=== PATIENT | female | born 1940 | race Caucasian/White ===

== ENCOUNTER → 2016-07-02 | Day surgery (SDC) | payer OTHER ==
[2016-06-17 11:38] VITALS: Ht 149.9 cm; Wt 55.5 kg
[~2016-07-02] VITALS: Ht 149.9 cm; Wt 55.5 kg
[~2016-07-02] MED LIST: 500ML BSS 0.3ML EPI 1:1000PF IRRIG ONE; ACETAMINOPHEN 325 MG TAB PO PRN; AMVISC PLUS 0.8ML SYRINGE INT OCU ONE; ATOR-24 PO; ATROPINE SULFATE 0.1 MG/ML 5ML SYR IV PRN; BROM0.07 OPL; BSS FLUSH ONE; CALCTAB5 PO; CIPR0.3S OPL; CMBIN INH; EpINEphrine INJ 1MG/ML AMP 1 MG/ML AMP ONE; FLUT1INH INH; FSMD/70 PO; HYG/25 PO; IPRASOL4 INH; LACTATED RINGER'S 1000ML 500 ML IV SCH; LEVO150T9 PO; LIDOCAINE 3.5% OPH GEL PER APPLICATION CHARGE ONE; LIDOCAINE HCL 1% MPF 2 ML VIAL ONE; LISI20TA3 PO; METH1TAB66 PO; METO-551 PO; MIDAZOLAM HCL 1 MG/ML 2ML VIAL ONE; OCUCOAT 1 ML SOLN IO ONE; OMEG10007 PO; OXGN; OXYM0.0592 NAE; POVIDONE-IODINE OP SOLN 30 ML BTL ONE; PROPARACAINE 0.5% OP SOLN PER DROP CHARGE OPL SCH; SPRIN/30 INH; TOBRAMYCIN/DEXAMETHASONE OPH OINT PER APPLN CHARGE ONE
--- NOTE | 2016-07-02 11:27 | History & Physical Bridge - [place] ---
H&P Re-Evaluation Bridge Note: I have examined the patient, reviewed the History & Physical and in the interval since the performance of the History & Physical I have noted the following changes of clinical significance: Diagnosis: Left Cataract Procedure: Left Cataract Removal with Lens Implant No changes noted
[2016-07-02] MEDS: PHENYLEPHRINE HCL 2.5% OP SOLN PER DROP CHARGE OPL SCH ×2 (11:29→11:34)
[2016-07-02] MEDS: TROPICAMIDE 1% OP SOLN PER DROP CHARGE OPL SCH ×2 (11:30→11:35)
[2016-07-02] MEDS: CYCLOPENTOLATE HCL 1% OP SOLN PER DROP CHARGE OPL SCH ×2 (11:31→11:36)
[2016-07-02] MEDS: KETOROLAC 0.5% OP SOLN PER DROP CHARGE OPL SCH ×2 (11:32→11:37)
[2016-07-02] MEDS: GATIFLOXACIN OP SOLN PER DROP CHARGE OPL SCH ×2 (11:33→11:41)
--- NOTE | 2016-07-02 12:10 | Discharge Instructions-SurgCtr ---
Discharge Instructions Date of Service Jul 02, 2016. Visit Reason for Visit: Cataract Left Eye Discharge Discharge Diagnosis / Problem: cataract Discharge Goals Goal(s): Improve function Activity Recommendations Activity Limitations: per Instructions/Follow-up section Anesthesia . Post Anesthesia Instructions: If you have had General Anesthesia or IV Sedation: * Do not drive today. * Resume driving when surgeon permits. * Do not make important decisions or sign legal documents today. * Call surgeon for: 1. Temperature elevations greater than 101 degrees F. 2. Uncontrollable pain. 3. Excessive bleeding. 4. Persistent nausea and vomiting. 5. Medication intolerance (nausea, vomiting or rash). * For nausea and vomiting use only clear liquids such as: tea, soda, bouillon until nausea subsides, then gradually increase diet as tolerated. * If you have any concerns or questions, call your surgeon's office. If physician is unavailable and it is an emergency, call 911 or go to the nearest emergency room. . Instructions / Follow-Up Instructions / Follow-Up ACTIVITY RECOMMENDATIONS: * No strenuous lifting, jogging or running for 4 days * No swimming or yard work for 1 week. * Limited bending is permitted, such as putting on shoes. RETURN TO SCHOOL/WORK: No work until seen by physician in office. MEDICATIONS: Resume previous medications unless instructed otherwise by your surgeon. This includes eye drops for glaucoma. Zymaxid/Gatifloxacin (alexander cap) - one drop every 2 hours until bedtime Nevanac/Ilevro/Prolensa/Ketorolac (nelson cap) - one drop every 4 hours until bedtime Prednisolone (white/pink cap, SHAKE WELL) - one drop every 2 hours until bedtime Starting tomorrow - all 3 drops every 4 hours until seen in the office Optive drops - as needed for discomfort SPECIAL CARE INSTRUCTIONS: * Wear eyeshield when sleeping, for four nights. * You may wear your own glasses or sunglasses while awake. * You may read or watch TV * You may shower and wash your face, but be gentle around the eye and pat dry. * Blurry vision and mild irritation are normal. * Call office if pain is more severe or vision becomes dark at . FOLLOW UP VISIT: Follow-up with Dr Webb tomorrow. Diet Recommendations Home Diet: resume previous diet Procedures Procedures Performed: Left Cataract Phacoemulsification With Intraocular Lens Implant Pending Studies Studies pending at discharge: no Medical Emergencies . Who to Call and When: Medical Emergencies: If at any time you feel your situation is an emergency, please call 911 immediately. . Non-Emergent Contact Non-Emergency issues call your: Shield Operator . . "Provider Documentation" section prepared by John Webb.
[2016-07-02 12:11] VITALS: TEMP 36.8
--- NOTE | 2016-07-02 12:11 | [facility] Operative Report ---
Operative Report Date of Service Jul 02, 2016. Operative Report 1. PREOPERATIVE DIAGNOSIS: Cataract of the left eye. 2. POSTOPERATIVE DIAGNOSIS: Same. 3. PROCEDURE: Phacoemulsification with intraocular lens implantation of the left eye. SURGEON: Dr. John Webb. ANESTHESIA: Topical Lidocaine gel, 1% Non- Preserved intracameral Lidocaine, and monitored intravenous sedation. INDICATIONS FOR THE PROCEDURE: The patient is a 75 - year-old female with a history of cataract of the left eye causing significant visual impairment. The details of the proposed procedure were explained to the patient who asked appropriate questions and following discussion of all risks, benefits and alternatives agreed to have the procedure done. 4. OPERATION AND FINDINGS: DESCRIPTION OF PROCEDURE: After informed consent was obtained, the patient was brought to the Operating Room at the [facility]. The patient was placed in a supine position and then the left eye was prepped and draped in the usual sterile fashion for intraocular surgery. A drop of topical Lidocaine gel was placed in the operative eye. A wire lid speculum was then placed in the fornices. A corneal paracentesis was then created temporally. The Non-Preserved Lidocaine was then instilled into the anterior chamber. The anterior chamber was then pressurized with viscoelastic. A 2.0 mm clear corneal incision was then created temporally. A cystotome was inserted into the anterior chamber and used to create a tear in the anterior lens capsule. This capsular tear was then used to create a small flap and the flap was dragged in a counterclockwise direction in order to create a continuous curvilinear capsulorrhexis. Hydrodissection was accomplished with balanced salt solution. Phacoemulsification of the lens nucleus was then performed in a standard [id number] technique. The phaco time was 33 seconds with an average power of 17 %. The remaining cortical material was removed using irrigation aspiration. The capsular bag was then filled with viscoelastic. A Bausch & Lomb MI60L +21.5 diopters lens was then loaded into the injector and injected into the capsular bag. The remaining viscoelastic was removed with the irrigation aspiration handpiece. The wound was hydrated and then checked and found to be watertight. The intraocular pressure was checked and found to be adequate. The wire lid speculum was removed and the patient's face was cleaned and dried. TobraDex ointment was placed in the inferior fornix. The patient was discharged to the Recovery Room having tolerated the procedure well. There were no complications. The patient will be seen tomorrow in the office for follow-up. I attest to the content of the Intraoperative Record and any orders documented therein. Any exceptions are noted below.
--- NOTE | 2016-07-02 12:14 | Anesthesia Progress Nt - [facility] ---
Anesthesia Post Op Note Date & Time Jul 02, 2016 at 12:14 Vital Signs Pain Intensity: 0 Vital Signs Past 12 Hours Date Time Temp Pulse Resp B/P Pulse Ox O2 Delivery O2 Flow Rate FiO2 07/02/16 11:29 36.9 60 16 137/81 94 Room Air Notes Mental Status: alert / awake / arousable, participated in evaluation Pt Amnestic to Procedure: Yes Nausea / Vomiting: adequately controlled Pain: adequately controlled Airway Patency, RR, SpO2: stable & adequate BP & HR: stable & adequate Hydration State: stable & adequate Anesthetic Complications: no major complications apparent
[2016-07-02 12:31] VITALS: BP 126/82; PULSE 62; O2SAT 98
== END | disposition home or self-care (01) ==
LOC: X.SURG 11:05
PROVIDERS: ATTEND Ophthalmology
DX: H26.9 Unspecified cataract (principal); J45.909 Unspecified asthma, uncomplicated; M19.90 Unspecified osteoarthritis, unspecified site; J44.9 Chronic obstructive pulmonary disease, unspecified; I10 Essential (primary) hypertension; E78.5 Hyperlipidemia, unspecified; E03.9 Hypothyroidism, unspecified; Z79.899 Other long term (current) drug therapy; Z91.040 Latex allergy status; Z68.24 Body mass index [BMI] 24.0-24.9, adult; Z98.890 Other specified postprocedural states; Z90.710 Acquired absence of both cervix and uterus; Z90.89 Acquired absence of other organs; Z90.49 Acquired absence of other specified parts of digestive tract; Z87.891 Personal history of nicotine dependence; Z82.49 Family history of ischemic heart disease and other diseases of the circulatory system; Z82.5 Family history of asthma and other chronic lower respiratory diseases

== ENCOUNTER → 2016-07-23 | Day surgery (SDC) | payer OTHER ==
[2016-07-15 13:24] VITALS: Ht 149.9 cm; Wt 55.5 kg
[~2016-07-23] VITALS: Ht 149.9 cm; Wt 55.5 kg
[~2016-07-23] MED LIST changes: -CMBIN INH; +EpHEDrine SULFATE INJ 50 MG/ML AMP IV PRN; -PROPARACAINE 0.5% OP SOLN PER DROP CHARGE OPL SCH; +PROPARACAINE 0.5% OP SOLN PER DROP CHARGE OPR SCH
[2016-07-23] MEDS: PHENYLEPHRINE HCL 2.5% OP SOLN PER DROP CHARGE OPR SCH ×2 (11:32→11:37)
[2016-07-23] MEDS: TROPICAMIDE 1% OP SOLN PER DROP CHARGE OPR SCH ×2 (11:33→11:38)
[2016-07-23] MEDS: CYCLOPENTOLATE HCL 1% OP SOLN PER DROP CHARGE OPR SCH ×2 (11:34→11:39)
[2016-07-23] MEDS: KETOROLAC 0.5% OP SOLN PER DROP CHARGE OPR SCH ×2 (11:35→11:40)
[2016-07-23] MEDS: GATIFLOXACIN OP SOLN PER DROP CHARGE OPR SCH ×2 (11:36→11:46)
--- NOTE | 2016-07-23 11:55 | History & Physical Bridge - [place] ---
H&P Re-Evaluation Bridge Note: I have examined the patient, reviewed the History & Physical and in the interval since the performance of the History & Physical I have noted the following changes of clinical significance: No changes noted
--- NOTE | 2016-07-23 12:50 | Discharge Instructions-SurgCtr ---
Discharge Instructions Date of Service Jul 23, 2016. Visit Reason for Visit: Cataract Right Eye Discharge Discharge Diagnosis / Problem: cataract Discharge Goals Goal(s): Improve function Activity Recommendations Activity Limitations: per Instructions/Follow-up section Anesthesia . Post Anesthesia Instructions: If you have had General Anesthesia or IV Sedation: * Do not drive today. * Resume driving when surgeon permits. * Do not make important decisions or sign legal documents today. * Call surgeon for: 1. Temperature elevations greater than 101 degrees F. 2. Uncontrollable pain. 3. Excessive bleeding. 4. Persistent nausea and vomiting. 5. Medication intolerance (nausea, vomiting or rash). * For nausea and vomiting use only clear liquids such as: tea, soda, bouillon until nausea subsides, then gradually increase diet as tolerated. * If you have any concerns or questions, call your surgeon's office. If physician is unavailable and it is an emergency, call 911 or go to the nearest emergency room. . Instructions / Follow-Up Instructions / Follow-Up ACTIVITY RECOMMENDATIONS: * No strenuous lifting, jogging or running for 4 days * No swimming or yard work for 1 week. * Limited bending is permitted, such as putting on shoes. RETURN TO SCHOOL/WORK: No work until seen by physician in office. MEDICATIONS: Resume previous medications unless instructed otherwise by your surgeon. This includes eye drops for glaucoma. Zymaxid/Gatifloxacin (alexander cap) - one drop every 2 hours until bedtime Nevanac/Ilevro/Prolensa/Ketorolac (nelson cap) - one drop every 4 hours until bedtime Prednisolone (white/pink cap, SHAKE WELL) - one drop every 2 hours until bedtime Starting tomorrow - all 3 drops every 4 hours until seen in the office Optive drops - as needed for discomfort SPECIAL CARE INSTRUCTIONS: * Wear eyeshield when sleeping, for four nights. * You may wear your own glasses or sunglasses while awake. * You may read or watch TV * You may shower and wash your face, but be gentle around the eye and pat dry. * Blurry vision and mild irritation are normal. * Call office if pain is more severe or vision becomes dark at . FOLLOW UP VISIT: Follow-up with Dr Webb tomorrow. Diet Recommendations Home Diet: resume previous diet Procedures Procedures Performed: Right Cataract Phacoemulsification With Intraocular Lens Implant Pending Studies Studies pending at discharge: no Medical Emergencies . Who to Call and When: Medical Emergencies: If at any time you feel your situation is an emergency, please call 911 immediately. . Non-Emergent Contact Non-Emergency issues call your: Microbiological Laboratory Technician . . "Provider Documentation" section prepared by John Webb.
--- NOTE | 2016-07-23 12:51 | [facility] Operative Report ---
Operative Report Date of Service Jul 23, 2016. Operative Report 1. PREOPERATIVE DIAGNOSIS: Cataract of the right eye. 2. POSTOPERATIVE DIAGNOSIS: Same. 3. PROCEDURE: Phacoemulsification with intraocular lens implantation of the right eye. SURGEON: Dr. John Webb. ANESTHESIA: Topical Lidocaine gel, 1% Non- Preserved intracameral Lidocaine, and monitored intravenous sedation. INDICATIONS FOR THE PROCEDURE: The patient is a 75 - year-old female with a history of cataract of the right eye causing significant visual impairment. The details of the proposed procedure were explained to the patient who asked appropriate questions and following discussion of all risks, benefits and alternatives agreed to have the procedure done. 4. OPERATION AND FINDINGS: DESCRIPTION OF PROCEDURE: After informed consent was obtained, the patient was brought to the Operating Room at the [facility]. The patient was placed in a supine position and then the right eye was prepped and draped in the usual sterile fashion for intraocular surgery. A drop of topical Lidocaine gel was placed in the operative eye. A wire lid speculum was then placed in the fornices. A corneal paracentesis was then created temporally. The Non-Preserved Lidocaine was then instilled into the anterior chamber. The anterior chamber was then pressurized with viscoelastic. A 2.0 mm clear corneal incision was then created temporally. A cystotome was inserted into the anterior chamber and used to create a tear in the anterior lens capsule. This capsular tear was then used to create a small flap and the flap was dragged in a counterclockwise direction in order to create a continuous curvilinear capsulorrhexis. Hydrodissection was accomplished with balanced salt solution. Phacoemulsification of the lens nucleus was then performed in a standard [id number] technique. The phaco time was 30 seconds with an average power of 9 %. The remaining cortical material was removed using irrigation aspiration. The capsular bag was then filled with viscoelastic. A Bausch & Lomb MI60L +21.5 diopters lens was then loaded into the injector and injected into the capsular bag. The remaining viscoelastic was removed with the irrigation aspiration handpiece. The wound was hydrated and then checked and found to be watertight. The intraocular pressure was checked and found to be adequate. The wire lid speculum was removed and the patient's face was cleaned and dried. TobraDex ointment was placed in the inferior fornix. The patient was discharged to the Recovery Room having tolerated the procedure well. There were no complications. The patient will be seen tomorrow in the office for follow-up. I attest to the content of the Intraoperative Record and any orders documented therein. Any exceptions are noted below.
[2016-07-23 12:59] VITALS: TEMP 36.6
[2016-07-23 13:19] VITALS: BP 126/80; PULSE 58; O2SAT 94
--- NOTE | 2016-07-23 13:20 | Anesthesia Progress Nt - [facility] ---
Anesthesia Post Op Note Date & Time Jul 23, 2016 at 13:19 Vital Signs Pain Intensity: 3 Vital Signs Past 12 Hours Date Time Temp Pulse Resp B/P Pulse Ox O2 Delivery O2 Flow Rate FiO2 07/23/16 12:59 36.6 60 16 125/69 97 Room Air 07/23/16 11:29 36.6 52 18 145/78 95 Room Air Notes Mental Status: alert / awake / arousable, participated in evaluation Pt Amnestic to Procedure: No Nausea / Vomiting: adequately controlled Pain: adequately controlled Airway Patency, RR, SpO2: stable & adequate BP & HR: stable & adequate Hydration State: stable & adequate Anesthetic Complications: no major complications apparent non distressing recall as discussed preop
== END | disposition home or self-care (01) ==
LOC: X.SURG 10:25
PROVIDERS: ATTEND Ophthalmology
DX: H26.9 Unspecified cataract (principal); I10 Essential (primary) hypertension; J44.9 Chronic obstructive pulmonary disease, unspecified; J45.909 Unspecified asthma, uncomplicated; E03.9 Hypothyroidism, unspecified; Z90.89 Acquired absence of other organs; G47.33 Obstructive sleep apnea (adult) (pediatric)

== ENCOUNTER 2022-11-20 13:55 | Inpatient (IN) ==
--- NOTE | 2022-11-20 15:15 | Emergency Department Note ---
Impression & Plan Closed fracture of left hip, COPD (chronic obstructive pulmonary disease), Fall ED Provider Note Provider: Anson العراقي MD DATE OF SERVICE: 11/20/2022 CHIEF COMPLAINT: Fall, left hip pain, fracture HISTORY OF PRESENT ILLNESS: Patient is a 82-year-old female history of COPD and hypertension presenting here referred from her outpatient doctor's office after an x-ray obtained last Friday was read today concerning for a left hip fracture. Patient evidently about 10 days ago while at camp tripped on a sheet that was over some furniture and fell onto her left hip and ground. States she struck her left elbow and left hip predominantly. Little bit sore in the left elbow and left knee but these are improving. Significant ongoing pain to the left hip region. Has been ambulatory at home with walker not really putting much weight on the leg and using a wheelchair they had at home. No other falls. Denies striking her head or head or neck or back pain. Denies numbness or tingling in the legs. Family state they were finally able to convince her mother to seek care and she had x-ray completed PAST MEDICAL HISTORY: As noted above MEDICATIONS: Reviewed home medication list no reported anticoagulants or antiplatelet medications SOCIAL HISTORY: Lives in a one level modular home PHYSICAL EXAM: GENERAL: alert and oriented in no acute distress on stretcher Head: normocephalic and atraumatic EYES: No injection, discharge or icterus. NECK: Trachea midline. Supple without midline cervical tenderness ENT: Mucous membranes pink and moist. LUNGS: Airway patent. No retractions. Breath sounds clear with good air entry bilaterally. HEART: Regular rate and rhythm. No chest wall tenderness ABDOMEN: Soft and non-tender, without guarding or rebound. SKIN: Acyanotic, warm, dry, with little bit of excoriation to the groin region. EXTREMITIES: Without swelling, tenderness or deformity with however pain with ROM of the left hip. Patient without significant bony tenderness of the left knee lower leg or foot. No significant tenderness of the left wrist hand or forearm. Small healing abrasion to the left elbow without significant bony tenderness. NEUROLOGICAL: No focal deficits. No aphasia. No facial droop or slurred speech. EK bpm normal sinus rhythm with sinus arrhythmia. No PVC or PAC. No acute ST segment elevation or depression QTc 432. Patient's laboratory studies and imaging reviewed. Differential includes Fracture, dislocation, neurovascular compromise, compartment syndrome, soft tissue injury, as well as other pathologies. IMPRESSION/MEDICAL DECISION MAKING: Reviewed outpatient isinger notes. Evidently tripped and fell was 10 days ago. Denies other significant head or neck trauma. Small abrasion to left elbow but no evidence compartment syndrome or deeper infection. Doubt any fracture as no significant bony tenderness to left upper extremity. Left lower extremity nontender except for some pain with ROM of the left hip. Using walker and assist around with wheelchair at home. Outpatient x-ray subcapital hip fracture and this is present on repeat film here today is been several days since this occurred. Given some morphine for pain. Discussed with her findings. Difficult pain and ambulate well discussed orthopedics. Discussed possible further care here. Will admit to the hospitalist with plan for orthopedic intervention tomorrow. Patient and family updated. Patient abdomen with mild rash to the groin region some nystatin was ordered. Avalos will be placed for comfort. Discussed with the hospitalist team. Basic blood work reassuring with some nonspecific looks that of 12.5 likely more reactive I do not see any evidence of significant infection on exam or otherwise by history. DIAGNOSIS: Left subcapital hip fracture, COPD DISPOSITION: Hospitalist will evaluate Patient was agreeable with this plan. Past Med/Surg History Medical History (Updated 11/20/22 @ 15:53 by Anson العراقي M.D.) Asthma with COPD Cough Surgical History (Updated 11/24/18 @ 14:35 by Dedra Mccurdy) H/O: hysterectomy History of appendectomy Hx of cholecystectomy Family History (Updated 11/24/18 @ 14:36 by Dedra Mccurdy) Family/Other Hypertension Asthma Cardiac disorder Social History (Updated 10/06/19 @ 09:55 by Delmis Menard) Smoking Status: Never smoker Second Hand Exposure: Yes; Preferred Language: Latvian marital status: Feels Safe at Home: Yes Seatbelt Use: always Allergies Allergies Allergy/AdvReac Type Severity Reaction Status Date / Time latex Allergy Unknown RASH Verified 03/20/22 11:55 No Known Drug Allergies Allergy Unknown . Verified 03/20/22 11:55 Home Meds Home Medications Medication Instructions Recorded Confirmed atorvastatin 40 mg tablet 40 mg PO HS #90 tabs 11/24/18 11/20/22 sodium chloride 0.65 % nasal spray 1 spray intranasal .USE 11/24/18 11/20/22 aerosol DIRECTED. PRN NASAL DRYNESS calcium carbonate 600 mg-vitamin 1 tab PO AMPM 02/24/19 11/20/22 D3 10 mcg (400 unit) chewable tablet (Calcium 600 with Vitamin D3) amlodipine 5 mg tablet 5 mg PO DAILY #90 tabs 10/23/20 11/20/22 chlorthalidone 25 mg tablet 25 mg PO DAILY 10/23/20 11/20/22 omeprazole 20 mg capsule,delayed 20 mg PO DAILY PRN Gi Upset 10/23/20 11/20/22 release levothyroxine 137 mcg tablet 137 mcg PO DAILYBB 10/30/21 11/20/22 calcium carbonate 500 mg calcium 500 mg PO 4XD PRN Gi Upset 11/20/22 11/20/22 (1,250 mg) chewable tablet gabapentin 100 mg capsule 100 mg PO HS 11/20/22 11/20/22 lisinopril 20 mg tablet 20 mg PO QAM 11/20/22 11/20/22 metoprolol tartrate 50 mg tablet 50 mg PO BID 11/20/22 11/20/22 Previous Rx's Medication Instructions Recorded budesonide 0.5 mg/2 mL suspension 0.5 mg (2 mL) inhalation BID #360 11/23/21 for nebulization mL ipratropium 0.5 mg-albuterol 3 mg 3 ml inhalation QID #120 vials 02/19/22 (2.5 mg base)/3 mL nebulization soln Oxygen Home #1 ea 04/22/22 compressor, for nebulizer #1 ea 04/22/22 albuterol sulfate 2.5 mg/3 mL 2.5 mg (3 mL) inhalation QID #360 08/12/22 (0.083 %) solution for nebulization mL ipratropium bromide 0.02 % 2.5 ml inhalation QID shortness of 08/12/22 solution for inhalation breath or wheezing #300 mL nebulizer accessories #1 ea 08/15/22 umeclidinium 62.5 mcg-vilanterol 1 inh inhalation DAILY #180 ea 08/20/22 25 mcg/actuation powdr for inhalation (Anoro Ellipta) Results & Data (ED) Vital Signs Vital Signs - 24 hr 11/20/22 13:59 11/20/22 15:37 11/20/22 15:59 Temperature 36.8 C Temperature Source Temporal Artery Scan Pulse Rate 71 65 Pulse Rate from SpO2 Sensor 66 Respiratory Rate 16 16 Respiratory Effort / Characteristics Non-Labored Respiratory Depth Normal Blood Pressure 155/84 H 156/88 H Blood Pressure Mean 107 105 Pulse Oximetry 93 95 Oxygen Delivery Method Room Air Sepsis Recent Fever Within 48 Hours No Sepsis New/Unexplained Change in Mental Status No Sepsis Action Taken by Nursing No Action Required 11/20/22 15:59 11/20/22 16:00 11/20/22 16:00 Temperature Temperature Source Pulse Rate 62 64 Pulse Rate from SpO2 Sensor Respiratory Rate 19 16 Respiratory Effort / Characteristics Respiratory Depth Blood Pressure 151/77 H Blood Pressure Mean 112 Pulse Oximetry Oxygen Delivery Method Sepsis Recent Fever Within 48 Hours Sepsis New/Unexplained Change in Mental Status Sepsis Action Taken by Nursing 11/20/22 16:48 11/20/22 16:30 Temperature Temperature Source Pulse Rate 61 60 Pulse Rate from SpO2 Sensor Respiratory Rate 16 Respiratory Effort / Characteristics Respiratory Depth Blood Pressure Blood Pressure Mean Pulse Oximetry Oxygen Delivery Method Sepsis Recent Fever Within 48 Hours Sepsis New/Unexplained Change in Mental Status Sepsis Action Taken by Nursing Laboratory Data 11/20/22 15:30 11/20/22 15:30 Lab Results 11/20/22 11/20/22 11/20/22 Range/Units 15:30 15:30 15:50 WBC 12.54 H (4.8-10.8) K/ul RBC 4.82 (4.20-5.40) M/uL Hgb 14.5 (12.0-16.0) g/dl Hct 44.4 (37.0-47.0) % MCV 92.1 (80.0-100.0) fL MCH 30.1 (25.0-34.0) pg MCHC 32.7 (32.0-36.0) g/dL RDW Std Deviation 45.7 (36.4-46.3) fL RDW Coeff of Markie 13.7 (11.5-14.5) % Plt Count 238 (130-400) K/uL MPV 10.6 (9.4-12.4) fL Immature Gran % (Auto) 0.6 % Neut % (Auto) 68.7 % Lymph % (Auto) 20.4 % Gillespie % (Auto) 8.7 % Eos % (Auto) 1.2 % Baso % (Auto) 0.4 % Neut # (Auto) 8.62 H (1.40-6.50) K/uL Lymph # (Auto) 2.56 (1.2-3.4) K/uL Gillespie # (Auto) 1.09 H (0.11-0.59) K/uL Eos # (Auto) 0.15 (0-0.50) K/uL Baso # (Auto) 0.05 (0-0.2) K/uL Immature Gran # (Auto) 0.07 (0.01-0.20) K/uL Sodium 139 (136-145) mmol/L Potassium 4.1 (3.5-5.1) mmol/L Chloride 100 (98-107) mmol/L Carbon Dioxide 32 (21-32) mmol/L Anion Gap 7 (3-11) BUN 25 H (6-23) mg/dl Creatinine 0.60 (0.6-1.2) mg/dl Est Cr Clr Drug Dosing Not Reportable Est GFR ( Amer) 99.1 ml/min Est GFR (Non-Af Amer) 85.5 ml/min BUN/Creatinine Ratio 41.7 H (10-20) Glucose 88 (70-99(Fasting)) mg/dl Calcium 9.9 (8.6-10.3) mg/dl Total Bilirubin 0.4 (0.2-1.0) mg/dl AST 24 (13-39) U/L ALT 18 (7-52) U/L Alkaline Phosphatase 68 (34-104) U/L Total Protein 8.1 (6.0-8.3) gm/dl Albumin 4.5 (3.4-5.0) gm/dl Globulin 3.6 (2.5-4.0) gm/dl Albumin/Globulin Ratio 1.3 (0.9-2) SARS-CoV-2, RNA, NAAT NEGATIVE (NEGATIVE) Administered Medications Discontinued Medications Albuterol (Albut/Ipratrop 3mg/0.5mg Neb 3 Ml Vial) 3 ml NEB NOW STA; Protocol Stop: 11/20/22 17:04 Last Admin: 11/20/22 17:12 Dose: 3 ml Documented By: ESTELLA Morphine Sulfate (Morphine Sulfate 4 Mg/Ml 1 Ml Carp\Vial) 4 mg IV NOW STA Stop: 11/20/22 15:18 Last Admin: 11/20/22 15:34 Dose: 4 mg Documented By: DS Imaging Data Radiologist's Impression: Hip/Pelvis X-Ray 11/20/22 14:37 SINGLE VIEW PELVIS; 2 VIEWS LEFT HIP CLINICAL HISTORY: Fall. Left hip injury. FINDINGS: An AP view of the pelvis with AP and crosstable lateral views of the left hip are obtained. No prior studies are available for comparison at the time of dictation. The skeletal structures are osteopenic. There is an impacted and mildly offset subcapital fracture of the left proximal femur with overlying soft tissue edema. No additional acute fracture is seen involving the right hip or the bony pelvis. Mild arthritic change and joint space narrowing is seen in the hips. There is mild degenerative sclerosis of the sacroiliac joints. Lumbosacral spondylosis is partially imaged. There is atherosclerotic calcification of the femoral arteries. Phleboliths are noted in the pelvis. IMPRESSION: Impacted subcapital fracture of the left proximal femur. Electronically signed by: Edson Guevara M.D. 11/20/2022 3:29 PM Chest X-Ray 11/20/22 15:34 XR chest 1V portable CLINICAL HISTORY: fall TECHNIQUE: Single frontal radiograph of the chest was obtained. Comparison: Comparison is made to chest radiograph 11/26/2018 FINDINGS: No lines and tubes are seen. Calcified aortic knob is seen. A moderate to large hiatal hernia is seen. No evidence of pleural effusion or pneumothorax. IMPRESSION: No acute chest disease. ACT 112: Negative or not required by law. Electronically signed by: Rashi Dias M.D. 11/20/2022 4:05 PM Discharge Plan Visit Data Chief Complaint: Hip Pain Stated Complaint: FALL 10 DAYS AGO,HIP PAIN,FRACTURED HIP,DOC REF ED Provider: Anson العراقي Discharge Problem: Closed fracture of left hip, COPD (chronic obstructive pulmonary disease), Fall Patient Disposition: Being Evaluated by Hospitalist Forms Stand Alone Forms: My [facility] Prescriptions Prescriptions: No Action budesonide 0.5 mg/2 mL suspension for nebulization 0.5 mg INH BID Qty: 360 1RF ipratropium-albuterol 0.5 mg-3 mg(2.5 mg base)/3 mL solution for nebulization 3 ml INH QID Qty: 120 5RF Hold Instructions: on back order Rx Instructions: 120 vials ( 360 ml) QID (DME) Oxygen Home Liters Per Minute See Dose Instructions .ROUTE .MEDSUPPLY Qty: 1 0RF Rx Instructions: 3LPM O2 during sleep (DME) compressor, for nebulizer Device See Rx Instructions .Route Qty: 1 0RF Rx Instructions: As directed ipratropium bromide 0.02 % solution 2.5 ml inhalation QID Qty: 300 2RF albuterol sulfate 2.5 mg /3 mL (0.083 %) solution for nebulization 2.5 mg inhalation QID Qty: 360 2RF (DME) nebulizer accessories Kit See Rx Instructions .Route Qty: 1 6RF Rx Instructions: Nebulizer kits,tubing and [id number]-[id number] Anoro Ellipta 62.5-25 mcg/actuation blister with device 1 inh inhalation DAILY Qty: 180 3RF Calcium 600 with Vitamin D3 600 mg(1,500mg) -400 unit tablet,chewable 1 tab PO AMPM levothyroxine 137 mcg tablet 137 mcg PO DAILYBB amlodipine 5 mg tablet 5 mg PO DAILY Qty: 90 chlorthalidone 25 mg tablet 25 mg PO DAILY omeprazole 20 mg capsule,delayed release(DR/EC) 20 mg PO DAILY PRN (Reason: Gi Upset) sodium chloride 0.65 % aerosol,spray 1 spray intranasal .USE DIRECTED. PRN (Reason: NASAL DRYNESS) atorvastatin 40 mg tablet 40 mg PO HS Qty: 90 lisinopril 20 mg tablet 20 mg PO QAM metoprolol tartrate 50 mg tablet 50 mg PO BID gabapentin 100 mg capsule 100 mg PO HS calcium carbonate [Tums 500] 500 mg calcium (1,250 mg) Tablet,Chewable 500 mg PO 4XD PRN (Reason: Gi Upset) Referrals Referrals: Bao Carmen MD [Primary Care Provider] - Closed fracture of left hip Qualifiers: Encounter type: initial encounter Qualified Code(s): S72.002A - Fracture of unspecified part of neck of left femur, initial encounter for closed fracture
[2022-11-20] MEDS ORDERED: MoRPHine SULFATE 4 MG/ML 1 ML CARP\\VIAL IV STA ×2 (15:17→19:23)
--- NOTE | 2022-11-20 15:30 | XRay Report ---
SINGLE VIEW PELVIS; 2 VIEWS LEFT HIP CLINICAL HISTORY: Fall. Left hip injury. FINDINGS: An AP view of the pelvis with AP and crosstable lateral views of the left hip are obtained. No prior studies are available for comparison at the time of dictation. The skeletal structures are osteopenic. There is an impacted and mildly offset subcapital fracture of the left proximal femur wit h overlying soft tissue edema. No additional acute fracture is seen involving the right hip or the nel ny pelvis. Mild arthritic change and joint space narrowing is seen in the hips. There is mild degener ative sclerosis of the sacroiliac joints. Lumbosacral spondylosis is partially imaged. There is ather osclerotic calcification of the femoral arteries. Phleboliths are noted in the pelvis. IMPRESSION: Impacted subcapital fracture of the left proximal femur. Electronically signed by: Edson Guevara M.D. 11/20/2022 3:29 PM
[2022-11-20] MEDS ORDERED: NYSTATIN POWDER 15GM BTL EXT PRN (15:52)
[2022-11-20 16:04] LABS: Basophils # (auto) 0.05 K/uL (0-0.2); Basophils % (auto) 0.4 %; Eosinophils # (auto) 0.15 K/uL (0-0.50); Eosinophils % (auto) 1.2 %; Hematocrit (blood only) 44.4 % (37.0-47.0); Hemoglobin 14.5 g/dl (12.0-16.0); Immature Granulocytes # (auto) 0.07 K/uL (0.01-0.20); Immature Granulocytes % (auto) 0.6 %; Lymphocytes # (auto) 2.56 K/uL (1.2-3.4); Lymphocytes % (auto) 20.4 %; Mean Corpuscular Hemoglobin 30.1 pg (25.0-34.0); Mean Corpuscular Hgb Conc 32.7 g/dL (32.0-36.0); Mean Corpuscular Volume 92.1 fL (80.0-100.0); Mean Platelet Volume 10.6 fL (9.4-12.4); Monocytes # (auto) 1.09 K/uL (0.11-0.59); Monocytes % (auto) 8.7 %; Neutrophils # (auto) 8.62 K/uL (1.40-6.50); Neutrophils % (auto) 68.7 %; Platelet Count 238 K/uL (130-400); RDW Coefficient of Variation 13.7 % (11.5-14.5); RDW Standard Deviation 45.7 fL (36.4-46.3); Red Blood Count 4.82 M/uL (4.20-5.40); White Blood Count 12.54 K/ul (4.8-10.8)
[2022-11-20 16:06] LABS: Alanine Aminotransferase 18 U/L (7-52); Albumin Globulin Ratio 1.3 (0.9-2); Albumin Level 4.5 gm/dl (3.4-5.0); Alkaline Phosphatase 68 U/L (34-104); Anion Gap 7 (3-11); Aspartate Aminotransferase 24 U/L (13-39); BUN Creatinine Ratio 41.7 (10-20); Bilirubin,Total 0.4 mg/dl (0.2-1.0); Blood Urea Nitrogen 25 mg/dl (6-23); Calcium 9.9 mg/dl (8.6-10.3); Carbon Dioxide 32 mmol/L (21-32); Chloride 100 mmol/L (98-107); Est GFR (African American) 99.1 ml/min; Est GFR (Non-African American) 85.5 ml/min; Globulin 3.6 gm/dl (2.5-4.0); Glucose 88 mg/dl (70-99(Fasting)); Potassium 4.1 mmol/L (3.5-5.1); Sodium 139 mmol/L (136-145); Total Protein 8.1 gm/dl (6.0-8.3)
--- NOTE | 2022-11-20 16:06 | XRay Report ---
XR chest 1V portable CLINICAL HISTORY: fall TECHNIQUE: Single frontal radiograph of the chest was obtained. Comparison: Comparison is made to chest radiograph 11/26/2018 FINDINGS: No lines and tubes are seen. Calcified aortic knob is seen. A moderate to large hiatal hernia is seen . No evidence of pleural effusion or pneumothorax. IMPRESSION: No acute chest disease. ACT 112: Negative or not required by law. Electronically signed by: Rashi Dias M.D. 11/20/2022 4:05 PM
--- NOTE | 2022-11-20 16:14 | History & Physical Report ---
Date of Service November 20, 2022 Assessment & Plan (1) Fracture of femur, subcapital, left, closed: Plan: Patient is 82 y/o F with PMH HTN, dyslipidemia, asthma, COPD on 3L O2 HS and as needed, hypothyroidism, GERD presented to ER with c/o mechanical fall and left hip pain x 10 days. Hip Xray: Impacted subcapital fracture of the left proximal femur Bed rest Pain control with Tylenol, oxycodone, morphine NPO Midnight Ortho consult. Dr Serrano plans to take to OR tomorrow Revised cardiac risk index for pre-op risk: 3.9% 30-day risk of TN, , cardiac arrest Further PT/OT eval to be determined (2) Asthma-COPD overlap syndrome: (3) Supplemental oxygen dependent: Plan: 3L Oxygen HS and prn No signs current exacerbation Continue supplemental oxygen Continue home inhalers Nebs prn (4) Urinary frequency: Plan: reported urinary frequency x 3 weeks UA unremarkable Has mcallister in place secondary to hip fracture If symptoms continue or worsens may need to consider further workup (5) Hypertension: Plan: Stable Continue amlodipine, metoprolol tartrate Hold lisinopril and chlorthalidone tomorrow morning in preparation for surgery, plan to resume on POD#1 (6) Hyperlipidemia: Plan: Continue atorvastatin (7) GERD (gastroesophageal reflux disease): Plan: Continue PPI (8) Hypothyroidism: Plan: Continue levothyroxine DVT Prophylaxis SCDs Full Code as per discussion with pt Follows with Dr Carmen for routine care Pt was seen and care coordinated with Dr Pelletier. See addendum I spent a total of 70 minutes reviewing notes, outpatient records, labs, medication, coordinating, documenting and providing care for this patient excluding time spent in the performance of separately billed services. History of Present Illness Chief Complaint: Fall, hip pain Primary Care Provider: Bao Carmen MD Patient is 82 y/o F with PMH HTN, dyslipidemia, asthma, COPD on 3L O2 HS and as needed, hypothyroidism, GERD presented to ER with c/o fall 10 days ago and left hip pain. History obtained from patient and patient's daughter as well as outpatient review. States 10 days ago making bed and foot got caught in sheet causing her to fall onto left side. Reports instant pain to left hip and was unable to stand. Family lifted patient into chair. Patient states hasn't been able to bear weight on left leg since fall and has been using wheelchair. She also c/o left knee pain, left great toe pain. She states has been using Tylenol once daily and using Voltaren gel with limited relief. Seen in PCP's office 11/15/22 and had outpatient xrays. Was notified today of abnormal xray and referred to ER. Patient reports urinary frequency x 3 weeks. Denies dysuria, or hematuria. States lower abdomen feels full like her bladder is full. Has been using OTC AZO. Denies fever/chills, diaphoresis, N/V/D/C, BLANCAS, dizziness, syncope, vision changes, neck pain, CP, SOB, palpitations, cough, sore throat, rhinorrhea, abdominal pain, paresthesias, weakness, extremity edema, rashes. Allergies Allergy/AdvReac Type Severity Reaction Status Date / Time latex Allergy Unknown RASH Verified 03/20/22 11:55 No Known Drug Allergies Allergy Unknown . Verified 03/20/22 11:55 Home Medications Medication Instructions Recorded Confirmed Type atorvastatin 40 mg tablet 40 mg PO HS #90 tabs 11/24/18 11/20/22 History sodium chloride 0.65 % nasal spray 1 spray intranasal .USE 11/24/18 11/20/22 History aerosol DIRECTED. PRN NASAL DRYNESS calcium carbonate 600 mg-vitamin 1 tab PO AMPM 02/24/19 11/20/22 History D3 10 mcg (400 unit) chewable tablet (Calcium 600 with Vitamin D3) amlodipine 5 mg tablet 5 mg PO DAILY #90 tabs 10/23/20 11/20/22 History chlorthalidone 25 mg tablet 25 mg PO DAILY 10/23/20 11/20/22 History omeprazole 20 mg capsule,delayed 20 mg PO DAILY PRN Gi Upset 10/23/20 11/20/22 History release levothyroxine 137 mcg tablet 137 mcg PO DAILYBB 10/30/21 11/20/22 History Oxygen Home #1 ea 04/22/22 Rx compressor, for nebulizer #1 ea 04/22/22 Rx nebulizer accessories #1 ea 08/15/22 Rx umeclidinium 62.5 mcg-vilanterol 1 inh inhalation DAILY #180 ea 08/20/22 11/20/22 Rx 25 mcg/actuation powdr for inhalation (Anoro Ellipta) albuterol sulfate 2.5 mg/3 mL 2.5 mg inhalation QID PRN 11/20/22 11/20/22 History (0.083 %) solution for nebulization Shortness Of Breath Or Wheezing aspirin 81 mg capsule 81 mg PO DAILY 11/20/22 11/20/22 History calcium carbonate 500 mg calcium 500 mg PO 4XD PRN Gi Upset 11/20/22 11/20/22 History (1,250 mg) chewable tablet gabapentin 100 mg capsule 100 mg PO HS 11/20/22 11/20/22 History guaifenesin 600 mg tablet, 600 mg PO Q12H PRN Congestion 11/20/22 11/20/22 History extended release 12 hr (Mucinex) ipratropium 0.5 mg-albuterol 3 mg 3 ml inhalation Q4H PRN Shortness 11/20/22 11/20/22 History (2.5 mg base)/3 mL nebulization Of Breath Or Wheezing soln lisinopril 20 mg tablet 20 mg PO QAM 11/20/22 11/20/22 History metoprolol tartrate 50 mg tablet 50 mg PO BID 11/20/22 11/20/22 History Past Med/Surg History Medical History (Updated 11/20/22 @ 21:01 by Rosette Ring PA-C) Abnormal finding on imaging Asthma with COPD Asthma-COPD overlap syndrome Benign neoplasm of colon Chronic rhinitis Chronic sinusitis COPD (chronic obstructive pulmonary disease) Cough GERD (gastroesophageal reflux disease) Hyperlipidemia Hypertension Hypothyroidism Hypoxia Post-menopausal atrophic vaginitis Rosacea Senile osteoporosis Subclavian artery stenosis, left Supplemental oxygen dependent Surgical History H/O: hysterectomy History of appendectomy Hx of cholecystectomy Family History Family/Other Hypertension Asthma Cardiac disorder Social History Smoking Status: Former smoker Second Hand Exposure: Yes; Hx Alcohol Use: Yes Alcohol Intake Frequency: Monthly or Less Hx Substance Use: No Preferred Language: Jordanian marital status: Feels Safe at Home: Yes Seatbelt Use: always Review of Systems Review of Systems: All systems reviewed & are unremarkable except as noted in HPI & below Physical Exam Physical Exam: General: no acute distress, WDWN Head: normocephalic, atraumatic Eyes: conjunctiva non-injected, anicteric ENT: normal inspection external ears, nose, mucous membranes moist Neck: supple, trachea midline Lungs: clear, no respiratory distress, no wheezing/rhonchi/rales CV: RRR, no murmur, no pretibial edema Abd: normal BS, soft, +tender to palpation suprapubic region Ext: no cyanosis, no erythema; LLE: +tenderness to palpation anterior/lateral hip. Pt laying left lateral decubitus with hip and knee flexed in position of comfort, patient actively extends and flexes knee and ankle, No further ROM attempted secondary to fracture. distal pulses intact, sensation to light touch intact Neuro: A&O x 3, no focal deficits noted, normal affect Skin: warm, dry Results & Data Results & Data Vital Signs (Past 12 Hours) Vital Signs Temp Pulse Resp BP Pulse Ox O2 Del Method 11/20/22 16:00 64 16 11/20/22 16:00 151/77 H 11/20/22 15:59 62 19 11/20/22 15:59 156/88 H 11/20/22 15:37 65 16 95 11/20/22 13:59 36.8 C 71 16 155/84 H 93 Room Air Laboratory Results Short CBC 11/20/22 Range/Units 15:30 WBC 12.54 H (4.8-10.8) K/ul Hgb 14.5 (12.0-16.0) g/dl Hct 44.4 (37.0-47.0) % Plt Count 238 (130-400) K/uL BMP 11/20/22 15:30 Sodium 139 Potassium 4.1 Chloride 100 Carbon Dioxide 32 BUN 25 H Creatinine 0.60 Glucose 88 Calcium 9.9 Liver Function 11/20/22 Range/Units 15:30 Total Bilirubin 0.4 (0.2-1.0) mg/dl AST 24 (13-39) U/L ALT 18 (7-52) U/L Alkaline Phosphatase 68 (34-104) U/L Albumin 4.5 (3.4-5.0) gm/dl Urine 11/20/22 Range/Units 17:22 Urine Color Yellow Urine Appearance Clear (Clear) Urine pH 6.5 (4.5-7.5) Ur Specific [place] 1.006 (1.000-1.030) Urine Protein Negative (Negative) Urine Glucose (UA) Negative (Negative) Diagnostic Findings Hip/Pelvis X-Ray 11/20/22 14:37 SINGLE VIEW PELVIS; 2 VIEWS LEFT HIP CLINICAL HISTORY: Fall. Left hip injury. FINDINGS: An AP view of the pelvis with AP and crosstable lateral views of the left hip are obtained. No prior studies are available for comparison at the time of dictation. The skeletal structures are osteopenic. There is an impacted and mildly offset subcapital fracture of the left proximal femur with overlying soft tissue edema. No additional acute fracture is seen involving the right hip or the bony pelvis. Mild arthritic change and joint space narrowing is seen in the hips. There is mild degenerative sclerosis of the sacroiliac joints. Lumbosacral spondylosis is partially imaged. There is atherosclerotic calcification of the femoral arteries. Phleboliths are noted in the pelvis. IMPRESSION: Impacted subcapital fracture of the left proximal femur. Electronically signed by: Edson Guevara M.D. 11/20/2022 3:29 PM Chest X-Ray 11/20/22 15:34 XR chest 1V portable CLINICAL HISTORY: fall TECHNIQUE: Single frontal radiograph of the chest was obtained. Comparison: Comparison is made to chest radiograph 11/26/2018 FINDINGS: No lines and tubes are seen. Calcified aortic knob is seen. A moderate to large hiatal hernia is seen. No evidence of pleural effusion or pneumothorax. IMPRESSION: No acute chest disease. ACT 112: Negative or not required by law. Electronically signed by: Rashi Dias M.D. 11/20/2022 4:05 PM ECG Additional Comments: EKG reviewed, rate 62, sinus rhythm. no significant ST changes noted Supervising Physician Co-Signing Physician Notes I have seen and examined the patient and have discussed the case with the provider above. I agree with the assessment and plan as stated. 82 yo F with COPD presents with left hip pain after a mechanical fall ten days ago. She is improved after some morphine today. Workup reveals an impacted subcapital fracture of the left proximal femur. She reports some urinary urgency which is new along with suprapubic tenderness. She reports taking Azo over the counter for the last few days. Mcallister catheter was placed here in the ER for comfort. UA negative. CBC and BMP reviewed and unremarkable aside from a mild leukocytosis 12K. She is thin and elderly but in NAD. She is mentating clearly. Daughter is at bedside and assists with the history. Abdomen is soft, ND and TTP in suprapubic area describing "it feels like I have to pee" when I palpate. She has an intertriginous rash in her groin. CV exam reveals S1/2 heard without murmurs and regular rate and rhythm. 1. Osteoporotic related left hip fracture after mechanical fall 2. COPD, chronic, stable. 3. Intertrigo, groin Admit to medicine for perioperative management of hip fracture. Orthopedics is consulted and planning for surgical repair tomorrow. COPD appears stable without wheezing and she is oxygenating well on room air. Reports using supplemental oxygen at night or when sleeping so would consider this intraoperatively and post op. Denies chest pain or other symptoms in recent months. Good functional status including walking up and down stairs daily. Ambulates independently and very functional. Denies any h/o poor reaction to anesthesia in the past. Denies any h/o blood clots in herself or her family. Would hold post operative antihypertensives as a precaution tomorrow. She takes aspirin for primary prevention of CAD, will hold. EKG reviewed and reveals SR wtih sinus arrhythmia 62bpm with no evidence of heart block or ST changes that would suggest ischemia. Nondiabetic with normal renal function. Recommend proceeding to surgery with no further workup. Cont perioperative beta-cassidy, standard DVT prophylaxis, consider holding antihypertensives post-operatively. DO Prabhu
[2022-11-20] MEDS ORDERED: ALBUT/IPRATROP 3MG/0.5MG NEB 3 ML VIAL NEB STA (17:03)
[2022-11-20 17:32] LABS: Appearance Urine Clear (Clear); Bilirubin Urine Negative (Negative); Blood Urine Negative (Negative); Color Urine Yellow; Glucose Urine UA Negative (Negative); Ketones Urine Negative (Negative); Leukocyte Esterase Urine Negative (Negative); Nitrite Urine Negative (Negative); Protein Urine Negative (Negative); Specific Gravity Urine 1.006 (1.000-1.030); Urobilinogen Urine Negative (Negative); pH Urine 6.5 (4.5-7.5)
--- NOTE | 2022-11-20 17:38 | Anesthesiology Consultation ---
Date of Service November 20, 2022 Assessment & Plan Chart Review Chart Review: Patient NOT seen in Pre Admission Testing Consults Requested none History Surgery Operation Date: 11/21/22 14:05 Proposed Procedures p Left Hip Percutaneous Screw Fracture - Noel Serrano DO Allergies Allergy/AdvReac Type Severity Reaction Status Date / Time latex Allergy Unknown RASH Verified 03/20/22 11:55 No Known Drug Allergies Allergy Unknown . Verified 03/20/22 11:55 Medications Home Medications Medication Instructions Recorded Confirmed Last Taken atorvastatin 40 mg tablet 40 mg PO HS #90 tabs 11/24/18 11/20/22 Unknown sodium chloride 0.65 % nasal spray 1 spray intranasal .USE 11/24/18 11/20/22 Unknown aerosol DIRECTED. PRN NASAL DRYNESS calcium carbonate 600 mg-vitamin 1 tab PO AMPM 02/24/19 11/20/22 Unknown D3 10 mcg (400 unit) chewable tablet (Calcium 600 with Vitamin D3) amlodipine 5 mg tablet 5 mg PO DAILY #90 tabs 10/23/20 11/20/22 Unknown chlorthalidone 25 mg tablet 25 mg PO DAILY 10/23/20 11/20/22 Unknown omeprazole 20 mg capsule,delayed 20 mg PO DAILY PRN Gi Upset 10/23/20 11/20/22 Unknown release levothyroxine 137 mcg tablet 137 mcg PO DAILYBB 10/30/21 11/20/22 Unknown Oxygen Home #1 ea 04/22/22 Unknown compressor, for nebulizer #1 ea 04/22/22 Unknown nebulizer accessories #1 ea 08/15/22 Unknown umeclidinium 62.5 mcg-vilanterol 1 inh inhalation DAILY #180 ea 08/20/22 11/20/22 Unknown 25 mcg/actuation powdr for inhalation (Anoro Ellipta) albuterol sulfate 2.5 mg/3 mL 2.5 mg inhalation QID PRN 11/20/22 11/20/22 Unknown (0.083 %) solution for nebulization Shortness Of Breath Or Wheezing calcium carbonate 500 mg calcium 500 mg PO 4XD PRN Gi Upset 11/20/22 11/20/22 Unknown (1,250 mg) chewable tablet gabapentin 100 mg capsule 100 mg PO HS 11/20/22 11/20/22 Unknown guaifenesin 600 mg tablet, 600 mg PO Q12H PRN Congestion 11/20/22 11/20/22 Unknown extended release 12 hr (Mucinex) ipratropium 0.5 mg-albuterol 3 mg 3 ml inhalation Q4H PRN Shortness 11/20/22 11/20/22 Unknown (2.5 mg base)/3 mL nebulization Of Breath Or Wheezing soln ipratropium bromide 0.02 % 2.5 ml inhalation QID PRN 11/20/22 11/20/22 Unknown solution for inhalation Shortness Of Breath Or Wheezing lisinopril 20 mg tablet 20 mg PO QAM 11/20/22 11/20/22 Unknown metoprolol tartrate 50 mg tablet 50 mg PO BID 11/20/22 11/20/22 Unknown Past Medical History Medical History (Updated 11/20/22 @ 17:38 by Arabella Junior DO) Abnormal finding on imaging Asthma with COPD Asthma-COPD overlap syndrome Benign neoplasm of colon Chronic rhinitis Chronic sinusitis COPD (chronic obstructive pulmonary disease) Cough GERD (gastroesophageal reflux disease) Hyperlipidemia Hypertension Hypoxia Post-menopausal atrophic vaginitis Rosacea Senile osteoporosis Subclavian artery stenosis, left Supplemental oxygen dependent Past Family History Family History Family/Other Hypertension Asthma Cardiac disorder Past Surgical History Surgical History H/O: hysterectomy History of appendectomy Hx of cholecystectomy Social History Smoking Status: Former smoker Hx Alcohol Use: Yes Hx Substance Use: No Physical Exam Vital Signs Last Vital Signs Temp 36.8 C 11/20/22 13:59 Pulse 65 11/20/22 17:24 Resp 18 11/20/22 17:24 BP 159/95 H 11/20/22 17:24 Pulse Ox 98 11/20/22 17:24 O2 Del Method Room Air 11/20/22 17:24 Testing Laboratory Results 11/20/22 15:30 11/20/22 15:30 Electrocardiogram Date: 11/20/22 Findings: + NSR @ (62) Chest X-Ray Date: 11/20/22 Findings: + NAD Pulmonary Function Test Date: 06/21/19 Findings: + FEV1 pre (0.71), + FEV1 post (0.89) and + responds to Bronchodilators severe air flow obstruction with sig bronchodil response. NL lung volumes and reduced DLCO
--- NOTE | 2022-11-20 17:55 | Communication Note ---
Date of Service: November 20, 2022 ATTENDING ADDENDUM TO H&P: 82 yo F with COPD presents with left hip pain after a mechanical fall ten days ago. She is improved after some morphine today. Workup reveals an impacted subcapital fracture of the left proximal femur. She reports some urinary urgency which is new along with suprapubic tenderness. She reports taking Azo over the counter for the last few days. Avalos catheter was placed here in the ER for comfort. UA negative. CBC and BMP reviewed and unremarkable aside from a mild leukocytosis 12K. She is thin and elderly but in NAD. She is mentating clearly. Daughter is at bedside and assists with the history. Abdomen is soft, ND and TTP in suprapubic area describing "it feels like I have to pee" when I palpate. She has an intertriginous rash in her groin. CV exam reveals S1/2 heard without murmurs and regular rate and rhythm. 1. Osteoporotic related left hip fracture after mechanical fall 2. COPD, chronic, stable. 3. Intertrigo, groin Admit to medicine for perioperative management of hip fracture. Orthopedics is consulted and planning for surgical repair tomorrow. COPD appears stable without wheezing and she is oxygenating well on room air. Reports using supplemental oxygen at night or when sleeping so would consider this intraoperatively and post op. Denies chest pain or other symptoms in recent mo nths. Good functional status including walking up and down stairs daily. Ambulates independently and very functional. Denies any h/o poor reaction to anesthesia in the past. Denies any h/o blood clots in herself or her family. Would hold post operative antihypertensives as a precaution tomorrow. She takes aspirin for primary prevention of CAD, will hold. EKG reviewed and reveals SR wtih sinus arrhythmia 62bpm with no evidence of heart block or ST changes that would suggest ischemia. Nondiabetic with normal renal function. Recommend proceeding to surgery with no further workup. Cont perioperative beta-cassidy, standard DVT prophylaxis, consider holding antihypertensives post-operatively. DO Prabhu
--- NOTE | 2022-11-20 18:06 | Electrocardiogram Report ---
Test Reason : Blood Pressure : / mmHG Vent. Rate : 062 BPM Atrial Rate : 062 BPM P-R Int : 136 ms QRS Dur : 074 ms QT Int : 426 ms P-R-T Axes : 084 047 080 degrees QTc Int : 432 ms Normal sinus rhythm with sinus arrhythmia Normal ECG When compared with ECG of 08-MAR-2012 06:44, T wave inversion no longer evident in Lateral leads Confirmed by Daryl Salazar ([id number]) on 11/20/2022 6:05:46 PM Referred By: Bao Carmen Confirmed By:Jayesh Salazar
--- NOTE | 2022-11-20 19:09 | Orthopedic Consultation ---
Date of Service November 20, 2022 Assessment & Plan (1) Closed fracture of left hip: I described the diagnosis as well as treatment options with her and her daughter at bedside. I recommended percutaneous screw fixation of her left hip. They understand the risk, benefits, and alternatives to procedure elected proceed. Questions were answered at bedside. Time was spent scribing the procedure and post expectations. Will keep her n.p.o. past midnight tonight. Will plan to do the procedure tomorrow afternoon. History of Present Illness Reason for Consultation: Valgus impacted left femoral neck fracture. Requesting Physician: . Rakan is a pleasant 82-year-old female who lives with her son. At baseline she is independent ambulator without assistance. She had a fall about 7 to 10 days ago. She has been having hip pain. She been able to walk on it some. She has been using a wheelchair a little bit. She finally came to the emergency room. X-rays have shown a valgus impacted left femoral neck fracture. She was admitted to the medical service. Orthopedics was consulted to evaluate and treat.. Allergies Allergy/AdvReac Type Severity Reaction Status Date / Time latex Allergy Unknown RASH Verified 03/20/22 11:55 No Known Drug Allergies Allergy Unknown . Verified 03/20/22 11:55 Home Medications Medication Instructions Recorded Confirmed Type atorvastatin 40 mg tablet 40 mg PO HS #90 tabs 11/24/18 11/20/22 History sodium chloride 0.65 % nasal spray 1 spray intranasal .USE 11/24/18 11/20/22 History aerosol DIRECTED. PRN NASAL DRYNESS calcium carbonate 600 mg-vitamin 1 tab PO AMPM 02/24/19 11/20/22 History D3 10 mcg (400 unit) chewable tablet (Calcium 600 with Vitamin D3) amlodipine 5 mg tablet 5 mg PO DAILY #90 tabs 10/23/20 11/20/22 History chlorthalidone 25 mg tablet 25 mg PO DAILY 10/23/20 11/20/22 History omeprazole 20 mg capsule,delayed 20 mg PO DAILY PRN Gi Upset 10/23/20 11/20/22 History release levothyroxine 137 mcg tablet 137 mcg PO DAILYBB 10/30/21 11/20/22 History Oxygen Home #1 ea 04/22/22 Rx compressor, for nebulizer #1 ea 04/22/22 Rx nebulizer accessories #1 ea 08/15/22 Rx umeclidinium 62.5 mcg-vilanterol 1 inh inhalation DAILY #180 ea 08/20/22 11/20/22 Rx 25 mcg/actuation powdr for inhalation (Anoro Ellipta) albuterol sulfate 2.5 mg/3 mL 2.5 mg inhalation QID PRN 11/20/22 11/20/22 History (0.083 %) solution for nebulization Shortness Of Breath Or Wheezing aspirin 81 mg capsule 81 mg PO DAILY 11/20/22 11/20/22 History calcium carbonate 500 mg calcium 500 mg PO 4XD PRN Gi Upset 11/20/22 11/20/22 History (1,250 mg) chewable tablet gabapentin 100 mg capsule 100 mg PO HS 11/20/22 11/20/22 History guaifenesin 600 mg tablet, 600 mg PO Q12H PRN Congestion 11/20/22 11/20/22 History extended release 12 hr (Mucinex) ipratropium 0.5 mg-albuterol 3 mg 3 ml inhalation Q4H PRN Shortness 11/20/22 11/20/22 History (2.5 mg base)/3 mL nebulization Of Breath Or Wheezing soln lisinopril 20 mg tablet 20 mg PO QAM 11/20/22 11/20/22 History metoprolol tartrate 50 mg tablet 50 mg PO BID 11/20/22 11/20/22 History Past Med/Surg History Medical History Abnormal finding on imaging Asthma with COPD Asthma-COPD overlap syndrome Benign neoplasm of colon Chronic rhinitis Chronic sinusitis COPD (chronic obstructive pulmonary disease) Cough GERD (gastroesophageal reflux disease) Hyperlipidemia Hypertension Hypoxia Post-menopausal atrophic vaginitis Rosacea Senile osteoporosis Subclavian artery stenosis, left Supplemental oxygen dependent Surgical History H/O: hysterectomy History of appendectomy Hx of cholecystectomy Family History Family/Other Hypertension Asthma Cardiac disorder Social History Smoking Status: Former smoker Second Hand Exposure: Yes; Hx Alcohol Use: Yes Alcohol Intake Frequency: Monthly or Less Hx Substance Use: No Preferred Language: Croatian marital status: Feels Safe at Home: Yes Seatbelt Use: always Review of Systems All systems reviewed & are unremarkable except as noted in HPI & below. Physical Exam On physical examination of the left hip, she has pain with logroll. There is no gross deformity.. Constitutional WD/WN, vitals as above Eyes PERRL, conjunctivae normal, anicteric sclerae ENMT external ear and nose normal, oropharynx normal Neck trachea midline, no thyromegaly Respiratory normal respiratory effort, lungs clear to auscultation Cardiovascular RRR, no murmur, no edema Gastrointestinal (Abdomen) normal bowel sounds, soft, nontender, no hepatosplenomegaly Skin no rashes, warm and dry Psychiatric A+Ox3, euthymic affect Results & Data Results & Data Laboratory Results . Diagnostic Findings X-rays of the left hip do show a valgus impacted left femoral neck fracture.. PG Care Time/CCT Total # of Minutes Spent Total Time Spent with Patient: Total time spent is greater than 50% in coordination of care (as documented) at patient's floor/unit and/or counseling patient: Coding Level of Care Code 17867 IN/OBS CONSULT LVL 4,60M (57 - DECISION FOR SURGERY) Diagnoses Closed fracture of left hip S72.002A Encounter type: initial encounter (1) Closed fracture of left hip Encounter type: initial encounter Qualified Code(s): S72.002A - Fracture of unspecified part of neck of left femur, initial encounter for closed fracture
[2022-11-20] MEDS ORDERED: ACETAMINOPHEN 325 MG TAB PO PRN (21:46)
[2022-11-20] MEDS ORDERED: bisacodyL 10 MG SUPP PR PRN (21:46)
[2022-11-20] MEDS ORDERED: ONDANSETRON INJ 2 MG/ML 2 ML VIAL IV PRN (21:46)
[2022-11-20] MEDS ORDERED: MAGNESIUM HYDROXIDE SUSP 30 ML UDC PO PRN (21:46)
[2022-11-20] MEDS ORDERED: SODIUM CHLORIDE 0.65% NA SOLN 45 ML (OCEAN) NAE PRN (21:46)
[2022-11-20] MEDS ORDERED: NALOXONE HCL 0.4 MG/1 ML VIAL/CARP IV PRN (21:46)
[2022-11-20] MEDS ORDERED: ALBUT/IPRATROP 3MG/0.5MG NEB 3 ML VIAL NEB PRN (21:46)
[2022-11-20] MEDS ORDERED: guaiFENesin 600 MG TABCR PO PRN (21:46)
[2022-11-20] MEDS ORDERED: MoRPHine SULFATE 2 MG/ML CARP IV PRN (21:46)
[2022-11-20] MEDS ORDERED: oxyCODONE HCL IR 5 MG TAB (IMMEDIATE RELEASE) PO PRN (21:46)
[2022-11-20] MEDS ORDERED: ALUMINUM/MAGNESIUM SUSP 30 ML UDC PO PRN (21:46)
[2022-11-20] MEDS ORDERED: POLYETHYLENE (MIRALAX) 17 GM PACK PO PRN (21:46)
[2022-11-20] MEDS: NYSTATIN POWDER 15GM BTL EXT SCH (22:01)
[2022-11-20] MEDS: METOPROLOL TARTRATE 50 MG TAB PO SCH (22:38)
[2022-11-20] MEDS: DOCUSATE SODIUM/SENNA 50/8.6MG TAB PO SCH (22:38)
[2022-11-20] MEDS: GABAPENTIN 100 MG CAP PO SCH (22:59)
[2022-11-20] MEDS: ATORVASTATIN 40 MG TAB PO SCH (22:59)
[2022-11-20] MEDS ORDERED: Patient's HEIGHT &/or WEIGHT Needed SCH (23:15)
[2022-11-21] MEDS ORDERED: ceFAZolin 2000MG 2,000 MG/15 ML SYR IV SCH (06:00)
[2022-11-21] MEDS ORDERED: TRANEXAMIC ACID / 0.7% NACL 1,000 MG/100 ML BAG IV SCH ×2 (06:00→06:30)
[2022-11-21] MEDS: LEVOTHYROXINE SODIUM 137 MCG TABLET PO SCH (06:13)
[2022-11-21 08:06] LABS: Basophils # (auto) 0.04 K/uL (0-0.2); Basophils % (auto) 0.4 %; Eosinophils # (auto) 0.09 K/uL (0-0.50); Eosinophils % (auto) 0.9 %; Hemoglobin 12.3 g/dl (12.0-16.0); Immature Granulocytes # (auto) 0.04 K/uL (0.01-0.20); Immature Granulocytes % (auto) 0.4 %; Lymphocytes # (auto) 2.04 K/uL (1.2-3.4); Mean Corpuscular Hemoglobin 30.1 pg (25.0-34.0); Mean Corpuscular Hgb Conc 32.4 g/dL (32.0-36.0); Mean Corpuscular Volume 92.9 fL (80.0-100.0); Mean Platelet Volume 10.2 fL (9.4-12.4); Monocytes # (auto) 1.01 K/uL (0.11-0.59); Monocytes % (auto) 10.4 %; Neutrophils # (auto) 6.49 K/uL (1.40-6.50); Neutrophils % (auto) 66.9 %; Platelet Count 206 K/uL (130-400); RDW Coefficient of Variation 14.1 % (11.5-14.5); RDW Standard Deviation 47.4 fL (36.4-46.3); Red Blood Count 4.09 M/uL (4.20-5.40); White Blood Count 9.71 K/ul (4.8-10.8)
[2022-11-21 08:26] LABS: Calcium 9.2 mg/dl (8.6-10.3); Creatinine Clr Calc Pharmacy 48.7 ml/min; Est GFR (African American) 99.1 ml/min; Est GFR (Non-African American) 85.5 ml/min; Potassium 4.4 mmol/L (3.5-5.1)
--- NOTE | 2022-11-21 08:31 | Hospitalist Progress Note ---
Date of Service November 21, 2022 Assessment & Plan (1) Fracture of femur, subcapital, left, closed: Plan: Status post left hip percutaneous screw fixation by Dr. Srerano today with estimated blood loss 20 cc. Doing well postoperatively, continue pain management and DVT prophylaxis per orthopedics. PT/OT. (2) Post-operative state: (3) Asthma-COPD overlap syndrome: Plan: Chronic, stable. No wheezing or shortness of breath. She is currently 95% on 3 L nasal cannula in the immediate postoperative setting. (4) Supplemental oxygen dependent: Plan: 3L Oxygen HS and prn No signs current exacerbation Continue supplemental oxygen Continue home inhalers Nebs prn (5) Hypertension: Plan: Chronic, stable Continue amlodipine, metoprolol tartrate Resume lisinopril" Thalitone per home regimen tomorrow morning. (6) Hyperlipidemia: Plan: Chronic, stable. Continue atorvastatin (7) GERD (gastroesophageal reflux disease): Plan: Chronic, stable. Continue PPI per home regimen. (8) Hypothyroidism: Plan: Chronic, stable. Continue levothyroxine per home regimen. DVT Prophylaxis-apixaban Full Code Follows with Dr Carmen for routine care Idania Pelletier DO [facility] Hospitalist Admission and Anticipated Discharge Date Admission Date: November 20, 2022 Subjective 82-year-old female admitted with left hip fracture status post repair today Seen postop and pain is a 7 out of 10 Slightly hypotensive after receiving IV Dilaudid in [place] and I were at bedside and discussed giving Tylenol with oral narcotic later after blood pressure stabilizes Patient is fine with that plan Denies shortness of breath or other issues today. Review of Systems Review of Systems: All systems reviewed negative except as indicated above Physical Exam Physical Exam: CONSTITUTIONAL: WNWD, vitals as above, generally well-appearing, NAD EYES: normal conjunctivae, no scleral icterus ENT: external ear and nose normal, MMM NECK: trachea midline RESPIRATORY: clear to auscultation bilaterally, no crackles, rales or wheezes, normal respiratory effort CARDIOVASCULAR: regular rate and rhythm, S1 and 2 heard without murmurs, gallops or rubs, no JVD, no peripheral edema, CHEST: inspection of chest was normal GASTROINTESTINAL: soft, nontender, ND, no guarding MUSCULOSKELETAL: moving upper extremities equally, lower extremity movement limited post op, head is normocephalic and atraumatic SKIN: warm and dry NEUROLOGIC: CN 2-12 grossly intact, no sensory deficit, normal cognition, normal speech, no tremor PSYCHIATRIC: alert cooperative and oriented to person, place and time. Euthymic mood, makes good eye contact, language grossly intact, recent and remote memory grossly intact. Results & Data Results & Data Vital Signs (Past 12 Hours) Vital Signs Temp Pulse Pulse Pulse Resp BP BP 11/21/22 07:20 11/21/22 07:15 107/64 11/21/22 07:05 36.9 C 53 L 16 83/51 L 11/21/22 05:00 11/21/22 01:46 11/21/22 02:57 36.7 C 70 16 104/52 L 11/21/22 00:28 11/20/22 23:30 36.6 C 59 L 18 149/76 H 11/20/22 21:56 11/20/22 21:30 60 17 11/20/22 20:52 58 L 11/20/22 21:36 11/20/22 21:00 57 L 18 11/20/22 21:00 101/56 L 11/20/22 20:35 61 16 11/20/22 20:35 109/59 L Pulse Ox Pulse Ox O2 Del Method O2 Del Method O2 Flow Rate O2 Flow Rate 11/21/22 07:20 Nasal Cannula 3 11/21/22 07:15 11/21/22 07:05 100 Nasal Cannula 3 11/21/22 05:00 Nasal Cannula 3 11/21/22 01:46 Nasal Cannula 3 11/21/22 02:57 95 Nasal Cannula 3 11/21/22 00:28 Nasal Cannula 3 11/20/22 23:30 99 Nasal Cannula 3 11/20/22 21:56 98 Nasal Cannula 3 11/20/22 21:30 11/20/22 20:52 11/20/22 21:36 87 L Room Air 11/20/22 21:00 11/20/22 21:00 11/20/22 20:35 11/20/22 20:35 Laboratory Results Short CBC 11/20/22 11/21/22 Range/Units 15:30 07:27 WBC 12.54 H 9.71 (4.8-10.8) K/ul Hgb 14.5 12.3 (12.0-16.0) g/dl Hct 44.4 38.0 (37.0-47.0) % Plt Count 238 206 (130-400) K/uL BMP 11/20/22 11/21/22 15:30 07:27 Sodium 139 138 Potassium 4.1 4.4 Chloride 100 100 Carbon Dioxide 32 33 H BUN 25 H 18 Creatinine 0.60 0.60 Glucose 88 94 Calcium 9.9 9.2 Liver Function 11/20/22 Range/Units 15:30 Total Bilirubin 0.4 (0.2-1.0) mg/dl AST 24 (13-39) U/L ALT 18 (7-52) U/L Alkaline Phosphatase 68 (34-104) U/L Albumin 4.5 (3.4-5.0) gm/dl Urine 11/20/22 Range/Units 17:22 Urine Color Yellow Urine Appearance Clear (Clear) Urine pH 6.5 (4.5-7.5) Ur Specific [place] 1.006 (1.000-1.030) Urine Protein Negative (Negative) Urine Glucose (UA) Negative (Negative) Medications Administered Current Inpatient Medications Acetaminophen (Acetaminophen 325 Mg Tab) 650 mg PO Q4H PRN PRN Reason: pain/fever Stop: 12/20/22 21:45 Al Hydrox/Mg Hydrox/Simethicone (Aluminum/Magnesium Susp 30 Ml Udc) 30 ml PO Q6H PRN PRN Reason: Dyspepsia Stop: 12/20/22 21:45 Albuterol (Albut/Ipratrop 3mg/0.5mg Neb 3 Ml Vial) 3 ml NEB QIDR PRN; Protocol PRN Reason: Shortness Of Breath Or Wheezing Stop: 12/20/22 21:45 Amlodipine Besylate (Amlodipine Besylate 5 Mg Tab) 5 mg PO DAILY [facility] Stop: 12/21/22 08:59 Atorvastatin Calcium (Atorvastatin 40 Mg Tab) 40 mg PO HS [facility] Stop: 12/20/22 21:45 Last Admin: 11/20/22 22:59 Dose: 40 mg Bisacodyl (Bisacodyl 10 Mg Supp) 10 mg [place] DAILY PRN PRN Reason: Constipation Stop: 12/20/22 21:45 Chlorthalidone (Chlorthalidone 25 Mg Tab) 25 mg PO DAILY [facility] Stop: 12/22/22 08:59 Gabapentin (Gabapentin 100 Mg Cap) 100 mg PO HS [facility] Stop: 12/20/22 21:45 Last Admin: 11/20/22 22:59 Dose: 100 mg Guaifenesin (Guaifenesin 600 Mg Tabcr) 600 mg PO Q12H PRN PRN Reason: Congestion Stop: 12/20/22 21:45 Tranexamic Acid (Tranexamic Acid / 0.7% Nacl) 1,000 mg in 100 mls @ 600 mls/hr IV TODAY@06 [facility] Stop: 11/21/22 12:00 Tranexamic Acid (Tranexamic Acid / 0.7% Nacl) 1,000 mg in 100 mls @ 600 mls/hr IV TODAY@0630 [facility] Stop: 11/21/22 18:00 Cefazolin Sodium (Ancef 2000mg) 2,000 mg in 15 mls @ 3.75 mls/min IV PREOP [facility]; Protocol Stop: 11/22/22 05:59 Levothyroxine Sodium (Levothyroxine Sodium 137 Mcg Tablet) 137 mcg PO DAILYBB [facility] Stop: 12/21/22 06:29 Last Admin: 11/21/22 06:13 Dose: 137 mcg Lisinopril (Lisinopril 20 Mg Tab) 20 mg PO QAM [facility] Stop: 12/22/22 08:59 Magnesium Hydroxide (Magnesium Hydroxide Susp 30 Ml Udc) 30 ml PO DAILY PRN PRN Reason: Constipation Stop: 12/20/22 21:45 Metoprolol Tartrate (Metoprolol Tartrate 50 Mg Tab) 50 mg PO BID [facility] Stop: 12/20/22 21:45 Last Admin: 11/20/22 22:38 Dose: 50 mg Morphine Sulfate (Morphine Sulfate 2 Mg/Ml Carp) 2 mg IV Q3H PRN PRN Reason: Severe Pain (Scale 7, 8, 9,10) Stop: 12/04/22 21:45 Naloxone HCl (Naloxone Hcl 0.4 Mg/1 Ml Vial/Carp) 0.1 mg IV UD PRN PRN Reason: Opiate Overdose Stop: 12/20/22 21:45 Nystatin (Nystatin Powder 15gm Btl) 1 appln EXT BID [facility] Stop: 12/20/22 20:59 Last Admin: 11/20/22 22:01 Dose: Not Given Ondansetron HCl (Ondansetron Inj 2 Mg/Ml 2 Ml Vial) 4 mg IV Q6H PRN PRN Reason: Nausea Stop: 12/20/22 21:45 Oxycodone HCl (Oxycodone Hcl Ir 5 Mg Tab (Immediate Release)) 5 mg PO Q4H PRN PRN Reason: MODERATE Pain (4,5,6) & Pre PT Stop: 12/04/22 21:45 Polyethylene Glycol (Polyethylene (Miralax) 17 Gm Pack) 17 gm PO DAILY PRN PRN Reason: Constipation Stop: 12/20/22 21:45 Senna/Docusate Sodium (Docusate Sodium/Senna 50/8.6mg Tab) 2 tab PO HS [facility] Stop: 12/20/22 21:45 Last Admin: 11/20/22 22:38 Dose: 2 tab Sodium Chloride (Sodium Chloride 0.65% Na Soln 45 Ml ([place])) 1 sprays PRECIOUS DAILY PRN PRN Reason: NASAL DRYNESS Stop: 12/20/22 21:45 Umeclidinium/Vilanterol (Umeclidinium/Vilanterol 62.5/25mcg 7 Puffs/Inhaler) 1 puffs INH DAILY [facility] Stop: 12/21/22 08:59
[2022-11-21] MEDS: amLODIPine BESYLATE 5 MG TAB PO SCH (08:51)
[2022-11-21] MEDS: METOPROLOL TARTRATE 50 MG TAB PO SCH ×2 (08:52→20:07)
[2022-11-21] MEDS: UMECLIDINIUM/VILANTEROL 62.5/25MCG 7 PUFFS/INHALER INH SCH (08:53)
[2022-11-21] MEDS: NYSTATIN POWDER 15GM BTL EXT SCH ×2 (08:53→20:08)
[2022-11-21] MEDS ORDERED: fentaNYL citrate PF 100 MCG/2 ML VIAL ONE (12:06)
[2022-11-21] MEDS ORDERED: ONDANSETRON INJ 2 MG/ML 2 ML VIAL IV PRN (12:41)
[2022-11-21] MEDS ORDERED: ATROPINE SULFATE 0.1 MG/ML 10ML SYR IV PRN (12:41)
[2022-11-21] MEDS ORDERED: LIDOCAINE 2% 2 ML VIAL/AMP(20MG/ML) INFIL ONE (13:38)
[2022-11-21] MEDS ORDERED: PROPOFOL IV EMULSION 10 MG/ML 20 ML VIAL IV ONE (13:38)
[2022-11-21] MEDS ORDERED: ALBUTEROL HFA 8 GM INHALER INH ONE (13:47)
[2022-11-21] MEDS ORDERED: BUPIVACAINE/EPINEPHRINE 0.5% MPF 1:200,000 10 ML VIAL ONE (14:00)
--- NOTE | 2022-11-21 14:04 | History & Physical Bridge Note ---
Date of Service November 21, 2022 History & Physical Bridge Note I have examined the patient, reviewed the History & Physical and in the interval since the performance of the History & Physical I have noted the following changes of clinical significance: no changes noted
[2022-11-21] MEDS ORDERED: DEXAMETHASONE SOD INJ 4 MG/ML VIAL ONE (15:07)
[2022-11-21] MEDS ORDERED: ONDANSETRON INJ 2 MG/ML 2 ML VIAL ONE (15:07)
[2022-11-21] MEDS ORDERED: ePHEDrine sulfate 50 MG/ML AMP ONE (15:07)
--- NOTE | 2022-11-21 15:28 | Operative Report ---
PG Post Operative Report Pre & Post Diagnosis Operation Date: 11/21/22 14:05 Pre-Op Diagnosis: Closed fracture of left hip. Post-Op Diagnosis: Closed fracture of left hip. I identified the patient and participated in the time-out.: Yes Procedure Operation Date: 11/21/22 14:05 Actual Procedures p Left Hip Percutaneous Screw fixation(Left) - Noel Serrano DO Surgeon Noel Serrano DO [employer] Noel Palm PA-C Estimated Blood Loss 20 Findings Consistent with Post-Op Diagnosis Specimens None Description of Procedure On November 21, 2022 Courtney was brought down from her hospital room to the preoperative holding area. The operative extremity was identified and signed. She was given a preoperative antibiotic. She was taken back the operating room put under general anesthesia while on the hospital bed. She was then transferred to the fracture table. The left hip was brought out to traction. The patient was positioned. A timeout was done. The patient and the operative extremity was identified. Fluoroscopic images were used preoperatively to make sure there is been no further displacement of the fracture. The left hip was then prepped and draped sterile fashion. A small lateral incision was made just across from the lesser trochanter. Dissection was taken down through the fascia. The lateral aspect of the humeral cortex was exposed. A single guidepin was placed into the inferior aspect of the femoral neck. Appropriate placement was checked on orthogonal fluoroscopic images. A second pin was placed in the middle of the femoral neck along the anterior cortex. A third pin was placed in the middle of femoral neck along the posterior cortex. Placement of the screws were checked under fluoroscopy. Once I was happy with the placement of the screws they were measured and the lateral cortex was drilled. Three 7.3 mm Synthes partially-threaded cannulated screws were then placed. I was able to get good purchase of all 3 screws. Final fluoroscopic images showed anatomic alignment. The wound was then irrigated. The skin was closed with 2-0 Vicryl and ez. She was placed in soft dressing. She was then extubated and transferred back to the hospital bed. She was taken to the postanesthesia care unit in stable condition. She tolerated the procedure well. Noel Palm PA-C, was present for the entire procedure. He was critical for patient positioning, prepping, draping, retraction exposure, wound closure and application of sterile dressing. I attest to the content of the Intraoperative Record and any orders documented therein. Any exceptions are noted below.
[2022-11-21] MEDS: HYDROmorphone INJ 1 MG/ML SYRINGE IV PRN ×2 (15:46→15:51)
--- NOTE | 2022-11-21 16:07 | Anesthesiology Progress Note ---
Date of Service November 21, 2022 Anesthesia Post Procedure Vital Signs Vital Signs: Temp Pulse Pulse Pulse Resp BP BP 11/21/22 16:05 71 14 108/54 L 11/21/22 15:55 36.6 C 70 16 113/60 11/21/22 15:45 73 12 108/61 11/21/22 15:35 74 13 131/72 11/21/22 15:25 76 14 123/72 11/21/22 15:18 37.0 C 80 17 141/67 H 11/21/22 12:41 37.3 C 61 18 128/75 11/21/22 08:51 54 L 96/61 L 11/21/22 07:20 11/21/22 07:15 107/64 11/21/22 07:05 36.9 C 53 L 16 83/51 L 11/21/22 05:00 11/21/22 01:46 11/21/22 02:57 36.7 C 70 16 104/52 L 11/21/22 00:28 11/20/22 23:30 36.6 C 59 L 18 149/76 H 11/20/22 21:56 11/20/22 21:30 60 17 11/20/22 20:52 58 L 11/20/22 21:36 11/20/22 21:00 57 L 18 11/20/22 21:00 101/56 L 11/20/22 20:35 61 16 11/20/22 20:35 109/59 L 11/20/22 20:30 62 14 11/20/22 20:00 57 L 16 11/20/22 19:30 63 17 11/20/22 19:12 65 18 11/20/22 19:01 67 17 11/20/22 19:00 65 16 11/20/22 19:13 65 18 114/80 11/20/22 18:30 68 19 11/20/22 18:00 74 16 11/20/22 18:00 152/93 H 11/20/22 17:30 62 17 11/20/22 17:00 61 15 11/20/22 17:00 159/95 H 11/20/22 17:24 65 18 159/95 H 11/20/22 16:30 60 16 11/20/22 16:48 61 Pulse Ox Pulse Ox O2 Del Method O2 Del Method O2 Flow Rate O2 Flow Rate 11/21/22 16:05 95 Nasal Cannula 2 11/21/22 15:55 95 Nasal Cannula 2 11/21/22 15:45 96 Nasal Cannula 2 11/21/22 15:35 99 Nasal Cannula 2 11/21/22 15:25 95 Nasal Cannula 2 11/21/22 15:18 97 Nasal Cannula 3 11/21/22 12:41 92 Nasal Cannula 2 11/21/22 08:51 11/21/22 07:20 Nasal Cannula 3 11/21/22 07:15 11/21/22 07:05 100 Nasal Cannula 3 11/21/22 05:00 Nasal Cannula 3 11/21/22 01:46 Nasal Cannula 3 11/21/22 02:57 95 Nasal Cannula 3 11/21/22 00:28 Nasal Cannula 3 11/20/22 23:30 99 Nasal Cannula 3 11/20/22 21:56 98 Nasal Cannula 3 11/20/22 21:30 11/20/22 20:52 11/20/22 21:36 87 L Room Air 11/20/22 21:00 11/20/22 21:00 11/20/22 20:35 11/20/22 20:35 11/20/22 20:30 11/20/22 20:00 11/20/22 19:30 11/20/22 19:12 11/20/22 19:01 11/20/22 19:00 11/20/22 19:13 96 Room Air 11/20/22 18:30 11/20/22 18:00 11/20/22 18:00 11/20/22 17:30 11/20/22 17:00 11/20/22 17:00 11/20/22 17:24 98 Room Air 11/20/22 16:30 11/20/22 16:48 Pain Intensity Left Hip: Pain Intensity: 3 Transfer of Care Handoff Completed per policy Notes Mental Status: alert / awake / arousable and participated in evaluation Patient Amnestic to Procedure: Yes Nausea / Vomiting: adequately controlled Pain: adequately controlled Airway Patency, RR, SpO2: stable & adequate BP & HR: stable & adequate Hydration State: stable & adequate Anesthetic Complications: no major complications apparent and Pt Satisfied with anesthetic care
--- NOTE | 2022-11-21 16:23 | Fluoroscopy Report ---
FL hip LT 2-3V CLINICAL HISTORY: LT PERC NAIL. Left hip fracture. COMPARISON STUDY: Left hip 11/20/2022. FLUOROSCOPY TIME: 59 seconds FLUOROSCOPY IMAGES: 2 Ka,r: 6.6 mGy FINDINGS: There are 3 cannulated screws transfixing the left femoral subcapital fracture. The hardwar e appears intact. The alignment is unchanged IMPRESSION: Fluoroscopic assistance as above. ACT 112: Negative or not required by law. Electronically signed by: Feliciano Olivia M.D. 11/21/2022 4:21 PM
[2022-11-21] MEDS ORDERED: HYDROmorphone INJ 0.5 MG/0.5 ML SYR IV PRN (16:38)
[2022-11-21] MEDS: ACETAMINOPHEN 500 MG TAB PO PRN (17:14)
--- NOTE | 2022-11-21 19:32 | XRay Report ---
XR hip LT min 2V CLINICAL HISTORY: Post-Operative implant position COMPARISON STUDY: Left hip 11/20/2022. FINDINGS: Status post internal fixation of the impacted left subcapital femoral neck fracture with 3 cannulated screws. The hardware is intact. Skin ez are in place. No dislocation. IMPRESSION: Status post internal fixation of a left femoral neck fracture. The hardware appears inta ct. ACT 112: Negative or not required by law. Electronically signed by: Feliciano Olivia M.D. 11/21/2022 7:30 PM
[2022-11-21] MEDS: oxyCODONE HCL IR 5 MG TAB (IMMEDIATE RELEASE) PO PRN (19:42)
[2022-11-21] MEDS ORDERED: SODIUM CHLORIDE 0.9% 1000ML 1,000 ML IV ONE (19:58)
[2022-11-21] MEDS: APIXABAN 2.5 MG TAB PO SCH (20:09)
[2022-11-21] MEDS: GABAPENTIN 100 MG CAP PO SCH (20:09)
[2022-11-21] MEDS: ATORVASTATIN 40 MG TAB PO SCH (20:09)
[2022-11-21] MEDS: DOCUSATE SODIUM/SENNA 50/8.6MG TAB PO SCH (20:11)
[2022-11-21] MEDS: ceFAZolin 2000MG 2,000 MG/15 ML SYR IV SCH (20:32)
[2022-11-21 20:42] LABS: Hematocrit (blood only) 38.3 % (37.0-47.0); Hemoglobin 12.8 g/dl (12.0-16.0)
[2022-11-21 20:51] LABS: BUN Creatinine Ratio 23.7 (10-20); Calcium 8.8 mg/dl (8.6-10.3); Creatinine Clr Calc Pharmacy 38.5 ml/min; Est GFR (African American) 85.3 ml/min; Est GFR (Non-African American) 73.6 ml/min
--- NOTE | 2022-11-21 22:17 | Communication Note ---
Date of Service: November 21, 2022 Made aware by RN of BP 90s. Patient with postop hip complaints Serum sodium 133 Serum crea 0.76 from 0.6 in a.m. AP Hypotension possibly from hypovolemia IVF, hold home diuretic for now Will relay to AM provider.
[2022-11-22] MEDS: ceFAZolin 2000MG 2,000 MG/15 ML SYR IV SCH (06:07)
[2022-11-22] MEDS: LEVOTHYROXINE SODIUM 137 MCG TABLET PO SCH (06:07)
[2022-11-22] MEDS: ACETAMINOPHEN 500 MG TAB PO PRN (06:10)
[2022-11-22] MEDS: UMECLIDINIUM/VILANTEROL 62.5/25MCG 7 PUFFS/INHALER INH SCH (08:14)
[2022-11-22] MEDS: NYSTATIN POWDER 15GM BTL EXT SCH ×2 (08:15→20:12)
[2022-11-22] MEDS: amLODIPine BESYLATE 5 MG TAB PO SCH (08:18)
[2022-11-22] MEDS: APIXABAN 2.5 MG TAB PO SCH ×2 (08:18→20:10)
[2022-11-22] MEDS: METOPROLOL TARTRATE 50 MG TAB PO SCH ×2 (08:29→20:11)
--- NOTE | 2022-11-22 08:47 | Hospitalist Progress Note ---
Date of Service November 22, 2022 Assessment & Plan (1) Fracture of femur, subcapital, left, closed: Plan: Status post left hip percutaneous screw fixation by Dr. Serrano with estimated blood loss 20 cc. Doing well postoperatively, continue pain management and DVT prophylaxis per orthopedics. Changed her Acetaminophen to 1000mg PO q8h scheduled to help her stay ahead of pain. Intermittently holding narcotics because of her blood pressure being slightly low. Holding all antihypertensives at this point. Cont ice/mobilization, etc. PT/OT. (2) Post-operative state: (3) Asthma-COPD overlap syndrome: Plan: Chronic, stable. No wheezing or shortness of breath. Duonebs PRN (4) Supplemental oxygen dependent: Plan: 3L Oxygen HS and prn No signs current exacerbation Continue supplemental oxygen Continue home inhalers Nebs prn (5) Hypertension: Plan: some post operative hypotension noted, hold all antihypertensives at this point (6) Hyperlipidemia: Plan: Chronic, stable. Continue atorvastatin per home regimen. (7) GERD (gastroesophageal reflux disease): Plan: Chronic, stable. Continue PPI per home regimen. (8) Hypothyroidism: Plan: Chronic, stable. Continue levothyroxine per home regimen. DVT Prophylaxis-apixaban Full Code Follows with Dr Carmen for routine care Idania Pelletier DO [facility] Hospitalist Admission and Anticipated Discharge Date Admission Date: November 20, 2022 Subjective 82-year-old female admitted with left hip fracture status post repair today Pain is 6/10 this morning after receiving Tylenol. BP is 100/63, holding antihypertensives. She also did not sleep more than a few hours and is tired this morning Reports her feet feel cold this morning. tolerating PO Review of Systems Review of Systems: All systems reviewed negative except as indicated above Physical Exam Physical Exam: CONSTITUTIONAL: WNWD, vitals as above, generally well-appearing, NAD EYES: normal conjunctivae, no scleral icterus ENT: external ear and nose normal, MMM NECK: trachea midline RESPIRATORY: clear to auscultation bilaterally, no crackles, rales or wheezes, normal respiratory effort CARDIOVASCULAR: regular rate and rhythm, S1 and 2 heard without murmurs, gallops or rubs, no JVD, no peripheral edema, lower extremities are warm and well perfused. CHEST: inspection of chest was normal GASTROINTESTINAL: soft, nontender, ND, no guarding MUSCULOSKELETAL: moving upper extremities equally, lower extremity movement limited post op, head is normocephalic and atraumatic SKIN: warm and dry NEUROLOGIC: CN 2-12 grossly intact, no sensory deficit, normal cognition, normal speech, no tremor PSYCHIATRIC: alert cooperative and oriented to person, place and time. Euthymic mood, makes good eye contact, language grossly intact, recent and remote memory grossly intact. Results & Data Results & Data Vital Signs (Past 12 Hours) Vital Signs Temp Pulse Resp BP Pulse Ox O2 Del Method O2 Flow Rate 11/22/22 08:17 90 100/63 11/22/22 07:09 Nasal Cannula 3 11/22/22 06:52 36.5 C 82 16 121/74 100 Nasal Cannula 3 11/22/22 05:20 76 18 95 Nasal Cannula 3 11/22/22 03:49 36.5 C 73 16 111/69 95 Nasal Cannula 3 11/21/22 23:56 36.5 C 69 16 94/60 L 96 Nasal Cannula 3 Laboratory Results Short CBC 11/21/22 Range/Units 20:10 Hgb 12.8 (12.0-16.0) g/dl Hct 38.3 (37.0-47.0) % BMP 11/21/22 20:10 Sodium 133 L Potassium 4.0 Chloride 96 L Carbon Dioxide 29 BUN 18 Creatinine 0.76 Glucose 174 H Calcium 8.8 Medications Administered Current Inpatient Medications Acetaminophen (Acetaminophen 500 Mg Tab) 1,000 mg PO Q8H PRN PRN Reason: Pain Stop: 12/21/22 16:37 Last Admin: 11/22/22 06:10 Dose: 1,000 mg Al Hydrox/Mg Hydrox/Simethicone (Aluminum/Magnesium Susp 30 Ml Udc) 30 ml PO Q6H PRN PRN Reason: Dyspepsia Stop: 12/20/22 21:45 Albuterol (Albut/Ipratrop 3mg/0.5mg Neb 3 Ml Vial) 3 ml NEB QIDR [facility]; Protocol Stop: 12/22/22 10:59 Amlodipine Besylate (Amlodipine Besylate 5 Mg Tab) 5 mg PO DAILY [facility] Stop: 12/21/22 08:59 Last Admin: 11/22/22 08:18 Dose: Not Given Apixaban (Apixaban 2.5 Mg Tab) 2.5 mg PO BID [facility] Stop: 12/21/22 20:59 Last Admin: 11/22/22 08:18 Dose: 2.5 mg Atorvastatin Calcium (Atorvastatin 40 Mg Tab) 40 mg PO HS [facility] Stop: 12/20/22 21:45 Last Admin: 11/21/22 20:09 Dose: 40 mg Bisacodyl (Bisacodyl 10 Mg Supp) 10 mg [place] DAILY PRN PRN Reason: Constipation Stop: 12/20/22 21:45 Chlorthalidone (Chlorthalidone 25 Mg Tab) 25 mg PO DAILY [facility] Stop: 12/22/22 08:59 Gabapentin (Gabapentin 100 Mg Cap) 100 mg PO HS [facility] Stop: 12/20/22 21:45 Last Admin: 11/21/22 20:09 Dose: 100 mg Guaifenesin (Guaifenesin 600 Mg Tabcr) 600 mg PO Q12H PRN PRN Reason: Congestion Stop: 12/20/22 21:45 Hydromorphone HCl (Hydromorphone Inj 0.5 Mg/0.5 Ml Syr) 0.5 mg IV Q6H PRN PRN Reason: Pain Stop: 12/05/22 16:37 Levothyroxine Sodium (Levothyroxine Sodium 137 Mcg Tablet) 137 mcg PO DAILYBB [facility] Stop: 12/21/22 06:29 Last Admin: 11/22/22 06:07 Dose: 137 mcg Lisinopril (Lisinopril 20 Mg Tab) 20 mg PO QAM [facility] Stop: 12/22/22 08:59 Last Admin: 11/22/22 08:30 Dose: Not Given Magnesium Hydroxide (Magnesium Hydroxide Susp 30 Ml Udc) 30 ml PO DAILY PRN PRN Reason: Constipation Stop: 12/20/22 21:45 Metoprolol Tartrate (Metoprolol Tartrate 50 Mg Tab) 50 mg PO BID [facility] Stop: 12/20/22 21:45 Last Admin: 11/22/22 08:29 Dose: 50 mg Naloxone HCl (Naloxone Hcl 0.4 Mg/1 Ml Vial/Carp) 0.1 mg IV UD PRN PRN Reason: Opiate Overdose Stop: 12/20/22 21:45 Nystatin (Nystatin Powder 15gm Btl) 1 appln EXT BID [facility] Stop: 12/20/22 20:59 Last Admin: 11/22/22 08:15 Dose: 1 appln Ondansetron HCl (Ondansetron Inj 2 Mg/Ml 2 Ml Vial) 4 mg IV Q6H PRN PRN Reason: Nausea Stop: 12/20/22 21:45 Oxycodone HCl (Oxycodone Hcl Ir 5 Mg Tab (Immediate Release)) 5 mg PO Q4H PRN PRN Reason: Pain Stop: 12/05/22 16:37 Last Admin: 11/21/22 19:42 Dose: 5 mg Polyethylene Glycol (Polyethylene (Miralax) 17 Gm Pack) 17 gm PO DAILY PRN PRN Reason: Constipation Stop: 12/20/22 21:45 Senna/Docusate Sodium (Docusate Sodium/Senna 50/8.6mg Tab) 2 tab PO HS [facility] Stop: 12/20/22 21:45 Last Admin: 11/21/22 20:11 Dose: 2 tab Sodium Chloride (Sodium Chloride 0.65% Na Soln 45 Ml ([place])) 1 sprays PRECIOUS DAILY PRN PRN Reason: NASAL DRYNESS Stop: 12/20/22 21:45 Umeclidinium/Vilanterol (Umeclidinium/Vilanterol 62.5/25mcg 7 Puffs/Inhaler) 1 puffs INH DAILY [facility] Stop: 12/21/22 08:59 Last Admin: 11/22/22 08:14 Dose: 1 puffs
[2022-11-22] MEDS: ACETAMINOPHEN 500 MG TAB PO SCH ×2 (08:59→16:17)
[2022-11-22] MEDS ORDERED: lisinopril 20 MG TAB PO SCH (09:00)
[2022-11-22] MEDS ORDERED: CHLORTHALIDONE 25 MG TAB PO SCH (09:00)
[2022-11-22] MEDS ORDERED: ALBUT/IPRATROP 3MG/0.5MG NEB 3 ML VIAL NEB SCH (11:00)
[2022-11-22] MEDS: oxyCODONE HCL IR 5 MG TAB (IMMEDIATE RELEASE) PO PRN ×2 (14:19→19:38)
[2022-11-22] MEDS: ALBUT/IPRATROP 3MG/0.5MG NEB 3 ML VIAL NEB PRN ×2 (17:19→20:58)
--- NOTE | 2022-11-22 17:26 | Orthopedic Progress Note ---
Date of Service November 22, 2022 Assessment & Plan (1) Fracture of femur, subcapital, left, closed: Overall she is doing fairly well. She is having some soreness in the left hip but is not too painful. She has been up and ambulating to the bathroom. She is orthopedically stable for discharge when medically ready. Full orthopedic discharge instructions were placed in the discharge summary. She can be weightbearing as tolerated on her left hip. The nursing staff can change her dressing tomorrow. Franki Valdez was seen and examined at bedside this morning. Overall she is doing fairly well. She has been up and ambulating to the bathroom. Her daughter is with her at bedside. She has no complaints.. Review of Systems All systems reviewed & are unremarkable except as noted in HPI & below. Physical Exam On physical examination left hip, the dressing is clean and dry and her leg is out full extension.. Results & Data Results & Data Laboratory Results . Diagnostic Findings . PG Care Time/CCT Total # of Minutes Spent Total Time Spent with Patient: Total time spent is greater than 50% in coordination of care (as documented) at patient's floor/unit and/or counseling patient: Coding Level of Care Code 32044 Post Operative Follow-Up Diagnoses Fracture of femur, subcapital, left, closed S72.012A
[2022-11-22] MEDS: GABAPENTIN 100 MG CAP PO SCH (20:10)
[2022-11-22] MEDS: ATORVASTATIN 40 MG TAB PO SCH (20:11)
[2022-11-22] MEDS: DOCUSATE SODIUM/SENNA 50/8.6MG TAB PO SCH (20:11)
[2022-11-23] MEDS: ACETAMINOPHEN 500 MG TAB PO SCH ×3 (00:26→17:10)
[2022-11-23] MEDS: LEVOTHYROXINE SODIUM 137 MCG TABLET PO SCH (05:22)
[2022-11-23] MEDS: ALBUT/IPRATROP 3MG/0.5MG NEB 3 ML VIAL NEB PRN ×3 (06:59→19:14)
[2022-11-23] MEDS: UMECLIDINIUM/VILANTEROL 62.5/25MCG 7 PUFFS/INHALER INH SCH (07:55)
[2022-11-23] MEDS: APIXABAN 2.5 MG TAB PO SCH ×2 (07:55→21:05)
[2022-11-23] MEDS: METOPROLOL TARTRATE 50 MG TAB PO SCH ×2 (07:55→21:01)
[2022-11-23] MEDS: NYSTATIN POWDER 15GM BTL EXT SCH ×2 (07:59→21:01)
--- NOTE | 2022-11-23 10:17 | Hospitalist Progress Note ---
Date of Service November 23, 2022 Assessment & Plan (1) Fracture of femur, subcapital, left, closed: Plan: Status post left hip percutaneous screw fixation by Dr. Serrano with estimated blood loss 20 cc. Doing well postoperatively, continue pain management and DVT prophylaxis per orthopedics. Pain controlled. Cont scheduled APAP. Cont ice/mobilization, etc. PT/OT. (2) Post-operative state: (3) Asthma-COPD overlap syndrome: Plan: Chronic, stable. No wheezing or shortness of breath. Duonebs PRN (4) Supplemental oxygen dependent: Plan: 3L Oxygen HS and prn No signs current exacerbation Continue supplemental oxygen Continue home inhalers Nebs prn (5) Hypertension: Plan: some post operative hypotension noted, hold all antihypertensives at this point (6) Hyperlipidemia: Plan: Chronic, stable. Continue atorvastatin per home regimen. (7) GERD (gastroesophageal reflux disease): Plan: Chronic, stable. Continue PPI per home regimen. (8) Hypothyroidism: Plan: Chronic, stable. Continue levothyroxine per home regimen. DVT Prophylaxis-apixaban Full Code Follows with Dr Carmen for routine care Idania Pelletier DO [facility] Hospitalist Admission and Anticipated Discharge Date Admission Date: November 20, 2022 Subjective 82-year-old female admitted with left hip fracture status post repair today Pain is improved on Tylenol She didn't get much sleep last night Discussed trial yusuf for mary She was working with PT this am. Review of Systems Review of Systems: All systems reviewed negative except as indicated above Physical Exam Physical Exam: CONSTITUTIONAL: WNWD, vitals as above, generally well-appearing, NAD EYES: normal conjunctivae, no scleral icterus ENT: external ear and nose normal, MMM NECK: trachea midline RESPIRATORY: clear to auscultation bilaterally, no crackles, rales or wheezes, normal respiratory effort CARDIOVASCULAR: regular rate and rhythm, S1 and 2 heard without murmurs, gallops or rubs, no JVD, no peripheral edema, lower extremities are warm and well perfused. CHEST: inspection of chest was normal GASTROINTESTINAL: soft, nontender, ND, no guarding MUSCULOSKELETAL: moving upper extremities equally, lower extremity movement limited post op, head is normocephalic and atraumatic SKIN: warm and dry NEUROLOGIC: CN 2-12 grossly intact, no sensory deficit, normal cognition, normal speech, no tremor PSYCHIATRIC: alert cooperative and oriented to person, place and time. Euthymic mood, makes good eye contact, language grossly intact, recent and remote memory grossly intact. Results & Data Results & Data Vital Signs (Past 12 Hours) Vital Signs Temp Pulse Resp BP Pulse Ox O2 Del Method 11/23/22 07:41 Room Air 11/23/22 07:21 36.8 C 64 16 121/75 92 Room Air 11/23/22 07:02 74 20 96 Room Air Medications Administered Current Inpatient Medications Acetaminophen (Acetaminophen 500 Mg Tab) 1,000 mg PO Q8H [facility] Stop: 12/22/22 08:59 Last Admin: 11/23/22 07:54 Dose: 1,000 mg Al Hydrox/Mg Hydrox/Simethicone (Aluminum/Magnesium Susp 30 Ml Udc) 30 ml PO Q6H PRN PRN Reason: Dyspepsia Stop: 12/20/22 21:45 Albuterol (Albut/Ipratrop 3mg/0.5mg Neb 3 Ml Vial) 3 ml NEB QIDR PRN; Protocol PRN Reason: SOB/wheezing Stop: 12/22/22 10:59 Last Admin: 11/23/22 06:59 Dose: 3 ml Amlodipine Besylate (Amlodipine Besylate 5 Mg Tab) 5 mg PO DAILY [facility] Stop: 12/21/22 08:59 Last Admin: 11/22/22 08:18 Dose: Not Given Apixaban (Apixaban 2.5 Mg Tab) 2.5 mg PO BID [facility] Stop: 12/21/22 20:59 Last Admin: 11/23/22 07:55 Dose: 2.5 mg Atorvastatin Calcium (Atorvastatin 40 Mg Tab) 40 mg PO HS [facility] Stop: 12/20/22 21:45 Last Admin: 11/22/22 20:11 Dose: 40 mg Bisacodyl (Bisacodyl 10 Mg Supp) 10 mg [place] DAILY PRN PRN Reason: Constipation Stop: 12/20/22 21:45 Chlorthalidone (Chlorthalidone 25 Mg Tab) 25 mg PO DAILY [facility] Stop: 12/22/22 08:59 Gabapentin (Gabapentin 100 Mg Cap) 100 mg PO HS [facility] Stop: 12/20/22 21:45 Last Admin: 11/22/22 20:10 Dose: 100 mg Guaifenesin (Guaifenesin 600 Mg Tabcr) 600 mg PO Q12H PRN PRN Reason: Congestion Stop: 12/20/22 21:45 Hydromorphone HCl (Hydromorphone Inj 0.5 Mg/0.5 Ml Syr) 0.5 mg IV Q6H PRN PRN Reason: Pain Stop: 12/05/22 16:37 Levothyroxine Sodium (Levothyroxine Sodium 137 Mcg Tablet) 137 mcg PO DAILYBB [facility] Stop: 12/21/22 06:29 Last Admin: 11/23/22 05:22 Dose: 137 mcg Lisinopril (Lisinopril 20 Mg Tab) 20 mg PO QAM [facility] Stop: 12/22/22 08:59 Last Admin: 11/22/22 08:30 Dose: Not Given Magnesium Hydroxide (Magnesium Hydroxide Susp 30 Ml Udc) 30 ml PO DAILY PRN PRN Reason: Constipation Stop: 12/20/22 21:45 Metoprolol Tartrate (Metoprolol Tartrate 50 Mg Tab) 50 mg PO BID [facility] Stop: 12/20/22 21:45 Last Admin: 11/23/22 07:55 Dose: 50 mg Naloxone HCl (Naloxone Hcl 0.4 Mg/1 Ml Vial/Carp) 0.1 mg IV UD PRN PRN Reason: Opiate Overdose Stop: 12/20/22 21:45 Nystatin (Nystatin Powder 15gm Btl) 1 appln EXT BID [facility] Stop: 12/20/22 20:59 Last Admin: 11/23/22 07:59 Dose: 1 appln Ondansetron HCl (Ondansetron Inj 2 Mg/Ml 2 Ml Vial) 4 mg IV Q6H PRN PRN Reason: Nausea Stop: 12/20/22 21:45 Oxycodone HCl (Oxycodone Hcl Ir 5 Mg Tab (Immediate Release)) 5 mg PO Q4H PRN PRN Reason: Pain Stop: 12/05/22 16:37 Last Admin: 11/22/22 19:38 Dose: 5 mg Polyethylene Glycol (Polyethylene (Miralax) 17 Gm Pack) 17 gm PO DAILY PRN PRN Reason: Constipation Stop: 12/20/22 21:45 Senna/Docusate Sodium (Docusate Sodium/Senna 50/8.6mg Tab) 2 tab PO HS [facility] Stop: 12/20/22 21:45 Last Admin: 11/22/22 20:11 Dose: 2 tab Sodium Chloride (Sodium Chloride 0.65% Na Soln 45 Ml ([place])) 1 sprays PRECIOUS DAILY PRN PRN Reason: NASAL DRYNESS Stop: 12/20/22 21:45 Umeclidinium/Vilanterol (Umeclidinium/Vilanterol 62.5/25mcg 7 Puffs/Inhaler) 1 puffs INH DAILY [facility] Stop: 12/21/22 08:59 Last Admin: 11/23/22 07:55 Dose: 1 puffs
[2022-11-23] MEDS: DOCUSATE SODIUM/SENNA 50/8.6MG TAB PO SCH (21:04)
[2022-11-23] MEDS: ATORVASTATIN 40 MG TAB PO SCH (21:05)
[2022-11-23] MEDS: GABAPENTIN 100 MG CAP PO SCH (21:05)
[2022-11-23] MEDS: ZOLPIDEM TARTRATE 5 MG TAB PO SCH (21:07)
[2022-11-23] MEDS ORDERED: SODIUM CHLORIDE 0.9% 1000ML 1,000 ML IV ONE (21:08)
[2022-11-23 21:58] LABS: Calcium 8.7 mg/dl (8.6-10.3); Magnesium 1.6 mg/dl (1.7-2.4); Potassium 3.7 mmol/L (3.5-5.1)
[2022-11-23 22:00] LABS: Basophils # (auto) 0.05 K/uL (0-0.2); Basophils % (auto) 0.5 %; Eosinophils # (auto) 0.08 K/uL (0-0.50); Eosinophils % (auto) 0.8 %; Hematocrit (blood only) 35.9 % (37.0-47.0); Hemoglobin 11.7 g/dl (12.0-16.0); Immature Granulocytes # (auto) 0.07 K/uL (0.01-0.20); Immature Granulocytes % (auto) 0.7 %; Lymphocytes # (auto) 2.31 K/uL (1.2-3.4); Lymphocytes % (auto) 23.5 %; Mean Corpuscular Hemoglobin 30.6 pg (25.0-34.0); Mean Corpuscular Hgb Conc 32.6 g/dL (32.0-36.0); Mean Platelet Volume 10.2 fL (9.4-12.4); Monocytes # (auto) 0.88 K/uL (0.11-0.59); Neutrophils # (auto) 6.44 K/uL (1.40-6.50); Neutrophils % (auto) 65.5 %; Platelet Count 246 K/uL (130-400); RDW Coefficient of Variation 14.4 % (11.5-14.5); RDW Standard Deviation 48.7 fL (36.4-46.3); Red Blood Count 3.82 M/uL (4.20-5.40); White Blood Count 9.83 K/ul (4.8-10.8)
[2022-11-23 22:04] LABS: BUN Creatinine Ratio 42.6 (10-20); Est GFR (African American) 95.1 ml/min
[2022-11-23] MEDS ORDERED: MAGNESIUM SULFATE / D5W 1 GM/100 ML BAG IV ONE (22:15)
[2022-11-24] MEDS: ACETAMINOPHEN 500 MG TAB PO SCH ×3 (02:00→17:56)
[2022-11-24] MEDS: LEVOTHYROXINE SODIUM 137 MCG TABLET PO SCH (05:40)
[2022-11-24] MEDS: ALBUT/IPRATROP 3MG/0.5MG NEB 3 ML VIAL NEB PRN ×4 (07:38→19:06)
[2022-11-24] MEDS: METOPROLOL TARTRATE 50 MG TAB PO SCH ×2 (07:51→20:06)
[2022-11-24] MEDS: NYSTATIN POWDER 15GM BTL EXT SCH ×2 (07:52→20:07)
[2022-11-24] MEDS: UMECLIDINIUM/VILANTEROL 62.5/25MCG 7 PUFFS/INHALER INH SCH (07:52)
[2022-11-24] MEDS: APIXABAN 2.5 MG TAB PO SCH ×2 (07:52→20:06)
--- NOTE | 2022-11-24 09:48 | Hospitalist Progress Note ---
Date of Service November 24, 2022 Assessment & Plan (1) Fracture of femur, subcapital, left, closed: Plan: Status post left hip percutaneous screw fixation by Dr. Serrano with estimated blood loss 20 cc. Doing well postoperatively, continue pain management and DVT prophylaxis per orthopedics. Pain controlled. Cont scheduled APAP. Cont ice/mobilization, etc. PT/OT. (2) Post-operative state: (3) Asthma-COPD overlap syndrome: Plan: Chronic, stable. No wheezing or shortness of breath. Duonebs PRN (4) Supplemental oxygen dependent: Plan: 3L Oxygen HS and prn No signs current exacerbation Continue supplemental oxygen Continue home inhalers Nebs prn (5) Hypertension: Plan: some post operative hypotension noted, hold all antihypertensives at this point (6) Hyperlipidemia: Plan: Chronic, stable. Continue atorvastatin per home regimen. (7) GERD (gastroesophageal reflux disease): Plan: Chronic, stable. Continue PPI per home regimen. (8) Hypothyroidism: Plan: Chronic, stable. Continue levothyroxine per home regimen. DVT Prophylaxis-apixaban Full Code To rehab after the weekend. Follows with Dr Carmen for routine care Idania Pelletier DO [facility] Hospitalist Admission and Anticipated Discharge Date Admission Date: November 20, 2022 Subjective 82-year-old female admitted with left hip fracture status post repair today slept with the Ambien and feel better today pain is controlled Review of Systems Review of Systems: All systems reviewed negative except as indicated above Physical Exam Physical Exam: CONSTITUTIONAL: WNWD, vitals as above, generally well-appearing, NAD EYES: normal conjunctivae, no scleral icterus ENT: external ear and nose normal, MMM NECK: trachea midline RESPIRATORY: clear to auscultation bilaterally, no crackles, rales or wheezes, normal respiratory effort CARDIOVASCULAR: regular rate and rhythm, S1 and 2 heard without murmurs, gallops or rubs, no JVD, no peripheral edema, lower extremities are warm and well perfused. CHEST: inspection of chest was normal GASTROINTESTINAL: soft, nontender, ND, no guarding MUSCULOSKELETAL: moving upper extremities equally, lower extremity movement limited post op, head is normocephalic and atraumatic SKIN: warm and dry NEUROLOGIC: CN 2-12 grossly intact, no sensory deficit, normal cognition, normal speech, no tremor PSYCHIATRIC: alert cooperative and oriented to person, place and time. Euthymic mood, makes good eye contact, language grossly intact, recent and remote memory grossly intact. Results & Data Results & Data Vital Signs (Past 12 Hours) Vital Signs Temp Pulse Resp BP BP Pulse Ox O2 Del Method 11/24/22 09:30 Room Air 11/24/22 07:38 80 18 93 Room Air 11/24/22 06:57 36.5 C 80 16 154/78 H 93 Room Air 11/24/22 00:45 144/75 H 134/74 Laboratory Results Short CBC 11/23/22 Range/Units 21:30 WBC 9.83 (4.8-10.8) K/ul Hgb 11.7 L (12.0-16.0) g/dl Hct 35.9 L (37.0-47.0) % Plt Count 246 (130-400) K/uL BMP 11/23/22 21:30 Sodium 137 Potassium 3.7 Chloride 102 Carbon Dioxide 29 BUN 29 H Creatinine 0.68 Glucose 143 H Calcium 8.7 Medications Administered Current Inpatient Medications Acetaminophen (Acetaminophen 500 Mg Tab) 1,000 mg PO Q8H [facility] Stop: 12/22/22 08:59 Last Admin: 11/24/22 07:51 Dose: 1,000 mg Al Hydrox/Mg Hydrox/Simethicone (Aluminum/Magnesium Susp 30 Ml Udc) 30 ml PO Q6H PRN PRN Reason: Dyspepsia Stop: 12/20/22 21:45 Albuterol (Albut/Ipratrop 3mg/0.5mg Neb 3 Ml Vial) 3 ml NEB QIDR PRN; Protocol PRN Reason: SOB/wheezing Stop: 12/22/22 10:59 Last Admin: 11/24/22 07:38 Dose: 3 ml Amlodipine Besylate (Amlodipine Besylate 5 Mg Tab) 5 mg PO DAILY [facility] Stop: 12/21/22 08:59 Last Admin: 11/22/22 08:18 Dose: Not Given Apixaban (Apixaban 2.5 Mg Tab) 2.5 mg PO BID [facility] Stop: 12/21/22 20:59 Last Admin: 11/24/22 07:52 Dose: 2.5 mg Atorvastatin Calcium (Atorvastatin 40 Mg Tab) 40 mg PO HS [facility] Stop: 12/20/22 21:45 Last Admin: 11/23/22 21:05 Dose: 40 mg Bisacodyl (Bisacodyl 10 Mg Supp) 10 mg [place] DAILY PRN PRN Reason: Constipation Stop: 12/20/22 21:45 Chlorthalidone (Chlorthalidone 25 Mg Tab) 25 mg PO DAILY [facility] Stop: 12/22/22 08:59 Gabapentin (Gabapentin 100 Mg Cap) 100 mg PO HS [facility] Stop: 12/20/22 21:45 Last Admin: 11/23/22 21:05 Dose: 100 mg Guaifenesin (Guaifenesin 600 Mg Tabcr) 600 mg PO Q12H PRN PRN Reason: Congestion Stop: 12/20/22 21:45 Hydromorphone HCl (Hydromorphone Inj 0.5 Mg/0.5 Ml Syr) 0.5 mg IV Q6H PRN PRN Reason: Pain Stop: 12/05/22 16:37 Sodium Chloride (Nss 1000ml) 1,000 mls @ 75 mls/hr IV .[id number] ONE Stop: 11/24/22 10:27 Last Admin: 11/23/22 21:19 Dose: 75 mls/hr Levothyroxine Sodium (Levothyroxine Sodium 137 Mcg Tablet) 137 mcg PO DAILYBB [facility] Stop: 12/21/22 06:29 Last Admin: 11/24/22 05:40 Dose: 137 mcg Lisinopril (Lisinopril 20 Mg Tab) 20 mg PO QAM [facility] Stop: 12/22/22 08:59 Last Admin: 11/22/22 08:30 Dose: Not Given Magnesium Hydroxide (Magnesium Hydroxide Susp 30 Ml Udc) 30 ml PO DAILY PRN PRN Reason: Constipation Stop: 12/20/22 21:45 Metoprolol Tartrate (Metoprolol Tartrate 50 Mg Tab) 50 mg PO BID [facility] Stop: 12/20/22 21:45 Last Admin: 11/24/22 07:51 Dose: 50 mg Naloxone HCl (Naloxone Hcl 0.4 Mg/1 Ml Vial/Carp) 0.1 mg IV UD PRN PRN Reason: Opiate Overdose Stop: 12/20/22 21:45 Nystatin (Nystatin Powder 15gm Btl) 1 appln EXT BID [facility] Stop: 12/20/22 20:59 Last Admin: 11/24/22 07:52 Dose: 1 appln Ondansetron HCl (Ondansetron Inj 2 Mg/Ml 2 Ml Vial) 4 mg IV Q6H PRN PRN Reason: Nausea Stop: 12/20/22 21:45 Oxycodone HCl (Oxycodone Hcl Ir 5 Mg Tab (Immediate Release)) 5 mg PO Q4H PRN PRN Reason: Pain Stop: 12/05/22 16:37 Last Admin: 11/22/22 19:38 Dose: 5 mg Polyethylene Glycol (Polyethylene (Miralax) 17 Gm Pack) 17 gm PO DAILY PRN PRN Reason: Constipation Stop: 12/20/22 21:45 Senna/Docusate Sodium (Docusate Sodium/Senna 50/8.6mg Tab) 2 tab PO HS [facility] Stop: 12/20/22 21:45 Last Admin: 11/23/22 21:04 Dose: 2 tab Sodium Chloride (Sodium Chloride 0.65% Na Soln 45 Ml ([place])) 1 sprays PRECIOUS DAILY PRN PRN Reason: NASAL DRYNESS Stop: 12/20/22 21:45 Umeclidinium/Vilanterol (Umeclidinium/Vilanterol 62.5/25mcg 7 Puffs/Inhaler) 1 puffs INH DAILY [facility] Stop: 12/21/22 08:59 Last Admin: 11/24/22 07:52 Dose: 1 puffs Zolpidem Tartrate (Zolpidem Tartrate 5 Mg Tab) 5 mg PO HS [facility] Stop: 12/23/22 20:59 Last Admin: 11/23/22 21:07 Dose: 5 mg
[2022-11-24 10:43] LABS: Creatinine Clr Calc Pharmacy 50.4 ml/min; Est GFR (African American) 100.2 ml/min; Est GFR (Non-African American) 86.4 ml/min; Magnesium 1.9 mg/dl (1.7-2.4); Potassium 3.9 mmol/L (3.5-5.1)
[2022-11-24] MEDS: DOCUSATE SODIUM 100 MG CAP PO SCH (17:57)
[2022-11-24] MEDS: GABAPENTIN 100 MG CAP PO SCH (20:06)
[2022-11-24] MEDS: ZOLPIDEM TARTRATE 5 MG TAB PO SCH (20:06)
[2022-11-24] MEDS: ATORVASTATIN 40 MG TAB PO SCH (20:06)
[2022-11-25] MEDS: ACETAMINOPHEN 500 MG TAB PO SCH ×2 (00:45→08:05)
[2022-11-25] MEDS: DOCUSATE SODIUM 100 MG CAP PO SCH (04:59)
[2022-11-25] MEDS: LEVOTHYROXINE SODIUM 137 MCG TABLET PO SCH (05:00)
[2022-11-25] MEDS: ALBUT/IPRATROP 3MG/0.5MG NEB 3 ML VIAL NEB PRN ×2 (07:10→11:00)
[2022-11-25] MEDS: UMECLIDINIUM/VILANTEROL 62.5/25MCG 7 PUFFS/INHALER INH SCH (08:04)
[2022-11-25] MEDS: METOPROLOL TARTRATE 50 MG TAB PO SCH ×2 (08:04→14:53)
[2022-11-25] MEDS: NYSTATIN POWDER 15GM BTL EXT SCH (08:05)
[2022-11-25] MEDS: APIXABAN 2.5 MG TAB PO SCH (08:05)
[2022-11-25 09:23] LABS: Hematocrit (blood only) 37.9 % (37.0-47.0); Hemoglobin 12.3 g/dl (12.0-16.0); Mean Corpuscular Hemoglobin 30.3 pg (25.0-34.0); Mean Corpuscular Hgb Conc 32.5 g/dL (32.0-36.0); Mean Corpuscular Volume 93.3 fL (80.0-100.0); Mean Platelet Volume 9.8 fL (9.4-12.4); Platelet Count 271 K/uL (130-400); RDW Coefficient of Variation 14.5 % (11.5-14.5); Red Blood Count 4.06 M/uL (4.20-5.40); White Blood Count 8.81 K/ul (4.8-10.8)
[2022-11-25 09:41] LABS: BUN Creatinine Ratio 28.3 (10-20); Calcium 9.1 mg/dl (8.6-10.3); Creatinine Clr Calc Pharmacy 55.1 ml/min; Est GFR (African American) 103.2 ml/min; Potassium 3.5 mmol/L (3.5-5.1)
--- NOTE | 2022-11-25 11:46 | Discharge Summary ---
Date of Service November 25, 2022 Admission HPI Per Admitting Provider Patient is 82 y/o F with PMH HTN, dyslipidemia, asthma, COPD on 3L O2 HS and as needed, hypothyroidism, GERD presented to ER with c/o fall 10 days ago and left hip pain. History obtained from patient and patient's daughter as well as outpatient review. States 10 days ago making bed and foot got caught in sheet causing her to fall onto left side. Reports instant pain to left hip and was unable to stand. Family lifted patient into chair. Patient states hasn't been able to bear weight on left leg since fall and has been using wheelchair. She also c/o left knee pain, left great toe pain. She states has been using Tylenol once daily and using Voltaren gel with limited relief. Seen in PCP's office 11/15/22 and had outpatient xrays. Was notified today of abnormal xray and referred to ER. Patient reports urinary frequency x 3 weeks. Denies dysuria, or hematuria. States lower abdomen feels full like her bladder is full. Has been using OTC AZO. Denies fever/chills, diaphoresis, N/V/D/C, BLANCAS, dizziness, syncope, vision changes, neck pain, CP, SOB, palpitations, cough, sore throat, rhinorrhea, abdominal pain, paresthesias, weakness, extremity edema, rashes. Admission Exam Per Admitting Provider General: no acute distress, WDWN Head: normocephalic, atraumatic Eyes: conjunctiva non-injected, anicteric ENT: normal inspection external ears, nose, mucous membranes moist Neck: supple, trachea midline Lungs: clear, no respiratory distress, no wheezing/rhonchi/rales CV: RRR, no murmur, no pretibial edema Abd: normal BS, soft, +tender to palpation suprapubic region Ext: no cyanosis, no erythema; LLE: +tenderness to palpation anterior/lateral hip. Pt laying left lateral decubitus with hip and knee flexed in position of comfort, patient actively extends and flexes knee and ankle, No further ROM attempted secondary to fracture. distal pulses intact, sensation to light touch intact Neuro: A&O x 3, no focal deficits noted, normal affect Skin: warm, dry Principal Diagnosis Impacted subcapital fracture of the left proximal femur Discharge Exam Constitutional + thin; no acute distress sitting up in the chair Respiratory normal respiratory effort, lungs clear to auscultation Cardiovascular Rate/Rhythm: regular rate and regular rhythm Vessels: normal peripheral pulses Extremities: no edema Gastrointestinal (Abdomen) Percussion/Palpation: abdomen soft; abdomen nontender Musculoskeletal s/p left hip surgery, dressing CDI, CSM checks intact LLE Skin no rashes, warm and dry Neurologic PERRL, EOMI, accommodation nl, no face palsy, no dysarthria Psychiatric A+Ox3, euthymic affect Discharge Data Allergies Allergy/AdvReac Type Severity Reaction Status Date / Time latex Allergy Unknown RASH Verified 03/20/22 11:55 No Known Drug Allergies Allergy Unknown . Verified 03/20/22 11:[address] Serrano Procedures Performed Operation Date: 11/21/22 14:05 Actual Procedures p Left Hip Percutaneous Screw Fracture(Left) - Noel Serrano DO Ordered Studies Laboratory Results WBC 8.81 K/ul (4.8-10.8) 11/25/22 09:00 RBC 4.06 M/uL (4.20-5.40) L 11/25/22 09:00 Hgb 12.3 g/dl (12.0-16.0) 11/25/22 09:00 Hct 37.9 % (37.0-47.0) 11/25/22 09:00 MCV 93.3 fL (80.0-100.0) 11/25/22 09:00 MCH 30.3 pg (25.0-34.0) 11/25/22 09:00 MCHC 32.5 g/dL (32.0-36.0) 11/25/22 09:00 RDW Std Deviation 50.0 fL (36.4-46.3) H 11/25/22 09:00 RDW Coeff of Markie 14.5 % (11.5-14.5) 11/25/22 09:00 Plt Count 271 K/uL (130-400) 11/25/22 09:00 MPV 9.8 fL (9.4-12.4) 11/25/22 09:00 Immature Gran % (Auto) 0.7 % 11/23/22 21:30 Neut % (Auto) 65.5 % 11/23/22 21:30 Lymph % (Auto) 23.5 % 11/23/22 21:30 Amelia % (Auto) 9.0 % 11/23/22 21:30 Eos % (Auto) 0.8 % 11/23/22 21:30 Baso % (Auto) 0.5 % 11/23/22 21:30 Neut # (Auto) 6.44 K/uL (1.40-6.50) 11/23/22 21:30 Lymph # (Auto) 2.31 K/uL (1.2-3.4) 11/23/22 21:30 Amelia # (Auto) 0.88 K/uL (0.11-0.59) H 11/23/22 21:30 Eos # (Auto) 0.08 K/uL (0-0.50) 11/23/22:30 Baso # (Auto) 0.05 K/uL (0-0.2) 11/23/22:30 Immature Gran # (Auto) 0.07 K/uL (0.01-0.20) 11/23/22 21:30 Sodium 140 mmol/L (136-145) 11/25/22 09:00 Potassium 3.5 mmol/L (3.5-5.1) 11/25/22 09:00 Chloride 101 mmol/L (98-107) 11/25/22 09:00 Carbon Dioxide 34 mmol/L (21-32) H 11/25/22 09:00 Anion Gap 5 (3-11) 11/25/22 09:00 BUN 15 mg/dl (6-23) 11/25/22 09:00 Creatinine 0.53 mg/dl (0.6-1.2) L 11/25/22 09:00 Est Cr Clr Drug Dosing 55.1 ml/min 11/25/22 09:00 Est GFR ( Amer) 103.2 ml/min 11/25/22 09:00 Est GFR (Non-Af Amer) 89.0 ml/min 11/25/22 09:00 BUN/Creatinine Ratio 28.3 (10-20) H 11/25/22 09:00 Glucose 107 mg/dl (70-99(Fasting)) H 11/25/22 09:00 Lactate 2.0 mmol/L (0.4-2.0) 11/23/22 21:30 Calcium 9.1 mg/dl (8.6-10.3) 11/25/22 09:00 Magnesium 1.9 mg/dl (1.7-2.4) 11/24/22 10:04 Total Bilirubin 0.4 mg/dl (0.2-1.0) 11/20/22 15:30 AST 24 U/L (13-39) 11/20/22 15:30 ALT 18 U/L (7-52) 11/20/22 15:30 Alkaline Phosphatase 68 U/L (34-104) 11/20/22 15:30 Total Protein 8.1 gm/dl (6.0-8.3) 11/20/22 15:30 Albumin 4.5 gm/dl (3.4-5.0) 11/20/22 15:30 Globulin 3.6 gm/dl (2.5-4.0) 11/20/22 15:30 Albumin/Globulin Ratio 1.3 (0.9-2) 11/20/22 15:30 Urine Color Yellow 11/20/22 17:22 Urine Appearance Clear (Clear) 11/20/22 17:22 Urine pH 6.5 (4.5-7.5) 11/20/22 17:22 Ur Specific [place] 1.006 (1.000-1.030) 11/20/22 17:22 Urine Protein Negative (Negative) 11/20/22 17:22 Urine Glucose (UA) Negative (Negative) 11/20/22 17:22 Urine Ketones Negative (Negative) 11/20/22 17:22 Urine Blood Negative (Negative) 11/20/22 17:22 Urine Nitrite Negative (Negative) 11/20/22 17:22 Urine Bilirubin Negative (Negative) 11/20/22 17:22 Urine Urobilinogen Negative (Negative) 11/20/22 17:22 Ur Leukocyte Esterase Negative (Negative) 11/20/22 17:22 Nasal Screen MRSA (PCR) Negative (Negative) 11/20/22 00:50 SARS-CoV-2 (PCR) NEGATIVE (Negative) 11/25/22 08:32 SARS-CoV-2, RNA, NAAT NEGATIVE (NEGATIVE) 11/20/22 15:50 Blood Type B Positive 11/20/22 22:37 Antibody Screen NEGATIVE 11/20/22 22:37 Impressions Hip/Pelvis X-Ray 11/20/22 14:37 SINGLE VIEW PELVIS; 2 VIEWS LEFT HIP CLINICAL HISTORY: Fall. Left hip injury. FINDINGS: An AP view of the pelvis with AP and crosstable lateral views of the left hip are obtained. No prior studies are available for comparison at the time of dictation. The skeletal structures are osteopenic. There is an impacted and mildly offset subcapital fracture of the left proximal femur with overlying soft tissue edema. No additional acute fracture is seen involving the right hip or the bony pelvis. Mild arthritic change and joint space narrowing is seen in the hips. There is mild degenerative sclerosis of the sacroiliac joints. Lumbosacral spondylosis is partially imaged. There is atherosclerotic calcification of the femoral arteries. Phleboliths are noted in the pelvis. IMPRESSION: Impacted subcapital fracture of the left proximal femur. Electronically signed by: Edson Guevara M.D. 11/20/2022 3:29 PM Chest X-Ray 11/20/22 15:34 XR chest 1V portable CLINICAL HISTORY: fall TECHNIQUE: Single frontal radiograph of the chest was obtained. Comparison: Comparison is made to chest radiograph 11/26/2018 FINDINGS: No lines and tubes are seen. Calcified aortic knob is seen. A moderate to large hiatal hernia is seen. No evidence of pleural effusion or pneumothorax. IMPRESSION: No acute chest disease. ACT 112: Negative or not required by law. Electronically signed by: Rashi Dias M.D. 11/20/2022 4:05 PM Hip X-Ray 11/21/22 16:38 XR hip LT min 2V CLINICAL HISTORY: Post-Operative implant position COMPARISON STUDY: Left hip 11/20/2022. FINDINGS: Status post internal fixation of the impacted left subcapital femoral neck fracture with 3 cannulated screws. The hardware is intact. Skin antwon are in place. No dislocation. IMPRESSION: Status post internal fixation of a left femoral neck fracture. The hardware appears intact. ACT 112: Negative or not required by law. Electronically signed by: Feliciano Olivia M.D. 11/21/2022 7:30 PM Hospital Course (1) Fracture of femur, subcapital, left, closed: Patient presented after mechanical fall, found to have impacted subcapital fracture of the left proximal femur s/p left hip percutaneous screw fixation by Dr. Serrano on 11/21/22 EBL 20cc, hgb remained stable, hgb 12.3 11/25/22 Eliquis 2.5mg BID x 6 weeks for DVT prophylaxis (2) Hypertension: Due to post op hypotension, amlodipine, lisinopril, and chlorthalidone were placed on hold. Metoprolol continued. Recommend to continue to hold amlodipine and chlorthalidone and resume as able at SNF (3) Asthma-COPD overlap syndrome: (4) Supplemental oxygen dependent: stable, no signs of acute exacerbation continue home inhalers 3L Oxygen HS and prn (5) Hyperlipidemia: Continue atorvastatin per home regimen. (6) GERD (gastroesophageal reflux disease): Continue PPI per home regimen. (7) Hypothyroidism: Continue levothyroxine per home regimen. Total Time Total Time Spent Total Time Spent (In Minutes): 40 Discharge Plan Discharge Items Patient Disposition: Transfer Half-Way Fac Reason For Visit: Fall, Left Hip Pain Discharge Diagnosis: Impacted subcapital fracture of the left proximal femur Activity: As commented below Non-emergency contact: Primary Care Provider and Surgeon Call non-emergency contact if: you have any medication questions, your symptoms worsen, your pain is not controlled and you have a fever Follow-up/Referrals: Bao Carmen MD [Primary Care Provider] - Diet: Heart Healthy Enrique Attending Provider Instructions: Patient admitted after a mechanical fall and left hip pain. Found to have impacted subcapital fracture of the left proximal femur. s/p Left Hip Percutaneous Screw fixation on 11/21/[address] Serrano. Eliquis 2.5mg BID x 6 weeks for DVT prophylaxis Due to intermittent hypotension, patient's home amlodipine, lisinopril, and chlorthalidone were placed on hold, recommend resuming as able at [facility]. Addtl Compliance Director Provider Instructions: ORTHOPEDIC INSTRUCTIONS Hip Fracture Activity and Therapy Recommendations: 1. You were shown a series of exercises in the hospital. Do these exercises three times each day if you are able. 2. Get up and walk several times each day if you are capable. Make sure you have assistance is needed. For the first four weeks, try not to stand or walk for more than one hour at a time. If you do stand or walk for more than one hour, you will not hurt a nything, but your leg will likely swell. 3. As you feel comfortable, you may change from the walker or crutches to a cane and then to independent walking if you are able. Please be safe. Medications: 1. Narcotic You will likely be sent from the hospital with the narcotic pain medication that worked best throughout your stay. 2. Eliquis You will likely be required to take Eliquis 2.5 mg twice a day for 6 weeks 3. Other medications may be given for specific circumstances. If you have any questions, please call the office at [phone]. 4. Resume previous home medications unless otherwise instructed TEDs/Elastic Stockings: The white elastic stockings help limit swelling and prevent blood clots from forming in your legs. The more you wear them, the more they work. Wear them for six weeks. Dressing Care: Antwon can be open to air as long as the incisions are not draining. If the incisions are draining or if the antwon are getting caught on your clothes then please cover the antwon with dry gauze. Change the dressings as necessary to keep the incision as dry as possible Showering: You may shower 5 days from the day of surgery as long as the incisions are not draining. Do not soak the incision. Let soapy water run over the antwon and pat them dry. Things To Watch For: 1. Drainage from the incision site that occurs more than one week after your surgery. 2. Increased redness at the incision site. 3. Fever above 102 degrees Fahrenheit. 4. Unusual chest pain or shortness of breath. 5. Call [facility] at with any of the above problems Follow-Up Visit: Follow-up with Dr. Serrano's PA (Noel Palm) 2-3 weeks after your day of surgery. He will remove your antwon and answer any questions. If you have any additional questions or concerns, Dr Serrano is usually in the office at the same time and will be available Please call the office to set up an appointment for a time that works for you. Pending Studies at Discharge: No Stand-Alone Forms: My [facility] Skilled Items Patient informed of condition?: Yes DNR: No Discharge Level of Care: Skilled Communicable Disease: No Discharge Prognosis: Stable Lines: None Urinary Catheter: No Medications and DC Order Prescriptions: New Eliquis 2.5 mg Tablet 2.5 mg PO BID Qty: 78 0RF Continued (DME) Oxygen Home Liters Per Minute See Dose Instructions .ROUTE .MEDSUPPLY Qty: 1 0RF Rx Instructions: 3LPM O2 during sleep (DME) compressor, for nebulizer Device See Rx Instructions .Route Qty: 1 0RF Rx Instructions: As directed (DME) nebulizer accessories Kit See Rx Instructions .Route Qty: 1 6RF Rx Instructions: Nebulizer kits,tubing and [id number] Anoro Ellipta 62.5-25 mcg/actuation blister with device 1 inh inhalation DAILY Qty: 180 3RF Calcium 600 with Vitamin D3 600 mg(1,500mg) -400 unit tablet,chewable 1 tab PO AMPM levothyroxine 137 mcg tablet 137 mcg PO DAILYBB omeprazole 20 mg capsule,delayed release(DR/EC) 20 mg PO DAILY PRN (Reason: Gi Upset) sodium chloride 0.65 % aerosol,spray 1 spray intranasal .USE DIRECTED. PRN (Reason: NASAL DRYNESS) atorvastatin 40 mg tablet 40 mg PO HS Qty: 90 metoprolol tartrate 50 mg tablet 50 mg PO BID gabapentin 100 mg capsule 100 mg PO HS calcium carbonate [Tums 500] 500 mg calcium (1,250 mg) Tablet,Chewable 500 mg PO 4XD PRN (Reason: Gi Upset) guaifenesin [Mucinex] 600 mg Tablet Extended Release 12hr 600 mg PO Q12H PRN (Reason: Congestion) ipratropium-albuterol 0.5 mg-3 mg(2.5 mg base)/3 mL solution for nebulization 3 ml INH Q4H PRN (Reason: Shortness Of Breath Or Wheezing) Rx Instructions: 120 vials ( 360 ml) QID albuterol sulfate 2.5 mg /3 mL (0.083 %) solution for nebulization 2.5 mg inhalation QID PRN (Reason: Shortness Of Breath Or Wheezing) aspirin 81 mg Capsule 81 mg PO DAILY Discontinued amlodipine 5 mg tablet 5 mg PO DAILY Qty: 90 chlorthalidone 25 mg tablet 25 mg PO DAILY lisinopril 20 mg tablet 20 mg PO QAM Discharge Orders: Discharge Order (Routine); Ordered 11/25/22 Ordered By: Cecilia Argueta Admission Data Admit Date/Time: 11/20/22 16:37 Attending Provider: Idania Pelletier Admit Provider: Idania Pelletier Primary Care Provider: Bao Carmen Other Providers: [place],[facility]
== END 2022-11-25 15:00 | DRG 482 ==
LOC: ED 13:55 → EDINP 16:37 → 3W 21:47

== ENCOUNTER 2024-01-19 20:02 | Inpatient (IN) ==
[2024-01-19 21:01] LABS: Alanine Aminotransferase 11 U/L (7-52); Albumin Globulin Ratio 1.4 (0.9-2); Albumin Level 4.1 gm/dl (3.4-5.0); Alkaline Phosphatase 48 U/L (34-104); Anion Gap 8 (3-11); Aspartate Aminotransferase 17 U/L (13-39); BUN Creatinine Ratio 21.6 (10-20); Bilirubin,Total 0.3 mg/dl (0.2-1.0); Blood Urea Nitrogen 19 mg/dl (6-23); Calcium 9.2 mg/dl (8.6-10.3); Carbon Dioxide 29 mmol/L (21-32); Chloride 100 mmol/L (98-107); Glucose 122 mg/dl (70-99(Fasting)); Potassium 3.9 mmol/L (3.5-5.1); Sodium 137 mmol/L (136-145); Total Protein 7.1 gm/dl (6.0-8.3)
[2024-01-19 21:02] LABS: Hematocrit (blood only) 23.7 % (37.0-47.0); Hemoglobin 6.3 g/dl (12.0-16.0); Mean Corpuscular Hemoglobin 19.1 pg (25.0-34.0); Mean Corpuscular Hgb Conc 26.6 g/dL (32.0-36.0); Mean Corpuscular Volume 71.8 fL (80.0-100.0); Mean Platelet Volume 10.1 fL (9.4-12.4); Platelet Count 350 K/uL (130-400); RDW Coefficient of Variation 17.2 % (11.5-14.5); RDW Standard Deviation 43.8 fL (36.4-46.3); White Blood Count 14.91 K/ul (4.8-10.8)
[2024-01-19 21:03] LABS: Basophils # (auto) 0.06 K/uL (0.00-0.20); Basophils % (auto) 0.4 %; Eosinophils # (auto) 0.12 K/uL (0.00-0.50); Eosinophils % (auto) 0.8 %; Immature Granulocytes # (auto) 0.09 K/uL (0.01-0.20); Immature Granulocytes % (auto) 0.6 %; Lymphocytes # (auto) 1.84 K/uL (1.20-3.40); Lymphocytes % (auto) 12.3 %; Monocytes # (auto) 1.15 K/uL (0.11-0.59); Monocytes % (auto) 7.7 %; Neutrophils # (auto) 11.65 K/uL (1.40-6.50); Neutrophils % (auto) 78.2 %; Polychromasia 1+
[2024-01-19 21:08] LABS: Troponin I High Sensitivity 9.6 pg/ml (0-14)
[2024-01-19 21:31] LABS: INR 0.9 (0.9-1.1); Partial Thromboplastin Ratio 0.8; Partial Thromboplastin Time 21 Seconds (21-31); Prothrombin Time 10.3 Seconds (9.0-12.0)
[2024-01-19 22:05] LABS: Adenovirus PCR Not Detected (NotDetected); Bordetella parapertussis PCR Not Detected (NotDetected); Bordetella pertussis PCR Not Detected (NotDetected); Chlamydia pneumoniae PCR Not Detected (NotDetected); Coronavirus 229E PCR Not Detected (NotDetected); Coronavirus CoV-2 (COVID19)PCR Not Detected (NotDetected); Coronavirus HKU1 PCR Not Detected (NotDetected); Coronavirus NL63 PCR Not Detected (NotDetected); Coronavirus OC43PCR Not Detected (NotDetected); Human Metapneumovirus PCR Not Detected (NotDetected); Influenza A PCR Not Detected (NotDetected); Influenza B PCR Not Detected (NotDetected); Mycoplasma pneumoniae PCR Not Detected (NotDetected); Parainfluenza Virus 1 PCR Not Detected (NotDetected); Parainfluenza Virus 2 PCR Not Detected (NotDetected); Parainfluenza Virus 3 PCR Not Detected (NotDetected); Parainfluenza Virus 4 PCR Not Detected (NotDetected); Respiratory Syncytial VirusPCR Not Detected (NotDetected); Rhinovirus/Enterovirus PCR Not Detected (NotDetected)
[2024-01-19] MEDS ORDERED: SODIUM CHLORIDE 0.9% 250 ML IV PRN (22:57)
--- NOTE | 2024-01-19 23:29 | Emergency Department Note ---
Impression & Plan Anemia, Symptomatic anemia, Acute dyspnea, Anemia requiring transfusions ED Provider Note HISTORY OF PRESENT ILLNESS: Patient is a 83-year-old female presenting with shortness of breath. Patient reports over the last 3 to 4 days she has been having progressively worsening shortness of breath. States that he feels lightheaded and dizzy over the last 3 to 4 days. Denies any recent fevers or cough. She wears 3 L nasal cannula at baseline. She denies any chest pain. She states she is only able to take a few steps before but she becomes short of breath and lightheaded. She is not on any anticoagulation or antiplatelet therapy. She denies any melena or blood in her stool. Denies any nausea, vomiting or diarrhea. Denies any recent sick contact exposures. She states that she took her saturations at home today and they were in the 70s on her oxygen and given her symptoms, decided to present to the emergency department. ROS: as above PHYSICAL EXAM: Constitutional: Patient appears in no acute distress. HENT: Head: Normocephalic and atraumatic. Eyes: EOMI, PERRL Mouth/Throat: Mucous membranes moist. Neck: Trachea midline. Neck supple. Cardiovascular: RRR, No murmurs, rubs or gallops. Intact distal pulses. Pulmonary/Chest: No respiratory distress. Breath sounds clear and equal bilaterally. No wheezes or rales. On 3 L nasal cannula. Abdominal: Abdomen soft, no tenderness, rebound or guarding. Rectal: Chaperoned by nursing staff. No palpable masses or hemorrhoids. No blood or melena on stool. Hemoccult negative. Musculoskeletal: No edema, tenderness or deformity noted. Skin: Warm and dry. No rash, erythema, pallor or cyanosis Psychiatric: Appropriate mood and affect for situation. Neurological: Alert and keenly responsive. CN II-XII grossly intact, moving all extremities equally and fully. MDM: - Vitals signs showed hypertension and hypoxia. - History obtained via patient. History as above. - Chronic conditions affecting care: HTN; HLD; COPD (on 3L NC); hypothyroidism; GERD - Differential diagnoses include, but are not limited to: Congestive heart failure; acute coronary syndrome; COPD/asthma exacerbation; pulmonary edema; pulmonary embolism; pneumonia; pneumothorax; viral syndrome; anemia - Order placed for continuous cardiac monitoring. At this time, monitor showed rate of 65 bpm with normal sinus rhythm, per my interpretation. - External medical records reviewed. Discharge summary dated 11/25/2022 was reviewed. Patient was admitted that time for a subcapital proximal femur fracture. - EKG interpreted by myself showed normal sinus rhythm. Rate 74 bpm. QT 396. No acute ischemic changes. - Laboratory workup interpreted by myself showed leukocytosis (WBC 14.91); anemia (hgb 6.3); normal PT/INR; stable electrolytes; normal troponin - Iron panel and ferritin added to workup. - Viral respiratory panel negative - CXR negative for pneumonia, per my interpretation. Noted to have what looks like a hiatal hernia. - Patient was consented for blood in the emergency department. 3 units were ordered with 2 to transfuse now. - Discussion was had with window caser about patient's case and need for admission - Hospitalist, Dr. Botello, consulted for admission - [facility]. I have personally spent 49 minutes of critical care time in the direct management of this patient. This includes bedside care, interpretation of diagnostic studies, and testing, discussion with consultants, patient, and family members, and other required patient management activities. This 49 minutes is in excess of all separately billable procedures. 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) COPD (chronic obstructive pulmonary disease) (Acute) Subclavian artery stenosis, left Benign neoplasm of colon Chronic rhinitis Chronic sinusitis GERD (gastroesophageal reflux disease) Hyperlipidemia Hypertension Post-menopausal atrophic vaginitis Rosacea Senile osteoporosis Closed fracture of left hip (Acute) Fall (Acute) Cough Abnormal CT scan of lung Shortness of breath (Acute) Medical History (Updated 01/19/24 @ 23:36 by Shelly Cardozo MD) Hypoxia Abnormal finding on imaging Cough Asthma with COPD Surgical History (Updated 12/26/22 @ 00:10 by Vaughn Molina) H/O: hysterectomy Hx of cholecystectomy History of appendectomy Family History Family/Other Hypertension Asthma Cardiac disorder Social History Smoking Status: Former smoker Second Hand Exposure: Yes; Hx Alcohol Use: No Hx Substance Use: No Preferred Language: Eritrean Communication Ability: Effective marital status: Current Living Situation: Family Feels Safe at Home: Yes Seatbelt Use: always Assistive Devices: Walker Allergies Allergies Allergy/AdvReac Type Severity Reaction Status Date / Time latex Allergy Unknown RASH Verified 04/15/23 13:56 No Known Drug Allergies Allergy Unknown . Verified 04/15/23 13:56 Home Meds Home Medications Medication Instructions Recorded Confirmed atorvastatin 40 mg tablet 40 mg PO HS #90 tabs 11/24/18 01/19/24 sodium chloride 0.65 % nasal spray 1 spray intranasal .USE 11/24/18 01/19/24 aerosol DIRECTED. PRN NASAL DRYNESS calcium 600 mg (as carbonate)-vit 1 tab PO AMPM 02/24/19 01/19/24 D3 10 mcg (400 unit) chewable tablet (Calcium 600 with Vitamin D3) omeprazole 20 mg capsule,delayed 20 mg PO DAILY PRN Gi Upset 10/23/20 01/19/24 release levothyroxine 137 mcg tablet 137 mcg PO DAILYBB 10/30/21 01/19/24 metoprolol tartrate 50 mg tablet 50 mg PO BID 11/20/22 01/19/24 budesonide 0.5 mg/2 mL suspension 0.5 mg inhalation BID 01/19/24 01/19/24 for nebulization calcium carbonate (Tums) 200 mg PO QID PRN Heartburn 01/19/24 01/19/24 fluticasone fur. 100 mcg-umeclid 1 inh inhalation DAILY 01/19/24 01/19/24 62.5 mcg-vilant 25 mcg inhalat.powder (Trelegy Ellipta) gabapentin 100 mg capsule 100 mg PO TID 01/19/24 01/19/24 lisinopril 20 mg tablet 20 mg PO QAM 01/19/24 01/19/24 trazodone 50 mg tablet 50 mg PO HS 01/19/24 01/19/24 Previous Rx's Medication Instructions Recorded Oxygen Home #1 ea 04/22/22 compressor, for nebulizer #1 ea 04/22/22 nebulizer accessories #1 ea 08/15/22 ipratropium 0.5 mg-albuterol 3 mg 3 ml inhalation Q4H PRN Shortness 03/14/23 (2.5 mg base)/3 mL nebulization Of Breath Or Wheezing #360 mL soln Results & Data (ED) Vital Signs Vital Signs - 24 hr 01/19/24 20:14 01/19/24 20:17 01/19/24 21:21 Temperature 37 C Temperature Source Temporal Artery Scan Pulse Rate 80 Pulse Rate [Apical] Pulse Rate from SpO2 Sensor Pulse Rhythm Regular Pulse Strength Normal Respiratory Rate 20 Respiratory Effort / Characteristics Non-Labored Spontaneous Non-Labored Spontaneous Respiratory Depth Normal Normal Respiratory Pattern Regular Regular Blood Pressure 171/84 H Blood Pressure [Right Arm] Blood Pressure Mean 113 Blood Pressure Mean [Right Arm] Pulse Oximetry 100 83 L Oxygen Delivery Method Room Air Room Air Room Air Oxygen Flow Rate 0 Sepsis Recent Fever Within 48 Hours No Sepsis New/Unexplained Change in Mental Status No Sepsis Action Taken by Nursing No Action Required Oxygen Flow Rate - Titration 3 Pulse Oximetry Post Tiitration 93 01/19/24 21:21 01/19/24 21:35 01/19/24 23:00 Temperature Temperature Source Pulse Rate 71 62 Pulse Rate [Apical] 77 Pulse Rate from SpO2 Sensor Pulse Rhythm Pulse Strength Respiratory Rate 20 18 Respiratory Effort / Characteristics Respiratory Depth Respiratory Pattern Blood Pressure 139/87 Blood Pressure [Right Arm] 144/80 H Blood Pressure Mean 122 Blood Pressure Mean [Right Arm] 101 Pulse Oximetry 96 98 Oxygen Delivery Method Nasal Cannula Oxygen Flow Rate 3 Sepsis Recent Fever Within 48 Hours Sepsis New/Unexplained Change in Mental Status Sepsis Action Taken by Nursing Oxygen Flow Rate - Titration Pulse Oximetry Post Tiitration 01/19/24 23:21 Temperature Temperature Source Pulse Rate 65 Pulse Rate [Apical] Pulse Rate from SpO2 Sensor 65 Pulse Rhythm Pulse Strength Respiratory Rate 22 Respiratory Effort / Characteristics Respiratory Depth Respiratory Pattern Blood Pressure Blood Pressure [Right Arm] Blood Pressure Mean Blood Pressure Mean [Right Arm] Pulse Oximetry 99 Oxygen Delivery Method Oxygen Flow Rate Sepsis Recent Fever Within 48 Hours Sepsis New/Unexplained Change in Mental Status Sepsis Action Taken by Nursing Oxygen Flow Rate - Titration Pulse Oximetry Post Tiitration Laboratory Data 01/19/24 20:28 01/19/24 20:28 Lab Results 01/19/24 01/19/24 01/19/24 Range/Units 20:28 20:32 23:13 WBC 14.91 H (4.8-10.8) K/ul RBC 3.30 L (4.20-5.40) M/uL Hgb 6.3 L* (12.0-16.0) g/dl Hct 23.7 L (37.0-47.0) % MCV 71.8 L (80.0-100.0) fL MCH 19.1 L (25.0-34.0) pg MCHC 26.6 L (32.0-36.0) g/dL RDW Std Deviation 43.8 (36.4-46.3) fL RDW Coeff of Markie 17.2 H (11.5-14.5) % Plt Count 350 (130-400) K/uL MPV 10.1 (9.4-12.4) fL Immature Gran % (Auto) 0.6 % Neut % (Auto) 78.2 % Lymph % (Auto) 12.3 % [place] % (Auto) 7.7 % Eos % (Auto) 0.8 % Baso % (Auto) 0.4 % Neut # (Auto) 11.65 H (1.40-6.50) K/uL Lymph # (Auto) 1.84 (1.20-3.40) K/uL [place] # (Auto) 1.15 H (0.11-0.59) K/uL Eos # (Auto) 0.12 (0.00-0.50) K/uL Baso # (Auto) 0.06 (0.00-0.20) K/uL Immature Gran # (Auto) 0.09 (0.01-0.20) K/uL Polychromasia 1+ PT 10.3 (9.0-12.0) Seconds INR 0.9 (0.9-1.1) APTT 21 (21-31) Seconds PTT Ratio 0.8 Sodium 137 (136-145) mmol/L Potassium 3.9 (3.5-5.1) mmol/L Chloride 100 (98-107) mmol/L Carbon Dioxide 29 (21-32) mmol/L Anion Gap 8 (3-11) BUN 19 (6-23) mg/dl Creatinine 0.88 (0.6-1.2) mg/dl Est Cr Clr Drug Dosing Not Reportable eGFR 65.57 BUN/Creatinine Ratio 21.6 H (10-20) Glucose 122 H (70-99(Fasting)) mg/dl Calcium 9.2 (8.6-10.3) mg/dl Magnesium 2.0 (1.7-2.4) mg/dl Iron 17 L (35-150) mcg/dl Transferrin % Sat TNP Total Bilirubin 0.3 (0.2-1.0) mg/dl AST 17 (13-39) U/L ALT 11 (7-52) U/L Alkaline Phosphatase 48 (34-104) U/L Troponin I High Sens 9.6 (0-14) pg/ml Total Protein 7.1 (6.0-8.3) gm/dl Albumin 4.1 (3.4-5.0) gm/dl Globulin 3.0 (2.5-4.0) gm/dl Albumin/Globulin Ratio 1.4 (0.9-2) Adenovirus (PCR) Not Detected (NotDetected) B. pertussis DNA (PCR) Not Detected (NotDetected) B.parapertussis DNA PCR Not Detected (NotDetected) C. pneumoniae DNA (PCR) Not Detected (NotDetected) Coronavirus OC43 (PCR) Not Detected (NotDetected) Coronavirus HKU1 (PCR) Not Detected (NotDetected) Coronavirus 229E (PCR) Not Detected (NotDetected) SARS-CoV-2 (PCR) Not Detected (NotDetected) Coronavirus NL63 (PCR) Not Detected (NotDetected) Human Metapneumovir PCR Not Detected (NotDetected) Influenza Type A (PCR) Not Detected (NotDetected) Influenza Type B (PCR) Not Detected (NotDetected) M. pneumoniae (PCR) Not Detected (NotDetected) Parainfluenza 1 (PCR) Not Detected (NotDetected) Parainfluenza 2 (PCR) Not Detected (NotDetected) Parainfluenza 3 (PCR) Not Detected (NotDetected) Parainfluenza 4 (PCR) Not Detected (NotDetected) RSV (PCR) Not Detected (NotDetected) Entero/Rhino (PCR) Not Detected (NotDetected) Crossmatch See Detail Discharge Plan Visit Data Chief Complaint: Shortness of Breath/Dyspnea Stated Complaint: SOB, DIZZY, SHAKEY, RUMBLING SOUND IN STOMACH ED Provider: Shelly Cardozo Discharge Problem: Anemia, Symptomatic anemia, Acute dyspnea, Anemia requiring transfusions Forms Stand Alone Forms: [facility] Prescriptions Prescriptions: No Action (DME) Oxygen Home Liters Per Minute See Dose Instructions .ROUTE .MEDSUPPLY Qty: 1 0RF Rx Instructions: 3LPM O2 during sleep (DME) compressor, for nebulizer Device See Rx Instructions .Route Qty: 1 0RF Rx Instructions: As directed (DME) nebulizer accessories Kit See Rx Instructions .Route Qty: 1 6RF Rx Instructions: Nebulizer kits,tubing and [id number] ipratropium-albuterol 0.5 mg-3 mg(2.5 mg base)/3 mL solution for nebulization 3 ml INH Q4H PRN (Reason: Shortness Of Breath Or Wheezing) Qty: 360 5RF Calcium 600 with Vitamin D3 600 mg(1,500mg) -400 unit tablet,chewable 1 tab PO AMPM Trelegy Ellipta 100-62.5-25 mcg blister with device 1 inh inhalation DAILY levothyroxine 137 mcg tablet 137 mcg PO DAILYBB omeprazole 20 mg capsule,delayed release(DR/EC) 20 mg PO DAILY PRN (Reason: Gi Upset) sodium chloride 0.65 % aerosol,spray 1 spray intranasal .USE DIRECTED. PRN (Reason: NASAL DRYNESS) atorvastatin 40 mg tablet 40 mg PO HS Qty: 90 metoprolol tartrate 50 mg tablet 50 mg PO BID trazodone 50 mg tablet 50 mg PO HS budesonide 0.5 mg/2 mL suspension for nebulization 0.5 mg inhalation BID lisinopril 20 mg tablet 20 mg PO QAM gabapentin 100 mg capsule 100 mg PO TID calcium carbonate [Tums] 200 mg calcium (500 mg) Tablet,Chewable 200 mg PO QID PRN (Reason: Heartburn) Referrals Referrals: Bao Carmen MD [Primary Care Provider] -
--- NOTE | 2024-01-19 23:51 | History & Physical Report ---
Date of Service January 19, 2024 Assessment & Plan (1) Symptomatic anemia: Plan: Rule out GI bleed Initial FOBT done either was negative. Complicated UTI, no sepsis for now COPD, symptoms at baseline hypertension, elevated secondary to illness hyperlipidemia, on statin Rx hx PVD GERD/paraesophageal hernia as per records hypothyroidism, euthyroid as of recent outpatient TSH carotid based tumor status post radiation Hyperglycemia rule out DM, past tobacco abuse Medical telemetry Anemia workup Hemoccult all stools during confinement, hold home aspirin until GI bleed definitely ruled out Transfuse PBC to maintain hemoglobin of at least 8 given history of PVD Facilitate nighttime beta-cassidy Urine CS, Ceftriaxone Check hemoglobin A1c DVT prophylaxis. SCDs re: possible GI bleed Full code Patient daughter requesting updates providers. Ms. Meredith White, contact #[phone]. Text document was generated using [employer] voice recognition software. It may contain grammatical or spelling errors. Kindly contact undersigned for clarification of any documentation item in question. History of Present Illness Chief Complaint: shortness of breath Primary Care Provider: Bao Carmen MD History obtained from patient, family, and records. Medical history significant for COPD, hypertension, hyperlipidemia, PVD, COPD, nocturnal hypoxemia Home O2, GERD, paraesophageal hernia as per records, hypothyroidism, carotid based tumor status post radiation, past tobacco abuse. Last confinement November 2022 for left femoral fracture status post surgery. Patient discharged to SNF for rehab. Patient with increasing SOB over the last 4 days. SOB mostly on exertion. Usual cough symptoms. Denies chest pain. Denies headache. No unusual fluid retention. Achy central abdominal pain without nausea/vomiting. Denies black/bloody stools. Hemoglobin noted to be 6.3 at the ER. 2 units PRBC transfused at the ER. 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 Verified 04/15/23 13:56 Home Medications Medication Instructions Recorded Confirmed Type atorvastatin 40 mg tablet 40 mg PO HS #90 tabs 11/24/18 01/19/24 History sodium chloride 0.65 % nasal spray 1 spray intranasal .USE 11/24/18 01/19/24 History aerosol DIRECTED. PRN NASAL DRYNESS calcium 600 mg (as carbonate)-vit 1 tab PO AMPM 02/24/19 01/19/24 History D3 10 mcg (400 unit) chewable tablet (Calcium 600 with Vitamin D3) omeprazole 20 mg capsule,delayed 20 mg PO DAILY PRN Gi Upset 10/23/20 01/19/24 History release levothyroxine 137 mcg tablet 137 mcg PO DAILYBB 10/30/21 01/19/24 History Oxygen Home #1 ea 04/22/22 01/19/24 Rx compressor, for nebulizer #1 ea 04/22/22 01/19/24 Rx nebulizer accessories #1 ea 08/15/22 01/19/24 Rx metoprolol tartrate 50 mg tablet 50 mg PO BID 11/20/22 01/19/24 History ipratropium 0.5 mg-albuterol 3 mg 3 ml inhalation Q4H PRN Shortness 03/14/23 01/19/24 Rx (2.5 mg base)/3 mL nebulization Of Breath Or Wheezing #360 mL soln budesonide 0.5 mg/2 mL suspension 0.5 mg inhalation BID 01/19/24 01/19/24 History for nebulization calcium carbonate (Tums) 200 mg PO QID PRN Heartburn 01/19/24 01/19/24 History fluticasone fur. 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) COPD (chronic obstructive pulmonary disease) (Acute) Subclavian artery stenosis, left Benign neoplasm of colon Chronic rhinitis Chronic sinusitis GERD (gastroesophageal reflux disease) Hyperlipidemia Hypertension Post-menopausal atrophic vaginitis Rosacea Senile osteoporosis Closed fracture of left hip (Acute) Fall (Acute) Cough Abnormal CT scan of lung Shortness of breath (Acute) Medical History (Updated 01/19/24 @ 23:36 by Shelly Cardozo MD) Hypoxia Abnormal finding on imaging Cough Asthma with COPD Surgical History (Updated 12/26/22 @ 00:10 by Vaughn Molina) H/O: hysterectomy Hx of cholecystectomy History of appendectomy Family History Family/Other Hypertension Asthma Cardiac disorder Social History Smoking Status: Former smoker Second Hand Exposure: Yes; Hx Alcohol Use: No Hx Substance Use: No Preferred Language: Cypriot Communication Ability: Effective Skip Tracer Required: No Beliefs That Will Affect Care: None marital status: Current Living Situation: Family Current Living Situation Comment: Lives in a one story with her adult son (Moe Ortega, info on file in chart) Feels Safe at Home: Yes Safety Concerns: Feels Safe At This Time Seatbelt Use: always Assistive Devices: Denture - Upper and Denture - Lower Review of Systems Review of Systems: As per HPI, all other systems reviewed and negative Physical Exam Physical Exam: GENERAL: Comfortable, pleasant, no respiratory distress SKIN: Pallor, warm HEENT: Pale, nasal cannula in place palpebral conjunctivae, no ptosis, dry buccal mucosa NECK : Supple, no tenderness CHEST : Decreased breath sounds, no tenderness HEART : RRR, no obvious murmurs ABDOMEN: Some distention, nontender EXTREMITIES : No LE swelling/tenderness, no other conspicuous deformities noted NEUROLOGIC : Coherent, no facial asymmetry, no other gross focality Results & Data Results & Data Vital Signs (Past 12 Hours) Vital Signs Temp Pulse Pulse Resp BP BP Pulse Ox 01/19/24 23:21 65 22 99 01/19/24 23:00 62 18 139/87 98 01/19/24 21:35 71 01/19/24 21:21 77 20 144/80 H 96 01/19/24 21:21 83 L 01/19/24 20:17 01/19/24 20:14 37 C 80 20 171/84 H 100 O2 Del Method O2 Flow Rate 01/19/24 23:21 01/19/24 23:00 01/19/24 21:35 01/19/24 21:21 Nasal Cannula 3 01/19/24 21:21 Room Air 0 01/19/24 20:17 Room Air 01/19/24 20:14 Room Air Laboratory Results Laboratory Results WBC 14.91 K/ul (4.8-10.8) H 01/19/24 20:28 RBC 3.30 M/uL (4.20-5.40) L 01/19/24 20:28 Hgb 6.3 g/dl (12.0-16.0) L* 01/19/24 20:28 Hct 23.7 % (37.0-47.0) L 01/19/24 20:28 MCV 71.8 fL (80.0-100.0) L 01/19/24 20:28 MCH 19.1 pg (25.0-34.0) L 01/19/24 20: MCHC 26.6 g/dL (32.0-36.0) L 01/19/24 20:28 RDW Std Deviation 43.8 fL (36.4-46.3) 01/19/24 20: RDW Coeff of Markie 17.2 % (11.5-14.5) H 01/19/24 20:28 Plt Count 350 K/uL (130-400) 01/19/24 20:28 MPV 10.1 fL (9.4-12.4) 01/19/24 20: Immature Gran % (Auto) 0.6 % 01/19/24 20: Neut % (Auto) 78.2 % 01/19/24 20:28 Lymph % (Auto) 12.3 % 01/19/24 20:28 [place] % (Auto) 7.7 % 01/19/24 20:28 Eos % (Auto) 0.8 % 01/19/24 20: Baso % (Auto) 0.4 % 01/19/24 20: Neut # (Auto) 11.65 K/uL (1.40-6.50) H 01/19/24 20: Lymph # (Auto) 1.84 K/uL (1.20-3.40) 01/19/24 20: [place] # (Auto) 1.15 K/uL (0.11-0.59) H 01/19/24: Eos # (Auto) 0.12 K/uL (0.00-0.50) 01/19/24 20: Baso # (Auto) 0.06 K/uL (0.00-0.20) 01/19/24: Immature Gran # (Auto) 0.09 K/uL (0.01-0.20) 01/19/24: Polychromasia 1+ 01/19/24: PT 10.3 Seconds (9.0-12.0) 01/19/24: INR 0.9 (0.9-1.1) 01/19/24: APTT 21 Seconds (21-31) 01/19/24: PTT Ratio 0.8 01/19/24: Sodium 137 mmol/L (136-145) 01/19/24: Potassium 3.9 mmol/L (3.5-5.1) 01/19/24: Chloride 100 mmol/L (98-107) 01/19/24: Carbon Dioxide 29 mmol/L (21-32) 01/19/24: Anion Gap 8 (3-11) 01/19/24: BUN 19 mg/dl (6-23) 01/19/24 20: Creatinine 0.88 mg/dl (0.6-1.2) 01/19/24: Est Cr Clr Drug Dosing Not Reportable 01/19/24: eGFR 65.57 01/19/24: BUN/Creatinine Ratio 21.6 (10-20) H 01/19/24 20: Glucose 122 mg/dl (70-99(Fasting)) H 01/19/24 20: Calcium 9.2 mg/dl (8.6-10.3) 01/19/24 20: Total Bilirubin 0.3 mg/dl (0.2-1.0) 01/19/24 20: AST 17 U/L (13-39) 01/19/24 20: ALT 11 U/L (7-52) 01/19/24 20: Alkaline Phosphatase 48 U/L (34-104) 01/19/24 20: Troponin I High Sens 9.6 pg/ml (0-14) 01/19/24 20: Total Protein 7.1 gm/dl (6.0-8.3) 01/19/24 20: Albumin 4.1 gm/dl (3.4-5.0) 01/19/24 20: Globulin 3.0 gm/dl (2.5-4.0) 01/19/24: Albumin/Globulin Ratio 1.4 (0.9-2) 01/19/24 20:28 Adenovirus (PCR) Not Detected (NotDetected) 01/19/24 20:32 B. pertussis DNA (PCR) Not Detected (NotDetected) 01/19/24 20:32 B.parapertussis DNA PCR Not Detected (NotDetected) 01/19/24 20:32 C. pneumoniae DNA (PCR) Not Detected (NotDetected) 01/19/24 20:32 Coronavirus OC43 (PCR) Not Detected (NotDetected) 01/19/24 20:32 Coronavirus HKU1 (PCR) Not Detected (NotDetected) 01/19/24 20:32 Coronavirus 229E (PCR) Not Detected (NotDetected) 01/19/24 20:32 SARS-CoV-2 (PCR) Not Detected (NotDetected) 01/19/24 20:32 Coronavirus NL63 (PCR) Not Detected (NotDetected) 01/19/24 20:32 Human Metapneumovir PCR Not Detected (NotDetected) 01/19/24 20:32 Influenza Type A (PCR) Not Detected (NotDetected) 01/19/24 20:32 Influenza Type B (PCR) Not Detected (NotDetected) 01/19/24 20:32 M. pneumoniae (PCR) Not Detected (NotDetected) 01/19/24 20:32 Parainfluenza 1 (PCR) Not Detected (NotDetected) 01/19/24 20:32 Parainfluenza 2 (PCR) Not Detected (NotDetected) 01/19/24 20:32 Parainfluenza 3 (PCR) Not Detected (NotDetected) 01/19/24 20:32 Parainfluenza 4 (PCR) Not Detected (NotDetected) 01/19/24 20:32 RSV (PCR) Not Detected (NotDetected) 01/19/24 20:32 Entero/Rhino (PCR) Not Detected (NotDetected) 01/19/24 20:32 Crossmatch See Detail 01/19/24 23:13 CT abdomen pelvis: 1. Diaphragmatic hernia which contains the proximal stomach in the RIGHT thorax. 2. Cholecystectomy. 3. Hysterectomy. 4. Diverticulosis, without acute diverticulitis. No small bowel obstruction. No free intraperitoneal air. Diagnostic Findings Chest x-ray as per my interpretation prominent hiatal hernia EKG as per my interpretation : Rate 75, NSR, normal axis, T wave abnormalities inferior and septal leads
[2024-01-19 23:55] LABS: Iron 17 mcg/dl (35-150)
[2024-01-20 00:28] LABS: Total Iron Binding Cap Calc 512 mcg/dl (250-450); Transferrin (FE) Percent Satur 3 % (15-50); Unsaturated Iron Binding Cap 495 mcg/dl (155-355)
[2024-01-20] MEDS ORDERED: CALCIUM CARBONATE 500 MG CHEWABLE TAB PO PRN (00:44)
[2024-01-20] MEDS ORDERED: PROMETHAZINE 6.25 MG/50.25 ML BAG IV PRN (00:50)
[2024-01-20] MEDS: traZODone HCL 50 MG TAB PO SCH (01:19)
[2024-01-20] MEDS: METOPROLOL TARTRATE 50 MG TAB PO STA (01:19)
[2024-01-20] MEDS: OPTIRAY 320 100ml IV ONE (01:28)
[2024-01-20 01:31] LABS: Lipase 45 U/L (11-82)
[2024-01-20] MEDS: ALBUT/IPRATROP 3MG/0.5MG NEB 3 ML VIAL NEB PRN ×2 (01:42→20:13)
[2024-01-20 03:06] LABS: Appearance Urine Clear (Clear); Bacteria Urine Automated None Seen (None Seen); Bilirubin Urine Negative (Negative); Blood Urine Negative (Negative); Cast Urine Automated 0-2 /lpf (0-2); Color Urine Yellow; Epithelial Cell Urine Auto 0-2 /hpf (0-2); Glucose Urine UA Negative (Negative); Ketones Urine Negative (Negative); Leukocyte Esterase Urine 2+ (Negative); Nitrite Urine Negative (Negative); Protein Urine Negative (Negative); RBC Urine Automated 0-2 /hpf (0-2); Specific Gravity Urine 1.012 (1.000-1.030); Urobilinogen Urine Negative (Negative)
--- NOTE | 2024-01-20 03:54 | CT Scan Report ---
Exam(s): CT ABDOMEN + PELVIS With Contrast IV Amt: 94 ml opti 320 EXAM: CT Abdomen and Pelvis With Intravenous Contrast CLINICAL HISTORY: Reason for exam: abd pain, anemia. TECHNIQUE: Axial computed tomography images of the abdomen and pelvis with intravenous contrast. CTDI is 11.62 mGy and DLP is 469.92 mGy-cm. Automated exposure control was utilized for the study. A dose lowering technique was utilized adhering to the principles of ALARA. CONTRAST: Patient received 94 ml opti 320 of IV contrast COMPARISON: No relevant prior studies available. FINDINGS: Lung bases: Unremarkable. No mass. No consolidation. ABDOMEN: Liver: Unremarkable. No mass. Gallbladder and bile ducts: Cholecystectomy. No ductal dilation. Pancreas: Unremarkable. No mass. No ductal dilation. Spleen: Unremarkable. No splenomegaly. Adrenals: Unremarkable. No mass. Kidneys and ureters: Unremarkable. No solid mass. No hydronephrosis. Stomach and bowel: Diaphragmatic hernia which contains the proximal stomach in the RIGHT thorax. Diverticulosis, without acute diverticulitis. No small bowel obstruction. No free intraperitoneal air. PELVIS: Appendix: No findings to suggest acute appendicitis. Bladder: Unremarkable. No mass. Reproductive: Hysterectomy. ABDOMEN and PELVIS: Intraperitoneal space: Unremarkable. No free air. No significant fluid collection. Bones/joints: Degenerative changes of the spine. LEFT hip percutaneous pinning. No acute fracture. No dislocation. Soft tissues: Unremarkable. Vasculature: Atherosclerotic changes of the aorta. No abdominal aortic aneurysm. Lymph nodes: Unremarkable. No enlarged lymph nodes. IMPRESSION: 1. Diaphragmatic hernia which contains the proximal stomach in the RIGHT thorax. 2. Cholecystectomy. 3. Hysterectomy. 4. Diverticulosis, without acute diverticulitis. No small bowel obstruction. No free intraperitoneal air. Electronically signed by: Delfin Womack MD 01/20/24 03:52 AM
[2024-01-20] MEDS: lisinopril 20 MG TAB PO STA (04:50)
[2024-01-20] MEDS: cefTRIAXone SODIUM 1,000 MG/50 ML BAG IV SCH (05:40)
--- OUTSIDE RECORDS SUMMARY | 2024-01-20 05:41 | External Medical Summary | Summary of Care ---
Author Name Unknown Organization [facility] Address [address] [facility] [address] Phone [phone] Care Team Providers Care Water Attendant Name Role Phone Yumiko Goldstein DO Primary Care Provider Reason for Visit * Reason Onset Date Comments Advice 12/08/2023 Encounter Details Date Type Department Care Team (Late st Contact Info) Description 12/08/2023 Telephone Family Medicine [address] [phone] Yumiko Goldstein [address] [place] [phone] Advice Allergies Active Allergy Reactions Criticality Noted Date Comments Other - Environmental 09/27/2008 Band aids documented as of this encounter (statuses as of 12/10/2023) Medications Medication Sig Dispensed Refills Start Date End Date Status TUMS 500 MG PO CHEW as needed Activ e SALINE NASAL SPRAY 0.65 % NA SOLN Administer into nostril daily as needed. Active Calcium Carb-Cholecalciferol (CALCIUM + D3) 600-200 MG-UNIT per tablet Take 1 Tablet by mouth in the morning and 1 Tablet before bedtime. Active Acetaminophen 500 MG Oral Tablet Take 1 Tablet by mouth every 8 hours as needed for Pain, Moderate. Active Aspirin 81 MG Oral Tablet Delayed Release Take 1 Tablet by mouth in the morning. 12/03/2022 Active Albuterol Sulfate (2.5 MG/3ML) 0.083% Inhalation Nebulization Solution (Proventil) Inhale 1 Vial via nebulizer every 4 hours as needed for Wheezing. 1080 mL 3 08/18/2023 Active Atorvastatin Calcium 40 MG Oral Tablet (Lipitor)Indications :Hyperlipidemia with target LDL less than 130 TAKE ONE TABLET BY MOUTH AT BEDTIME 100 Tablet 1 08/17/2023 Active Lisinopril 20 MG Oral Tablet (Prinivil)Indication s:Primary hypertension TAKE ONE TABLET BY MOUTH IN THE MORNING 100 Tablet 1 08/17/2023 Active Metoprolol Tartrate 50 MG Oral Tablet (Lopressor)Indicatio ns:Primary hypertension,Essenti al hypertension with goal blood pressure less than 140/90 TAKE 1 TABLET BY MOUTH IN THE MORNING AND AT BEDTIME 200 Tablet 1 08/17/2023 Active traZODone HCl 50 MG Oral Tablet (Desyrel)Indications :Primary insomnia Take 1 Tablet by mouth at bedtime. 100 Tablet 1 08/17/2023 Active Levothyroxine Sodium 137 MCG Oral Tablet (Synthroid)Indicatio ns:Acquired hypothyroidism TAKE ONE TABLET BY MOUTH IN THE MORNING 30 MIN BEFORE BREAKFAST OR OTHER MEDS 100 Tablet 1 08/19/2023 Active Fluticasone-Umeclidi n-Vilant 100-62.5-25 MCG/ACT Aerosol Powder Breath Activated (Trelegy Ellipta)Indications: COPD, group B, by GOLD 2017 classification ([facility]) Inhale 1 Puff by mouth in the morning. 180 Blister Dosing Unit 10/24/2023 Active Gabapentin 100 MG Oral Capsule (Neurontin)Indicatio ns:Lumbar radicular pain Take one capsule by mouth one hour prior to bed for one week then increase to one capsule in the morning and one capsule in the evening. 180 Capsule 1 11/13/2023 Active oxygen IN GAS Administer 2 L/min(Oxygen) into nostril at bedtime. 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 Overview: right side Hyperlipidemia with target LDL less than 100 Overview: ICD-10 update of inactive term documented as of this encounter (statuses as of 12/10/2023) Resolved Problems Problem Noted Date Diagnosed Date Resolved Date Benign neoplasm of colon 09/20/2013 Overview: 10 mm polyp transverse colon Gallstone pancreatitis 04/10/201203/16 Nonallergic rhinitis 05/17/2011 024 Chronic sinusitis 05/17/2011 08/28/2017 Moderate persistent asthma w ithout complication 05/17/2011 10/24/2023 Dyslipidemia, goal LDL below 160 03/30/2009 03/17/2013 Dyslipidemia, goal to be determined 03/21/2009 03/30/2009 Overview: Per Lipid Taxonomy. HTN, goal below 140/90 02/17/200911/22 Overview: Modified per HTN Taxonomy. NONALLERGIC RHINITIS 07/08/2008 012 HTN, goal below 140/90 06/22/200702/17 Overview: Modified per HTN Taxonomy. Chronic sinusitis 01/19/2007 05/17/2011 ADVANCE DIRECTIVE INFORMATION 09/17/2005 10/24/2023 Overview: Yes, Patient instructed to provide copy of advance directive for provider to review and to be scanned into Electronic Medical Record Mixed dyslipidemia 12/02/2002 9 Overview: Per Lipid Taxonomy. Other allergic rhinitis 07/15/199706/13 Overview: ICD-10 update of inactive term Asthma with severity to be determined 07/15/1997 05/17/2011 Overview: ICD-10 update of inactive term Hypothyroidism 04/24/2010 Esophageal reflux 05/17/2011 COPD, moderate 01/27/2020 Overview: Per COPD GOLD Classification Postmenopausal atrophic vaginitis 10/24/2023 documented as of this encounter (statuses as of 12/10/2023) Immunizations Name Administration Dates Next Due COVID-19 mRNA, LNP-s, No Pre serve, 2-Dose Series (Moderna) 07/12/2020,06/21/2020 COVID-19 mRNA, LNP-s, No Pre serve, 2-Dose Series (Pfizer) 08/14/2021,01/24/2021 COVID-19, MRNA-LNP, 23-24, P F, 50 MCG/0.5 mL, 12 YRS AND ABOVE, IM (MODERNA-Spikevax) 04/18/2023 Pneumococcal Conjugate Vacc, 13 Valent (Prevnar) 10/11/2014 Pneumococcal Polysaccharide PPV23 (Pneumovax) 05/07/2007 RSV Vac., Recomb, Adjuvant, PF,0.5 Ml (Arexvy) 04/18/2023 Season Influenza, Quad, PF, Adjuvanted, 65+ Yrs, IM (FLUAD) 12/16/2019 Seasonal Influenza, PF, 6 M & above, IM , (FluLaval or Fluzone) 01/12/2019,01/20/2018 Seasonal Influenza, Quadriva lent Hd (Fluzone Hd) 02/03/2023,01/03/2022,01/02/2021 Seasonal Influenza, Quadriva lent Hd, 65+ Yrs 12/16/2019 Seasonal Influenza, Quadriva lent, No Preserve, IM 12/30/2016,01/31/2015 Seasonal Influenza, Split, I IV3, With Preserve, Inj 02/13/2016,12/23/2013,01/14/2013,12/27,01/08/2011,01/30/2010,02/02/2009 ,02/16/2008,02/03/2007,02/13/2006 Seasonal Influenza, Trivalen t, High Dose, No Preserve, IM 12/17/2018 TD, Preservative Free 03/30/2009 TDAP (age 10 and older)(Boostrix) 12/03/2022 Zoster Vaccine Recombinant (Shingrix) 12/03/2022 documented as of this encounter Social History Tobacco Use Types Packs/Day Years Used Date Smoking Tobacco: Former Cigarettes 0.5 30 0 04/14/1960 - 04/14/1990 Smokeless Tobacco: Never Comments:no passive smoke cu rrently Alcohol Use Standard Drinks/Week Comments Yes 0 (1 standard drink = 0.6 oz pur e alcohol) rare wine or beer PHQ-2 Answer Date Recorded PHQ Adult Total Score 0 01/10/2023 Hunger Vital Sign Answer Date Recorded Within the past 12 months, y ou worried that your food would run out before you got the money to buy more. Never true 01/11/20 23 Within the past 12 months, t he food you bought just didn't last and you didn't have money to get more. Never true 01/10/2023 Sex and Gender Information Value Date Recorded Sex Assigned at Female 12/02/2018 12:58 PM EDT Gender Identity Female 12/02/2018 12:58 PM EDT Sexual Orientation Straight 01/03/2022 11 :24 AM EDT Job Start Date Occupation Industry Not on file Not on file Not on file documented as of this encounter Miscellaneous Notes * Telephone Encounter - Marie Jimenez RN - 12/10/2023 4:47 PM EDT Pt will call Dr Diaz AT [facility] * Telephone Encounter - Yumiko Goldstein DO - 12/10/2023 1:10 PM EDT If she follows with pulmonary, they should be writing these orders. * Telephone Encounter - Marie Jimenez RN - 12/10/2023 9:34 AM EDT Pt does not remember who originally ordered the oxygen. She states she ONLY uses oxygen at night (she has a large tank on the floor)and would like an order to have the portable tanks removed so she does not have to pay for them. She uses [facility] in [facility] for this. Can you do the order? Or should she call Pulmonology? * Telephone Encounter - Marie Jimenez RN - 12/09/2023 2:45 PM EDT Phone busy * Telephone Encounter - Marie Jimenez RN - 12/08/2023 12:46 PM EDT call pt to clarify . We did not have Oxygen on her med list Does she have stationary Oxygen AND Portable oxygen? Does she want rid of the Portable Oxygen? What does she do when she leaves the house? What company does she get her oxygen from? She should probably discuss this with her machine slat basket maker at [facility], Dr Vinayak Diaz([phone] ) she sees him for her COPD * Telephone Encounter - Latesha Marti OSA - 12/08/2023 12:12 PM EDT Patient is saying she does not need oxygen canisters anymore and she is still being billed for them, she uses the regular machine. documented in this encounter Plan of Treatment Upcoming Encounters Date Type Department Care Team (Late st Contact Info) Description 01/15/2024 3:00 PM EDT Nurse Only Ancillary [address] [place] [address] [place], Nurse [address] [place] [address] 06/08/2024 3:10 PM EST Office Visit Family Medicine [address] [place] [phone] Yumiko Goldstein[address] [place] [address] Health Maintenance Due Date Last Done Comments Alpha-1 Antitrypsin 08/23/1958 DXA Scan 11/15/2022 11/15/2020, 1009/2016, 05/25/2014, Additional history exists Zoster Vaccines (2 of 2) 01/28/2023 12/03/2022 COVID-19 Vaccine ( season) 2023 04/18/2023, 08/14/2021, 08/14/2021, Additional history exists Influenza Vaccine (FLU shot) (#1) 2023 02/03/2023, 02/03/2023, 01/03/2022, Additional history exists Adult Wellness Visit 01/11/2024 01/10/2023, 01/03/2022, 01/02/2021 Depression Screening 01/11/2024 01/10/2023 Albumin/Creatinine Ratio 10/18/2024 022, 11/08/2020, 10/14/2019, Additional history exists O2 ASSESSMENT COMPLETED IN PAST YEAR FOR COPD 10/23/2024 10/24/2023 TSH 10/23/2024 10/24/2023, 08/0 07/2022, 01/23/2022, Additional history exists GFR 11/16/2024 11/17/2023, 10/12, 11/15/2022, Additional history exists DTap/Tdap Vaccines (2 - Td or Tdap) 12/03/2032 12/03/2022, 03/30/2009 VITAMIN D LEVEL ONCE IN A LIFETIME-USE SMARTSET# [id number] Completed 06/29/2012, 03/30/2009 Pneumococcal Vaccine: 65+ Years Completed 10/11/2014, 05/07/2007 HPV (Gardasil) Vaccine Aged Out No lo nger eligible based on patient's age to complete this topic Hepatitis B Vaccine Aged Out No longe r eligible based on patient's age to complete this topic MENINGOCOCCAL (MENACTRA/MENVEO) Aged Out No longer eligible based on patient's age to complete this topic documented as of this encounter Medical Devices Not on filedocumented as of this encounter Advance Directives Healthcare Agents on File Name Relationship Healthcare Agent Relationshi p Communication Dick Ortega Adult Child Health Care Repr esentative (appointed verbally by patient or by statute hierarchy) Meredith middletonsonshannon Adult Child Health Care R epresentative (appointed verbally by patient or by statute hierarchy) Care Teams Water Attendant Relationship Specialty Start Date End Date Yumiko Goldstein DO [address] [place] [address] [place] [address] PCP - General Internal Medicine 10/24/23 documented as of this encounter
--- OUTSIDE RECORDS SUMMARY | 2024-01-20 05:41 | External Medical Summary | Summary of Care ---
Author Name Unknown Organization [facility] Address [address] [place] [facility] [place] [place] [address] Phone [phone] Care Team Providers Care Auto Body Repair Teacher Name Role Phone Yumiko Goldstein DO Primary Care Provider [phone] Reason for Visit * Reason Onset Date Comments Medication Question 01/01/2024 Encounter Details Date Type Department Care Team (Late st Contact Info) Description 01/01/2024 Telephone Family Medicine [address] [phone] Yumiko Goldstein DO [address] [place] [address] [place] [phone] Medication Question Allergies Active Allergy Reactions Criticality Noted Date Comments Other - Environmental 09/27/2008 Band aids documented as of this encounter (statuses as of 01/05/2024) Medications Medication Sig Dispensed Refills Start Date End Date Status TUMS 500 MG PO CHEW as needed Active SALINE NASAL SPRAY 0.65 % NA SOLN Administer into nostril daily as needed. Active Calcium Carb-Cholecalcifer ol (CALCIUM + D3) 600-200 MG-UNIT per tablet Take 1 Tablet by mouth in the morning and 1 Tablet before bedtime. Active Acetaminophen 500 MG Oral Tablet Take 1 Tablet by mouth every 8 hours as needed for Pain, Moderate. Active Aspirin 81 MG Oral Tablet Delayed Release Take 1 Tablet by mouth in the morning. 3 Active Atorvastatin Calcium 40 MG Oral Tablet (Lipitor)Indicatio ns:Hyperlipidemia with target LDL less than 130 TAKE ONE TABLET BY MOUTH AT BEDTIME 100 Tablet 1 4 Active Lisinopril 20 MG Oral Tablet (Prinivil)Indicati ons:Primary hypertension TAKE ONE TABLET BY MOUTH IN THE MORNING 100 Tablet 1 4 Active Metoprolol Tartrate 50 MG Oral Tablet (Lopressor)Indicat ions:Primary hypertension,Essen tial hypertension with goal blood pressure less than 140/90 TAKE 1 TABLET BY MOUTH IN THE MORNING AND AT BEDTIME 200 Tablet 1 4 Active traZODone HCl 50 MG Oral Tablet (Desyrel)Indicatio ns:Primary insomnia Take 1 Tablet by mouth at bedtime. 100 Tablet 1 4 Active Levothyroxine Sodium 137 MCG Oral Tablet (Synthroid)Indicat ions:Acquired hypothyroidism TAKE ONE TABLET BY MOUTH IN THE MORNING 30 MIN BEFORE BREAKFAST OR OTHER MEDS 100 Tablet 1 4 Active Fluticasone-Umecli din-Vilant 100-62.5-25 MCG/ACT Aerosol Powder Breath Activated (Trelegy Ellipta)Indication s:COPD, group B, by GOLD 2017 classification ([facility]) Inhale 1 Puff by mouth in the morning. 180 Blister Dosing Unit 4 Active oxygen IN GAS Administer 2 L/min(Oxygen) into nostril at bedtime. 4 Active Gabapentin 100 MG Oral Capsule (Neurontin)Indicat ions:Lumbar radicular pain One in morning, one in afternoon and 2 at bedtime 270 Capsule 1 4 Active Albuterol Sulfate (2.5 MG/3ML) 0.083% Inhalation Nebulization Solution (Proventil) Inhale 1 Vial via nebulizer every 4 hours as needed for Wheezing. 1080 mL 3 4 01/05/20 24 Discontinued(Jerod felix preference/disc ontinuation) Gabapentin 100 MG Oral Capsule (Neurontin)Indicat ions:Lumbar radicular pain Take one capsule by mouth one hour prior to bed for one week then increase to one capsule in the morning and one capsule in the evening. 180 Capsule 1 4 01/05/20 24 Discontinued documented as of this encounter (statuses as of 01/05/2024) Active Problems Problem Noted Date Diagnosed Date [...] as of this encounter (statuses as of 01/05/2024) Resolved Problems Problem Noted Date Diagnosed Date [...] as of this encounter (statuses as of 01/05/2024) Immunizations Name Administration Dates Next Due COVID-19 [...] 65+ Yrs, IM (FLUAD) 12/16/2019 Seasonal Influenza, High Dos e, Trivalent, PF, IM (Fluzone HD) 12/17/2018 Seasonal Influenza, PF, 6 M & above, IM , (FluLaval or Fluzone) 01/12/2019,01/20/2018 Seasonal Influenza, Quadriva lent Hd (Fluzone Hd) 02/03/2023,01/03/2022,01/02/2021 Seasonal Influenza, Quadriva lent Hd, 65+ Yrs 12/16/2019 Seasonal Influenza, Quadriva lent, No Preserve, IM 12/30/2016,01/31/2015 Seasonal Influenza, Trivalen t, (IIV3), with Preserv, (Fluzone) 02/13/2016,12/23/2013,01/14/2013,12/27,01/08/2011,01/30/2010,02/02/2009 ,02/16/2008,02/03/2007,02/13/2006 TD, Preservative Free 03/30/2009 TDAP (age 10 [...] Telephone Encounter - Marie Jimenez RN - 01/05/2024 3:54 PM EDT notified * Telephone Encounter - Yumiko Goldstein DO - 01/02/2024 8:33 AM EDT She can increase to 100 mg in the morning, 100 mg in the afternoon, and 200 mg at bedtime. Notify daughter. * Telephone Encounter - Maryjane Antony OSA - 01/01/2024 12:07 PM EDT Daughter Valeria is calling on behalf of her mother Rakan - currently taking Gabapentin twice a dayand does not feel it is helping her. Asking if she should increase the dosage - her foot pain wakes her up nite, and behind her Right ear and top of head (several weeks) she is rubbed raw from itching Last seen by Dr. Gambino on 10/24/23 Please review and advise patient If something is being prescribed could go to [facility] documented in this encounter Plan of Treatment Upcoming Encounters Date Type Department Care Team (Late st Contact Info) Description 01/15/2024 3:00 PM EDT Nurse Only Ancillary [address] [place] [address] [place], Nurse [address] [place] [address] 06/08/2024 3:10 PM EST Office Visit Family Medicine [address] [place] [phone] Yumiko Goldstein, [address] [place] [address] Health Maintenance Due Date Last Done Comments Alpha-1 Antitrypsin 08/23/1958 DXA Scan 11/15/2022 11/15/2020, 01/13, 05/25/2014, Additional history exists Zoster Vaccines (2 of 2) 01/28/2023 12/03/2022 COVID-19 Vaccine ( season) 2023 04/18/2023, 08/14/2021, 08/14/2021, Additional history exists Influenza Vaccine (FLU shot) (#1) 2023 02/03/2023, 02/03/2023, 01/03/2022, Additional history exists *BISPHONATE OR OTHER ACCEPTABLE MEDICATION NEEDED FOR OSTEOPOROSIS (REFER TO SMARTSET #1146) 01/02/2024 Adult Wellness Visit 01/11/2024 01/10/2023, 01/03/2022, 01/02/2021 [...] D LEVEL ONCE IN A LIFETIME-USE SMARTSET# [id number] Completed 06/29/2012, 03/30/2009 Pneumococcal Vaccine: 65+ Years [...] Not on filedocumented as of this encounter Visit Diagnoses Diagnosis Lumbar radicular pain Thoracic or lumbosacral neuritis or radiculitis, unspecified documented in this encounter Advance Directives Healthcare Agents on File Name Relationship Healthcare Agent Relationshi p Communication Dick Ortega Adult Child Health Care Repr esentative (appointed verbally by patient or by statute hierarchy) Meredith white Adult Child Health Care R epresentative (appointed verbally by patient or by statute hierarchy) Care Teams Auto Body Repair Teacher Relationship Specialty Start Date End Date Yumiko Goldstein DO [address] [place] [address] [place] [address] PCP - General Internal Medicine 10/24/23 documented as of this encounter
--- OUTSIDE RECORDS SUMMARY | 2024-01-20 05:41 | External Medical Summary | Summary of Care ---
Author Name Unknown Organization [facility] Address [address] [facility] [place] [address] Phone [phone] Care Team Providers Care Patient Account Analyst Name Role Phone Yumiko Goldstein DO Primary Care Provider Reason for Visit * Reason Onset Date Comments Med Request 10/13/2023 Encounter Details Date Type Department Care Team (Late st Contact Info) Description 10/13/2023 Telephone [facility], [facility] [address] [place] [address] Samantha Ybarra PA-C [address] [place] [address] Med Request Allergies Active Allergy Reactions Criticality Noted Date Comments Other - Environmental 09/27/2008 Band aids documented as of this encounter (statuses as of 01/12/2024) Medications Medication Sig Dispensed Refills Start Date [...] by mouth in the morning. 12/03/2022 Active Atorvastatin Calcium 40 MG Oral Tablet (Lipitor)Indications: Hyperlipidemia with target LDL less than 130 TAKE ONE TABLET BY MOUTH AT BEDTIME 100 Tablet 1 08/17/2023 Active Lisinopril 20 MG Oral Tablet (Prinivil)Indications :Primary hypertension TAKE ONE TABLET BY MOUTH IN THE MORNING 100 Tablet 1 08/17/2023 Active Metoprolol Tartrate 50 MG Oral Tablet (Lopressor)Indication s:Primary hypertension,Essentia l hypertension with goal blood pressure less than 140/90 TAKE 1 TABLET BY MOUTH IN THE MORNING AND AT BEDTIME 200 Tablet 1 08/17/2023 Active traZODone HCl 50 MG Oral Tablet (Desyrel)Indications: Primary insomnia Take 1 Tablet by mouth at bedtime. 100 Tablet 1 08/17/2023 Active Levothyroxine Sodium 137 MCG Oral Tablet (Synthroid)Indication s:Acquired hypothyroidism TAKE ONE TABLET BY MOUTH IN THE MORNING 30 MIN BEFORE BREAKFAST OR OTHER MEDS 100 Tablet 1 08/19/2023 Active documented as of this encounter (statuses as of 01/12/2024) Active Problems Problem Noted Date Diagnosed Date [...] as of this encounter (statuses as of 01/12/2024) Resolved Problems Problem Noted Date Diagnosed Date [...] as of this encounter (statuses as of 01/12/2024) Immunizations Name Administration Dates Next Due COVID-19 [...] encounter Miscellaneous Notes * Telephone Encounter - Renetta Meraz CPhT - 10/13/2023 2:36 PM EDT Patient requesting refills for gabapentin 100 mg capsule. Upon chart review, medication is listed as discontinued, with discontinuation reason as "patient preference 12/30/22". Please advise if you wish to continue this therapy for the patient. Patient stated her feet have a lot of pain and she can hardly walk.If authorized please send a 90 day supply to [facility]. Thank you, Renetta Meraz CPhT [facility] [facility] [address] [place] [address], [address] [place] [address] MC [phone] documented in this encounter Plan of Treatment Upcoming Encounters Date Type Department Care Team (Late st Contact Info) Description 01/15/2024 3:00 PM EDT Nurse Only Ancillary [address] [place] [address] [place], Nurse Annual [address] [place] [address] 06/08/2024 3:10 PM EST Office Visit Family Medicine [address] [place] [phone] Yumiko Goldstein [address] [place] [address] Health Maintenance Due Date Last Done Comments [...] D LEVEL ONCE IN A LIFETIME-USE SMARTSET# [id number] Completed 06/29/2012, 03/30/2009 Pneumococcal Vaccine: 65+ Years [...] patient or by statute hierarchy) Care Teams Patient Account Analyst Relationship Specialty Start Date End Date Yumiko Goldstein DO [address] [place] [address] [place] [phone] PCP - General Internal Medicine 10/24/23 documented as of this encounter
--- OUTSIDE RECORDS SUMMARY | 2024-01-20 05:41 | External Medical Summary | Summary of Care ---
Author Name Unknown Organization [facility] Address [address] [facility] [place] [address] Phone [phone] Care Team Providers Care Line Dancer Name Role Phone Yumiko Goldstein Primary Care Provider [phone] Reason for Visit * Reason Onset Date Comments Blood Pressure Check 11/17/2023 Encounter Details Date Type Department Care Team (Late st Contact Info) Description 11/17/2023 3:20 PM EDT Nurse Only Ancillary [place] [address] [place] [address] [place] Nurse [address] [place] [address] Blood Pressure Check Allergies Active Allergy Reactions Criticality Noted Date Comments Other - Environmental 09/27/2008 Band aids documented as of this encounter (statuses as of 11/17/2023) Medications Medication Sig Dispensed Refills Start Date [...] AT BEDTIME 100 Tablet 1 08/17/2023 Active Chlorthalidone 25 MG Oral Tablet (Hygroton)Indication s:Primary hypertension Take 1 Tablet by mouth in the morning. 100 Tablet 1 08/17/2023 Active Lisinopril 20 [...] COPD, group B, by GOLD 2017 classification ([facility]) Inhale 1 Puff by mouth in the morning. 180 Blister Dosing Unit 10/24/2023 Active Gabapentin 100 MG Oral Capsule (Neurontin)Indicatio ns:Lumbar radicular pain Take one capsule by mouth one hour prior to bed for one week then increase to one capsule in the morning and one capsule in the evening. 180 Capsule 1 11/13/2023 Active documented as of this encounter (statuses as of 11/17/2023) Active Problems Problem Noted Date Diagnosed Date [...] as of this encounter (statuses as of 11/17/2023) Resolved Problems Problem Noted Date Diagnosed Date [...] as of this encounter (statuses as of 11/17/2023) Immunizations Name Administration Dates Next Due COVID-19 [...] on file documented as of this encounter Last Filed Vital Signs Vital Sign Reading Time Taken Comments Blood Pressure 120/62 11/17/2023 12:38 PM EDT Pulse 64 11/17/2023 12:38 PM EDT Temperature - - Respiratory Rate - - Oxygen Saturation - - Inhaled Oxygen Concentration - - Weight - - Height - - Body Mass Index - - documented in this encounter Progress Notes * Yumiko Fatima LPN - 11/17/2023 12:41 PM EDT Rakan Mckinnon Shannon presented for blood pressure check per provider orders. The blood pressure was obtained using the right arm in the sitting position using a adult small cuff. The results were charted in Vital Signs. BP Readings from Last 3 Encounters: 11/17/23 120/62 10/24/23 112/64 04/30/23 128/64 BP 120/62 | Pulse 64 Patient denies headache, pressure in head, dizziness, lightheadedness, chest discomfort, focal neurological symptoms, change in vision, nose bleeds. Did patient take medications today? Yes Patient was instructed to follow-up as per their next scheduled appt documented in this encounter Plan of Treatment Upcoming Encounters Date Type Department Care Team (Late st Contact Info) Description 11/17/2023 3:10 PM EDT Laboratory Laboratory [address] [place] [phone] [place] [facility] [address] [place] [address] Primary hypertension 01/15/2024 3:00 PM EDT Nurse Only Ancillary [address] [place] [address] [place], Nurse [address] [place] [address] 06/08/2024 3:10 PM EST Office Visit Family Medicine [address] [phone] Yumiko Goldstein, [address] [place] [address] Scheduled Orders Name Type Priority Associated Diagnoses Orde r Schedule BLOOD PRESSURE Procedures Routine HTN, goal below 140/90 Ordered: 11/17/2023 Health Maintenance Due Date Last Done Comments Alpha-1 Antitrypsin 08/23/1958 DXA Scan 11/15/2022 11/15/2020, 01/13, 05/25/2014, Additional history exists Zoster Vaccines (2 of 2) 01/28/2023 12/03/2022 COVID-19 Vaccine ( season) 2023 04/18/2023, 08/14/2021, 08/14/2021, Additional history exists Influenza Vaccine (FLU shot) (#1) 2023 02/03/2023, 02/03/2023, 01/03/2022, Additional history exists Depression Screening 01/11/2024 01/10/2023 Albumin/Creatinine Ratio 10/18/2024 022, 11/08/2020, 10/14/2019, Additional history exists GFR 10/23/2024 10/24/2023, 080 07/2022, 10/18/2021, Additional history exists O2 ASSESSMENT COMPLETED IN PAST YEAR FOR COPD 10/23/2024 10/24/2023 TSH 10/23/2024 10/24/2023, 080 07/2022, 01/23/2022, Additional history exists DTaP,Tdap,and Td Vaccines (2 - Td or Tdap) 12/03/2032 12/03/2022, 03/30/2009 VITAMIN D LEVEL ONCE IN A LIFETIME-USE SMARTSET# [id number] Completed 06/29/2012, 03/30/2009 Pneumococcal Vaccine: 65+ Years [...] as of this encounter Visit Diagnoses Diagnosis HTN, goal below 140/90- Primary Unspecified essential hypertension Primary hypertension Unspecified essential hypertension documented in this encounter Advance Directives Healthcare Agents on File Name Relationship Healthcare Agent Relationshi p Communication [facility] Adult Child Health Care Repr esentative (appointed verbally by patient or by statute hierarchy) Meredith white Adult Child Health Care R epresentative (appointed verbally by patient or by statute hierarchy) Care Teams Line Dancer Relationship Specialty Start Date End Date Yumiko Goldstein DO [address] [place] [address] [place] [id number] PCP - General Internal Medicine 10/24/23 documented as of this encounter"
--- OUTSIDE RECORDS SUMMARY | 2024-01-20 05:41 | External Medical Summary | Summary of Care ---
Author Name Unknown Organization [facility] Address [address] [facility] [place] [address] Phone [phone] Care Team Providers Care Wood Pile Driver Operator Name Role Phone Adrien Arellano Primary Care Provider [phone] Reason for Visit * Reason Onset Date Comments Blood Pressure Check 11/17/2023 Encounter Details Date Type Department Care Team (Late st Contact Info) Description 11/17/2023 3:20 PM EDT Nurse Only Ancillary [place] [address] [place] [address] [place] Nurse [address] [place] [address] Blood Pressure Check Allergies Active Allergy Reactions Criticality Noted Date Comments Other - Environmental 09/27/2008 Band aids documented as of this encounter (statuses as of 11/19/2023) Medications Medication Sig Dispensed Refills Start Date End Date Status TUMS 500 MG PO CHEW as needed Activ e SALINE NASAL SPRAY 0.65 % NA SOLN Administer into nostril daily as needed. Active Calcium Carb-Cholecalcifero l (CALCIUM + D3) 600-200 MG-UNIT per tablet Take 1 Tablet by mouth in the morning and 1 Tablet before bedtime. Active Acetaminophen 500 MG Oral Tablet Take 1 Tablet by mouth every 8 hours as needed for Pain, Moderate. Active Aspirin 81 MG Oral Tablet Delayed Release Take 1 Tablet by mouth in the morning. 3 Active Albuterol Sulfate (2.5 MG/3ML) 0.083% Inhalation Nebulization Solution (Proventil) Inhale 1 Vial via nebulizer every 4 hours as needed for Wheezing. 1080 mL 3 4 Active Atorvastatin Calcium 40 MG Oral Tablet (Lipitor)Indication s:Hyperlipidemia with target LDL less than 130 TAKE ONE TABLET BY MOUTH AT BEDTIME 100 Tablet 1 4 Active Lisinopril 20 MG Oral Tablet (Prinivil)Indicatio ns:Primary hypertension TAKE ONE TABLET BY MOUTH IN THE MORNING 100 Tablet 1 4 Active Metoprolol Tartrate 50 MG Oral Tablet (Lopressor)Indicati ons:Primary hypertension,Essent ial hypertension with goal blood pressure less than 140/90 TAKE 1 TABLET BY MOUTH IN THE MORNING AND AT BEDTIME 200 Tablet 1 4 Active traZODone HCl 50 MG Oral Tablet (Desyrel)Indication s:Primary insomnia Take 1 Tablet by mouth at bedtime. 100 Tablet 1 4 Active Levothyroxine Sodium 137 MCG Oral Tablet (Synthroid)Indicati ons:Acquired hypothyroidism TAKE ONE TABLET BY MOUTH IN THE MORNING 30 MIN BEFORE BREAKFAST OR OTHER MEDS 100 Tablet 1 4 Active Fluticasone-Umeclid in-Vilant 100-62.5-25 MCG/ACT Aerosol Powder Breath Activated (Trelegy Ellipta)Indications :COPD, group B, by GOLD 2017 classification (HCC) Inhale 1 Puff by mouth in the morning. 180 Blister Dosing Unit 4 Active Gabapentin 100 MG Oral Capsule (Neurontin)Indicati ons:Lumbar radicular pain Take one capsule by mouth one hour prior to bed for one week then increase to one capsule in the morning and one capsule in the evening. 180 Capsule 1 4 Active Chlorthalidone 25 MG Oral Tablet (Hygroton)Indicatio ns:Primary hypertension Take 1 Tablet by mouth in the morning. 100 Tablet 1 4 11/19/19 24 Discontinued documented as of this encounter (statuses as of 11/19/2023) Active Problems Problem Noted Date Diagnosed Date [...] as of this encounter (statuses as of 11/19/2023) Resolved Problems Problem Noted Date Diagnosed Date [...] as of this encounter (statuses as of 11/19/2023) Immunizations Name Administration Dates Next Due COVID-19 mRNA, LNP-s, No Pre serve, 2-Dose Series (Moderna) 07/12/2020,06/21/2020 COVID-19 mRNA, LNP-s, No Pre serve, 2-Dose Series (Pfizer) 08/14/2021,01/24/2021 COVID-19, MRNA-LNP, 23-24, P F, 50 MCG/0.5 mL, 12 YRS AND ABOVE, IM (MODERNA-Spikevax) 04/18/2023 Influenza, Whole Virus 04/28/2000 2 Pneumococcal Conjugate Vacc, 13 Valent (Prevnar) 10/11/2014 Pneumococcal Polysaccharide PPV23 (Pneumovax) 05/07/2007 RSV Vac., Recomb, Adjuvant, PF,0.5 Ml (Arexvy) 04/18/2023 Season Influenza, Quad, PF, Adjuvanted, 65+ Yrs, IM (FLUAD) 12/16/2019 Seasonal Influenza Virus Vac cine, Unspecified Formulation 01/24/1998 Seasonal Influenza, PF, 6 M & above, IM , (FluLaval or Fluzone) 01/12/2019,01/20/2018 Seasonal Influenza, Quadriva lent Hd (Fluzone Hd) 02/03/2023,01/03/2022,01/02/2021 Seasonal Influenza, Quadriva lent Hd, 65+ Yrs 12/16/2019 Seasonal Influenza, Quadriva lent, No Preserve, IM 12/30/2016,01/31/2015 Seasonal Influenza, Split, I IV3, With Preserve, Inj 02/13/2016,12/23/2013,01/14/2013,12/13,01/08/2011,01/30/2010,02/03/20,02/16/2008,02/03/2007,02/13/2006,1 04/23/2004,02/22/2003 Seasonal Influenza, Trivalen t, High Dose, No [...] documented in this encounter Progress Notes * Adrien Arellano DO - 11/19/2023 2:01 PM EDT Labs reviewed. Stable/slightly improved. Stay off chlorthalidone. Letter sent to patient. * Adrien Arellano DO - 11/17/2023 7:31 PM EDT BP good. Await labs. * Adrien Fatima LPN - 11/17/2023 12:41 PM EDT Rakan Ortega presented for blood pressure check per provider [...] next scheduled appt documented in this encounter Miscellaneous Notes * Addendum Note - Adrien Arellano DO - 11/19/2023 2:02 PM EDTAddended by: ADRIEN ARELLANO on: 11/19/2023 02:02 PM Modules accepted: Orders documented in this encounter Plan of Treatment Upcoming Encounters Date Type Department Care Team (Late st Contact Info) Description 01/15/2024 3:00 PM EDT Nurse Only Ancillary [address] [place] [address] [place], Nurse Annual [address] [place] [address] 06/08/2024 3:10 PM EST Office Visit Family Medicine [address] [place] [phone] Adrien Arellano DO [address] [place] [address] [place] [address] Scheduled Orders Name Type Priority Associated Diagnoses [...] 01/23/2022, Additional history exists GFR 11/16/2024 11/17/2023, 071 05/2023, 11/15/2022, Additional history exists DTaP,Tdap,and Td Vaccines (2 - Td or Tdap) 12/03/2032 12/03/2022, 03/30/2009 VITAMIN D LEVEL ONCE IN A LIFETIME-USE SMARTSET# [id number] Completed 06/29/2012, 03/30/2009 Pneumococcal Vaccine: 65+ Years [...] goal below 140/90- Primary Unspecified essential hypertension documented in this encounter Advance Directives Healthcare Agents on File Name Relationship Healthcare Agent Relationshi p Communication Dick Phoenix[place] Adult Child Health Care Repr esentative (appointed verbally by patient or by statute hierarchy) Meredith white Adult Child Health Care R epresentative (appointed verbally by patient or by statute hierarchy) Care Teams Wood Pile Driver Operator Relationship Specialty Start Date End Date Adrien Arellano DO [address] [place] [address] [place] [phone] PCP - General Internal Medicine 10/24/23 documented as of this encounter"
--- OUTSIDE RECORDS SUMMARY | 2024-01-20 05:41 | External Medical Summary | Summary of Care ---
Author Name Unknown Organization [facility] Address [address] [facility] [place] [address] Phone [phone] Care Team Providers Care Capsule Maker Name Role Phone Yumiko Goldstein DO Primary Care Provider Reason for Visit * Reason Onset Date Comments Medication Refill 01/19/2024 Encounter Details Date Type Department Care Team (Late st Contact Info) Description 01/19/2024 Telephone Family Medicine [address] [place] [phone] Yumiko Goldstein [address] [place] [address] Medication Refill Allergies Active Allergy Reactions Criticality Noted Date Comments Other - Environmental 09/27/2008 Band aids documented as of this encounter (statuses as of 01/19/2024) Medications Medication Sig Dispensed Refills Start Date [...] COPD, group B, by GOLD 2017 classification (HCC) Inhale 1 Puff by mouth in the morning. 180 Blister Dosing Unit 10/24/2023 Active oxygen IN GAS Administer 2 L/min(Oxygen) into nostril at bedtime. 12/10/2023 Active Ipratropium-Albutero l 0.5-2.5 (3) MG/3ML Inhalation Solution (Duoneb)Indications: Moderate persistent asthma without complication USE 1 VIAL IN NEBULIZER TWICE DAILY, MAY INCREASE TO 1 VIAL EVERY 4 HOURS NEEDED FOR WORSENING COUGH, WHEEZING OR SHORTNESS OF BREATHE 1080 mL 01/05/2024 Active Gabapentin 100 MG Oral Capsule (Neurontin)Indicatio ns:Lumbar radicular pain One in morning, one in afternoon and 2 at bedtime 270 Capsule 1 01/05/2024 Active documented as of this encounter (statuses as of 01/19/2024) Active Problems Problem Noted Date Diagnosed Date [...] as of this encounter (statuses as of 01/19/2024) Resolved Problems Problem Noted Date Diagnosed Date [...] as of this encounter (statuses as of 01/19/2024) Immunizations Name Administration Dates Next Due COVID-19 [...] 65+ Yrs, IM (FLUAD) 12/16/2019 Seasonal Influenza Vac., MDV , IM, 0.5 mL (Fluzone) 02/13/2016,12/23/2013,01/14/2013,12/27,01/08/2011,01/30/2010,02/02/2009 ,02/16/2008,02/03/2007,02/13/2006 Seasonal Influenza Virus Vac cine, Unspecified Formulation 02/03/2023,01/03/2022,01/02/2021,12/15,01/12/2019,12/30/2018,12/17/2018 ,01/20/2018,12/30/2016,02/13/2016,12/13,01/14/2013,12/28/2011, 1,01/30/2010,02/02/2009,02/16/2008,,02/13/2006,02/21/2005,02/23/20,04/28/2000 Seasonal Influenza, High Dos e, Trivalent, PF, IM (Fluzone HD) 12/17/2018 Seasonal Influenza, PF, 6 M & above, IM , (FluLaval or Fluzone) 01/12/2019,01/20/2018 Seasonal Influenza, Quadriva lent Hd (Fluzone Hd) 02/03/2023,01/03/2022,01/02/2021 Seasonal Influenza, Quadriva lent Hd, 65+ Yrs 12/16/2019 Seasonal Influenza, Quadriva lent, No Preserve, IM 12/30/2016,01/31/2015 TD, Preservative Free 03/30/2009 TDAP (age 10 [...] encounter Miscellaneous Notes * Telephone Encounter - Kirsten Hill, plant anatomist - 01/19/2024 11:47 AM EDT Patient requesting refills for albuterol rescue inhaler. Upon chart review, medication is listed asdiscontinued, with discontinuation reason as "med list clean up". Please advise if you wish to continue this therapy for the patient. Thank you, Kirsten Hill, [facility] Building Performance Consultant II [facility] 01/19/2024,11:47 AM documented in this encounter Plan of Treatment Upcoming Encounters Date Type Department Care Team (Late st Contact Info) Description 02/06/2024 2:30 PM EDT Nurse Only Ancillary [address] [place] [address] [place], Nurse Annual Wellness [address] [place] [address] [place] [address] 06/08/2024 3:10 PM EST Office Visit Family Medicine [address] [place] [phone] Yumiko Goldstein, [address] [place] [address] Health Maintenance Due Date Last Done Comments [...] D LEVEL ONCE IN A LIFETIME-USE SMARTSET# [id number] Completed 06/29/2012, 03/30/2009 Pneumococcal Vaccine: 65+ Years [...] Relationship Healthcare Agent Relationshi p Communication Dick will Adult Child Health Care Repr esentative (appointed verbally by patient or by statute hierarchy) Meredith white Adult Child Health Care R epresentative (appointed verbally by patient or by statute hierarchy) Care Teams Capsule Maker Relationship Specialty Start Date End Date Yumiko Goldstein DO [address] [place] [address] [place] [address] PCP - General Internal Medicine 10/24/23 documented as of this encounter
--- OUTSIDE RECORDS SUMMARY | 2024-01-20 05:41 | External Medical Summary | Summary of Care ---
Author Name Unknown Organization [facility] Address [address] [facility] [place] [address] Phone [phone] Care Team Providers Care Spice Room Worker Name Role Phone Yumiko Goldstein Primary Care Provider Reason for Visit * Reason Onset Date Comments Blood Pressure Check 11/17/2023 Encounter Details Date Type Department Care Team (Late st Contact Info) Description 11/17/2023 3:20 PM EDT Nurse Only Ancillary [place] [address] [place] [address] [place] Nurse [address] [place] [address] Blood Pressure Check Allergies Active Allergy Reactions [...] COPD, group B, by GOLD 2017 classification ([facility]) Inhale 1 Puff by mouth in the [...] Influenza, Split, I IV3, With Preserve, Inj 02/13/2016,12/23/2013,01/14/2013,12/13,01/08/2011,01/30/2010,02/03/20 09,02/16/2008,02/03/2007,02/13/2006,1 04/23/2004,02/22/2003 Seasonal Influenza, Trivalen t, High Dose, [...] in this encounter Progress Notes * Yumiko Goldstein DO - 11/17/2023 7:31 PM EDT BP good. Await labs. * Yumiko Fatima LPN - 11/17/2023 12:41 [...] 01/15/2024 3:00 PM EDT Nurse Only Ancillary [address] [place] [address] [place], Nurse [address] [place] [address] 06/08/2024 3:10 PM EST Office Visit Family Medicine [address] [place] [phone] Yum[address] [place] [address] Scheduled Orders Name Type Priority Associated Diagnoses [...] Additional history exists Adult Wellness Visit 01/11/2024 01/10/2023 Depression Screening 01/11/2024 01/10/2023 Albumin/Creatinine Ratio 10/18/2024 022, 11/08/2020, 10/14/2019, Additional history exists GFR 10/23/2024 10/24/2023, 08/0 07/2022, 10/18/2021, Additional history exists O2 ASSESSMENT COMPLETED IN PAST YEAR FOR COPD 10/23/2024 10/24/2023 TSH 10/23/2024 10/24/2023, 08/0 07/2022, 01/23/2022, Additional history exists DTaP,Tdap,and Td Vaccines (2 - Td or Tdap) 12/03/2032 12/03/2022, 03/30/2009 VITAMIN D LEVEL ONCE IN A LIFETIME-USE SMARTSET# [id number] Completed 06/29/2012, 03/30/2009 Pneumococcal Vaccine: 65+ Years [...] Agents on File Name Relationship Healthcare Agent [facility] p Communication Dick Ortega Adult Child Health Care Repr esentative (appointed verbally by patient or by statute hierarchy) Meredith white Adult Child Health Care R epresentative (appointed verbally by patient or by statute hierarchy) Care Teams Spice Room Worker Relationship Specialty Start Date End Date Yumiko Goldstein DO [address] [place] [address] [place] [address] PCP - General Internal Medicine 10/24/23 documented as of this encounter"
--- OUTSIDE RECORDS SUMMARY | 2024-01-20 05:41 | External Medical Summary | Summary of Care ---
Author Name Unknown Organization [facility] [address] Phone [phone] Care Team Providers Care Match Marker Name Role Phone Adrien Arellano DO Primary Care Provider Reason for Visit * Reason Comments Medication Refill Encounter Details Date Type Department Care Team (Late st Contact Info) Description 01/05/2024 Refill Family Medicine [address] [place] [phone] Adrien Arellano DO [address] [place] [address] [place] [address] Moderate persistent asthma without complication Allergies Active Allergy Reactions Criticality Noted Date [...] SHORTNESS OF BREATHE 1080 mL 01/05/2024 Active documented as of this encounter [...] encounter Miscellaneous Notes * Telephone Encounter - Adrien Arellano DO - 01/05/2024 12:31 PM EDTSigned Prescriptions: Disp Refills Ipratropium-Albuterol 0.5-2.5 (3) MG/3ML I*1080 mL0 Sig: USE 1 VIAL IN NEBULIZER TWICE DAILY, MAY INCREASE TO 1 VIAL EVERY 4 HOURS NEEDED FOR WORSENING COUGH, WHEEZING OR SHORTNESS OF BREATHEAuthorizing Provider: ADRIEN ARELLANO documented in this encounter Plan of Treatment Upcoming Encounters Date Type Department Care Team (Late st Contact Info) Description 01/15/2024 3:00 PM EDT Nurse Only Ancillary [address] [place] [address] [place], Nurse Annual [address] [place] [address] 06/08/2024 3:10 PM EST Office Visit Family Medicine [address] [place] [phone] Adrien Arellano, [address] [place] [address] Health Maintenance Due Date Last Done Comments [...] D LEVEL ONCE IN A LIFETIME-USE SMARTSET# [id number] Completed 06/29/2012, 03/30/2009 Pneumococcal Vaccine: 65+ Years [...] as of this encounter Visit Diagnoses Diagnosis Moderate persistent asthma without complication Unspecified asthma documented in this encounter Advance Directives Healthcare Agents on File Name [facility] Dick Ortega Adult Child Health Care Repr esentative (appointed verbally by patient or by statute hierarchy) Meredith white Adult Child Health Care R epresentative (appointed verbally by patient or by statute hierarchy) Care Teams Match Marker Relationship Specialty Start Date End Date Adiren Arellano DO [address] [place] [address] [place] [address] PCP - General Internal Medicine 10/24/23 documented as of this encounter
--- OUTSIDE RECORDS SUMMARY | 2024-01-20 05:42 | External Medical Summary ---
Author Name Unknown Address Unknown Organization K01:[facility] [address] [facility] [address] [place] [address] Laboratory Report Ordering Provider Test Date Status ADAN JURADO 11/17/2023 12:01:57 Final Observation Date Value Abnormality Reference (Units ) Status BUN 11/17/2023 12:01:57 21 Above high normal 6-20 (mg/dL) Final Creatinine 11/17/2023 12:01:57 1.0 0.5-1.0 (mg/dL) Final Glomerular filtration rate/1.73 sq M.predicted [Volume Rate/Area] in Serum, Plasma or Blood by Creatinine-based formula (CKD-EPI) 11/17/2023 12:01:57 56 Below low normal >=60 (mL/min) Final eGFR is calculated based on the CKD-EPI 2020 equation. Sodium 11/17/2023 12:01:57 136 135-146 (m mol/L) Final Potassium 11/17/2023 12:01:57 4.8 3.5-5.1 (m mol/L) Final Cl 11/17/2023 12:01:57 97 Below low normal 98- 107 (mmol/L) Final CO2 11/17/2023 12:01:57 28 22-32 (mmo l/L) Final Anion gap 11/17/2023 12:01:57 11 7-15 (mmol /L) Final Glucose 11/17/2023 12:01:57 107 70-120 (mg /dL) Final Calcium 11/17/2023 12:01:57 10.4 Above high normal 8. 4-10.2 (mg/dL) Final Performing Location [facility] [address] [place] [address]
--- OUTSIDE RECORDS SUMMARY | 2024-01-20 05:42 | External Medical Summary | Summary of Care ---
Author Name Unknown Organization [facility] Address [address] [facility] [place] [address] Phone [phone] Care Team Providers Care Cloth Printer Helper Name Role Phone Yumiko Goldstein DO Primary Care Provider Reason for Visit * Reason Onset Date Comments Medication Problem 11/03/2023 Encounter Details Date Type Department Care Team (Late st Contact Info) Description 11/03/2023 Telephone Family Medicine [address] [phone] Yumiko Goldstein [address] [place] [phone] Medication Problem Allergies Active Allergy Reactions Criticality Noted Date Comments Other - Environmental 09/27/2008 Band aids documented as of this encounter (statuses as of 11/05/2023) Medications Medication Sig Dispensed Refills Start Date [...] COPD, group B, by GOLD 2017 classification ([facility]) Inhale 1 Puff by mouth in the morning. 180 Blister Dosing Unit 10/24/2023 Active documented as of this encounter (statuses as of 11/05/2023) Active Problems Problem Noted Date Diagnosed Date [...] as of this encounter (statuses as of 11/05/2023) Resolved Problems Problem Noted Date Diagnosed Date [...] as of this encounter (statuses as of 11/05/2023) Immunizations Name Administration Dates Next Due COVID-19 [...] Telephone Encounter - Marie Jimenez RN - 11/05/2023 3:49 PM EDT I called the pharmacy they said they sent her a My G message that she has not responded to. She has a High copay $176/3mo supply. She needs to contact them to tell them if she wants it. I called pt, she will think about whether she wants it and will call them. She doesn't;t use My G much * Telephone Encounter - Marie Jimenez RN - 11/05/2023 9:46 AM EDT we need to call mail order to check on this * Telephone Encounter - Rosanna Neal OSA - 11/03/2023 11:55 AM EDT Pt stating she never received her inhaler. Please advise & call pt back. documented in this encounter Plan of Treatment Upcoming Encounters Date Type Department Care Team (Late st Contact Info) Description 11/13/2023 2:00 PM EDT Telemedicine Interventional Pain Center, [facility] [address] [place] [address] Samantha Ybarra PA-C [address] [place] [address] 11/17/2023 3:10 PM EDT Laboratory Laboratory [address] [place] [phone] [facility] [address] [place] [address] 11/17/2023 3:20 PM EDT Nurse Only Ancillary [address] [place] [address] Ariana, Nurse [address] [place] [address] 01/15/2024 3:00 PM EDT Nurse Only Ancillary [address] [place] [address] Mounaalley, Nurse [address] [place] [address] 06/08/2024 3:10 PM EST Office Visit Family Medicine [address] [place] [phone] Yumiko Goldstein, [address] [place] [address] Health Maintenance Due Date Last Done Comments Alpha-1 Antitrypsin 08/23/1959 DXA Scan 11/15/2022 11/15/2020, 01/13, 05/25/2014, Additional history exists Zoster Vaccines (2 of 2) 01/28/2023 12/03/2022 COVID-19 Vaccine (2022- season) 2023 04/18/2023, 08/14/2021, 08/14/2021, Additional history [...] D LEVEL ONCE IN A LIFETIME-USE SMARTSET# [id number] Completed 06/29/2012, 03/30/2009 Pneumococcal Vaccine: 65+ Years [...] patient or by statute hierarchy) Care Teams Cloth Printer Helper Relationship Specialty Start Date End Date Yumiko Goldstein DO [address] [place] [address] [place] [address] PCP - General Internal Medicine 10/24/23 documented as of this encounter
--- OUTSIDE RECORDS SUMMARY | 2024-01-20 05:42 | External Medical Summary | Summary of Care ---
Author Name Unknown Organization [facility] [address] [facility] [address] Phone [phone] Care Team Providers Care Lap Cutter Truer Operator Name Role Phone Yumiko Goldstein DO Primary Care Provider Reason for Visit * Reason Comments Follow Up Encounter Details Date Type Department Care Team (Late st Contact Info) Description 11/13/2023 2:00 PM EDT Telemedicine Interventional Pain Center, [facility] [address] [place] [address] Samantha Ybarra PA-C [address] [place] [address] Lumbar radicular pain*; Neuropathic pain Allergies Active Allergy Reactions Criticality Noted Date Comments Other - Environmental 09/27/2008 Band aids documented as of this encounter (statuses as of 11/13/2023) Medications Medication Sig Dispensed Refills Start Date [...] group B, by GOLD 2017 classification ([facility]) Inhale 1 Puff by mouth in the morning. 180 Blister Dosing Unit 10/24/2023 Active Gabapentin 100 MG Oral Capsule (Neurontin)Indicatio ns:Lumbar radicular pain Take one capsule by mouth one hour prior to bed for one week then increase to one capsule in the morning and one capsule in the evening. 180 Capsule 1 11/13/2023 Active documented as of this encounter (statuses as of 11/13/2023) Active Problems Problem Noted Date Diagnosed Date [...] as of this encounter (statuses as of 11/13/2023) Resolved Problems Problem Noted Date Diagnosed Date [...] as of this encounter (statuses as of 11/13/2023) Immunizations Name Administration Dates Next Due COVID-19 [...] on file documented as of this encounter Progress Notes * Samantha Ybarra PA-C - 11/13/2023 1:56 PM EDT Name: Rakan Ortega Date: 11/13/2023 After connecting to the patient via telephone, the patient was identified by name and date of . Patient was then informed that this was a telephone call only visit. The patient agreed to participate. Visit Disposition: Routine follow-up Total call duration five minutes. HPI: Rakan Ortega is a 83 year old female known to the Pain Management clinic presents for follow up to marleni restarting gabapentin. Found some benefit in the past with this for low back and E pain. Notes increased LE burning in the past few months. She's unsure why this medication was stopped inthe past. Denies progressive LE weakness or paresthesia. Denies bowel/bladder dysfunction. 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 Benign neoplasm of colon 09/20/2013 10 mm polyp transverse colon Benign neoplasm of colon 06/23/2014 5 mm polyp transverse colon Chronic sinusitis 01/19/2007 Closed disp subtrochanteric fx of left femur with routine healing 11/20/2022 subcapital impacted fx left proximal femur COPD, moderate (HCC) Disorder of autonomic nervous system 03/06/2009 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, right upper lid ptosis Diverticulosis of colon (without mention of hemorrhage) 09/20/2013 Esophageal reflux Herpes zoster right chest HTN, goal below 140/90 02/17/2009 Hyperlipidemia LDL goal < 130 Hypothyroidism Mixed dyslipidemia NONALLERGIC RHINITIS 07/08/2008 Other specified acquired hypothyroidism 04/24/2010 Pancreatitis, gallstone 03/10/2012 admitted [facility] Postmenopausal atrophic vaginitis Retinal tear 10/05/2008 left large retinal tear superiorly with small cuff of fluid , photocoagulatied Rosacea Senile osteoporosis Past Surgical History: Procedure Laterality Date BUNION CORRECTED WITH DOUBLE OSTEOTOMY left foot with hammertoe correction COLONOSCOPY, DIAGNOSTIC (RECTUM) 09/20/2013 TVA polyp, diverticulosis, repeat later this yr/COLONOSCOPY FLEXIBLE PROXIMAL DIAGNOSTIC performed by Romero Braswell MD at ENDOSCOPY [facility] COLONOSCOPY, DIAGNOSTIC (RECTUM) 06/23/2014 5 mm polyp transverse colon, diverticulosis/COLONOSCOPY FLEXIBLE PROXIMAL DIAGNOSTIC performed by Romero Braswell MD at ENDOSCOPY [facility] CT HEAD/BRAIN 03/08/2012 old right cerebellar lacunar infarct, microvascular changes, no acute changes INJECT DX/THER SUBSTANCE INTERLAMINAR LUMBAR/SACRAL W IMAGE GUIDE 02/17/2020 INJECTION SPINE LUMBAR OR SACRAL performed by Octavio Gotti, DO at [facility] INJECT DX/THER SUBSTANCE INTERLAMINAR LUMBAR/SACRAL W IMAGE GUIDE 07/27/2020 INJECTION SPINE LUMBAR OR SACRAL performed by Octavio Gotti, DO at OR [facility] INJECT DX/THER SUBSTANCE INTERLAMINAR LUMBAR/SACRAL W IMAGE GUIDE 01/11/2021 INJECTION SPINE LUMBAR OR SACRAL performed by Octavio Gotti, DO at [facility] INJECT DX/THER SUBSTANCE INTERLAMINAR LUMBAR/SACRAL W IMAGE GUIDE 2021 INJECTION SPINE LUMBAR OR SACRAL performed by Octavio Gotti, DO at [facility] INJECT DX/THER SUBSTANCE INTERLAMINAR LUMBAR/SACRAL W IMAGE GUIDE 10/24/2022 INJECTION SPINE LUMBAR OR SACRAL performed by Franco Francois DO at [facility] INJECT DX/THER SUBSTANCE INTERLAMINAR LUMBAR/SACRAL W IMAGE GUIDE 03/17/2023 INJECTION SPINE LUMBAR OR SACRAL performed by Franco Francois DO at [facility] IOF MRA HEAD 08/04/2008 hypervascular mass in right as most likely representing evidence of a carotid body tumor or less likely glomus vagale IOF MRI ORBIT/FAC/NECK WO CONTRAST 01/03/2012 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 MAMMOGRAM SCREENING BILATERAL 05/04/2009 scattered fibroglandular densities, category 1 normal MAMMOGRAM SCREENING BILATERAL 06/06/2011 scattered fibroglandular densities, category 1 normal MAMMOGRAM SCREENING BILATERAL 06/09/2012 scattered fibroglandular densities, cagegory 1 normal MAMMOGRAM SCREENING BILATERAL 11/09/2013 scattered fibroglandular densities, category 1 normal MAMMOGRAM SCREENING BILATERAL Bilateral 11/11/2014 scattered fibroglandular densities, category 1 normal MAMMOGRAM SCREENING-BILATERAL 03/22/2008 scattered fibroglandular densities, category 1 normal MOBILE DXA 05/19/2012 Lumbar T -2.5, Femur T -3.0, fx risk remains high MOBILE DXA 02/03/2017 Lumbar T -0.5, Femur T -3.0 improved, repeat 2 years. MOBILE DXA N/A 11/15/2020 13% increase in lumbar spine, fx risk still high,might consider drug holiday, repeat 2 years REINFORCEMENT OF THIGH 11/21/2022 Dr Ozuna pin subcapital fx left femur RELEASE OF FOOT JOINT CONTRACTURE 11/27/2011 [facility] REMOVAL OF APPENDIX REMOVAL OF OVARY/OVIDUCT(S) 29 yo bleeding REMOVE GALLBLADDER 03/10/2012 Laprascopic Cholecystectomy with intraoperative cholanglogram Dr Wellington [facility] 03/10/12 REMOVE TONSILS & ADENOIDS, UNDER 12 REPAIR DETACHED RETINA, INJECTION 01/2009 Dr Iverson, left eye REPAIR OF HAMMERTOE, ONE TOE 09/23/2012 right foot RETINA TREATMENT, PHOTOCOAGULATION 10/05/[address] Webb SPIROMETRY B/A BRONCHODILATOR 10/30/2008 mod obstructive airways disease, no reversibility with albuterol, mild restrictive lung disease, normal diffusion capacity TOTAL HYSTERECTOMY with ovaries - age 29 for bleeding US ABDOMEN COMPLETE 03/08/2012 cholethiasis with borderline thickening of GB wall Current Outpatient Medications Medication Sig Dispense Refill TUMS 500 MG PO CHEW as needed SALINE NASAL SPRAY 0.65 % NA SOLN Administer into nostril daily as needed. Calcium Carb-Cholecalciferol (CALCIUM + D3) 600-200 MG-UNIT per tablet Take 1 Tablet by mouth in the morning and 1 Tablet before bedtime. Acetaminophen 500 MG Oral Tablet Take 1 Tablet by mouth every 8 hours as needed for Pain, Moderate. Aspirin 81 MG Oral Tablet Delayed Release Take 1 Tablet by mouth in the morning. Albuterol Sulfate (2.5 MG/3ML) 0.083% Inhalation Nebulization Solution (Proventil) Inhale 1 Vial via nebulizer every 4 hours as needed for Wheezing. 1080 mL 3 Atorvastatin Calcium 40 MG Oral Tablet (Lipitor) TAKE ONE TABLET BY MOUTH AT BEDTIME 100 Tablet 1 Chlorthalidone 25 MG Oral Tablet (Hygroton) Take 1 Tablet by mouth in the morning. 100 Tablet 1 Lisinopril 20 MG Oral Tablet (Prinivil) TAKE ONE TABLET BY MOUTH IN THE MORNING 100 Tablet 1 Metoprolol Tartrate 50 MG Oral Tablet (Lopressor) TAKE 1 TABLET BY MOUTH IN THE MORNING AND AT BEDTIME 200 Tablet 1 traZODone HCl 50 MG Oral Tablet (Desyrel) Take 1 Tablet by mouth at bedtime. 100 Tablet 1 Levothyroxine Sodium 137 MCG Oral Tablet (Synthroid) TAKE ONE TABLET BY MOUTH IN THE MORNING 30 MINBEFORE BREAKFAST OR OTHER MEDS 100 Tablet 1 Dqcfvaqsjmk-Fmfuftoiw-Jglsob 100-62.5-25 MCG/ACT Aerosol Powder Breath Activated (Trelegy Ellipta) Inhale 1 Puff by mouth in the morning. 180 Blister Dosing Unit 0 No current facility-administered medications for this visit. Review of patient's allergies indicates: Allergen Reactions Other - Environmental Band aids ASSESSMENT: Lumbar radicular Neuropathic pain, B LE RECOMMENDATION: Restart low dose gabapentin - 100 gm QHS for one week then increase to one capsule BID. Will monitor for drowsiness/dizziness. Advised to not use gabapentin and trazodone at the same time. Requestingmail order pharmacy. Follow up in six months for med recheck. Total call duration five minutes. Samantha Ybarra PA-C 11/13/2023 documented in this encounter Plan of Treatment Upcoming Encounters Date Type Department Care Team (Late st Contact Info) Description 11/17/2023 3:10 PM EDT Laboratory Laboratory [address] [place] [phone] [facility] [address] [place] [address] 11/17/2023 3:20 PM EDT Nurse Only Ancillary [address] [place] [address] Ariana, Nurse [address] [place] [address] 01/15/2024 3:00 PM EDT Nurse Only Ancillary [address] [place] [address] Emelia, Nurse [address] [place] [address] 06/08/2024 3:10 PM EST Office Visit Family Medicine [address] [place] [phone] Yumiko Goldstein, [address] [place] [address] Health Maintenance Due Date Last Done Comments [...] D LEVEL ONCE IN A LIFETIME-USE SMARTSET# [id number] Completed 06/29/2012, 03/30/2009 Pneumococcal Vaccine: 65+ Years [...] this encounter Visit Diagnoses Diagnosis Lumbar radicular pain- Primary Thoracic or lumbosacral neuritis or radiculitis, unspecified Neuropathic pain Neuralgia, neuritis, and radiculitis, unspecified documented in this encounter Advance Directives Healthcare Agents on File Name Relationship Healthcare Agent [facility] Dick Ortega Adult Child Health Care Repr esentative (appointed verbally by patient or by statute hierarchy) Meredith white Adult Child Health Care R epresentative (appointed verbally by patient or by statute hierarchy) Care Teams Lap Cutter Truer Operator Relationship Specialty Start Date End Date Yumiko Goldstein DO [address] [place] [address] [place] [address] PCP - General Internal Medicine 10/24/23 documented as of this encounter
--- OUTSIDE RECORDS SUMMARY | 2024-01-20 05:42 | External Medical Summary | Summary of Care ---
Author Name Unknown Organization [facility] Address [address] [facility] [address] Phone [phone] Care Team Providers Care Custom Frame Assembler Name Role Phone Yumiko Goldstein Primary Care Provider Reason for Visit * Reason Comments Outpatient Testing Encounter Details Date Type Department Care Team (Late st Contact Info) Description 10/24/2023 4:00 PM EDT Laboratory Laboratory [address] [place] [phone] [facility] [address] [place] [address] Hyperlipidemia with target LDL less than 100; Primary hypertension; Acquired hypothyroidism; Persistent cough Allergies Active Allergy Reactions Criticality Noted Date Comments Other - Environmental 09/27/2008 Band aids documented as of this encounter (statuses as of 10/24/2023) Medications Medication Sig Dispensed Refills Start Date [...] COPD, group B, by GOLD 2017 classification ([facility]) Inhale 1 Puff by mouth in the morning. 180 Blister Dosing Unit 10/24/2023 Active documented as of this encounter (statuses as of 10/24/2023) Active Problems Problem Noted Date Diagnosed Date [...] as of this encounter (statuses as of 10/24/2023) Resolved Problems Problem Noted Date Diagnosed Date [...] as of this encounter (statuses as of 10/24/2023) Immunizations Name Administration Dates Next Due COVID-19 [...] on file documented as of this encounter Plan of Treatment Upcoming Encounters Date Type Department Care Team (Late st Contact Info) Description 11/13/2023 2:00 PM EDT Telemedicine Interventional Pain Center, [facility] [address] [place] [address] Samantha Ybarra PA-C [address] [place] [address] 01/15/2024 3:00 PM EDT Nurse Only Ancillary [address] [place] [address] [place], Nurse [address] [place] [address] Pending Results Name Type Priority Associated Diagnoses Date /Time COMPREHENSIVE METABOLIC PANEL Lab Routine Hyperlipidemia with target LDL less than 100 Primary hypertension 10/24/2023 4:02 PM EDT TSH Lab Routine Acquired hypothyroidism 10/24/2023 4:02 PM EDT BNP, NT-PRO Lab Routine Persistent cough 10/24/2023 4:02 PM EDT Health Maintenance Due Date Last Done Comments Alpha-1 Antitrypsin 08/23/1958 DXA Scan 11/15/2022 11/15/2020, 01/13, 05/25/2014, Additional history exists Zoster Vaccines (2 of 2) 01/28/2023 12/03/2022 COVID-19 Vaccine ( season) 2023 04/18/2023, 08/14/2021, 08/14/2021, Additional history exists GFR 11/16/2023 11/15/2022, 10/2021, 11/08/2020, Additional history exists TSH 11/16/2023 11/15/2022, 01/12, 10/18/2021, Additional history exists Influenza Vaccine (FLU shot) (#1) 2023 02/03/2023, 02/03/2023, 01/03/2022, Additional history exists Depression Screening 01/11/2024 01/10/2023 Albumin/Creatinine Ratio 10/18/2024 022, 11/08/2020, 10/14/2019, Additional history exists O2 ASSESSMENT COMPLETED IN PAST YEAR FOR COPD 10/23/2024 10/24/2023 DTaP,Tdap,and Td Vaccines (2 - Td or Tdap) 12/03/2032 12/03/2022, 03/30/2009 VITAMIN D LEVEL ONCE IN A LIFETIME-USE SMARTSET# [id number] Completed 06/29/2012, 03/30/2009 Pneumococcal Vaccine: 65+ Years [...] as of this encounter Visit Diagnoses Diagnosis Hyperlipidemia with target LDL less than 100 Other and unspecified hyperlipidemia Primary hypertension Unspecified essential hypertension Acquired hypothyroidism Unspecified hypothyroidism Persistent cough Cough documented in this encounter Advance Directives Healthcare Agents on File Name Relationship Healthcare Agent [facility] Communication Dick will [facility] Health Care Repr esentative (appointed verbally by patient or by statute hierarchy) Meredith middletonkarla [facility] Care R epresentative (appointed verbally by patient or by statute hierarchy) Care Teams Custom Frame Assembler Relationship Specialty Start Date End Date Yumiko Goldstein DO [address] [place] [address] [place] [address] PCP - General Internal Medicine 10/24/23 documented as of this encounter
--- OUTSIDE RECORDS SUMMARY | 2024-01-20 05:42 | External Medical Summary | Summary of Care ---
Author Name Unknown Organization [facility] Address [address] [facility] [place] [address] Phone [phone] Care Team Providers Care Mercerizing Range Controller Name Role Phone Yumiko Goldstein DO Primary Care Provider Reason for Visit * Reason Comments NEW PATIENT Former pt of Dr. Danielle lobo. Pt's daughter states pt wakes up around 12:30 or 1 am with shortness of breath, wondering if there's a stronger nebulizer med she can take. Encounter Details Date Type Department Care Team (Latest Contact Info) Description 10/24/2023 3:10 PM EDT Office Visit Family Medicine [address] [place] [address] Yumiko Goldstein [address] [place] [address] Primary hypertension*; Senile osteoporosis; Acquired hypothyroidism; Gastroesophageal reflux disease without esophagitis; Hyperlipidemia with target LDL less than 100; Moderate persistent asthma without complication; COPD, group B, by GOLD 2017 classification (HCC); Persistent cough Allergies Active Allergy Reactions Criticality [...] AT BEDTIME 100 Tablet 1 4 Active Chlorthalidone 25 MG Oral Tablet (Hygroton)Indicatio ns:Primary hypertension Take 1 Tablet by mouth in the morning. 100 Tablet 1 4 Active Lisinopril 20 [...] morning. 180 Blister Dosing Unit 4 Active ANORO ELLIPTA 62.5-25 MCG/INH AEPB INHALE 1 PUFF BY MOUTH EVERY 24 HOURS 0 10/24/19 24 Discontinued documented as of this encounter [...] into Electronic Medical Record Mixed dyslipidemia 12/02/2002 12/08/200 9 Overview: Per Lipid Taxonomy. Other allergic [...] Sign Reading Time Taken Comments Blood Pressure 112/64 10/24/2023 3:06 PM EDT Pulse 66 10/24/2023 3:06 PM EDT Temperature 36.9 C (98.4 F) 10/24/2023 3:06 PM ED T Respiratory Rate - - Oxygen Saturation 90% 10/24/2023 3:06 PM EDT Inhaled Oxygen Concentration - - Weight 43.4 kg (95 lb 9.6 oz) 10/24/2023 3:06 PM EDT Height - - Body Mass Index 20.69 01/10/2023 3:10 PM EDT documented in this encounter Patient Instructions * Patient Instructions* Yumiko Goldstein DO - 10/24/2023 3:38 PM EDT When you get the Trelegy, start using this (1 puff once a day) and stop using the Anoro and the budesonide nebs. You can continue to use the Duonebs as needed. documented in this encounter Progress Notes * Yumiko Goldstein DO - 10/24/2023 3:20 PM EDT Subjective: Rakan Ortega is a 83 year old female. Chief Complaint Patient presents with NEW PATIENT Former pt of Dr. Carmen. Pt's daughter states pt wakes up around 12:30 or 1 am with shortness of breath, wondering if there's a stronger nebulizer med she can take. HPI: Rakan Ortega presents today to establish care. She is a former patient of Dr. Carmen. She is a patient of Dr. Diaz. Follows her for COPD. On Anoro with nebulized budesonide and Duonebs. BP is well controlled here today. She is sleeping okay with trazodone. She is not interested in doing a bone density test. Has known osteoporosis. Takes calcium + vitaminD. She is due for her second shingles shot. She gets a weird nerve pain down her legs anytime that she hears/sees something bad. 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 Review of patient's allergies indicates: Allergen Reactions Other - Environmental Band aids Objective: BP 112/64 | Pulse 66 | Temp 36.9 C (98.4 F) | Wt 43.4 kg (95 lb 9.6 oz) | SpO2 90% | BMI 20.69 kg/m | BSA 1.32 m General: alert, healthy, no distress, well nourished, and well developed Neck: supple, no adenopathy, thyroid normal size, non-tender, without nodularity Heart: regular rate & rhythm and no murmur Lungs: chest symmetric with normal AP diameter, no chest deformities noted, normal respiratory rateand rhythm, lungs clear to auscultation Abdomen: abdomen soft and non-tender Extremities: no joint deformities, effusion, or inflammation, no edema Neuro Exam: alert & oriented x 3 with fluent speech, no focal motor/sensory deficits, gait normal Skin: skin color, texture, turgor are normal, no rashes or significant lesions ASSESSMENT/PLAN: Primary hypertension (Primary) - well controlled on current regimen. - COMPREHENSIVE METABOLIC PANEL; Future; Expected date: 10/24/2023 Senile osteoporosis - on calcium + vitamin D Acquired hypothyroidism - continue levothyroxine. - TSH; Future; Expected date: 10/24/2023 Gastroesophageal reflux disease without esophagitis - uses TUMS as needed Hyperlipidemia with target LDL less than 100 - continue atorvastatin - COMPREHENSIVE METABOLIC PANEL; Future; Expected date: 10/24/2023 Moderate persistent asthma without complication - XR CHEST 2 VIEWS COPD, group B, by GOLD 2017 classification ([facility]) - breathing is worse lately. CXR to evaluate for mucus plugging; may need to get CT scan if CXR unclear. Start Trelegy. Stop Anoro and budesonide nebs. She can continue to use duonebs as needed. - Aztoymjvhgi-Lnihnrfjy-Iwawwx 100-62.5-25 MCG/ACT Aerosol Powder Breath Activated (Trelegy Ellipta); Inhale 1 Puff by mouth in the morning. - XR CHEST 2 VIEWS Persistent cough - BNP, NT-PRO; Future; Expected date: 10/24/2023 Follow-up: Return in about 6 months (around 04/25/2024). | Check-out note: Labs and x-ray today Yumiko Goldstein DO documented in this encounter Plan of Treatment Upcoming Encounters Date Type Department Care Team (Late st Contact Info) Description 11/13/2023 2:00 PM EDT Telemedicine Interventional [facility] Center, [facility] [address] [place] [address] Samantha Ybarra PA-C [address] [place] [address] 01/15/2024 3:00 PM EDT Nurse Only Ancillary [address] [place] [address] [place], Nurse [address] [place] [address] Pending Results Name Type Priority Associated Diagnoses Date /Time COMPREHENSIVE METABOLIC PANEL Lab Routine Hyperlipidemia with target LDL less than 100 Primary hypertension 10/24/2023 4:02 PM EDT TSH Lab Routine Acquired hypothyroidism 10/24/2023 4:02 PM EDT BNP, NT-PRO Lab Routine Persistent cough 10/24/2023 4:02 PM EDT XR CHEST 2 VIEWS Medical Imaging Routine Moderate persistent asthma without complication COPD, group B, by GOLD 2017 classification ([facility]) 10/24/2023 4:09 PM EDT Scheduled Orders Name Type Priority Associated Diagnoses Orde r Schedule COMPREHENSIVE METABOLIC PANEL Lab Routine Hyperlipidemia with target LDL less than 100 Primary hypertension Expected: 10/24/2023 (Approximate), Expires: 10/23/2024 TSH Lab Routine Acquired hypothyroidism Expected: 10/24/2023 (Approximate), Expires: 10/23/2024 BNP, NT-PRO Lab Routine Persistent cough Expected: 10/24/2023 (Approximate), Expires: 10/23/2024 Health Maintenance Due Date Last Done Comments [...] D LEVEL ONCE IN A LIFETIME-USE SMARTSET# [id number] Completed 06/29/2012, 03/30/2009 Pneumococcal Vaccine: 65+ Years [...] as of this encounter Visit Diagnoses Diagnosis Primary hypertension- Primary Unspecified essential hypertension Senile osteoporosis Acquired hypothyroidism Unspecified hypothyroidism Gastroesophageal reflux disease without esophagitis Esophageal reflux Hyperlipidemia with target LDL less than 100 Other and unspecified hyperlipidemia Moderate persistent asthma without complication Unspecified asthma COPD, group B, by GOLD 2017 classification (HCC) Persistent cough Cough documented in this encounter Advance Directives Healthcare Agents on File Name Relationship Healthcare Agent Relationshi p Communication Dick Ortega Adult Child Health Care Repr esentative (appointed verbally by patient or by statute hierarchy) Meredith white Adult Child Health Care R epresentative (appointed verbally by patient or by statute hierarchy) Care Teams Mercerizing Range Controller Relationship Specialty Start Date End Date Yumiko Goldstein DO [address] [place] [address] [place] [address] PCP - General Internal Medicine 10/24/23 documented as of this encounter"
--- OUTSIDE RECORDS SUMMARY | 2024-01-20 05:42 | External Medical Summary ---
Author Name Unknown Address Unknown Organization K01:[facility] [place] [address] [place] [address] Laboratory Report Ordering Provider Test Date Status ADAN JURADO 10/24/2023 16:02:04 Final Exclude Heart Failure: <300 pg/mL
Diagnose Heart Failure:
Age <50 yr: >450 pg/mL
50-75 yr: >900 pg/mL
>75 yr: >1800 pg/mL
GFR is 30-59 mL/min: >1200 pg/mL or Age- adjusted values
GFR <30 mL/min: do not use, not reliable

Prognostic threshold: 1000 pg/mL Observation Date Value Abnormality Reference (Units ) Status BNP, Pro-hormone 10/24/2023 16:02:04 410 Above high no rmal <300 (pg/mL) Final Performing Location [facility] [place] [facility] [address] [place] [id number]
--- OUTSIDE RECORDS SUMMARY | 2024-01-20 05:42 | External Medical Summary | Summary of Care ---
Author Name Unknown Organization [facility] Address [address] [facility] [address] Phone [phone] Care Team Providers Care Grader Patrol Name Role Phone Yumiko Goldstein DO Primary Care Provider Reason for Visit * Reason Onset Date Comments Test Results 10/27/2023 Encounter Details Date Type Department Care Team (Late st Contact Info) Description 10/27/2023 Telephone Family Medicine [address] [place] [address] Yumiko Goldstein [address] [place] [address] Test Results Allergies Active Allergy Reactions Criticality Noted Date Comments Other - Environmental 09/27/2008 Band aids documented as of this encounter (statuses as of 10/30/2023) Medications Medication Sig Dispensed Refills Start Date [...] COPD, group B, by GOLD 2017 classification ([facility]) Inhale 1 Puff by mouth in the morning. 180 Blister Dosing Unit 10/24/2023 Active documented as of this encounter (statuses as of 10/30/2023) Active Problems Problem Noted Date Diagnosed Date [...] as of this encounter (statuses as of 10/30/2023) Resolved Problems Problem Noted Date Diagnosed Date [...] as of this encounter (statuses as of 10/30/2023) Immunizations Name Administration Dates Next Due COVID-19 [...] encounter Miscellaneous Notes * Telephone Encounter - Krystal Chilel LPN - 10/30/2023 2:52 PM EDT Patient is aware and verbalizes understanding. 2 week nurse visit and labs scheduled Nurse 11/16 at 3:20 Lab 11/16 at 3:10 * Telephone Encounter - Yumiko Goldstein DO - 10/27/2023 2:25 PM EDT Please call patient: Kidney function is down. Stop chlorthalidone. Increase fluid intake. Nurse visit in 2 weeks for BP check and repeat (non-fasting) labs. documented in this encounter Plan of Treatment Upcoming Encounters Date Type Department Care Team (Late st Contact Info) Description 11/13/2023 2:00 PM EDT Telemedicine [facility], [facility] [place] [address] Samantha Ybarra PA-C [address] [place] [address] 11/17/2023 3:10 PM EDT Laboratory Laboratory [address] [place] [phone] [place], Lab [address] [place] [address] 11/17/2023 3:20 PM EDT Nurse Only Ancillary [address] [place] [address] [place], Nurse [address] [place] [address] 01/15/2024 3:00 PM EDT Nurse Only Ancillary [address] [place] [address] [place], Nurse [address] [place] [address] 06/08/2024 3:10 PM EST Office Visit Family Medicine [address] [place] [phone] [address] [place] [address] Health Maintenance Due Date Last Done Comments [...] D LEVEL ONCE IN A LIFETIME-USE SMARTSET# [id number] Completed 06/29/2012, 03/30/2009 Pneumococcal Vaccine: 65+ Years [...] patient or by statute hierarchy) Care Teams Grader Patrol Relationship Specialty Start Date End Date Yumiko Goldstein DO [address] [place] [address] [place] [phone] PCP - General Internal Medicine 10/24/23 documented as of this encounter
--- OUTSIDE RECORDS SUMMARY | 2024-01-20 05:42 | External Medical Summary | Summary of Care ---
Author Name Unknown Organization [facility] Address [address] [facility] [address] Phone [phone] Care Team Providers Care Aircraft Steel Fabricator Name Role Phone Yumiko Goldsetin DO Primary Care Provider Reason for Visit * Reason Onset Date Comments Order Request 11/17/2023 Encounter Details Date Type Department Care Team (Late st Contact Info) Description 11/17/2023 Telephone Family Medicine [address] [phone] Yumiko Goldstein [address] [place] [address] Order Request Allergies Active Allergy Reactions Criticality Noted [...] COPD, group B, by GOLD 2017 classification ([facility]) Inhale 1 Puff by mouth [...] Telephone Encounter - Marie Jimenez RN - 11/17/2023 11:56 AM EDT Per 10/26 message, pt needs labs documented in this encounter Plan of Treatment Upcoming Encounters Date Type Department Care Team (Late st Contact Info) Description 11/17/2023 3:10 PM EDT Laboratory Laboratory [address] [place] [phone] [facility] Lab [address] [place] [address] Primary hypertension 11/17/2023 3:20 PM EDT Nurse Only Ancillary [address] [place] [address] [place] Nurse [address] [place] [address] 01/15/2024 3:00 PM EDT Nurse Only Ancillary [address] [place] [address] [place], Nurse [address] [place] [address] 06/08/2024 3:10 PM EST Office Visit Family Medicine [address] [place] [phone] Yumiko Goldstein, [address] [place] [address] Pending Results Name Type Priority Associated Diagnoses Date /Time BASIC METABOLIC PANEL Lab Routine Primary hypertension 11/17/2023 12:01 PM EDT Scheduled Orders Name Type Priority Associated Diagnoses Orde r Schedule BASIC METABOLIC PANEL Lab Routine Primary hypertension Expected: 11/17/2023 (Approximate), Expires: 11/16/2024 Health Maintenance Due Date Last Done Comments [...] D LEVEL ONCE IN A LIFETIME-USE SMARTSET# [id number] Completed 06/29/2012, 03/30/2009 Pneumococcal Vaccine: 65+ Years [...] of this encounter Visit Diagnoses Diagnosis Primary hypertension Unspecified essential hypertension Primary hypertension- Primary Unspecified essential hypertension documented in this encounter Advance Directives Healthcare Agents on File Name Relationship Healthcare Agent [facility] p Communication Dick Ortega Adult Child Health Care Repr esentative (appointed verbally by patient or by statute hierarchy) Meredith white Adult Child Health Care R epresentative (appointed verbally by patient or by statute hierarchy) Care Teams Aircraft Steel Fabricator Relationship Specialty Start Date End Date Yumiko Goldstein DO [address] [place] [address] [place] [phone] PCP - General Internal Medicine 10/24/23 documented as of this encounter
--- OUTSIDE RECORDS SUMMARY | 2024-01-20 05:42 | External Medical Summary | Summary of Care ---
Author Name Unknown Organization [facility] Address [address] [facility] [address] Phone [phone] Care Team Providers Care Ice Skating Instructor Name Role Phone Yumiko Goldstein Primary Care Provider Reason for Visit * Reason Comments Outpatient Testing Encounter Details Date Type Department Care Team (Late st Contact Info) Description 11/17/2023 3:10 PM EDT Laboratory Laboratory [address] [place] [phone] [facility] Lab [address] [place] [address] Primary hypertension Allergies Active Allergy Reactions Criticality Noted Date [...] COPD, group B, by GOLD 2017 classification ([facility]) Inhale 1 Puff by mouth in [...] 11/17/2023 3:20 PM EDT Nurse Only Ancillary [address] [place] [address] [place] Nurse [address] [place] [address] 01/15/2024 3:00 PM EDT Nurse Only Ancillary [address] [place] [address] [place], Nurse [address] [place] [address] 06/08/2024 3:10 PM EST Office Visit Family Medicine [address] [place] [phone] Yumiko Goldstein, [address] [place] [address] Pending Results Name Type Priority Associated Diagnoses Date /Time BASIC METABOLIC PANEL Lab Routine Primary hypertension 11/17/2023 12:01 PM EDT Health Maintenance Due Date Last [...] D LEVEL ONCE IN A LIFETIME-USE SMARTSET# [id number] Completed 06/29/2012, 03/30/2009 Pneumococcal Vaccine: 65+ Years [...] Diagnoses Diagnosis Primary hypertension Unspecified essential hypertension documented in this encounter Advance Directives Healthcare Agents on File Name Relationship Healthcare Agent Relationshi p Communication Dick Ortega Adult Child Health Care Repr esentative (appointed verbally by patient or by statute hierarchy) Meredith [email or web address] Adult Child Health Care R epresentative (appointed verbally by patient or by statute hierarchy) Care Teams Ice Skating Instructor Relationship Specialty Start Date End Date Yumiko Goldstein DO [address] [place] [address] [place] [address] PCP - General Internal Medicine 10/24/23 documented as of this encounter
--- OUTSIDE RECORDS SUMMARY | 2024-01-20 05:43 | External Medical Summary ---
Author Name Unknown Address Unknown Organization K01:[facility] [place] [address] [facility] [place] [address] Laboratory Report Ordering Provider Test Date Status ADAN JURADO 10/24/2023 16:02:04 Final Observation Date Value Abnormality Reference (Units ) Status BUN 10/24/2023 16:02:04 29 Above high normal 6-20 (mg/dL) Final Creatinine 10/24/2023 16:02:04 1.1 Above high normal 0.5-1.0 (mg/dL) Final Glomerular filtration rate/1.73 sq M.predicted [Volume Rate/Area] in Serum, Plasma or Blood by Creatinine-based formula (CKD-EPI) 10/24/2023 16:02:04 51 Below low normal >=60 (mL/min) Final eGFR is calculated based on the CKD-EPI 2020 equation Sodium 10/24/2023 16:02:04 134 Below low normal 135 -146 (mmol/L) Final Potassium 10/24/2023 16:02:04 3.9 3.5-5.1 (m mol/L) Final Cl 10/24/2023 16:02:04 95 Below low normal 98- 107 (mmol/L) Final CO2 10/24/2023 16:02:04 29 22-32 (mmo l/L) Final Anion gap 10/24/2023 16:02:04 10 7-15 (mmol /L) Final Glucose 10/24/2023 16:02:04 118 70-120 (mg /dL) Final Albumin 10/24/2023 16:02:04 4.4 3.8-5.0 (g /dL) Final AST (Aspartate aminotransferase) 10/24/2023 16:02:04 19 10-35 (U/L) Fin al Alk Phos 10/24/2023 16:02:04 49 35-130 (U/ L) Final Bilirubin, Total 10/24/2023 16:02:04 0.2 <=1 .2 (mg/dL) Final Calcium 10/24/2023 16:02:04 9.8 8.4-10.2 ( mg/dL) Final Protein 10/24/2023 16:02:04 7.6 6.0-8.3 (g /dL) Final ALT (Alanine aminotransferase) 10/24/2023 16:02:04 9 Below low normal 10-35 (U/L) Final Performing Location [facility] [place] [address] [facility] [address]
--- OUTSIDE RECORDS SUMMARY | 2024-01-20 05:43 | External Medical Summary | Summary of Care ---
Author Name Unknown Organization [facility] Address [address] [facility] [place] [address] Phone [phone] Care Team Providers Care Labor Specialist Name Role Phone Bao Carmen MD Primary Care Provider [phone] Reason for Visit * Reason Onset Date Comments Medication Refill 2023 Encounter Details Date Type Department Care Team (Late st Contact Info) Description 2023 Refill Family Medicine [address] [place] [phone] Bao Carmen MD [address] [place] [address] [place] [address] Allergies Active Allergy Reactions Criticality Noted Date Comments Other - Environmental 09/27/2008 Band aids documented as of this encounter (statuses as of 2023) Medications Medication Sig Dispensed Refills Start Date End Date Status TUMS 500 MG PO CHEW as needed 0 Activ e SALINE NASAL SPRAY 0.65 % NA SOLN Administer into nostril daily as needed. 0 Active Calcium Carb-Cholecalciferol (CALCIUM + D3) 600-200 MG-UNIT per tablet Take 1 Tablet by mouth in the morning and 1 Tablet before bedtime. 0 Active ANORO ELLIPTA 62.5-25 MCG/INH AEPB INHALE 1 PUFF BY MOUTH EVERY 24 HOURS 0 05/04/2019 Active Acetaminophen 500 MG Oral Tablet Take 1 Tablet by mouth every 8 hours as needed for Pain, Moderate. 0 Active Aspirin 81 MG Oral Tablet Delayed Release Take 1 Tablet by mouth in the morning. 0 12/03/2022 Active Albuterol Sulfate (2.5 MG/3ML) 0.083% Inhalation Nebulization Solution (Proventil) Inhale 1 Vial via nebulizer every 4 hours as needed for Wheezing. 1080 mL 3 08/18/2023 Active Atorvastatin Calcium 40 MG Oral Tablet (Lipitor)Indications: Hyperlipidemia with target LDL less than 130 TAKE 1 TABLET BY MOUTH AT BEDTIME 100 Tablet 1 08/17/2023 Active Chlorthalidone 25 MG Oral Tablet (Hygroton)Indications :Primary hypertension Take 1 Tablet by mouth in the morning. 100 Tablet 1 08/17/2023 Active Lisinopril 20 MG Oral Tablet (Prinivil)Indications :Primary hypertension Take 1 Tablet by mouth in the morning. 100 Tablet 1 08/17/2023 Active Metoprolol Tartrate [...] OTHER MEDS 100 Tablet 1 08/19/2023 Active Ipratropium-Albuterol 0.5-2.5 (3) MG/3ML Inhalation Solution (Duoneb)Indications:M oderate persistent asthma without complication USE 1 VIAL IN NEBULIZER TWICE DAILY, MAY INCREASE TO 1 VIAL EVERY 4 HOURS NEEDED FOR WORSENING COUGH, WHEEZING OR SHORTNESS OF BREATHE 1080 mL 0 08/19/2023 Active documented as of this encounter (statuses as of 2023) Active Problems Problem Noted Date Diagnosed Date COPD, group B, by GOLD 2017 classification 01/23 Overview: Per COPD GOLD Classification Primary hypertension 08/16/2015 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 05/17/2011 Gastroesophageal reflux disease without esophagi tis 05/17/2011 Moderate persistent asthma without complication 05/17/2011 Acquired hypothyroidism 04/24/2010 ADVANCE DIRECTIVE INFORMATION 09/17/2005 Overview: Yes, Patient instructed to provide copy of advance directive for provider to review and to be scanned into Electronic Medical Record Rosacea 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 HTN, goal below 140/90 02/17/200911/22 Overview: Modified per HTN Taxonomy. NONALLERGIC RHINITIS 07/08/2008 012 HTN, goal below 140/90 06/22/200702/17 Overview: Modified per HTN Taxonomy. Chronic sinusitis 01/19/2007 05/17/2011 Mixed dyslipidemia 12/02/2002 9 Overview: Per Lipid Taxonomy. Other allergic rhinitis 07/15/199706/13 Overview: ICD-10 update of inactive term Asthma with severity to be determined 07/15/1997 05/17/2011 Overview: ICD-10 update of inactive term Hypothyroidism 04/24/2010 Esophageal reflux 05/17/2011 COPD, moderate 01/27/2020 Overview: Per COPD GOLD Classification documented as of this encounter (statuses as of 2023) Immunizations Name Administration Dates Next Due COVID-19 [...] encounter Miscellaneous Notes * Telephone Encounter - Wanda Horvath paper sealer - 2023 2:57 PM EDT Pt calling to request Levothyroxine Sodium 137 MCG Oral Tablet (Synthroid . Informed pt that RX is available at their pharmacy. Pt verbalized understanding and stated they will check with their pharmacy regarding this medication. Thank you for your assistance Wanda Horvath Platform Mill Supervisor II Centralized Clinical Pharmacy Services ([facility]PS) (Formerly Telepharmacy) 2023,2:57 PM documented in this encounter Plan of Treatment Upcoming Encounters Date Type Department Care Team (Late st Contact Info) Description 12/03/2023 3:10 PM EDT Office Visit Family Medicine [address] [place] [phone] Yumiko Goldstein[address] [place] [address] 01/15/2024 3:00 PM EDT Nurse Only Ancillary [address] [place] [address] [place], Nurse Annual Wellness [address] [place] [address] [place] [address] Health Maintenance Due Date Last Done Comments Alpha-1 Antitrypsin 08/23/1959 DXA Scan 11/15/2022 11/15/2020, 01/13, 05/25/2014, Additional history exists Zoster Vaccines (2 of 2) 01/28/2023 12/03/2022 GFR 11/16/2023 11/15/2022, 10/2021, 11/08/2020, Additional history exists TSH 11/16/2023 11/15/2022, 01/12, 10/18/2021, Additional history exists Depression Screening 01/11/2024 01/10/2023 O2 ASSESSMENT COMPLETED IN PAST YEAR FOR COPD 04/30/2024 04/30/2023 Albumin/Creatinine Ratio 10/18/2024 022, 11/08/2020, 10/14/2019, Additional history exists DTaP,Tdap,and Td Vaccines (2 - Td or Tdap) 12/03/2032 12/03/2022, 03/30/2009 VITAMIN D LEVEL ONCE IN A LIFETIME-USE SMARTSET# [id number] Completed 06/29/2012, 03/30/2009 Pneumococcal Vaccine: 65+ Years Completed 10/11/2014, 05/07/2007 Influenza Vaccine (FLU shot) Completed , 01/03/2022, 01/02/2021, Additional history exists COVID-19 Vaccine Completed 04/18/2023, 06/2021, 01/24/2021, Additional history exists GARDASIL-HPV IMMUNIZATION SERIES Aged Out No longer eligible based on patient's age to complete this topic Hepatitis B Aged Out No longer eligi ble based on patient's age to complete this [...] by patient or by statute hierarchy) Meredith Downeymaxdaria Adult Child Health Watch Dial Maker resentative (appointed verbally by patient or by statute hierarchy) Care Teams Labor Specialist Relationship Specialty Start Date End Date Bao Carmen MD [address] [place] [address] [place] [phone] PCP - General Family Medicine 05/18/18 documented as of this encounter
--- OUTSIDE RECORDS SUMMARY | 2024-01-20 05:43 | External Medical Summary | Summary of Care ---
Author Name Unknown Organization [facility] Address [address] [place] [address] Phone [phone] Care Team Providers Care Customer Success Manager Name Role Phone Bao Carpenter MD Primary Care Provider [phone] Reason for Visit * Reason Onset Date Comments Medication Refill 08/15/2023 Medication Problem 08/15/2023 Encounter Details Date Type Department Care Team (Late st Contact Info) Description 08/15/2023 Refill Family Medicine [address] [phone] Bao Carpenter MD [address] [place] [address] [place] [phone] Hyperlipidemia with target LDL less than 130; Primary hypertension; Moderate persistent asthma without complication; Acquired hypothyroidism; Essential hypertension with goal blood pressure less than 140/90; Primary insomnia Allergies Active Allergy Reactions Criticality Noted Date Comments Other - Environmental 09/27/2008 Band aids documented as of this encounter (statuses as of 2023) Medications Medication Sig Dispensed Refills Start Date End Date Status TUMS 500 MG PO CHEW as needed 0 Activ e SALINE NASAL SPRAY 0.65 % NA SOLN Administer into nostril daily as needed. 0 Active Calcium Carb-Cholecalcifero l (CALCIUM + D3) [...] 08/17/2023 Active Chlorthalidone 25 MG Oral Tablet (Hygroton)Indicatio ns:Primary hypertension Take 1 Tablet by mouth in the morning. 100 Tablet 1 08/17/2023 Active Lisinopril 20 MG Oral Tablet (Prinivil)Indicatio ns:Primary hypertension Take 1 Tablet by mouth [...] OTHER MEDS 100 Tablet 1 08/19/2023 Active Ipratropium-Albuter ol 0.5-2.5 (3) MG/3ML Inhalation Solution (Duoneb)Indications :Moderate persistent asthma without complication USE 1 VIAL IN NEBULIZER TWICE DAILY, MAY INCREASE TO 1 VIAL EVERY 4 HOURS NEEDED FOR WORSENING COUGH, WHEEZING OR SHORTNESS OF BREATHE 1080 mL 0 08/19/2023 Active Albuterol Sulfate (2.5 MG/3ML) 0.083% Inhalation Nebulization Solution (Proventil) Inhale 1 Vial via nebulizer every 4 hours as needed for Wheezing. 360 mL 11 07/18/2022 4 Discontinue d(Refill) Metoprolol Tartrate 50 MG Oral Tablet (Lopressor)Indicati ons:Primary hypertension,Essent ial hypertension with goal blood pressure less than 140/90 TAKE 1 TABLET BY MOUTH IN THE MORNING AND AT BEDTIME 180 Tablet 1 12/30/2022 4 Discontinue d(Refill) Ipratropium-Albuter ol 0.5-2.5 (3) MG/3ML Inhalation Solution (Duoneb)Indications :Moderate persistent asthma without complication USE 1 VIAL IN NEBULIZER TWICE DAILY, MAY INCREASE TO 1 VIAL EVERY 4 HOURS NEEDED FOR WORSENING COUGH, WHEEZING OR SHORTNESS OF BREATHE 360 mL 3 03/13/2023 4 Discontinue d(Refill) Atorvastatin Calcium 40 MG Oral Tablet (Lipitor)Indication s:Hyperlipidemia with target LDL less than 130 TAKE 1 TABLET BY MOUTH AT BEDTIME 90 Tablet 1 04/30/2023 4 Discontinue d(Refill) Chlorthalidone 25 MG Oral Tablet (Hygroton)Indicatio ns:Primary hypertension Take 1 Tablet by mouth in the morning. 90 Tablet 1 04/30/2023 4 Discontinue d(Refill) Levothyroxine Sodium 137 MCG Oral TabletIndications:A cquired hypothyroidism TAKE 1 TABLET BY MOUTH IN THE MORNING AT LEAST 30 MIN PRIOR TO BREAKFAST OR OTHER MEDS 90 Tablet 1 04/30/2023 4 Discontinue d(Refill) traZODone HCl 50 MG Oral Tablet (Desyrel)Indication s:Primary insomnia TAKE 1 TABLET BY MOUTH AT BEDTIME 30 Tablet 5 06/28/2023 4 Discontinue d(Refill) Lisinopril 20 MG Oral Tablet (Prinivil)Indicatio ns:Primary hypertension TAKE 1 TABLET BY MOUTH IN THE MORNING 90 Tablet 1 07/25/2023 4 Discontinue d(Refill) Ipratropium-Albuter ol 0.5-2.5 (3) MG/3ML Inhalation Solution (Duoneb)Indications :Moderate persistent asthma without complication USE 1 VIAL IN NEBULIZER TWICE DAILY, MAY INCREASE TO 1 VIAL EVERY 4 HOURS NEEDED FOR WORSENING COUGH, WHEEZING OR SHORTNESS OF BREATHE 360 mL 3 08/17/2023 4 Discontinue d(Refill) Synthroid 137 MCG Oral TabletIndications:A cquired hypothyroidism TAKE 1 TABLET BY MOUTH IN THE MORNING AT LEAST 30 MIN PRIOR TO BREAKFAST OR OTHER MEDS 100 Tablet 1 08/17/2023 4 Discontinue d(Refill) documented as of this encounter (statuses as [...] encounter Miscellaneous Notes * Telephone Encounter - Johanna Watkins, cytopathology technologist - 2023 10:50 AM EDT Pt calling to request levothyroxine. Informed pt that RX is available at their pharmacy. Pt verbalized understanding and stated they will check with their pharmacy regarding this medication. Thank you, Johanna Watkins CPhT Analytics Director II Centralized Clin[facility] Pharmacy Services ([facility]PS) (formerly Telepharmacy) 2023,10:50 AM * Addendum Note - Gene Donovan [facility] - 08/19/2023 2:48 PM EDTAddended by: GENE DONOVAN on: 08/19/2023 02:48 PM Modules accepted: Orders * Telephone Encounter - Maryjane Jon PHARM Tech - 08/19/2023 12:01 PM EDT Please verify if synthroid must be brand onlt ,,also 360 ml for albuterol- ipratropium is only enough for a 30 d/s .the patient need 90 d/s for both meds . [facility] you, [facility] D[facility] Up Person II Centralized Clinical Pharm[facility] Services( formally Telepharmacy ) 08/19/2023, 12:02 PM * Telephone Encounter - Adrien Goldstein DO - 08/18/2023 1:08 PM EDTSigned Prescriptions: Disp Refills Albuterol Sulfate (2.5 MG/3ML) 0.083% Inha*1080 mL3 Sig: Inhale 1 Vial via nebulizer every 4 hours as needed for Wheezing.Authorizing Provider: BAO CARPENTER Atorvastatin Calcium 40 MG Oral Tablet (Li*100 Ta*1 Sig: TAKE 1 TABLET BY MOUTH AT BEDTIMEAuthorizing P rovider: ADRIEN GOLDSTEIN User: FRANSISCA PIKE Chlorthalidone 25 MG Oral Tablet(Hygroton)100 Ta*1 Sig: Take 1 Tablet by mouth in the morning.Authorizing Provider: ADRIEN GOLDSTEIN User: FRANSISCA PIKE Ipratropium-Albuterol 0.5-2.5 (3) MG/3ML I*360 mL 3 Sig: USE 1VIAL IN NEBULIZER TWICE DAILY, MAY INCREASE TO 1 VIAL EVERY 4 HOURS NEEDED FOR WORSENING COUGH, WHEEZING OR SHORTNESS OF BREATHEAuthorizing Provider: ADRIEN GOLDSTEIN User: FRANSISCA PIKE Levothyroxine Sodium 137 MCG Oral Tablet 100 Ta*1 Sig: TAKE 1 TABLET BY MOUTH IN THE MORNING AT LEAST 30MIN PRIOR TO BREAKFAST OR OTHER MEDSAuthorizing Provider: ADRIEN GOLDSTEIN User: FRANSISCA PIKE Lisinopril 20 MG Oral Tablet (Prinivil) 100 Ta*1 Sig: Take 1 Tablet by mouth in the morning.Authorizing Provider: ADRIEN GOLDSTEIN User: FRANSISCA PIKE Metoprolol Tartrate 50 MG Oral Tablet (Lop*200 Ta*1 Sig: TAKE 1 TABLET BY MOUTH IN THE MORNING AND AT BEDTIMEAuthorizing Provider: ADRIEN GOLDSTEIN User: FRANSISCA PIKE traZODone HCl 50 MG Oral Tablet (Desyrel) 100 Ta*1 Sig: Take 1 Tablet by mouth at bedtime.Authorizing Provider: ADRIEN GOLDSTEIN User:FRANSISCA PIKE * Telephone Encounter - Bao Carpenter MD - 08/18/2023 7:34 AM EDTSigned Prescriptions: Disp Refills Albuterol Sulfate (2.5 MG/3ML) 0.083% Inha*1080 mL3 Sig: Inhale 1 Vial via nebulizer every 4 hours as needed for Wheezing. Authorizing Provider: BAO CARPENTER Atorvastatin Calcium 40 MG Oral Tablet (Li*100 Ta*1 Sig: TAKE 1 TABLET BY MOUTH AT BEDTIME Authorizing Provider: ADRIEN GOLDSTEIN Ordering User: FRANSISCA PIKE Chlorthalidone 25 MG Oral Tablet (Hygroton)100 Ta*1 Sig: Take 1 Tablet by mouth in the morning. Authorizing Provider: ADRIEN GOLDSTEIN Ordering User: FRANSISCA PIKE Ipratropium-Albuterol 0.5-2.5 (3) MG/3ML I*360 mL 3 Sig: USE 1 VIAL IN NEBULIZER TWICE DAILY, MAY INCREASE TO 1 VIAL EVERY 4 HOURS NEEDED FOR WORSENING COUGH, WHEEZING OR SHORTNESS OF BREATHE Authorizing P syder: ADRIEN GOLDSTEIN Ordering User: FRANSISCA PIKE Levothyroxine Sodium 137 MCG Oral Tablet 100 Ta*1 Sig: TAKE 1 TABLET BY MOUTH IN THE MORNING AT LEAST 30 MIN PRIOR TO BREAKFAST OR OTHER MEDS Authorizing Provider: ADRIEN GOLDSTEIN Ordering User: FRANSISCA PIKE Lisinopril 20 MG Oral Tablet (Prinivil) 100 Ta*1 Sig: Take 1 Tablet by mouth in the morning. Authorizing Provider: ADRIEN GOLDSTEIN Ordering User: FRANSISCA PIKE Metoprolol Tartrate 50 MG Oral Tablet (Lop*200 Ta*1 Sig: TAKE 1 TABLET BY MOUTH IN THE MORNING AND AT BEDTIME Authorizing Provider: ADRIEN GOLDSTEIN Ordering User: FRANSISCA PIKE traZODone HCl 50 MG Oral Tablet (Desyrel) 100 Ta*1 Sig: Take 1 Tablet by mouth at bedtime. Authorizing Provider: ADRIEN GOLDSTEIN Ord ering User: FRANSISCA PIKE * Telephone Encounter - Fransisca Pike [facility] - 08/17/2023 6:51 AM EDT Pending Prescriptions: Disp Refills Albuterol Sulfate (2.5 MG/3ML) 0.083% Inha*1080 mL3 Sig: Inhale 1 Vial via nebulizer every 4 hours as needed for Wheezing. Signed Prescriptions: Disp Refills Atorvastatin Calcium 40 MG Oral Tablet (Li*100 Ta*1 Sig: TAKE 1 TABLET BY MOUTH AT BEDTIME Authorizing Provider: ADRIEN GOLDSTEIN Ordering User : FRANSISCA PIKE Chlorthalidone 25 MG Oral Tablet (Hygroton)100 Ta*1 Sig: Take 1 Tablet by mouth in the morning. Authorizing Provider: ADRIEN GOLDSTEIN Ordering User: FRANSISCA PIKE Ipratropium-Albuterol 0.5-2.5 (3) MG/3ML I*360 mL 3 Sig: USE 1 VIAL IN NEBULIZER TWICE DAILY, MAY INCREASE TO 1 VIAL EVERY 4 HOURS NEEDED FOR WORSENING COUGH, WHEEZING OR SHORTNESS OF BREATHE Authorizing Provider: ADRIEN GOLDSTEIN Ordering User: FRANSISCA PIKE Levothyroxine Sodium 137 MCG Oral Tablet 100 Ta*1 Sig: TAKE 1 TABLET BY MOUTH IN THE MORNING AT LEAST 30 MIN PRIOR TO BREAKFAST OR OTHER MEDS Authorizing Provider: ADRIEN GOLDSTEIN Ordering User: FRANSISCA PIKE Lisinopril 20 MG Oral Tablet (Prinivil) 100 Ta*1 Sig: Take 1 Tablet by m outh in the morning. Authorizing Provider: ADRIEN GOLDSTEIN Ordering User: FRANSISCA PIKE Metoprolol Tartrate 50 MG Oral Tablet (Lop*200 Ta*1 Sig: TAKE 1 TABLET BY MOUTH IN THE MORNING AND AT BEDTIME Authorizing Provider: ADRIEN GOLDSTEIN Ordering User: FRANSISCA PIKE traZODone HCl 50 MG Oral Tablet (Desyrel) 100 Ta*1 Sig: Take 1 Tablet by mouth at bedtime. Authorizing Provider: ADRIEN GOLDSTEIN Ordering User: FRANSISCA PIKE * Telephone Encounter - Fransisca Pike RPh - 08/17/2023 6:51 AM EDT Last prescribed by allergy/immuno * Telephone Encounter - Wanda Horvath cytopathology technologist - 08/15/2023 10:32 AM EDT Please reroute Rx to [facility]. Pending Prescriptions: Disp Refills Albuterol Sulfate (2.5 MG/3ML) 0.083% Inh*1080 mL3 Sig: Inhale 1 Vial via nebulizer every 4 hours as needed for Wheezing. Atorvastatin Calcium 40 MG Oral Tablet (L*100 Ta*1 Sig: TAKE 1 TABLET BY MOUTH AT BEDTIME Chlorthalidone 25 MG Oral Tablet (Hygroto*100 Ta*1 Sig: Take 1 Tablet by mouth in the morning. Ipratropium-Albuterol 0.5-2.5 (3) MG/3ML *360 mL 3 Sig: USE 1 VIAL IN NEBULIZER TWICE DAILY, MAY INCREASE TO 1 VIAL EVERY 4 HOURS NEEDED FOR WORSENING COUGH, WHEEZING OR SHORTNESS OF BREATHE Levothyroxine Sodium 137 MCG Oral Tablet 100 Ta*1 Sig: TAKE 1 TABLET BY MOUTH IN THE MORNING AT LEAST 30 MIN PRIOR TO BREAKFAST OR OTHER MEDS Lisinopril 20 MG Oral Tablet (Prinivil) 100 Ta*1 Sig: Take 1 Tablet by mouth in the morning. Metoprolol Tartrate 50 MG Oral Tablet (Lo*200 Ta*1 Sig: TAKE 1 TABLET BY MOUTH IN THE MORNING AND AT BEDTIME traZODone HCl 50 MG Oral Tablet (Desyrel) 100 Ta*1 Sig: Take 1 Tablet by mouth at bedtime. Last Visit: 04/30/2023 (in office), Visit date not found (telemedicine) 12/03/2023 If no future appointments scheduled, and last appointment is greater than a year ago, please schedule patient for a follow-up appointment Last date the medication was ordered: Patient Phone Numbers Labs: Lab Results Component Value Date/Time CREAT 0.6 11/15/2022 12:02 PM CREAT 0.8 10/14/2019 09:27 AM POTASSIUM 4.6 11/15/2022 12:02 PM POTASSIUM 4.0 10/14/2019 09:27 AM POTASSIUM 4.5 06/08/1996 10:50 AM TSH 2.34 11/15/2022 12:02 PM TSH 2.83 10/14/2019 09:27 AM TSH 1.84 06/08/1996 10:50 AM LDLCALC 90 10/18/2021 01:55 PM LDLCALC UNINTERPRETABLE RESULT 10/08/2018 01:26 PM LDLDIRECT 93 04/30/2023 03:57 PM LDLDIRECT 94 10/14/2019 09:27 AM LDLDIRECT 188 (HH) 06/30/2001 09:08 AM ALT 18 11/15/2022 12:02 PM ALT 52 (H) 03/16/2012 02:50 PM HGBA1C 5.7 06/30/2001 09:08 AM documented in this encounter Plan of Treatment Upcoming Encounters Date Type Department Care Team (Late st Contact Info) Description 12/03/2023 3:10 PM EDT Office Visit Family Medicine [address] [place] [phone] Adrien Goldstein, [address] [place] [address] 01/15/2024 3:00 PM EDT Nurse Only Ancillary [address] [place] [phone] [place], Nurse Annual [address] [place] [address] Health Maintenance Due Date Last Done Comments Alpha-1 Antitrypsin 08/23/1958 DXA Scan 11/15/2022 11/15/2020, 10/2 09/2016, 05/25/2014, Additional history exists Zoster Vaccines (2 of 2) 01/28/2023 12/03/2022 GFR 11/16/2023 11/15/2022, 07/0 10/2021, 11/08/2020, Additional history exists TSH 11/16/2023 11/15/2022, 01/12, 10/18/2021, Additional history exists Depression Screening 01/11/2024 01/10/2023 O2 ASSESSMENT COMPLETED IN PAST YEAR FOR COPD 04/30/2024 04/30/2023 Albumin/Creatinine Ratio 10/18/2024 022, 11/08/2020, 10/14/2019, Additional history exists DTaP,Tdap,and Td Vaccines (2 - Td or Tdap) 12/03/2032 12/03/2022, 03/30/2009 VITAMIN D LEVEL ONCE IN A LIFETIME-USE SMARTSET# [id number] Completed 06/29/2012, 03/30/2009 Pneumococcal Vaccine: 65+ Years [...] Diagnosis Hyperlipidemia with target LDL less than 130 Other and unspecified hyperlipidemia Primary hypertension Unspecified essential hypertension Moderate persistent asthma without complication Unspecified asthma Acquired hypothyroidism Unspecified hypothyroidism Essential hypertension with goal blood pressure less than 140/90 Primary insomnia Persistent disorder of initiating or maintaining sleep documented in this encounter Advance Directives Healthcare Agents on File Name Relationship Healthcare Agent Relationshi p Communication Dick Ortega Adult Child Health Care Repr esentative (appointed verbally by patient or by statute hierarchy) Meredith Murry Adult Child Health Insurance Checker resentative (appointed verbally by patient or by statute hierarchy) Care Teams Customer Success Manager Relationship Specialty Start Date End Date Bao Carpenter MD [address] [place] [address] [place] [id number] PCP - General Family Medicine 05/18/18 documented as of this encounter
--- OUTSIDE RECORDS SUMMARY | 2024-01-20 05:43 | External Medical Summary | Summary of Care ---
Author Name Unknown Organization [facility] Address [address] [place] [address] Phone [phone] Care Team Providers Care Die Casting Machine Maintainer Name Role Phone Bao Carpenter MD Primary Care Provider Reason for Visit * Reason Onset Date Comments Medication Refill 08/15/2023 Encounter Details Date Type Department Care Team (Late st Contact Info) Description 08/15/2023 Refill Family Medicine [address] [place] [address] Bao Carpenter MD [address] [place] [address] [place] [address] Hyperlipidemia with target LDL less than 130; Primary hypertension; Moderate persistent asthma without complication; Acquired hypothyroidism; Essential hypertension with goal blood pressure less than 140/90; Primary insomnia Allergies Active Allergy Reactions Criticality Noted Date Comments Other - Environmental 09/27/2008 Band aids documented as of this encounter (statuses as of 08/18/2023) Medications Medication Sig Dispensed Refills Start Date [...] the morning. 100 Tablet 1 08/17/2023 Active Ipratropium-Albuter ol 0.5-2.5 (3) MG/3ML Inhalation Solution (Duoneb)Indications :Moderate persistent asthma without complication USE 1 VIAL IN NEBULIZER TWICE DAILY, MAY INCREASE TO 1 VIAL EVERY 4 HOURS NEEDED FOR WORSENING COUGH, WHEEZING OR SHORTNESS OF BREATHE 360 mL 3 08/17/2023 Active Levothyroxine Sodium 137 MCG Oral TabletIndications:A cquired hypothyroidism TAKE 1 TABLET BY MOUTH IN THE MORNING AT LEAST 30 MIN PRIOR TO BREAKFAST OR OTHER MEDS 100 Tablet 1 08/17/2023 Active Lisinopril 20 [...] at bedtime. 100 Tablet 1 08/17/2023 Active Albuterol Sulfate (2.5 MG/3ML) 0.083% Inhalation [...] 90 Tablet 1 07/25/2023 4 Discontinue d(Refill) documented as of this encounter (statuses as of 08/18/2023) Active Problems Problem Noted Date Diagnosed Date [...] as of this encounter (statuses as of 08/18/2023) Resolved Problems Problem Noted Date Diagnosed Date [...] as of this encounter (statuses as of 08/18/2023) Immunizations Name Administration Dates Next Due COVID-19 [...] encounter Miscellaneous Notes * Telephone Encounter - Bao Carpenter MD - 08/18/2023 7:34 AM EDTSigned Prescriptions: Disp Refills Albuterol Sulfate (2.5 MG/3ML) 0.083% Inha*1080 mL3 Sig: Inhale 1 Vial via nebulizer every 4 hours as needed for Wheezing. Authorizing Provider: BAO CARPENTER Atorvastatin Calcium 40 MG Oral Tablet (Li*100 Ta*1 Sig: TAKE 1 TABLET BY MOUTH AT BEDTIME Authorizing Provider: ADRIEN GOLDSTENI Ordering User: FRANSISCA PIKE Chlorthalidone 25 MG Oral Tablet (Hygroton)100 Ta*1 Sig: Take 1 Tablet by mouth in the morning. Authorizing Provider: ADRIEN GOLDSTEIN Ordering User: FRANSISCA PIKE Ipratropium-Albuterol 0.5-2.5 (3) MG/3ML I*360 mL 3 Sig: USE 1 VIAL IN NEBULIZER TWICE DAILY, MAY INCREASE TO 1 VIAL EVERY 4 HOURS NEEDED FOR WORSENING COUGH, WHEEZING OR SHORTNESS OF BREATHE Authorizing P rovider: ADRIEN GOLDSTEIN Ordering User: FRANSISCA PIKE Levothyroxine [...] FRANSISCA PIKE * Telephone Encounter - Fransisca Pike, [facility] - 08/17/2023 6:51 AM EDT Pending Prescriptions: [...] PIKE * Telephone Encounter - Fransisca Pike RP - 08/17/2023 6:51 AM EDT Last prescribed by allergy/immuno * Telephone Encounter - Wanda Horvath, tire man - 08/15/2023 10:32 AM EDT Please reroute Rx to [facility]. Pending Prescriptions: Disp Refills Albuterol [...] 3:10 PM EDT Office Visit Family Medicine [address] [place] [phone] Adrien Goldstein, [address] [place] [address] 01/15/2024 3:00 PM EDT Nurse Only Ancillary [address] [place] [address] [place], Nurse [address] [place] [address] Health Maintenance Due Date Last Done Comments [...] D LEVEL ONCE IN A LIFETIME-USE SMARTSET# [id number] Completed 06/29/2012, 03/30/2009 Pneumococcal Vaccine: 65+ Years [...] Relationship Healthcare Agent Relationshi p Communication Dick Torressukhi Adult Child Health Care Repr esentative (appointed verbally by patient or by statute hierarchy) Meredith Murry Adult Child Health Educational Resource Coordinator resentative (appointed verbally by patient or by statute hierarchy) Care Teams Die Casting Machine Maintainer Relationship Specialty Start Date End Date Bao Carpenter MD [address] [place] [address] [place] [address] PCP - General Family Medicine 05/18/18 documented as of this encounter
--- OUTSIDE RECORDS SUMMARY | 2024-01-20 05:43 | External Medical Summary | Summary of Care ---
Author Name Unknown Organization [facility] Address [address] [place] [address] Phone [phone] Care Team Providers Care Purchasing Internship Name Role Phone Bao Carpenter MD Primary Care Provider [phone] Reason for Visit * Reason Onset Date Comments Medication Refill 08/15/2023 Medication Problem 08/15/2023 Encounter Details Date Type Department Care Team (Late st Contact Info) Description 08/15/2023 Refill Family Medicine [address] [address] Bao Carpenter MD [address] [place] [address] [place] [phone] Hyperlipidemia with target LDL less than 130; Primary hypertension; Moderate persistent asthma without complication; Acquired hypothyroidism; Essential hypertension with goal blood pressure less than 140/90; Primary insomnia Allergies Active Allergy Reactions Criticality Noted Date Comments Other - Environmental 09/27/2008 Band aids documented as of this encounter (statuses as of 08/19/2023) Medications Medication Sig Dispensed Refills Start Date [...] MCG Oral Tablet (Synthroid)Indicati ons:Acquired hypothyroidism TAKE 1 TABLET BY MOUTH IN [...] as of this encounter (statuses as of 08/19/2023) Active Problems Problem Noted Date Diagnosed Date [...] as of this encounter (statuses as of 08/19/2023) Resolved Problems Problem Noted Date Diagnosed Date [...] as of this encounter (statuses as of 08/19/2023) Immunizations Name Administration Dates Next Due COVID-19 [...] as of this encounter Miscellaneous Notes * Addendum Note - Gene Donovan RPh - 08/19/2023 2:48 PM EDTAddended by: GENE DONOVAN on: 08/19/2023 02:48 PM Modules accepted: Orders * Telephone Encounter - Maryjane Jon PHARM Tech - 08/19/2023 12:01 PM EDT Please verify if synthroid must be brand onlt ,,also 360 ml for albuterol- ipratropium is only enough for a 30 d/s .the patient need 90 d/s for both meds . Thank you, Maryjane Jon,[facility] [employer] Centralized Clinical Pharmacy Services( formally Telepharmacy ) 08/19/2023, 12:02 PM * Telephone Encounter - Adrien Goldstein DO - 08/18/2023 1:08 PM EDTSigned Prescriptions: Disp Refills Albuterol Sulfate (2.5 MG/3ML) 0.083% Inha*1080 mL3 Sig: Inhale1 Vial via nebulizer every 4 hours as needed for Wheezing.Authorizing Provider: BAO CARPENTER Atorvastatin Calcium 40 MG Oral Tablet (Li*100 Ta*1 Sig: TAKE 1 TABLET BY MOUTH AT BEDTIMEAuthorizing Provider: ADRIEN GOLDSTEIN User: FRANSISCA PIKE Chlorthalidone 25 [...] PIKE * Telephone Encounter - Fransisca Pike, [facility] - 08/17/2023 6:51 AM EDT Pending Prescriptions: [...] allergy/immuno * Telephone Encounter - Wanda Horvath, corduroy cutting supervisor - 08/15/2023 10:32 AM EDT Please reroute Rx to [facility]. Pending Prescriptions: Disp Refills [...] PM EDT Office Visit Family Medicine [address] [place] [phone] Adrien Goldstein, [address] [place] [address] 01/15/2024 3:00 PM EDT Nurse Only Ancillary [address] [place] [address] [place], Nurse [address] [place] [address] Health Maintenance Due Date Last Done Comments [...] D LEVEL ONCE IN A LIFETIME-USE SMARTSET# [id number] Completed 06/29/2012, 03/30/2009 Pneumococcal Vaccine: 65+ Years [...] statute hierarchy) Meredith Murry Adult Child Health Call Center Coordinator resentative (appointed verbally by patient or by statute hierarchy) Care Teams Purchasing Internship Relationship Specialty Start Date End Date Bao Carpenter MD [address] [place] [address] [place] [address] PCP - General Family Medicine 05/18/18 documented as of this encounter
--- OUTSIDE RECORDS SUMMARY | 2024-01-20 05:43 | External Medical Summary | Summary of Care ---
Author Name Unknown Organization [facility] Address [address] [place] [address] Phone [phone] Care Team Providers Care Cotton Breeder Name Role Phone Bao Crapenter MD Primary Care Provider Reason for Visit * Reason Onset Date Comments Medication Refill 08/15/2023 Medication Problem 08/15/2023 Encounter Details Date Type Department Care Team (Late st Contact Info) Description 08/15/2023 Refill Family Medicine [address] [phone] Bao Carpenter MD [address] [place] [address] [place] [phone] Hyperlipidemia with target LDL less than 130; [...] OF BREATHE 360 mL 3 08/17/2023 Active Synthroid 137 MCG Oral TabletIndications:A cquired hypothyroidism [...] encounter Miscellaneous Notes * Telephone Encounter - Maryjane Jon PHARM Tech - 08/19/2023 12:01 PM EDT Please verify if synthroid must be brand onlt ,,also 360 ml for albuterol- ipratropium is only enough for a 30 d/s .the patient need 90 d/s for both meds . Thank you, Maryjane Jon,[facility] [employer] [facility] Centralized Clinical Pharmacy Services( formally Telepharmacy [...] mouth in the morning. Authorizing Provider: ADRIEN GOLDSTIEN Ordering User: FRANSISCA PIKE Metoprolol Tartrate 50 [...] * Telephone Encounter - Fransisca Pike, [facility] - 08/17/2023 6:51 AM EDT Pending Prescriptions: [...] Provider: ADRIEN GOLDSTEIN Ordering User: FRANSISCA PIKE Electronically signed by Fransisca Pike [facility] at 08/17/2023 6:51 AM EDT * Telephone Encounter - Fransisca Pike [facility] - 08/17/2023 6:51 AM EDT Last prescribed by allergy/immuno Electronically signed by Fransisca Pike [facility] at 08/17/2023 6:51 AM EDT * Telephone Encounter - Wanda Horvath, examination scorer - 08/15/2023 10:32 AM EDT Please reroute [...] 3:10 PM EDT Office Visit Family Medicine [address] [place] [phone] Adrien Goldstein [address] [place] [address] 01/15/2024 3:00 PM EDT Nurse Only Ancillary [address] [place] [address] [place], Nurse [address] [place] [address] Health Maintenance Due Date Last Done Comments [...] D LEVEL ONCE IN A LIFETIME-USE SMARTSET# [id number] Completed 06/29/2012, 03/30/2009 Pneumococcal Vaccine: 65+ Years [...] statute hierarchy) Meredith Downeymaxdaria Adult Child Health Clinical Audiologist resentative (appointed verbally by patient or by statute hierarchy) Care Teams Cotton Breeder Relationship Specialty Start Date End Date Bao Carpenter MD [address] [place] [address] [place] [address] PCP - General Family Medicine 05/18/18 documented as of this encounter
--- OUTSIDE RECORDS SUMMARY | 2024-01-20 05:44 | External Medical Summary | Summary of Care ---
Author Name Unknown Organization [facility] [address] [facility] [address] Phone [phone] Care Team Providers Care Wood Patternmaker Name Role Phone Bao Carpenter MD Primary Care Provider Reason for Visit * Reason Comments eRx-Medication Refill Encounter Details Date Type Department Care Team (Late st Contact Info) Description 07/24/2023 Refill Family Medicine [address] [phone] Bao Carpenter MD [address] [place], [place] [address] [address] Primary hypertension Allergies Active Allergy Reactions Criticality Noted Date Comments Other - Environmental 09/27/2008 Band aids documented as of this encounter (statuses as of 07/25/2023) Medications Medication Sig Dispensed Refills Start Date [...] PUFF BY MOUTH EVERY 24 HOURS 0 0 Active Albuterol Sulfate (2.5 MG/3ML) 0.083% Inhalation Nebulization Solution (Proventil) Inhale 1 Vial via nebulizer every 4 hours as needed for Wheezing. 360 mL 11 3 Active Acetaminophen 500 MG Oral Tablet Take 1 Tablet by mouth every 8 hours as needed for Pain, Moderate. 0 Active Aspirin 81 MG Oral Tablet Delayed Release Take 1 Tablet by mouth in the morning. 0 3 Active Metoprolol Tartrate 50 MG Oral Tablet (Lopressor)Indicati ons:Primary hypertension,Essent ial hypertension with goal blood pressure less than 140/90 TAKE 1 TABLET BY MOUTH IN THE MORNING AND AT BEDTIME 180 Tablet 1 3 Active Ipratropium-Albuter ol 0.5-2.5 (3) MG/3ML Inhalation Solution (Duoneb)Indications :Moderate persistent asthma without complication USE 1 VIAL IN NEBULIZER TWICE DAILY, MAY INCREASE TO 1 VIAL EVERY 4 HOURS NEEDED FOR WORSENING COUGH, WHEEZING OR SHORTNESS OF BREATHE 360 mL 3 3 Active Atorvastatin Calcium 40 MG Oral Tablet (Lipitor)Indication s:Hyperlipidemia with target LDL less than 130 TAKE 1 TABLET BY MOUTH AT BEDTIME 90 Tablet 1 4 Active Chlorthalidone 25 MG Oral Tablet (Hygroton)Indicatio ns:Primary hypertension Take 1 Tablet by mouth in the morning. 90 Tablet 1 4 Active Levothyroxine Sodium 137 MCG Oral TabletIndications:A cquired hypothyroidism TAKE 1 TABLET BY MOUTH IN THE MORNING AT LEAST 30 MIN PRIOR TO BREAKFAST OR OTHER MEDS 90 Tablet 1 4 Active traZODone HCl 50 MG Oral Tablet (Desyrel)Indication s:Primary insomnia TAKE 1 TABLET BY MOUTH AT BEDTIME 30 Tablet 5 4 Active Lisinopril 20 MG Oral Tablet (Prinivil)Indicatio ns:Primary hypertension TAKE 1 TABLET BY MOUTH IN THE MORNING 90 Tablet 1 4 Active Lisinopril 20 MG Oral Tablet (Prinivil)Indicatio ns:Primary hypertension Take 1 Tablet by mouth in the morning. 90 Tablet 1 3 07/25/19 24 Discontinued documented as of this encounter (statuses as of 07/25/2023) Active Problems Problem Noted Date Diagnosed Date [...] as of this encounter (statuses as of 07/25/2023) Resolved Problems Problem Noted Date Diagnosed Date [...] as of this encounter (statuses as of 07/25/2023) Immunizations Name Administration Dates Next Due COVID-19 [...] encounter Miscellaneous Notes * Telephone Encounter - Nolan Mccormack RPh - 07/25/2023 11:19 AM EDTSigned Prescriptions: Disp Refills Lisinopril 20 MG Oral Tablet (Prinivil) 90 Tab*1 Sig: TAKE 1 TABLET BY MOUTH IN THE MORNINGAuthorizing Provider: BAO CARPENTER AOrwanging User: NOLAN MCCORMACK- documented in this encounter Plan of Treatment Upcoming Encounters Date Type Department Care Team (Late st Contact Info) Description 12/03/2023 3:10 PM EDT Office Visit [address] [address] Yumiko Goldstein, [address] [place] [address] 01/15/2024 3:00 PM EDT Nurse Only Ancillary [place] [place] [address] [place], Nurse Annual [address] [place] [address] Health Maintenance Due Date Last Done Comments [...] D LEVEL ONCE IN A LIFETIME-USE SMARTSET# [id number] Completed 06/29/2012, 03/30/2009 Pneumococcal Vaccine: 65+ Years [...] statute hierarchy) Meredith Murry Adult Child Health Sql Server Dba Developer resentative (appointed verbally by patient or by statute hierarchy) Care Teams Wood Patternmaker Relationship Specialty Start Date End Date Bao Carpenter MD [address] [place] [address] [place] [phone] PCP - General Family Medicine 05/18/18 documented as of this encounter
--- NOTE | 2024-01-20 06:42 | XRay Report ---
XR chest 1V not portable HISTORY: 83 years-old Female Chest pain, nonspecific COMPARISON: 11/20/2022 TECHNIQUE: AP view of the chest FINDINGS: Cardiac silhouette is mildly enlarged. Large hiatal hernia. Chronic interstitial coarsening. No pneum othorax, pleural effusion or overt pulmonary edema. Degenerative changes of the shoulders and spine w ith sigmoidal scoliosis. IMPRESSION: 1. No acute process of the chest. 2. Large hiatal hernia. ACT 112: Negative or not required by law. The above report was generated using voice recognition software. It may contain grammatical, syntax o r spelling errors. Electronically signed by: Young Sow M.D. 01/20/2024 6:41 AM
[2024-01-20] MEDS: BUDESONIDE 0.5 MG/2 ML VIAL (PULMICORT) INH SCH (06:59)
--- OUTSIDE RECORDS SUMMARY | 2024-01-20 07:22 | External Medical Summary | Summary of Care ---
Author Name Unknown Organization [facility] Address [address] [facility] [address] Phone [phone] Care Team Providers Care Sales Associate Key Holder Name Role Phone Yumiko Goldstein Primary Care Provider Encounter Details Date Type Department Care Team (Late st Contact Info) Description 01/19/2024 3:20 PM EDT Immunization Ancillary [address] [place] [phone] [place] [address] [place] [address] Arrived Allergies Active Allergy Reactions Criticality Noted Date [...] Virus Vac cine, Unspecified Formulation 02/03/2023,01/03/2022,01/02/2021,12/15,01/12/2019,12/30/2018,12/17/2018 ,01/20/2018,12/30/2016,02/13/2016,12/13,01/14/2013,12/28/2011, 1,01/30/2010,02/02/2009,02/16/2008,,02/13/2006,02/21/2005,02/23/20 03,04/28/2000 Seasonal Influenza, High Dos e, Trivalent, PF, IM (Fluzone HD) 01/19/2024,12/17/2018 Seasonal Influenza, PF, 6 M & above, [...] 02/06/2024 2:30 PM EDT Nurse Only Ancillary [place] [address] [place] [address] [place], Nurse [address] [place] [address] 06/08/2024 3:10 PM EST Office Visit Family Medicine [address] [place] [address] [address] [place] [address] Health Maintenance Due Date Last Done Comments Alpha-1 Antitrypsin 08/23/1959 DXA Scan 11/15/2022 11/15/2020, 01/13, 05/25/2014, Additional history exists Zoster Vaccines (2 of 2) 01/28/2023 12/03/2022 COVID-19 Vaccine ( season) 2023 04/18/2023, 08/14/2021, 08/14/2021, Additional history exists Influenza Vaccine (FLU shot) (#1) 2023 01/19/2024, 02/03/2023, 02/03/2023, Additional history exists *BISPHONATE OR OTHER ACCEPTABLE [...] D LEVEL ONCE IN A LIFETIME-USE SMARTSET# [id number] Completed 06/29/2012, 03/30/2009 Pneumococcal Vaccine: 65+ Years [...] Agents on File Name Relationship Healthcare Agent [facility] Communication Dick Ortega Adult Child Health Care Repr esentative (appointed verbally by patient or by statute hierarchy) Meredith white Adult Child Health Care R epresentative (appointed verbally by patient or by statute hierarchy) Care Teams Sales Associate Key Holder Relationship Specialty Start Date End Date Yumiko Goldstein DO [address] [place] [address] [place] [phone] PCP - General Internal Medicine 10/24/23 documented as of this encounter
[2024-01-20 07:26] LABS: Estimated Average Glucose 131 mg/dl; Hemoglobin A1C 6.2 % (4.5-5.6)
[2024-01-20 07:45] LABS: Hypochromasia Present
[2024-01-20 07:46] LABS: Ovalocytes 1+
--- NOTE | 2024-01-20 08:51 | Electrocardiogram Report ---
Test Reason : Blood Pressure : */* mmHG Vent. Rate : 74 BPM Atrial Rate : 74 BPM P-R Int : 136 ms QRS Dur : 72 ms QT Int : 396 ms P-R-T Axes : -16 -10 -14 degrees QTcB Int : 439 ms Normal sinus rhythm Normal ECG When compared with ECG of 20-Nov-2022 15:57, Questionable change in QRS axis T wave inversion now evident in Inferior leads Confirmed by Saad Mancilla ([id number]) on 01/20/2024 8:51:07 AM Referred By: REFERRED SELF Confirmed By: Saad Mancilla
[2024-01-20] MEDS: GABAPENTIN 100 MG CAP PO SCH (08:59)
[2024-01-20] MEDS: METOPROLOL TARTRATE 50 MG TAB PO SCH (08:59)
[2024-01-20] MEDS: UMECLIDINIUM/VILANTEROL 62.5/25MCG 7 PUFFS/INHALER INH SCH (09:00)
[2024-01-20] MEDS: FLUTICASONE FUROATE 100MCG 14 PUFFS/INHALER INH SCH (09:00)
[2024-01-20] MEDS ORDERED: lisinopril 20 MG TAB PO SCH (09:00)
[2024-01-20] MEDS: ACETAMINOPHEN 325 MG TAB PO PRN (09:06)
[2024-01-20] MEDS ORDERED: methylPREDNISolone 125 MG/2 ML VIAL IV SCH (09:30)
[2024-01-20] MEDS: methylPREDNISolone 40 MG in SYRINGE 0 ML IV SCH (11:21)
[2024-01-20] MEDS: FAMOTIDINE 20 MG TAB PO SCH (11:21)
[2024-01-20 12:54] LABS: Calcium 9.2 mg/dl (8.6-10.3); Potassium 3.9 mmol/L (3.5-5.1)
[2024-01-20 13:00] LABS: BUN Creatinine Ratio 18.3 (10-20); Creatinine Clr Calc Pharmacy 41.1 ml/min; Uric Acid 4.4 mg/dl (2.6-7.2)
[2024-01-20 13:03] LABS: Hematocrit (blood only) 39.6 % (37.0-47.0); Hemoglobin 12.5 g/dl (12.0-16.0)
[2024-01-20 13:05] LABS: Hematocrit (blood only) 38.8 % (37.0-47.0); Hemoglobin 12.3 g/dl (12.0-16.0); Mean Corpuscular Hemoglobin 24.6 pg (25.0-34.0); Mean Corpuscular Hgb Conc 31.7 g/dL (32.0-36.0); Mean Corpuscular Volume 77.6 fL (80.0-100.0); Mean Platelet Volume 10.4 fL (9.4-12.4); Nucleated RBC # (auto) 0.03 K/uL (0.00-0.12); Nucleated RBC % (auto) 0.3 %; Platelet Count 267 K/uL (130-400); RDW Coefficient of Variation 18.4 % (11.5-14.5); White Blood Count 11.23 K/ul (4.8-10.8)
--- NOTE | 2024-01-20 13:09 | Hospitalist Progress Note ---
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 Patient denies febrile illness or chest pain or acute changes in her bowel or bladder habits. She is being managed for the following: Symptomatic anemia Likely TRINITY Admitting hemoglobin of 6.3, MCV of 71.8, iron profile suggestive of iron deficiency, Vitamin B12 320, folate 11.4. Bilirubin/LDH/uric acid WNL --> hence do not indicate hemolysis. FOBT done in the ED negative. CTAP negative for retroperitoneal hematoma, patient denies hematuria or hemoptysis. Outpatient chart review: Hb 13.8 to 14.2 between 06/21/2016 to 10/18/2021 w/ MCV around 95. Last colonoscopy 06/23/2014 - diverticulosis was noted, one 5 mm polyp was noted in transverse colon w/ was resected and retrieved. Patient received 3 units of PRBC, follow-up H&H 12.5. Patient likely will not need IV iron given multiple blood transfusion. Continue with oral iron/vitamin B12/folate supplements. Repeat iron profile and vitamin levels in 3 months time. Monitor H&H and monitor clinically. ? consider colonoscopy as OP, will defer to PCP/family as OP given age and comorbidities. Likely can resume aspirin if HnH stable by tonya AM. Complicated UTI: Follow urine culture, continue with Rocephin 01/19. Likely COPD exacerbation, mild: Patient with increasing frequency of dry cough since last several days HADOOP ENGINEER, has shortness of breath with exertion, very decreased bilateral breath sounds on my exam. Start Solu-Medrol, famotidine while on Solu-Medrol. Can likely discharge on tapering dose of steroid. Monitor clinically. Prediabetes: A1c 6.2, encouraged lifestyle modification including healthy diet. Repeat A1c in 3 months. Other chronic medical conditions: Continue with/resume home meds as when able. hypertension, initially elevated secondary to illness. Now better. hyperlipidemia, on statin Rx hx PVD GERD/paraesophageal hernia as per records hypothyroidism, euthyroid as of recent outpatient TSH carotid based tumor status post radiation past tobacco abuse DVT prophylaxis. SCDs for now. Full code Patient daughter Ms. Meredith White, contact #[phone]. Updated at bedside. Text document was generated using [employer] voice recognition software. It may contain grammatical or spelling errors. Kindly contact undersigned for clarification of any documentation item in question. Admission and Anticipated Discharge Date Admission Date: January 19, 2024 Subjective Patient was seen and examined at bedside. Patient was lying in bed, on 3 L oxygen via nasal cannula, NAD. Patient having dry cough frequently, patient's daughter at bedside. Patient's daughter was also updated on plan of care. Per patient's daughter patient has been increasing dry cough lately. Patient denies black stool or blood in stool, reports brownish stool, last bowel movement yesterday. Patient denies febrile illness or sore throat. Patient reports easy fatigability, weakness, dizziness, dyspnea on exertion. Reports eating okay. Physical Exam Physical Exam: GENERAL: Comfortable, pleasant, no respiratory distress, On 3 L NC O2. frequent dry coughing noted at bedside exam. SKIN: Pallor, warm HEENT: Pale, nasal cannula in place palpebral conjunctivae, no ptosis, moist buccal mucosa NECK : Supple, no tenderness CHEST : Decreased breath sounds, no tenderness HEART : RRR, no obvious murmurs ABDOMEN: no distention, nontender EXTREMITIES : No LE swelling/tenderness, no other conspicuous deformities noted NEUROLOGIC : Coherent, no facial asymmetry, no other gross focality Results & Data Results & Data Vital Signs (Past 12 Hours) Vital Signs Temp Pulse Pulse Resp BP BP Pulse Ox 01/20/24 11:09 36.9 C 62 16 127/67 94 01/20/24 10:54 36.7 C 60 16 104/61 94 01/20/24 10:51 36.7 C 60 16 104/61 94 01/20/24 09:54 36.9 C 65 16 162/71 H 94 01/20/24 09:07 01/20/24 08:54 36.9 C 61 16 162/80 H 98 01/20/24 08:33 36.9 C 65 18 194/78 H 96 01/20/24 08:24 36.9 C 65 18 194/78 H 96 01/20/24 08:09 36.9 C 65 18 194/78 H 96 01/20/24 08:09 36.9 C 65 18 194/78 H 96 01/20/24 07:53 37 C 62 22 186/93 H 100 01/20/24 07:49 37 C 68 22 186/93 H 100 01/20/24 07:00 63 16 100 01/20/24 06:55 36.8 C 61 18 174/81 H 100 01/20/24 06:15 64 18 180/91 H 100 01/20/24 05:55 36.7 C 53 L 16 179/81 H 01/20/24 05:25 36.5 C 61 18 185/77 H 01/20/24 05:10 36.6 C 57 L 18 184/77 H 100 01/20/24 05:10 36.6 C 57 L 18 184/77 H 01/20/24 04:54 36.5 C 55 L 18 163/72 H 100 01/20/24 04:42 36.7 C 54 L 18 163/72 H 100 01/20/24 03:50 36.8 C 58 L 18 172/70 H 01/20/24 03:50 36.8 C 54 L 18 145/78 H 100 01/20/24 02:58 36.8 C 61 16 172/79 H 100 01/20/24 02:50 36.7 C 70 24 172/79 H 100 01/20/24 02:20 36.7 C 65 20 181/85 H 100 01/20/24 02:05 36.8 C 64 22 185/101 H 100 01/20/24 01:49 36.8 C 69 20 180/100 H 100 01/20/24 01:18 72 20 167/75 H 100 O2 Del Method O2 Flow Rate 01/20/24 11:09 3 01/20/24 10:54 3 01/20/24 10:51 Nasal Cannula 3 01/20/24 09:54 3 01/20/24 09:07 Nasal Cannula 01/20/24 08:54 3 01/20/24 08:33 3 01/20/24 08:24 3 01/20/24 08:09 3 01/20/24 08:09 3 01/20/24 07:53 01/20/24 07:49 3 01/20/24 07:00 Nasal Cannula 3 01/20/24 06:55 3 01/20/24 06:15 Nasal Cannula 3 01/20/24 05:55 01/20/24 05:25 01/20/24 05:10 3 01/20/24 05:10 01/20/24 04:54 3 01/20/24 04:42 3 01/20/24 03:50 01/20/24 03:50 3 01/20/24 02:58 Nasal Cannula 3 01/20/24 02:50 3 01/20/24 02:20 01/20/24 02:05 3 01/20/24 01:49 3 01/20/24 01:18
[2024-01-20 13:17] LABS: Folate (Folic Acid),Ser orPlas 11.44 ng/ml (>5.38)
[2024-01-20 13:21] LABS: Basophils # (auto) 0.05 K/uL (0.00-0.20); Basophils % (auto) 0.4 %; Eosinophils # (auto) 0.08 K/uL (0.00-0.50); Eosinophils % (auto) 0.7 %; Immature Granulocytes # (auto) 0.07 K/uL (0.01-0.20); Immature Granulocytes % (auto) 0.6 %; Lymphocytes # (auto) 1.33 K/uL (1.20-3.40); Lymphocytes % (auto) 11.8 %; Monocytes # (auto) 1.12 K/uL (0.11-0.59); Neutrophils # (auto) 8.58 K/uL (1.40-6.50); Neutrophils % (auto) 76.5 %
[2024-01-20] MEDS: ATORVASTATIN 40 MG TAB PO SCH (21:30)
[2024-01-21] MEDS: LEVOTHYROXINE SODIUM 137 MCG TABLET PO SCH (05:42)
[2024-01-21 06:09] LABS: Hematocrit (blood only) 36.2 % (37.0-47.0); Hemoglobin 11.3 g/dl (12.0-16.0); Mean Corpuscular Hemoglobin 24.1 pg (25.0-34.0); Mean Corpuscular Hgb Conc 31.2 g/dL (32.0-36.0); Mean Corpuscular Volume 77.4 fL (80.0-100.0); Mean Platelet Volume 10.4 fL (9.4-12.4); Nucleated RBC # (auto) 0.02 K/uL (0.00-0.12); Nucleated RBC % (auto) 0.2 %; Platelet Count 250 K/uL (130-400); RDW Coefficient of Variation 18.7 % (11.5-14.5); RDW Standard Deviation 51.4 fL (36.4-46.3); Red Blood Count 4.68 M/uL (4.20-5.40); White Blood Count 9.47 K/ul (4.8-10.8)
[2024-01-21 06:21] LABS: BUN Creatinine Ratio 20.3 (10-20); Calcium 9.1 mg/dl (8.6-10.3); Creatinine Clr Calc Pharmacy 42.3 ml/min; Phosphorus 3.6 mg/dl (2.5-4.9); Potassium 3.9 mmol/L (3.5-5.1)
[2024-01-21] MEDS: FOLIC ACID 1 MG TAB PO SCH (07:47)
[2024-01-21] MEDS: lisinopril 20 MG TAB PO SCH (07:47)
[2024-01-21] MEDS: CYANOCOBALAMIN (B-12) 500 MCG TABLET PO SCH (07:47)
[2024-01-21] MEDS: FERROUS SULFATE 325 MG TAB PO SCH (07:47)
[2024-01-21] MEDS: FAMOTIDINE 10 MG TABLET PO SCH (07:47)
--- NOTE | 2024-01-21 09:33 | Hospitalist Progress Note ---
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 Patient denies febrile il lness or chest pain or acute changes in her bowel or bladder habits. She is being managed for the following: Symptomatic anemia Likely TRINITY Admitting hemoglobin of 6.3, MCV of 71.8, iron profile suggestive of iron deficiency, Vitamin B12 320, folate 11.4. Bilirubin/LDH/uric acid WNL --> hence do not indicate hemolysis. FOBT done in the ED negative. CTAP negative for retroperitoneal hematoma, patient denies hematuria or hemoptysis. Outpatient chart review: Hb 13.8 to 14.2 between 06/21/2016 to 10/18/2021 w/ MCV around 95. Last colonoscopy 06/23/2014 - diverticulosis was noted, one 5 mm polyp was noted in transverse colon w/ was resected and retrieved. Patient received 3 units of PRBC, follow-up H&H 12.5. Patient likely will not need IV iron given multiple blood transfusion. Continue with oral iron/vitamin B12/folate supplements. Repeat iron profile and vitamin levels in 3 months time. Monitor H&H and monitor clinically. ? consider colonoscopy as OP, will defer to PCP/family as OP given age and comorbidities. Likely can resume aspirin if HnH stable by tonya AM. Complicated UTI: Follow urine culture, continue with Rocephin 01/19. 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 Start Solu-Medrol, famotidine while on Solu-Medrol. Can likely discharge on tapering dose of steroid. Monitor clinically. Prediabetes: A1c 6.2, encouraged lifestyle modification including healthy diet. Repeat A1c in 3 months. Other chronic medical conditions: Continue with/resume home meds as when able. hypertension, initially elevated secondary to illness. Now better. hyperlipidemia, on statin Rx hx PVD GERD/paraesophageal hernia as per records hypothyroidism, euthyroid as of recent outpatient TSH carotid based tumor status post radiation past tobacco abuse DVT prophylaxis. SCDs for now. Full code Patient daughter Ms. Meredith White, contact #[phone]. Updated at bedside. Text document was generated using [employer] voice recognition software. It may contain grammatical or spelling errors. Kindly contact undersigned for clarification of any documentation item in question. Admission and Anticipated Discharge Date Admission Date: January 19, 2024 Results & Data Results & Data Vital Signs (Past 12 Hours) Vital Signs Temp Pulse Pulse Resp BP Pulse Ox O2 Del Method 01/21/24 08:13 69 01/21/24 07:38 36.8 C 66 18 125/71 98 Room Air 01/21/24 07:33 Nasal Cannula 01/21/24 06:59 69 18 98 Nasal Cannula 01/21/24 05:01 71 01/21/24 04:25 Nasal Cannula 01/21/24 03:09 68 16 94 Nasal Cannula 01/21/24 02:19 36.5 C 69 16 93/54 L 96 Nasal Cannula 01/20/24 22:50 36.6 C 72 18 159/85 H 94 Nasal Cannula 01/20/24 22:34 74 16 95 Nasal Cannula 01/20/24 21:35 80 112/74 O2 Flow Rate 01/21/24 08:13 01/21/24 07:38 01/21/24 07:33 3 01/21/24 06:59 3 01/21/24 05:01 01/21/24 04:25 3 01/21/24 03:09 3 01/21/24 02:19 3 01/20/24 22:50 3 01/20/24 22:34 3 01/20/24 21:35 Laboratory Results Home Medications Medication Instructions Recorded Confirmed Last Taken atorvastatin 40 mg tablet 40 mg PO HS #90 tabs 11/24/18 01/19/24 01/18/24 sodium chloride 0.65 % nasal spray 1 spray intranasal .USE 11/24/18 01/19/24 Unknown aerosol DIRECTED. PRN NASAL DRYNESS calcium 600 mg (as carbonate)-vit 1 tab PO AMPM 02/24/19 01/19/24 01/19/24 D3 10 mcg (400 unit) chewable tablet (Calcium 600 with Vitamin D3) omeprazole 20 mg capsule,delayed 20 mg PO DAILY PRN Gi Upset 10/23/20 01/19/24 Unknown release levothyroxine 137 mcg tablet 137 mcg PO DAILYBB 10/30/21 01/19/24 01/19/24 Oxygen Home #1 ea 04/22/22 01/19/24 Unknown compressor, for nebulizer #1 ea 04/22/22 01/19/24 Unknown nebulizer accessories #1 ea 08/15/22 01/19/24 Unknown metoprolol tartrate 50 mg tablet 50 mg PO BID 11/20/22 01/19/24 01/19/24 ipratropium 0.5 mg-albuterol 3 mg 3 ml inhalation Q4H PRN Shortness 03/14/23 01/19/24 Unknown (2.5 mg base)/3 mL nebulization Of Breath Or Wheezing #360 mL soln budesonide 0.5 mg/2 mL suspension 0.5 mg inhalation BID 01/19/24 01/19/24 01/19/24 for nebulization calcium carbonate (Tums) 200 mg PO QID PRN Heartburn 01/19/24 01/19/24 Unknown fluticasone fur. 100 mcg-umeclid 1 inh inhalation DAILY 01/19/24 01/19/24 01/19/24 62.5 mcg-vilant 25 mcg inhalat.powder (Trelegy Ellipta) gabapentin 100 mg capsule 100 mg PO TID 01/19/24 01/19/24 01/19/24 lisinopril 20 mg tablet 20 mg PO QAM 01/19/24 01/19/24 01/19/24 trazodone 50 mg tablet 50 mg PO HS 01/19/24 01/19/24 01/18/24 Active Medications Generic Name Dose Route Start Last Admin Trade Name Freq PRN Reason Stop Dose Admin Acetaminophen 650 mg 01/20/24 00:50 01/21/24 05:47 Acetaminophen 325 Mg Tab PO 02/19/24 00:49 650 mg QID PRN Administration pain/fever Albuterol 3 ml 01/20/24 17:30 01/21/24 06:59 Albut/Ipratrop 3mg/0.5mg Neb 3 Ml Vial NEB 02/19/24 00:45 3 ml Q4H PRN Administration sob wheeze Protocol Atorvastatin Calcium 40 mg 01/20/24:00 01/20/24 21:30 Atorvastatin 40 Mg Tab PO 02/19/24 20:59 40 mg HS ARIANA Administration Budesonide 0.5 mg 01/20/24 07:00 01/21/24 06:59 Budesonide 0.5 Mg/2 Ml Vial (Pulmicort) INH 02/19/24 06:59 0.5 mg BIDR ARIANA Administration Cyanocobalamin 500 mcg 01/21/24 09:00 01/21/24 07:47 Cyanocobalamin (B-12) 500 Mcg Tablet PO 02/20/24 08:59 500 mcg QAM ARIANA Administration Famotidine 10 mg 01/21/24 09:00 01/21/24 07:47 Famotidine 10 Mg Tablet PO 02/20/24 08:59 10 mg QAM ARIANA Administration Ferrous Sulfate 325 mg 01/21/24 09:00 01/21/24 07:47 Ferrous Sulfate 325 Mg Tab PO 02/20/24 08:59 325 mg QAM ARIANA Administration Fluticasone Furoate 1 puffs 01/20/24 09:00 01/21/24 07:47 Fluticasone Furoate 100mcg 14 Puffs/Inhaler INH 02/19/24 08:59 1 puffs DAILY ARIANA Administration Folic Acid 1 mg 01/21/24 09:00 01/21/24 07:47 Folic Acid 1 Mg Tab PO 02/20/24 08:59 1 mg QAM ARIANA Administration Gabapentin 100 mg 01/20/24 09:00 01/21/24 07:47 Gabapentin 100 Mg Cap PO 02/19/24 08:59 100 mg TID ARIANA Administration Ceftriaxone Sodium 1,000 mg in 50 mls @ 100 mls/hr 01/20/24 05:00 01/21/24 06:15 Rocephin IV 01/30/24 04:44 Infused Q24H ARIANA Infusion Methylprednisolone 40 mg/ 0.64 mls @ 1.5 mls/min 01/20/24 09:30 01/21/24 07:48 Syringe IV 02/19/24 09:29 1.5 mls/min DAILY ARIANA Administration Levothyroxine Sodium 137 mcg 01/21/24 06:30 01/21/24 05:42 Levothyroxine Sodium 137 Mcg Tablet PO 02/20/24 06:29 137 mcg DAILYBB ARIANA Administration Lisinopril 20 mg 01/21/24 09:00 01/21/24 07:47 Lisinopril 20 Mg Tab PO 02/20/24 08:59 20 mg QAM ARIANA Administration Metoprolol Tartrate 50 mg 01/20/24 09:00 01/21/24 07:48 Metoprolol Tartrate 50 Mg Tab PO 02/19/24 08:59 50 mg BID ARIANA Administration Trazodone HCl 50 mg 01/20/24 00:45 01/20/24 21:30 Trazodone Hcl 50 Mg Tab PO 02/19/24 00:44 50 mg HS ARIANA Administration Umeclidinium/Vilanterol 1 puffs 01/20/24 09:00 01/21/24 07:48 Umeclidinium/Vilanterol 62.5/25mcg 7 Puffs/Inhaler INH 02/19/24 08:59 1 puffs DAILY ARIANA Administration Medications Administered Short CBC 01/20/24 01/20/24 01/20/24 Range/Units 12:20 12:20 12:20 WBC 11.23 H (4.8-10.8) K/ul Hgb 12.3 D 12.5 (12.0-16.0) g/dl Hct 38.8 39.6 (37.0-47.0) % Plt Count 267 (130-400) K/uL 01/21/24 Range/Units 05:40 WBC 9.47 (4.8-10.8) K/ul Hgb 11.3 L (12.0-16.0) g/dl Hct 36.2 L (37.0-47.0) % Plt Count 250 (130-400) K/uL BMP 01/20/24 01/21/24 12:20 05:40 Sodium 138 139 Potassium 3.9 3.9 Chloride 104 104 Carbon Dioxide 27 30 BUN 13 14 Creatinine 0.71 0.69 Glucose 101 H 107 H Calcium 9.2 9.1
[2024-01-21 11:25] VITALS: PULSE 53; RESP 16; TEMP 97.5; O2SAT 94
--- NOTE | 2024-01-21 13:11 | Discharge Summary ---
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 Labs revealed hemoglobin of 6.3, MCV f 71.8 and borderline folate/b12. There was no clear source of bleeding identified. Patient hypertensive on arrival and without hematemesis/hematochezia/melena. Patient received 3 U PRBC. Patient treated also for mild COPD exacerbation given chest tightness and increasing cough. Additional concern by prior hospitalist for UTI given WBC and UA with some LE/WBC, therefore started on CTX. On day of discharge, patient doing much better overall and without acute concerns. Patient on baseline oxygen requirement. Patient reports improved cough and no other acute concerns. Son at bedside and all questions answered. Follow up arranged in 1 weeks time with plan for repeat hgb and discussion of GI v Heme referral if persistent/unresponsive to PO replacement. #Symptomatic anemia, seemingly progressive/chronic given lack of hypotension/signs of hemorrhage/hemolysis #Severe iron deficiency #History of polyps Admitting hemoglobin of 6.3, MCV of 71.8, iron profile suggestive of iron deficiency, Vitamin B12 320, folate 11.4. Bilirubin/LDH/uric acid WNL --> hence do not indicate hemolysis. FOBT done in the ED negative. CTAP negative for retroperitoneal hematoma, patient denies hematuria or hemoptysis. Outpatient chart review: Hb 13.8 to 14.2 between 06/21/2016 to 10/18/2021 w/ MCV around 95. Last colonoscopy 06/23/2014 - diverticulosis was noted, one 5 mm polyp was noted in transverse colon w/ was resected and retrieved. Patient received 3 units of PRBC, follow-up H&H 12.5. continue with oral iron/vitamin B12/folate supplements. Repeat iron profile and vitamin levels in 3 months time. Resume home meds #Uncomplicated UTI: WBC/LE in urine, some urgency?, leukocytosis, resolved s/p initiation of CTX no growth on culture Will continue with PO Augmentin to cover for resp/ for total 5 days. 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 3L NC at baseline Anemia addressed as above Continue home inhalers Contique short course prednisone 40mg x 3 more days #Prediabetes: A1c 6.2, encouraged lifestyle modification including healthy diet. Repeat A1c in 3 months. Other chronic medical conditions: Continue with/resume home meds as when able. hypertension, initially elevated secondary to illness. Now better. hyperlipidemia, on statin Rx hx PVD GERD/paraesophageal hernia as per records hypothyroidism, euthyroid as of recent outpatient TSH carotid based tumor status post radiation past tobacco abuse Notes For Next Care Provider Please check Hemoglobin in 1 weeks time (s/p 3 units PRBC on discharge) Consider Heme v GI consult Medication Changes From Visit START daily iron supplement START daily B12 supplement START daily folate supplement START Prednisone 40mg daily for next three days START Augmentin 1 tablet two times daily until course complete Admission HPI Per Admitting Provider History obtained from patient, family, and records. Medical history significant for COPD, hypertension, hyperlipidemia, PVD, COPD, nocturnal hypoxemia Home O2, GERD, paraesophageal hernia as per records, hypothyroidism, carotid based tumor status post radiation, past tobacco abuse. Last confinement November 2022 for left femoral fracture status post surgery. Patient discharged to SNF for rehab. Patient with increasing SOB over the last 4 days. SOB mostly on exertion. Usual cough symptoms. Denies chest pain. Denies headache. No unusual fluid retention. Achy central abdominal pain without nausea/vomiting. Denies black/bloody stools. Hemoglobin noted to be 6.3 at the ER. 2 units PRBC transfused at the ER. 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 Admission Exam Per Admitting Provider GENERAL: Comfortable, pleasant, no respiratory distress SKIN: Pallor, warm HEENT: Pale, nasal cannula in place palpebral conjunctivae, no ptosis, dry buccal mucosa NECK : Supple, no tenderness CHEST : Decreased breath sounds, no tenderness HEART : RRR, no obvious murmurs ABDOMEN: Some distention, nontender EXTREMITIES : No LE swelling/tenderness, no other conspicuous deformities noted NEUROLOGIC : Coherent, no facial asymmetry, no other gross focality Discharge Exam Constitutional WD/WN, vitals as above Respiratory diminished in periphery, no distress on 3L NC Cardiovascular RRR, no murmur, no edema Gastrointestinal (Abdomen) normal bowel sounds, soft, nontender, no hepatosplenomegaly Updated Medication List Medication Instructions Recorded Confirmed Type atorvastatin 40 mg tablet 40 mg PO HS #90 tabs 11/24/18 01/19/24 History sodium chloride 0.65 % nasal spray 1 spray intranasal .USE 11/24/18 01/19/24 History aerosol DIRECTED. PRN NASAL DRYNESS calcium 600 mg (as carbonate)-vit 1 tab PO AMPM 02/24/19 01/19/24 History D3 10 mcg (400 unit) chewable tablet (Calcium 600 with Vitamin D3) omeprazole 20 mg capsule,delayed 20 mg PO DAILY PRN Gi Upset 10/23/20 01/19/24 History release levothyroxine 137 mcg tablet 137 mcg PO DAILYBB 10/30/21 01/19/24 History Oxygen Home #1 ea 04/22/22 01/19/24 Rx compressor, for nebulizer #1 ea 04/22/22 01/19/24 Rx nebulizer accessories #1 ea 08/15/22 01/19/24 Rx metoprolol tartrate 50 mg tablet 50 mg PO BID 11/20/22 01/19/24 History ipratropium 0.5 mg-albuterol 3 mg 3 ml inhalation Q4H PRN Shortness 03/14/23 01/19/24 Rx (2.5 mg base)/3 mL nebulization Of Breath Or Wheezing #360 mL soln budesonide 0.5 mg/2 mL suspension 0.5 mg inhalation BID 01/19/24 01/19/24 Histo ry for nebulization calcium carbonate (Tums) 200 mg PO QID PRN Heartburn 01/19/24 01/19/24 History fluticasone fur. 100 mcg-umeclid 1 inh inhalation DAILY 01/19/24 01/19/24 History 62.5 mcg-vilant 25 mcg inhalat.powder (Trelegy Ellipta) gabapentin 100 mg capsule 100 mg PO TID 01/19/24 01/19/24 History lisinopril 20 mg tablet 20 mg PO QAM 01/19/24 01/19/24 History trazodone 50 mg tablet 50 mg PO HS 01/19/24 01/19/24 History amoxicillin 500 mg-potassium 1 tab PO BID 3 days #7 tabs 01/21/24 Rx clavulanate 125 mg tablet cyanocobalamin (vitamin B-12) 500 500 mcg PO QAM #30 tabs 01/21/24 Rx mcg tablet ferrous sulfate 325 mg (65 mg 325 mg PO QAM #30 tabs 01/21/24 Rx iron) tablet,delayed release folic acid 1 mg tablet 1 mg PO QAM 30 days #30 tabs 01/21/24 Rx prednisone 20 mg tablet 40 mg (2 x 20 mg) PO DAILY 3 days 01/21/24 Rx #6 tabs Hospital Stay Data Consultations 01/19/24 23:32 ED Decision to Admit Stat Diagnostic Imagining Performed 01/20/24 00:44 CT Abd and Pelvis [CT abd pelvis IV con only] Stat Pending Results Patient Have Any Pending Studies at Discharge: No Discharge Instructions Given to Patient (Per Discharging Provider) You were admitted for concerns of shortness of breath and noted to have multiple things contributing to your symptoms. You were noted to have COPD exacerbation as well as very low blood count called anemia. The anemia was likely due to iron deficiency. There were no signs of bleeding and you recieved 3 Units of blood. You were also noted to be low in b12 and folate, vital nutrients for blood formation. Please continue the following medications: START daily iron supplement (please take stool softener as iron can contribute to constipation) START daily B12 supplement START daily folate supplement START Prednisone 40mg daily for next three days START Augmentin 1 tablet two times daily until course complete (next dose this evening) Continue supplemental oxygen titrated to keep oxygen saturations at or above 88%. Oxygen is medically necessary. Please discuss possible Gastroenterology referral given anemia and history of polyps Total Time Total Time Spent Total Time Spent (In Minutes): 45
[2024-01-21 13:15] VITALS: BP 172/82
== END 2024-01-21 17:56 | disposition home or self-care (01) | DRG 812 ==
LOC: ED 20:02 → EDINP 23:53 → SUATTDRO 23:53 → 2N 01-20 02:42

== ENCOUNTER 2024-02-23 12:35 | Inpatient (IN) ==
--- NOTE | 2024-02-23 12:51 | ED Triage Note ---
Date of Service February 23, 2024 Provider in Triage Author: Harinder Canales History of Present Illness This patient was briefly evaluated while in triage. An abbreviated physical exam was performed. This patient is a 83-year-old Female who presents to the ED for evaluation hx of asthma/COPD, hypothyroidism, GERD, HTN here 1 month ago for symptomatic anemia, and given blood transfusion having generalized headache since last hospitalization frontal to occipital and right ear, photophobic seen by PCP - ordered an MRI but patient couldn't lay for told it was viral or related to sinus has tried tylenol, ibuprofen, biofreeze, massage, heat all without relief Physical Exam GENERAL: elderly female in wheelchair with sunglasses on, mild distress due to BLANCAS CARDIOVASCULAR: RRR RESPIRATORY: CTA Initial orders for labs and / or imaging were placed and patient was placed in the waiting area until a bed is available. Please see further documentation for the full ED course.
--- NOTE | 2024-02-23 13:30 | CT Scan Report ---
CT head/brain wo con CLINICAL HISTORY: 83 years-old Female with Headache. Acute headache TECHNIQUE: Multiple axial CT images of the head were obtained without contrast. A dose lowering tech nique was utilized adhering to the principles of ALARA. CT DOSE: 547.75 mGy.cm COMPARISON: None. FINDINGS: No acute intracranial hemorrhage, midline shift, intracranial mass, hydrocephalus, territorial ischem ia or abnormal extra-axial collection. Involutional changes with white matter hypodensities suggestiv e of chronic microvascular ischemic disease. Senescent calcifications of the basal ganglia. Encephalo malacia of the left frontal lobe suggestive of a chronic infarct. The calvarium is intact. Trace right mastoid effusion. Leftward bowing and spurring of the nasal sep alan. Mild mucosal thickening of the ethmoid air cells. Metopic suture. Prior bilateral lens repair. IMPRESSION: No acute intracranial abnormality identified. ACT 112: Negative or not required by law. The above report was generated using voice recognition software. It may contain grammatical, syntax o r spelling errors. Electronically signed by: Young Sow M.D. 02/23/2024 1:29 PM
[2024-02-23 14:17] LABS: Basophils # (auto) 0.08 K/uL (0.00-0.20); Basophils % (auto) 0.5 %; Eosinophils % (auto) 0.6 %; Hematocrit (blood only) 45.2 % (37.0-47.0); Hemoglobin 14.3 g/dl (12.0-16.0); Immature Granulocytes # (auto) 0.14 K/uL (0.01-0.20); Immature Granulocytes % (auto) 0.9 %; Lymphocytes # (auto) 1.98 K/uL (1.20-3.40); Lymphocytes % (auto) 12.7 %; Mean Corpuscular Hemoglobin 26.4 pg (25.0-34.0); Mean Corpuscular Hgb Conc 31.6 g/dL (32.0-36.0); Mean Corpuscular Volume 83.5 fL (80.0-100.0); Mean Platelet Volume 9.6 fL (9.4-12.4); Monocytes # (auto) 0.77 K/uL (0.11-0.59); Monocytes % (auto) 4.9 %; Neutrophils # (auto) 12.58 K/uL (1.40-6.50); Neutrophils % (auto) 80.4 %; Platelet Count 319 K/uL (130-400); RDW Coefficient of Variation 25.2 % (11.5-14.5); Red Blood Count 5.41 M/uL (4.20-5.40); White Blood Count 15.65 K/ul (4.8-10.8)
[2024-02-23 14:32] LABS: Alanine Aminotransferase 13 U/L (7-52); Albumin Globulin Ratio 1.4 (0.9-2); Albumin Level 4.3 gm/dl (3.4-5.0); Alkaline Phosphatase 68 U/L (34-104); Anion Gap 8 (3-11); Aspartate Aminotransferase 23 U/L (13-39); BUN Creatinine Ratio 20.5 (10-20); Bilirubin,Total 0.5 mg/dl (0.2-1.0); Blood Urea Nitrogen 17 mg/dl (6-23); Calcium 9.7 mg/dl (8.6-10.3); Carbon Dioxide 32 mmol/L (21-32); Chloride 94 mmol/L (98-107); Glucose 126 mg/dl (70-99(Fasting)); Potassium 3.8 mmol/L (3.5-5.1); Sodium 134 mmol/L (136-145); Total Protein 7.3 gm/dl (6.0-8.3)
[2024-02-23 14:48] LABS: Anisocytosis Present
[2024-02-23] MEDS: MAGNESIUM SULFATE / D5W 1 GM/100 ML BAG IV ONE (15:07)
[2024-02-23] MEDS: methylPREDNISolone 125 MG/2 ML VIAL IV STA (15:07)
[2024-02-23] MEDS: ACETAMINOPHEN 1000 MG/100 ML IV IV STA (15:07)
--- NOTE | 2024-02-23 15:31 | Emergency Department Note ---
Impression & Plan Hypertensive urgency, Headache, Supplemental oxygen dependent, COPD (chronic obstructive pulmonary disease) ED Provider Note NAME: PETER LONG AGE: 83 SEX: F : 1940 ARRIVES VIA: Walk-In INFORMANT: Patient, family at bedside ED PROVIDER(S): Flaquito Almonte MD CHIEF COMPLAINT: Headache MEDICAL DECISION MAKING: Patient presents due to concern for 1 month of headache. IV was established and blood work was obtained. The patient was ordered IV magnesium Tylenol and methylprednisolone.Patient's blood work shows a white count of 15 with a normal hemoglobin. Platelet count is unremarkable. The patient's kidney function unremarkable mild hyponatremia at 134. Blood sugar 126 nonfasting and not DKA. Patient did not have significant improvement after initial rounds of medications. Given the patient's significant hypertension the patient was ordered IV hydralazine. The patient did have significant improvement in her blood pressure and the patient's headache also improved. Given these concerns and the chronicity of the headaches do believe the patient would benefit from patient treatment. I did speak with Manjinder Gomez PA-C and the patient was admitted by Dr. Byrne. Critical Care: I have personally spent 35 minutes of critical care time in direct management of this patient. This includes bedside care, interpretation of diagnostic studies, and testing, discussion with consultants, patient, and family members, and other require inpatient management activities. This 35 minutes is in excess of all separately billable procedures. Discussion w/ other healthcare providers: Arianna Gomez PA-C and Dr. Byrne Prior /Outside records reviewed: None Differential diagnosis: Migraine headache, tension headache, dehydration, meningitis, sinusitis, CO exposure, ICH, infection, tumor, sinus thrombosis as well as others were considered. Diagnostics, as interpreted by me: ECG: None Cardiac monitoring: An order was placed for continuous cardiac monitoring. The monitor shows a rate of 62 with sinus rhythm. Patient was placed on pulse oximetry Medical decision rules: None Imaging studies: I informally interpreted the patient's CT head does not show obvious ICH with formal report to follow. HPI: Patient presents due to concern for headache. The patient reportedly has had a headache off and on for the last month. Patient denies any falls or trauma within the last several months. She does not take any blood thinner medications. No prior history of temporal arteritis. She denies any vision changes. The patient does have some mild photophobia. No reported history of migraines. The patient has been trialing ibuprofen and Tylenol but without significant symptoms. The patient does have some associated pain with chewing as well as over the right faith. Patient denies any numbness ting or focal weakness. The patient does wear 2 L at all time nasal cannula oxygen due to concern for prior COPD. Patient is a non-smoker. The patient had been told by her PCP to consider drinking some Coca-Cola as the caffeine may help with her headache. This has not. Patient reports that she did have a transfusion several months ago. There is no overt underlying cause per the family. She denies any dark stools or bloody stools. Patient states that her cough is her typical COPD cough and has not changed. PAST MEDICAL HISTORY: See Below PAST SURGICAL HISTORY: See Below SOCIAL HISTORY: See Below HOME MEDICATIONS: See Below ALLERGIES: See Below VITALS: See Below PHYSICAL EXAMINATION: GENERAL: NAD, non-toxic. EYE EXAM: Normal conjunctiva. PERRL, no anisocoria and EOM's grossly intact w/o pain. Head: Mild pain over the temporal area. No obvious swelling or redness. OROPHARYNX: Moist mucus membranes, grossly normal dentition. NECK: Trachea midline, no stridor. LUNGS: Clear to auscultation. Normal chest wall mechanics. HEART: NSR, no MRG. ABDOMEN: Abdomen soft, non-tender, no masses, no rebound or guarding. BACK: No CVA TTP. SKIN: No rashes and no bruising. UPPER EXTREMITIES: Upper extremities are grossly normal. LOWER EXTREMITIES: Grossly normal, no edema. NEURO EXAM: A&O x3, cranial nerves II-XII grossly intact, normal speech, moves all 4 extremities. Good [id number]-nd-leux, no drift and no sensory deficits. 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) COPD (chronic obstructive pulmonary disease) (Acute) Subclavian artery stenosis, left Benign neoplasm of colon Chronic rhinitis Chronic sinusitis GERD (gastroesophageal reflux disease) Hyperlipidemia Hypertension Post-menopausal atrophic vaginitis Rosacea Senile osteoporosis Closed fracture of left hip (Acute) Fall (Acute) Cough Abnormal CT scan of lung Shortness of breath (Acute) Medical History Anemia requiring transfusions Acute dyspnea Symptomatic anemia Hypoxia Abnormal finding on imaging Cough Asthma with COPD Surgical History H/O: hysterectomy Hx of cholecystectomy History of appendectomy Family History Family/Other Hypertension Asthma Cardiac disorder Social History Smoking Status: Former smoker Second Hand Exposure: No; Do You Dip or Chew Tobacco: No; Tobacco Cessation Education Requested by Patient: Yes Hx Alcohol Use: No Hx Substance Use: No Preferred Language: Upper Sorbian Communication Ability: Effective Heating Unit Mechanic Required: No Beliefs That Will Affect Care: None marital status: Current Living Situation: Family Current Living Situation Comment: Lives at home with son. Other Information That Helps Us Care for You: No Feels Safe at Home: Yes Safety Concerns: Feels Safe At This Time Seatbelt Use: always Assistive Devices: Hospital Bed, Oxygen - Continuous and Walker Allergies Allergies Allergy/AdvReac Type Severity Reaction Status Date / Time latex Allergy Unknown RASH Verified 04/15/23 13:56 No Known Drug Allergies Allergy Unknown . Verified 04/15/23 13:56 Home Meds Home Medications Medication Instructions Recorded Confirmed atorvastatin 40 mg tablet 40 mg PO HS #90 tabs 11/24/18 02/23/24 sodium chloride 0.65 % nasal spray 1 spray intranasal .USE 11/24/18 02/23/24 aerosol DIRECTED. PRN NASAL DRYNESS calcium 600 mg (as carbonate)-vit 1 tab PO AMPM 02/24/19 02/23/24 D3 10 mcg (400 unit) chewable tablet (Calcium 600 with Vitamin D3) levothyroxine 137 mcg tablet 137 mcg PO DAILYBB 10/30/21 02/23/24 metoprolol tartrate 50 mg tablet 50 mg PO BID 11/20/22 02/23/24 budesonide 0.5 mg/2 mL suspension 0.5 mg inhalation BID 01/19/24 02/23/24 for nebulization calcium carbonate (Tums) 200 mg PO QID PRN Heartburn 01/19/24 02/23/24 lisinopril 20 mg tablet 20 mg PO QAM 01/19/24 02/23/24 trazodone 50 mg tablet 50 mg PO HS 01/19/24 02/23/24 acetaminophen 650 mg 650 mg PO Q4H PRN Headache 02/23/24 02/23/24 tablet,extended release albuterol sulfate 90 mcg/actuation 2 puff inhalation Q6H PRN 02/23/24 02/23/24 aerosol inhaler sob/wheezing chlorthalidone 25 mg tablet 25 mg PO QAM 02/23/24 02/23/24 fluticasone fur. 100 mcg-umeclid 1 inh inhalation QAM 02/23/24 02/23/24 62.5 mcg-vilant 25 mcg inhalat.powder (Trelegy Ellipta) gabapentin 100 mg capsule 100 mg PO TID 02/23/24 02/23/24 omeprazole 20 mg capsule,delayed 20 mg PO DAILYBB 02/23/24 02/23/24 release Previous Rx's Medication Instructions Recorded Oxygen Home #1 ea 04/22/22 compressor, for nebulizer #1 ea 04/22/22 nebulizer accessories #1 ea 08/15/22 ipratropium 0.5 mg-albuterol 3 mg 3 ml inhalation Q4H PRN Shortness 03/14/23 (2.5 mg base)/3 mL nebulization Of Breath Or Wheezing #360 mL soln cyanocobalamin (vitamin B-12) 500 500 mcg PO QAM #30 tabs 01/21/24 mcg tablet Results & Data (ED) Vital Signs Vital Signs - 24 hr 02/23/24 12:47 02/23/24 14:45 02/23/24 14:45 Temperature 37.0 C Temperature Source Temporal Artery Scan Pulse Rate 60 Pulse Rate [Radial] 60 Pulse Rhythm [Radial] Regular Pulse Strength [Radial] Normal Respiratory Rate 20 16 Respiratory Effort / Characteristics Non-Labored Respiratory Depth Normal Respiratory Pattern Regular Blood Pressure 196/70 H Blood Pressure [Right Arm] 201/113 H Blood Pressure Mean 112 Blood Pressure Mean [Right Arm] 142 Blood Pressure Position [Right Arm] Sitting Pulse Oximetry 95 100 Oxygen Delivery Method Nasal Cannula Nasal Cannula Nasal Cannula Oxygen Flow Rate 3 3 3 Sepsis Recent Fever Within 48 Hours No Sepsis New/Unexplained Change in Mental Status N/A Sepsis Action Taken by Nursing No Action Required 02/23/24 14:45 02/23/24 15:34 02/23/24 15:45 Temperature Temperature Source Pulse Rate 60 53 L Pulse Rate [Radial] 58 L Pulse Rhythm [Radial] Pulse Strength [Radial] Respiratory Rate 16 19 Respiratory Effort / Characteristics Respiratory Depth Respiratory Pattern Blood Pressure Blood Pressure [Right Arm] 195/97 H Blood Pressure Mean Blood Pressure Mean [Right Arm] 129 Blood Pressure Position [Right Arm] Pulse Oximetry 100 95 Oxygen Delivery Method Room Air Nasal Cannula Oxygen Flow Rate 3 Sepsis Recent Fever Within 48 Hours Sepsis New/Unexplained Change in Mental Status Sepsis Action Taken by Nursing 02/23/24 17:00 02/23/24 17:31 Temperature Temperature Source Pulse Rate Pulse Rate [Radial] 66 62 Pulse Rhythm [Radial] Pulse Strength [Radial] Respiratory Rate 20 19 Respiratory Effort / Characteristics Respiratory Depth Respiratory Pattern Blood Pressure Blood Pressure [Right Arm] 139/83 121/70 Blood Pressure Mean Blood Pressure Mean [Right Arm] 101 87 Blood Pressure Position [Right Arm] Pulse Oximetry 98 98 Oxygen Delivery Method Nasal Cannula Nasal Cannula Oxygen Flow Rate 3 3 Sepsis Recent Fever Within 48 Hours Sepsis New/Unexplained Change in Mental Status Sepsis Action Taken by [facility] Medications Current Medication List: was personally reviewed by me Laboratory Data Attestation: I reviewed the patient's lab results. 02/24/24 07:11 02/24/24 07:11 Lab Results 02/23/24 02/23/24 02/23/24 Range/Units 13:52 14:45 16:17 WBC 15.65 H (4.8-10.8) K/ul RBC 5.41 H (4.20-5.40) M/uL Hgb 14.3 (12.0-16.0) g/dl Hct 45.2 (37.0-47.0) % MCV 83.5 (80.0-100.0) fL MCH 26.4 (25.0-34.0) pg MCHC 31.6 L (32.0-36.0) g/dL RDW Std Deviation 73.0 H (36.4-46.3) fL RDW Coeff of Markie 25.2 H (11.5-14.5) % Plt Count 319 (130-400) K/uL MPV 9.6 (9.4-12.4) fL Immature Gran % (Auto) 0.9 % Neut % (Auto) 80.4 % Lymph % (Auto) 12.7 % Tift % (Auto) 4.9 % Eos % (Auto) 0.6 % Baso % (Auto) 0.5 % Neut # (Auto) 12.58 H (1.40-6.50) K/uL Lymph # (Auto) 1.98 (1.20-3.40) K/uL Tift # (Auto) 0.77 H (0.11-0.59) K/uL Eos # (Auto) 0.10 (0.00-0.50) K/uL Baso # (Auto) 0.08 (0.00-0.20) K/uL Immature Gran # (Auto) 0.14 (0.01-0.20) K/uL Anisocytosis Present ESR 30 (0-30) mm/hr PT Cancelled 10.4 INR Cancelled 1.0 APTT Cancelled 23 PTT Ratio Cancelled 0.9 Sodium 134 L (136-145) mmol/L Potassium 3.8 (3.5-5.1) mmol/L Chloride 94 L (98-107) mmol/L Carbon Dioxide 32 (21-32) mmol/L Anion Gap 8 (3-11) BUN 17 (6-23) mg/dl Creatinine 0.83 (0.6-1.2) mg/dl Est Cr Clr Drug Dosing Not Reportable eGFR 70.34 BUN/Creatinine Ratio 20.5 H (10-20) Glucose 126 H (70-99(Fasting)) mg/dl Calcium 9.7 (8.6-10.3) mg/dl Total Bilirubin 0.5 (0.2-1.0) mg/dl AST 23 (13-39) U/L ALT 13 (7-52) U/L Alkaline Phosphatase 68 (34-104) U/L Total Protein 7.3 (6.0-8.3) gm/dl Albumin 4.3 (3.4-5.0) gm/dl Globulin 3.0 (2.5-4.0) gm/dl Albumin/Globulin Ratio 1.4 (0.9-2) Procalcitonin 75.30 H (0-0.5) ng/ml Urine Color Yellow Urine Appearance Clear (Clear) Urine pH 7.0 (4.5-7.5) Ur Specific [place] 1.008 (1.000-1.030) Urine Protein Negative (Negative) Urine Glucose (UA) Negative (Negative) Urine Ketones Negative (Negative) Urine Blood Negative (Negative) Urine Nitrite Negative (Negative) Urine Bilirubin Negative (Negative) Urine Urobilinogen Negative (Negative) Ur Leukocyte Esterase 1+ H (Negative) Urine WBC (Auto) 0-5 (0-5) /hpf Urine RBC (Auto) 0-2 (0-2) /hpf U Hyaline Cast (Auto) 0-2 (0-2) /lpf U Epithel Cells (Auto) 0-2 (0-2) /hpf Urine Bacteria (Auto) None Seen (None Seen) Administered Medications Albuterol (Albut/Ipratrop 3mg/0.5mg Neb 3 Ml Vial) 3 ml NEB Q4R [facility]; Protocol Stop: 03/24/24 20:48 Last Admin: 02/24/24 10:42 Dose: 3 ml Documented By: Admin: 02/24/24 06:59 Dose: 3 ml Documented By: Admin: 02/24/24 03:07 Dose: Not Given Documented By: Admin: 02/24/24 00:11 Dose: Not Given Documented By: Admin: 02/23/24 21:23 Dose: 3 ml Documented By: ANGELINA Aspirin (Aspirin 81 Mg Ectab) 81 mg PO DAILY [facility] Stop: 03/25/24 08:59 Last Admin: 02/24/24 08:19 Dose: 81 mg Documented By: SHELBY Atorvastatin Calcium (Atorvastatin 40 Mg Tab) 40 mg PO HS [facility] Stop: 03/24/24 20:59 Last Admin: 02/23/24 22:05 Dose: 40 mg Documented By: CHARAN Budesonide (Budesonide 0.5 Mg/2 Ml Vial (Pulmicort)) 0.5 mg INH BIDR [facility] Stop: 03/24/24 20:59 Last Admin: 02/24/24 06:59 Dose: 0.5 mg Documented By: Admin: 02/23/24 21:23 Dose: 0.5 mg Documented By: ANGELINA Calcium/Vitamin D (Calcium 600mg + Vit D 400 Iu Tab) 1 tab PO BID [facility] Stop: 03/24/24 21:29 Last Admin: 02/24/24 08:19 Dose: 1 tab Documented By: Admin: 02/23/24 22:04 Dose: 1 tab Documented By: TKB Carbamide Peroxide (Carbamide Peroxide 6.5% 15 Ml Btl) 5 drops OT TID [facility] Stop: 02/27/24 20:59 Last Admin: 02/24/24 08:21 Dose: 5 drops Documented By: Admin: 02/23/24 21:45 Dose: 5 drops Documented By: TKB Chlorthalidone (Chlorthalidone 25 Mg Tab) 25 mg PO QAM [facility] Stop: 03/25/24 08:59 Last Admin: 02/24/24 08:19 Dose: 25 mg Documented By: CMV Cyanocobalamin (Cyanocobalamin (B-12) 500 Mcg Tablet) 500 mcg PO QAM [facility] Stop: 03/25/24 08:59 Last Admin: 02/24/24 08:21 Dose: 500 mcg Documented By: CMV Ferrous Sulfate (Ferrous Sulfate 325 Mg Tab) 325 mg PO QAM [facility] Stop: 03/25/24 08:59 Last Admin: 02/24/24 08:21 Dose: 325 mg Documented By: CMV Guaifenesin (Guaifenesin 600 Mg Tabcr) 1,200 mg PO Q12 [facility] Stop: 03/24/24 20:59 Last Admin: 02/24/24 08:20 Dose: 1,200 mg Documented By: Admin: 02/23/24 22:04 Dose: 1,200 mg Documented By: TKB Levothyroxine Sodium (Levothyroxine Sodium 137 Mcg Tablet) 137 mcg PO DAILYBB [facility] Stop: 03/25/24 06:29 Last Admin: 02/24/24 05:28 Dose: 137 mcg Documented By: TKB Lisinopril (Lisinopril 20 Mg Tab) 20 mg PO QAM [facility] Stop: 03/25/24 08:59 Last Admin: 02/24/24 08:21 Dose: 20 mg Documented By: CMV Metoprolol Tartrate (Metoprolol Tartrate 50 Mg Tab) 50 mg PO BID [facility] Stop: 03/24/24 20:59 Last Admin: 02/24/24 08:20 Dose: 50 mg Documented By: Admin: 02/23/24 22:04 Dose: 50 mg Documented By: TKB Prednisone (Prednisone 20 Mg Tab) 40 mg PO DAILY [facility] Stop: 03/24/24 20:48 Last Admin: 02/24/24 08:21 Dose: 40 mg Documented By: Admin: 02/23/24 22:05 Dose: 40 mg Documented By: TKB Umeclidinium/Vilanterol (Umeclidinium/Vilanterol 62.5/25mcg 7 Puffs/Inhaler) 1 puffs INH DAILY [facility] Stop: 03/25/24 08:59 Last Admin: 02/24/24 08:22 Dose: 1 puffs Documented By: CMV Discontinued Medications Acetaminophen (Acetaminophen 1000 Mg/100 Ml Iv) 1,000 mg IV NOW STA Stop: 02/23/24 15:01 Last Admin: 02/23/24 15:07 Dose: 1,000 mg Documented By: LIDAW Albuterol (Albut/Ipratrop 3mg/0.5mg Neb 3 Ml Vial) 3 ml NEB NOW STA; Protocol Stop: 02/23/24 16:35 Last Admin: 02/23/24 16:52 Dose: 3 ml Documented By: PADMINI Cetirizine HCl (Cetirizine Hcl 10 Mg Tablet) 10 mg PO NOW ONE Stop: 02/24/24 09:04 Last Admin: 02/24/24 10:16 Dose: 10 mg Documented By: FITZK Co-signed By: RADHA Hydralazine HCl (Hydralazine Hcl 20 Mg/Ml Vial) 5 mg IV NOW ONE Stop: 02/23/24 16:10 Last Admin: 02/23/24 16:24 Dose: 5 mg Documented By: ML Magnesium Sulfate/Dextrose (Magnesium Sulfate / D5w) 1 gm in 100 mls @ 300 mls/hr IV NOW ONE Stop: 02/23/24 15:19 Last Infusion: 02/23/24 15:57 Dose: Infused Documented By: Admin: 02/23/24 15:07 Dose: 300 mls/hr Documented By: LIDAW Ampicillin Sodium/Sulbactam Sodium (Unasyn) 3,000 mg in 100 mls @ 200 mls/hr IV Q6H [facility] Stop: 03/04/24 21:59 Last Infusion: 02/24/24 03:37 Dose: Infused Documented By: Admin: 02/24/24 03:03 Dose: 200 mls/hr Documented By: TKIsaak Infusion: 02/23/24 22:20 Dose: Infused Documented By: Admin: 02/23/24 21:47 Dose: 200 mls/hr Documented By: TKB Methylprednisolone (Methylprednisolone 125 Mg/2 Ml Vial) 100 mg IV NOW STA Stop: 02/23/24 15:01 Last Admin: 02/23/24 15:07 Dose: 100 mg Documented By: BMW Ondansetron HCl (Ondansetron Inj 2 Mg/Ml 2 Ml Vial) 4 mg IV NOW STA Stop: 02/23/24 16:11 Last Admin: 02/23/24 16:24 Dose: 4 mg Documented By: ML Pseudoephedrine HCl (Pseudoephedrine Hcl 30 Mg Tab) 30 mg PO NOW STA Stop: 02/24/24 09:04 Last Admin: 02/24/24 10:16 Dose: 30 mg Documented By: QMK Co-signed By: RADHA Imaging Data Radiologist's Impression: Head CT 02/23/24 12:52 CT head/brain wo con CLINICAL HISTORY: 83 years-old Female with Headache. Acute headache TECHNIQUE: Multiple axial CT images of the head were obtained without contrast. A dose lowering technique was utilized adhering to the principles of ALARA. CT DOSE: 547.75 mGy.cm COMPARISON: None. FINDINGS: No acute intracranial hemorrhage, midline shift, intracranial mass, hydrocephalus, territorial ischemia or abnormal extra-axial collection. Involutional changes with white matter hypodensities suggestive of chronic microvascular ischemic disease. Senescent calcifications of the basal ganglia. 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 The calvarium is intact. Trace right mastoid effusion. Leftward bowing and spurring of the nasal septum. Mild mucosal thickening of the ethmoid air cells. Metopic suture. Prior bilateral lens repair. IMPRESSION: No acute intracranial abnormality identified. ACT 112: Negative or not required by law. The above report was generated using voice recognition software. It may contain grammatical, syntax or spelling errors. Electronically signed by: Young Sow M.D. 02/23/2024 1:29 PM Discharge Plan Visit Data Chief Complaint: Headache Stated Complaint: HEADACHE SINCE BLOOD TRANSF LAST MONTH, NAUSEA ED Provider: Flaquito Almonte Discharge Problem: Hypertensive urgency, Headache, Supplemental oxygen dependent, COPD (chronic obstructive pulmonary disease) Patient Disposition: Admitted As Inpatient Discharge Instructions Interventions: ED Discharge Assessment Last Done: 02/23/24 19:56 Discharge Problem: Headache Qualifiers: Headache type: unspecified Headache chronicity pattern: acute headache I ntractability: intractable Qualified Code(s): R51.9 - Headache, unspecified COPD (chronic obstructive pulmonary disease) Qualifiers: COPD type: unspecified COPD Qualified Code(s): J44.9 - Chronic obstructive pulmonary disease, unspecified
[2024-02-23 15:46] LABS: Partial Thromboplastin Ratio 0.9; Partial Thromboplastin Time 23 Seconds (21-31); Prothrombin Time 10.4 Seconds (9.0-12.0)
[2024-02-23] MEDS: ONDANSETRON INJ 2 MG/ML 2 ML VIAL IV STA (16:24)
[2024-02-23] MEDS: hydrALAZINE HCL 20 MG/ML VIAL IV ONE (16:24)
[2024-02-23] MEDS: ALBUT/IPRATROP 3MG/0.5MG NEB 3 ML VIAL NEB STA (16:52)
[2024-02-23 17:30] LABS: Appearance Urine Clear (Clear); Bacteria Urine Automated None Seen (None Seen); Bilirubin Urine Negative (Negative); Blood Urine Negative (Negative); Cast Urine Automated 0-2 /lpf (0-2); Color Urine Yellow; Epithelial Cell Urine Auto 0-2 /hpf (0-2); Glucose Urine UA Negative (Negative); Ketones Urine Negative (Negative); Leukocyte Esterase Urine 1+ (Negative); Nitrite Urine Negative (Negative); Protein Urine Negative (Negative); RBC Urine Automated 0-2 /hpf (0-2); Specific Gravity Urine 1.008 (1.000-1.030); Urobilinogen Urine Negative (Negative); WBC Urine Automated 0-5 /hpf (0-5)
--- NOTE | 2024-02-23 17:32 | History & Physical Report ---
Date of Service February 23, 2024 Assessment & Plan (1) Headache: (2) Hypertension: (3) Hyperlipidemia: (4) Asthma-COPD overlap syndrome: (5) Hypothyroidism: (6) Anemia: Plan: Headache Hypertensive Urgency HTN - CT of the head is negative but does show trace mastoid effusion - MRI of the brain - pt was scheduled as outpt- difficulty obtaining due to anxiety/COPD and needing to lie down flat - will order IV ativan prior to such - Improved headache now with IV medication given in the ER, continue Tylenol as needed for pain -PT/OT consults - BP control, initally elevated, improved with hydralazine, will continue PRN med and continue home antihypertensives Acute exacerbation of COPD/asthma overlap syndrome Possible sinusitis -WBC of 15.65, elevated compared to baseline -Coarse breath sounds throughout, reports sputum production which is yellow, check chest x-ray now,, Mucinex, continue DuoNebs which she is using at home every 6 hours -Augmentin p.o. twice daily, Prednisone 40 mg daily with burst taper -Wears 3 L O2 at all times, currently on such, continue -Incentive spirometry/flutter therapy - PT/OT consults History of chronic symptomatic anemia Iron deficiency anemia History of blood transfusion -Hemoglobin is stable today at 14.3, hematocrit 45.2 Prediabetes: -A1c 6.2 on 01/18, encouraged lifestyle modification including healthy diet. Repeat A1c in 3 months. Other chronic medical conditions: Continue with/resume home meds as when able. hyperlipidemia, on statin Rx hx PVD GERD/paraesophageal hernia as per records hypothyroidism, euthyroid as of recent outpatient TSH carotid based tumor status post radiation past tobacco abuse DVT ppx: teds, scds, ambulatory Lines: PIV x 1 FEN/GI: Heart healthy CODE: Full code Dispo: From home, likely to remain in the hospital x 1-2 days A total of 76 minutes were spent with greater than 50% of that time face to face with the patient, personally reviewing all current laboratories, imaging studies, past medication reconciliation, outpatient chart review, and discussion with specialists to collaborate care for the patient with attending. Please see attending documentation for corrections and/or additions. History of Present Illness Chief Complaint: Headache Primary Care Provider: Yumiko Goldstein, DO This is an 83 yo F with PMhx COPD, hypertension, hyperlipidemia, PVD, COPD, nocturnal hypoxemia Home O2, GERD, paraesophageal hernia as per records, hypothyroidism, carotid based tumor status post radiation, past tobacco abuse. Recent hospital admission from 01/18 to 01/20 for symptomatic anemia requiring 3 unit PRBC transfusion. Patient presents to the hospital today with acute worsening headache which she says has been intermittent over the last 3 weeks. States that today she rated her frontal headache 12 out of 10 and simply could not deal with it. She denies any recent medication changes, is not on blood thinners, but feels this has significantly worsened since her last hospitalization here. When she was previously admitted she was worked up for symptomatic anemia and got 3 units PRBCs due to severe iron deficiency. Patient was scheduled as outpatient MRI for 03/09/[address] Goldstein and given a prescription for Ativan prior to the MRI due to anxiety/inability to lay flat due to her COPD, however she states that they cannot wait that long due to headache severity. She does not have admit to intermittent cough with yellow sputum production at times. She has been using her DuoNeb treatments routinely 4 times per day and her inhalers as instructed. She denies any recent sick contacts. Here in the ER the patient is found to have a negative CT of the brain. Initially was hypertensive with SBP greater than 200/100, and was given IV mag, 1000 mg Tylenol, Solu-Medrol 100 mg IV, hydralazine 5 mg and a DuoNeb treatment. She was also nauseous so was given Zofran 4 mg IV. Patient states her headache is slightly improved at this point during my visit. Allergies Allergy/AdvReac Type Severity Reaction Status Date / Time latex Allergy Unknown RASH Verified 04/15/23 13:56 No Known Drug Allergies Allergy Unknown . Verified 04/15/23 13:56 Home Medications Medication Instructions Recorded Confirmed Type atorvastatin 40 mg tablet 40 mg PO HS #90 tabs 11/24/18 02/23/24 History sodium chloride 0.65 % nasal spray 1 spray intranasal .USE 11/24/18 02/23/24 History aerosol DIRECTED. PRN NASAL DRYNESS calcium 600 mg (as carbonate)-vit 1 tab PO AMPM 02/24/19 02/23/24 History D3 10 mcg (400 unit) chewable tablet (Calcium 600 with Vitamin D3) levothyroxine 137 mcg tablet 137 mcg PO DAILYBB 10/30/21 02/23/24 History Oxygen Home #1 ea 04/22/22 01/19/24 Rx compressor, for nebulizer #1 ea 04/22/22 01/19/24 Rx nebulizer accessories #1 ea 08/15/22 01/19/24 Rx metoprolol tartrate 50 mg tablet 50 mg PO BID 11/20/22 02/23/24 History ipratropium 0.5 mg-albuterol 3 mg 3 ml inhalation Q4H PRN Shortness 03/14/23 02/23/24 Rx (2.5 mg base)/3 mL nebulization Of Breath Or Wheezing #360 mL soln budesonide 0.5 mg/2 mL suspension 0.5 mg inhalation BID 01/19/24 02/23/24 History for nebulization calcium carbonate (Tums) 200 mg PO QID PRN Heartburn 01/19/24 02/23/24 History lisinopril 20 mg tablet 20 mg PO QAM 01/19/24 02/23/24 History trazodone 50 mg tablet 50 mg PO HS 01/19/24 02/23/24 History cyanocobalamin (vitamin B-12) 500 500 mcg PO QAM #30 tabs 01/21/24 02/23/24 Rx mcg tablet acetaminophen 650 mg 650 mg PO Q4H PRN Headache 02/23/24 02/23/24 History tablet,extended release albuterol sulfate 90 mcg/actuation 2 puff inhalation Q6H PRN 02/23/24 02/23/24 History aerosol inhaler sob/wheezing chlorthalidone 25 mg tablet 25 mg PO QAM 02/23/24 02/23/24 History fluticasone fur. 100 mcg-umeclid 1 inh inhalation QAM 02/23/24 02/23/24 History 62.5 mcg-vilant 25 mcg inhalat.powder (Trelegy Ellipta) gabapentin 100 mg capsule 100 mg PO TID 02/23/24 02/23/24 History omeprazole 20 mg capsule,delayed 20 mg PO DAILYBB 02/23/24 02/23/24 History release Past Med/Surg History Problem List (Updated 02/23/24 @ 17:33 by Arianna Gomez PA-C) Headache Anemia (Acute) Hypothyroidism Urinary frequency Fracture of femur, subcapital, left, closed Asthma with COPD 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) COPD (chronic obstructive pulmonary disease) (Acute) Subclavian artery stenosis, left Benign neoplasm of colon Chronic rhinitis Chronic sinusitis GERD (gastroesophageal reflux disease) Hyperlipidemia Hypertension Post-menopausal atrophic vaginitis Rosacea Senile osteoporosis Closed fracture of left hip (Acute) Fall (Acute) Cough Abnormal CT scan of lung Shortness of breath (Acute) Medical History Anemia requiring transfusions Acute dyspnea Symptomatic anemia Hypoxia Abnormal finding on imaging Cough Asthma with COPD Surgical History H/O: hysterectomy Hx of cholecystectomy History of appendectomy Family History Family/Other Hypertension Asthma Cardiac disorder Social History Smoking Status: Former smoker Second Hand Exposure: Yes; Hx Alcohol Use: No Hx Substance Use: No Preferred Language: Indian Communication Ability: Effective Tennis Court Attendant Required: No Beliefs That Will Affect Care: None marital status: Current Living Situation: Family Current Living Situation Comment: Lives in a one story with her adult son (Moe Ortega, info on file in chart) Feels Safe at Home: Yes Seatbelt Use: always Assistive Devices: Cane, Denture - Upper and Denture - Lower Review of Systems Review of Systems: Constitutional: No fever, sweats or chills, + headache as per HPI Eyes: No diplopia, no worsening or blurred vision ENT: normal hearing, no trouble swallowing Respiratory: + cough, + yellow sputum, no dyspnea at rest or on exertion, wears 3 L O2 at all times Cardiovascular: No chest pain, tightness or palpitations Abdomen: No pain, nausea, vomiting, diarrhea or constipation Musculoskeletal: No joint pain, calf pain, swelling Neurologic: No weakness, numbness/tingling, + chronic balance problems Psychiatric: + Anxiety, no depression Skin: No rash or itch Physical Exam Physical Exam: General: awake, alert, no apparent distress, elderly white female, thin Head: Normocephalic, atraumatic ENT: PERRL, EOMI, no pharyngeal exudate, mucous membranes moist Chest: Coarse breath sounds throughout, on 3L via NC which is baseline for her, + expiratory wheezing, no Rales or rhonchi Cardiac: Regular rate and rhythm, no murmur, no JVD, normal peripheral pulses, good capillary refill Abdominal: NABS x 4 quadrants, soft, nondistended, nontender to palpation, no rebound or guarding Extremities: Normal inspection, no peripheral edema or erythema, calfs nontender to palpation Psych: Normal mood and affect Neuro: AAO x 3, strength intact bilaterally and rated 5/5, no motor deficits, speech is clear, no peripheral sensory deficits Results & Data Results & Data Vital Signs (Past 12 Hours) Vital Signs Temp Pulse Pulse Resp BP BP Pulse Ox 02/23/24 17:00 66 20 139/83 98 02/23/24 15:45 58 L 19 195/97 H 95 02/23/24 15:34 53 L 02/23/24 14:45 60 16 100 02/23/24 14:45 02/23/24 14:45 60 16 201/113 H 100 02/23/24 12:47 37.0 C 60 20 196/70 H 95 O2 Del Method O2 Flow Rate 02/23/24 17:00 Room Air 02/23/24 15:45 Nasal Cannula 3 02/23/24 15:34 02/23/24 14:45 Room Air 02/23/24 14:45 Nasal Cannula 3 02/23/24 14:45 Nasal Cannula 3 02/23/24 12:47 Nasal Cannula 3 Laboratory Results 02/23/24 02/23/24 14:45 13:52 WBC 15.65 H RBC 5.41 H Hgb 14.3 Hct 45.2 MCV 83.5 MCH 26.4 MCHC 31.6 L RDW Std Deviation 73.0 H RDW Coeff of Markie 25.2 H Plt Count 319 MPV 9.6 Immature Gran % (Auto) 0.9 Neut % (Auto) 80.4 Lymph % (Auto) 12.7 Dickson % (Auto) 4.9 Eos % (Auto) 0.6 Baso % (Auto) 0.5 Neut # (Auto) 12.58 H Lymph # (Auto) 1.98 Dickson # (Auto) 0.77 H Eos # (Auto) 0.10 Baso # (Auto) 0.08 Immature Gran # (Auto) 0.14 Anisocytosis Present ESR 30 PT 10.4 Cancelled INR 1.0 Cancelled APTT 23 Cancelled PTT Ratio 0.9 Cancelled Sodium 134 L Potassium 3.8 Chloride 94 L Carbon Dioxide 32 Anion Gap 8 BUN 17 Creatinine 0.83 Est Cr Clr Drug Dosing Not Reportable eGFR 70.34 BUN/Creatinine Ratio 20.5 H Glucose 126 H Calcium 9.7 Total Bilirubin 0.5 AST 23 ALT 13 Alkaline Phosphatase 68 Total Protein 7.3 Albumin 4.3 Globulin 3.0 Albumin/Globulin Ratio 1.[address] 02/23/24 12:52 CT head/brain wo con CLINICAL HISTORY: 83 years-old Female with Headache. Acute headache TECHNIQUE: Multiple axial CT images of the head were obtained without contrast. A dose lowering technique was utilized adhering to the principles of ALARA. CT DOSE: 547.75 mGy.cm COMPARISON: None. FINDINGS: No acute intracranial hemorrhage, midline shift, intracranial mass, hydrocephalus, territorial ischemia or abnormal extra-axial collection. Involutional changes with white matter hypodensities suggestive of chronic microvascular ischemic disease. Senescent calcifications of the basal ganglia. 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 The calvarium is intact. Trace right mastoid effusion. Leftward bowing and spurring of the nasal septum. Mild mucosal thickening of the ethmoid air cells. Metopic suture. Prior bilateral lens repair. IMPRESSION: No acute intracranial abnormality identified. ACT 112: Negative or not required by law. The above report was generated using voice recognition software. It may contain grammatical, syntax or spelling errors. Electronically signed by: Young Sow M.D. 02/23/2024 1:29 PM ECG Additional Comments: NSR, no acute signs of ST wave inversions or signs of ischemia Code Status & VTE Plan Code Status Full code-discussed in depth with patient daughter and son present at bedside Supervising Physician Co-Signing Physician Notes 83-year-old lady with PMH of COPD asthma overlap syndrome, HTN, HLD, PVD, GERD, paraesophageal hernia, hypothyroidism, carotid base tumor status postradiation, past tobacco abuse who was recently admitted 01/18 to 01/20 for symptomatic anemia requiring 3 units PRBC presented this time with worsening headache for about 1 month time. Patient reports having headaches since after discharge, intermittent in nature, progressively worsening, rated headache of 12 out of 10 today, down to 6 out of 10 at bedside exam. Patient denies fever, reports runny nose for about a month time, reports headache in the forehead region along with top/side/back of the head. Reports pain as a sharp pain, not relieved with NSAIDs. Patient reports compliance with her home medications. Patient reports cough with yellow sputum, slightly increased from her baseline. Patient uses 3 L oxygen all the time at home. Patient quit smoking about 34 years ago, denies alcohol use. Labs and imagings reviewed: WBC elevated at 15.6 5K, hemoglobin good at 14.3, procalcitonin elevated at 75.3. UA not suggestive of UTI, patient denies any pain or burning while passing urine. CT head with no acute intracranial finding. CT head reveals mucosal thickening of the ethmoid air cells. Active problems: Persistent headache: Patient reports intermittent headaches since about 1 month time, reports mostly right-sided headache, was supposed to get MRI as an outpatient. Will get MRI in here, neurology consult. Likely maxillary and ethmoidal sinusitis: Tenderness on exam, has runny nose for about a month, will utilize Unasyn. Add probiotic. Monitor clinically. Mild exacerbation of asthma COPD overlap syndrome: Prednisone, on IV Unasyn as above, follow clinically. Likely earwax blockage left ear: Could not visualize tympanic membrane on otoscope exam, wax impaction noted, Debrox eardrops, likely will need wash out after earwax is softened. Hypertensive urgency: As needed blood pressure medication with hydralazine or SBP greater than 170 mmHg. On exam: GENERAL: Alert and oriented x3. NAD, on 4L NC O2. HEENT: No pallor, no icterus. Pupils equal, round and reactive to light. Oral mucosa moist. Lt ear wax impaction noted. maxillary and ethmoid sinus tenderness noted. NECK: No JVD, no neck masses. HEART: S1 and S2 heard. Regular rate and rhythm. No murmur, no gallop. RESPIRATORY SYSTEM: Normal AP diameter. No accessory muscle use. b/l crackles and rhonchi ABDOMEN: Soft, bowel sounds present, nontender, no distention. CENTRAL NERVOUS SYSTEM: No facial droop. Speech is clear. Obeys simple commands. Moves extremities. EXTREMITIES: No edema, no erythema seen. I have seen and examined the patient and have discussed the case with the provider above. I agree with the assessment and plan as stated. Time spent: 35 min.
--- NOTE | 2024-02-23 19:34 | XRay Report ---
Exam(s): XR CXR 1 VIEW EXAM: XR Chest, 1 View CLINICAL HISTORY: Reason for exam: leukocytosis, coarse breath sounds, eval for pna. TECHNIQUE: Frontal view of the chest. COMPARISON: 01/19/24 FINDINGS: Lungs: Unremarkable. No consolidation. Pleural space: Unremarkable. No pleural effusion or pneumothorax. Heart: Unremarkable. No cardiomegaly or pulmonary vascular congestion. Mediastinum: Large hiatal hernia. Bones/joints: No acute fracture. No dislocation. IMPRESSION: Large hiatal hernia. No acute findings. Electronically signed by: Melissa Dior M.D. 02/23/24 19:33 PM
--- NOTE | 2024-02-23 19:43 | Magnetic Resonance Report ---
Exam(s): MRI HEAD Without Contrast EXAM: MR Head Without Intravenous Contrast CLINICAL HISTORY: Reason for exam: Headache. TECHNIQUE: Magnetic resonance images of the head/brain without intravenous contrast in multiple planes. COMPARISON: CT head 02/23/24 FINDINGS: Brain: No diffusion restriction to suggest acute cerebral ischemia. No acute intracranial hemorrhage or abnormal extra-axial fluid collection. Senescent globus pallidus calcifications. Age-related parenchymal volume loss. Periventricular deep cerebral white matter FLAIR signal hyperintensity consistent with chronic small vessel ischemic change. Intracranial flow voids appear normal as visualized. No evidence of intracranial mass. No midline shift. Ventricles: Unremarkable. No hydrocephalus. Bones/joints: Unremarkable. No acute fracture. Sinuses: Mucosal thickening in the right ethmoids. Mastoid air cells: Small effusions at the mastoid tips. Orbits: Lens replacements. IMPRESSION: No acute findings in the head/brain. Electronically signed by: Melissa Dior M.D. 02/23/24 19:43 PM
[2024-02-23] MEDS ORDERED: SODIUM CHLORIDE 0.65% NA SOLN 45 ML (OCEAN) PRN (20:49)
[2024-02-23] MEDS ORDERED: hydrALAZINE HCL 20 MG/ML VIAL IV PRN (20:49)
[2024-02-23] MEDS ORDERED: ACETAMINOPHEN 325 MG TAB PO PRN (20:49)
[2024-02-23] MEDS ORDERED: CALCIUM CARBONATE 500 MG CHEWABLE TAB PO PRN (20:49)
[2024-02-23] MEDS ORDERED: traZODone HCL 50 MG TAB PO PRN (20:49)
[2024-02-23] MEDS ORDERED: ONDANSETRON INJ 2 MG/ML 2 ML VIAL IV PRN (20:49)
[2024-02-23] MEDS ORDERED: ALBUT/IPRATROP 3MG/0.5MG NEB 3 ML VIAL INH PRN (20:49)
--- OUTSIDE RECORDS SUMMARY | 2024-02-23 21:14 | External Medical Summary | Summary of Care ---
Author Name Unknown Organization [facility] Address [address] [place] [facility] [place] [address] Phone [phone] Care Team Providers Care Sports Team Marketing Intern Name Role Phone Yumiko Goldstein DO Primary Care Provider Reason for Visit * Reason Onset Date Comments Forms Request 02/06/2024 Encounter Details Date Type Department Care Team (Late st Contact Info) Description 02/06/2024 Telephone Family Medicine [address] [phone] Yumiko Goldstein [address] [place] [address] Forms Request Allergies Active Allergy Reactions Criticality Noted Date Comments Other - Environmental 09/27/2008 Band aids documented as of this encounter (statuses as of 02/12/2024) Medications Medication Sig Dispensed Refills Start Date [...] hours as needed for Pain, Moderate. Active Atorvastatin Calcium 40 MG Oral Tablet (Lipitor)Indications :Hyperlipidemia with target LDL less than 130 TAKE ONE TABLET BY MOUTH AT BEDTIME 100 Tablet 1 08/17/2023 Active Lisinopril 20 MG Oral Tablet (Prinivil)Indication s:Primary hypertension TAKE ONE TABLET BY MOUTH IN THE MORNING 100 Tablet 1 08/17/2023 Active oxygen IN GAS Administer 3 L/min(Oxygen) into nostril at bedtime. 12/10/2023 Active [...] at bedtime 270 Capsule 1 01/05/2024 Active Fluticasone-Umeclidi n-Vilant 100-62.5-25 MCG/ACT Aerosol Powder Breath Activated (Trelegy Ellipta)Indications: COPD, group B, by GOLD 2017 classification ([facility]) Inhale 1 Puff by mouth in the morning. 180 Blister Dosing Unit 1 01/21/2024 Active Levothyroxine Sodium 137 MCG Oral Tablet (Synthroid)Indicatio ns:Acquired hypothyroidism TAKE ONE TABLET BY MOUTH IN THE MORNING 30 MIN BEFORE BREAKFAST OR OTHER MEDS 100 Tablet 1 01/21/2024 Active Metoprolol Tartrate 50 MG Oral Tablet (Lopressor)Indicatio ns:Primary hypertension,Essenti al hypertension with goal blood pressure less than 140/90 TAKE 1 TABLET BY MOUTH IN THE MORNING AND AT BEDTIME 200 Tablet 1 01/21/2024 Active traZODone HCl 50 MG Oral Tablet (Desyrel)Indications :Primary insomnia Take 1 Tablet by mouth at bedtime. 100 Tablet 1 01/21/2024 Active Ventolin HFA 108 (90 Base) MCG/ACT Inhalation Aerosol SolutionIndications: COPD, group B, by GOLD 2017 classification ([facility]) Inhale 2 Puffs by mouth every 4 hours as needed for Wheezing. 54 g 3 01/27/2024 Active Vitamin B-12 500 MCG Oral Tablet (vitamin B-12) Take 1 Tablet by mouth in the morning. 01/21/2024 Active oxygen IN GASIndications:Hypox emia,COPD, group B, by GOLD 2017 classification ([facility]) Administer 3 L/min(Oxygen) into nostril continuous. 1 Each 01/28/2024 Active Omeprazole 20 MG Oral Capsule Delayed Release (PriLOSEC) Take 1 Capsule by mouth in the morning. 1 hour before the first meal of the day. 30 Capsule 01/28/2024 Active documented as of this encounter (statuses as of 02/12/2024) Active Problems Problem Noted Date Diagnosed Date [...] as of this encounter (statuses as of 02/12/2024) Resolved Problems Problem Noted Date Diagnosed Date [...] as of this encounter (statuses as of 02/12/2024) Immunizations Name Administration Dates Next Due COVID-19 mRNA, LNP-s, No Pre serve, 2-Dose Series (Moderna) 07/12/2020,06/21/2020 COVID-19 mRNA, LNP-s, No Pre serve, 2-Dose Series (Pfizer) 08/14/2021,01/24/2021 COVID-19, MRNA-LNP, PF, 50 M CG/0.5 mL, 12 YRS AND ABOVE, IM (MODERNA-Spikevax) 04/18/2023 Influenza, Whole Virus 04/28/2000 2 Pneumococcal Conjugate Vacc, 13 Valent (Prevnar) 10/11/2014 Pneumococcal Polysaccharide PPV23 (Pneumovax) 05/07/2007 RSV Vac., Recomb, Adjuvant, PF,0.5 Ml (Arexvy) 04/18/2023 Season Influenza, Quad, PF, Adjuvanted, 65+ Yrs, IM (FLUAD) 12/16/2019 Seasonal Influenza Vac., MDV , IM, 0.5 mL (Fluzone) 02/13/2016,12/23/2013,01/14/2013,12/13,01/08/2011,01/30/2010,02/03/20 09,02/16/2008,02/03/2007,02/13/2006,1 04/23/2004,02/22/2003 Seasonal Influenza Virus Vac cine, Unspecified Formulation 02/03/2023,01/03/2022,01/02/2021,09/0 06/2019,01/12/2019,12/30/2018,12/18/19 19,01/20/2018,12/30/2016,02/13/2016,0 12/23/2013,01/14/2013,12/28/2011,01/08,01/30/2010,02/02/2009, 8,02/03/2007,02/13/2006,02/21/2005,,04/28/2000,01/24/1998 Seasonal Influenza, High Dos e, Trivalent, PF, [...] the money to buy more. Never true 01/22/20 24 Within the past 12 months, t he food you bought just didn't last and you didn't have money to get more. Never true 01/22/2024 Childcare Answer Date Recorded Do you feel overwhelmed with taking care of a child, family member or friend? No 01/22/2024 Does your family need help f inding childcare? (Household - for ages 0-17 years) Not on file 01/22/2024 Clothing Answer Date Recorded Have you been unable to get clothing when it was really needed? No 01/22/2024 Is your family able to get c lothes or diapers when needed? (Household - for ages 0-17 years) Not on file 01/22/2024 Personal Safety Answer Date Recorded Do you feel unsafe or have concerns for your saf ety? No 01/22/2024 Do you have concerns for you r family's safety? (Household - for ages 0-17 years) Not on file 01/22/2024 Utilities Answer Date Recorded Do you have trouble paying y our heating, water, or electric bill? Yes 01/22/2024 Is your family able to pay t he heat, water, or electric bill? (Household - for ages 0-17 years) Not on file 01/22/2024 Does your family have access to good internet? (Household - for ages 0-17 years) Not on file 01/22/2024 Employment Status Answer Date Recorded Are you unemployed or without regular income? No 01/22/2024 Does the household have a re gular source of income? (Household - for ages 0-17 years) Not on file 01/22/2024 Social Connections Answer Date Recorded How often do you feel lonely or isolated from th ose around you? Rarely 01/22/2024 Financial Resource Strain Answer Date R ecorded Do you have any trouble payi ng for your medications, or do you think you might in the future? No 01/22/2024 Does your family have troubl e paying for medicine? (Household - for ages 0-17 years) Not on file 01/22/2024 Transportation Needs Answer Date Record ed Do you have trouble getting a ride to medical visits or work? (Adult - for ages 18 years and over) Not on file 01/22/2024 Does your family have a hard time getting a ride to doctors visits? (Household - for ages 0-17 years) Not on file 01/22/2024 Has lack of transportation k ept you from medical appointments, meetings, work, or from getting things needed for daily living? Check all that apply. No 01/22/2024 Do you (or your family) have trouble finding or paying for a ride (transportation)? (Household - for ages 0-17 years) Not on file 01/22/2024 Housing Stability Answer Date Recorded Do you currently live in a s helter or have no steady place to sleep at night? No 01/22/2024 Do you think you are at risk of becoming homeless? (Adult - for ages 18 years and over) Not on file 01/22/2024 Does your family worry about paying for your home or becoming homeless? (Household - for ages 0-17 years) Not on file 1 Are you homeless or worried that you might be in the future? No 01/22/2024 Are you (or your family) tanya eless or worried that you might be in the future? (Household - for ages 0-17 years) Not on file Food Insecurity Answer Date Recorded Do you need food for this week? No 01/22/2024 Are you able to get enough f ood for your family? (Household - for ages 0-17 years) Not on file 01/22/2024 Does your family need food t his week? (Household - for ages 0-17 years) Not on file 01/22/2024 Do you always have enough fo od for your family? (Household - for ages 0-17 years) Not on file 01/22/2024 Sex and Gender Information Value Date Recorded Sex Assigned at Female 12/02/2018 12:58 PM EDT Gender Identity Female 12/02/2018 12:58 PM EDT Sexual Orientation Straight 01/03/2022 11 :24 AM EDT Job Start Date Occupation Industry Not on file Not on file Not on file documented as of this encounter Miscellaneous Notes * Telephone Encounter - Marie Jimenez RN - 02/12/2024 1:45 PM EDT faxed * Telephone Encounter - Krystal Chilel LPN - 02/12/2024 12:13 PM EDT Shelli calling to check on the status of the prescription. Advised that PCP is out of the office, She wanted to know if there is an order for Oxygen in her chart, if so does it have her name, address, phone number that they could use? Script in chart does not have this information. she is asking if covering provider will fill out the form, they need to ship the unit out today, Shelli * Telephone Encounter - Marie Jimenez RN - 02/09/2024 3:52 PM EDT Form is on providers desk, Dr Goldstein is away this week * Telephone Encounter - Krystal Chilel LPN - 02/09/2024 1:43 PM EDT Libby calling from [employer]. She is following up on a order that she faxed over to PCP office at [phone]. She has not received the order back and was inquiring if the office has received the order. Please advise, I do not see anything scanned into chart or documentation that it has been received. Libby call back number [phone] * Telephone Encounter - Krystal Chilel LPN - 02/06/2024 3:12 PM EDT Libby Oxygen Specialist calling from [employer]. Verifying Office address and Fax: Patient just purchased a portable oxygen concentrator. She is faxing information to the office for completion. documented in this encounter Plan of Treatment Upcoming Encounters Date Type Department Care Team (Late st Contact Info) Description 03/08/2024 1:45 PM EST Imaging Radiology [address] [place] [address] 06/08/2024 3:10 PM EST Office Visit Family Medicine [address] [place] [phone] Yumiko Goldstein, [address] [place] [address] 02/09/2025 2:30 PM EDT Nurse Only Ancillary [address] [place] [address] [place], Nurse Annual Wellness [address] [place] [address] [place] [address] Health Maintenance Due Date Last Done Comments Alpha-1 Antitrypsin 08/23/1958 DXA Scan 11/15/2022 11/15/2020, 01/13, 05/25/2014, Additional history exists Zoster Vaccines (2 of 2) 01/28/2023 12/03/2022 COVID-19 Vaccine ( season) 2023 04/18/2023, 08/14/2021, 08/14/2021, Additional history exists *BISPHONATE OR OTHER ACCEPTABLE MEDICATION NEEDED FOR OSTEOPOROSIS (REFER TO SMARTSET #1146) 01/02/2024 Albumin/Creatinine Ratio 10/18/20242 022, 11/08/2020, 10/14/2019, Additional history exists TSH 10/23/2024 10/24/2023, 08/0 07/2022, 01/23/2022, Additional history exists GFR 01/27/2025 01/28/2024, 080 08/2023, 10/24/2023, Additional history exists Adult Wellness Visit 02/05/2025 02/06/2024, 01/10/2023, 01/03/2022, Additional history exists Depression Screening 02/05/2025 02/06/2024 O2 ASSESSMENT COMPLETED IN PAST YEAR FOR COPD 02/05/2025 02/06/2024 DTap/Tdap Vaccines (2 - Td or Tdap) 12/03/2032 12/03/2022, 03/30/2009 VITAMIN D LEVEL ONCE IN A LIFETIME-USE SMARTSET# [id number] Completed 06/29/2012, 03/30/2009 Pneumococcal Vaccine: 65+ Years Completed 10/11/2014, 05/07/2007 Influenza Vaccine (FLU shot) Completed 10/2023, 02/03/2023, 02/03/2023, Additional history exists HPV (Gardasil) Vaccine Aged Out No lo [...] on File Name Relationship [facility] Dick Ortega Adult Child Health Care Repr esentative (appointed verbally by patient or by statute hierarchy) Meredith white Adult Child Health Care R epresentative (appointed verbally by patient or by statute hierarchy) Care Teams Sports Team Marketing Intern Relationship Specialty Start Date End Date Yumiko Goldstein DO [address] [place] [address] [place] [phone] PCP - General Internal Medicine 10/24/23 documented as of this encounter
--- OUTSIDE RECORDS SUMMARY | 2024-02-23 21:14 | External Medical Summary | Summary of Care ---
Author Name Unknown Organization [facility] Address [address] [facility] [place] [address] Phone [phone] Care Team Providers Care Process Safety Engineer Name Role Phone Yumiko Goldstein Primary Care Provider [phone] Encounter Details Date Type Department Care Team (Late st Contact Info) Description 02/19/2024 Population Health External Data Unspecified Department Allergies Active Allergy Reactions Criticality Noted Date Comments Other - Environmental 09/27/2008 Band aids documented as of this encounter (statuses as of 02/20/2024) Medications TUMS 500 MG PO CHEW as needed [...] BY MOUTH AT BEDTIME 100 Tablet 1 01/26/2024 8:52 AM EDT Active Lisinopril 20 MG Oral Tablet (Prinivil)Indicati ons:Primary hypertension TAKE ONE TABLET BY MOUTH IN THE MORNING 100 Tablet 1 01/26/2024 8:52 AM EDT 4 Active oxygen IN GAS Administer 3 L/min(Oxygen) into nostril at bedtime. 4 Active Ipratropium-Albute rol 0.5-2.5 (3) MG/3ML Inhalation Solution (Duoneb)Indication s:Moderate persistent asthma without complication USE 1 VIAL IN NEBULIZER TWICE DAILY, MAY INCREASE TO 1 VIAL EVERY 4 HOURS NEEDED FOR WORSENING COUGH, WHEEZING OR SHORTNESS OF BREATHE 1080 mL 01/06/2024 2:21 PM EDT 4 Active Gabapentin 100 MG Oral Capsule (Neurontin)Indicat ions:Lumbar radicular pain One in morning, one in afternoon and 2 at bedtime 270 Capsule 1 4 Active Fluticasone-Umecli din-Vilant 100-62.5-25 MCG/ACT Aerosol Powder Breath Activated (Trelegy Ellipta)Indication s:COPD, group B, by GOLD 2017 classification ([facility]) Inhale 1 Puff by mouth in the morning. 180 Blister Dosing Unit 1 01/27/2024 2:52 PM EDT 4 Active Levothyroxine Sodium 137 MCG Oral Tablet (Synthroid)Indicat ions:Acquired hypothyroidism TAKE ONE TABLET BY MOUTH IN THE MORNING 30 MIN BEFORE BREAKFAST OR OTHER MEDS 100 Tablet 1 02/16/2024 7:48 AM EST 4 Active Metoprolol Tartrate 50 MG Oral Tablet (Lopressor)Indicat ions:Primary hypertension,Essen tial hypertension with goal blood pressure less than 140/90 TAKE 1 TABLET BY MOUTH IN THE MORNING AND AT BEDTIME 200 Tablet 1 02/16/2024 7:48 AM EST 4 Active traZODone HCl 50 MG Oral Tablet (Desyrel)Indicatio ns:Primary insomnia Take 1 Tablet by mouth at bedtime. 100 Tablet 1 4 Active Ventolin HFA 108 (90 Base) MCG/ACT Inhalation Aerosol SolutionIndication s:COPD, group B, by GOLD 2017 classification ([facility]) Inhale 2 Puffs by mouth every 4 hours as needed for Wheezing. 54 g 3 01/28/2024 6:50 AM EDT 4 Active Vitamin B-12 500 MCG Oral Tablet (vitamin B-12) Take 1 Tablet by mouth in the morning. 4 Active oxygen IN GASIndications:Hyp oxemia,COPD, group B, by GOLD 2017 classification ([facility]) Administer 3 L/min(Oxygen) into nostril continuous. 1 Each 4 Active Omeprazole 20 MG Oral Capsule Delayed Release (PriLOSEC) Take 1 Capsule by mouth in the morning. 1 hour before the first meal of the day. 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 Overview (09/12/2008): right side Hyperlipidemia with target LDL less than 100 Overview (08/14/2015): ICD-10 update of inactive term documented as of this encounter (statuses as of 02/20/2024) Resolved Problems Problem Noted Date Diagnosed Date Resolved Date Benign neoplasm of colon 09/20/2013 Overview (09/20/2013): 10 mm polyp transverse colon Gallstone pancreatitis 04/10/201203/16 Nonallergic rhinitis 05/17/2011 024 Chronic sinusitis 05/17/2011 08/28/2017 Moderate persistent asthma w ithout complication 05/17/2011 10/24/2023 Dyslipidemia, goal LDL below 160 03/30/2009 03/17/2013 Dyslipidemia, goal to be determined 03/21/2009 03/30/2009 Overview (03/21/2009): Per Lipid Taxonomy. HTN, goal below 140/90 02/17/200911/22 Overview (02/17/2009): Modified per HTN Taxonomy. NONALLERGIC RHINITIS 07/08/2008 012 HTN, goal below 140/90 06/22/200702/17 Overview (02/17/2009): Modified per HTN Taxonomy. Chronic sinusitis 01/19/2007 05/17/2011 ADVANCE DIRECTIVE INFORMATION 09/17/2005 10/24/2023 Overview (09/17/2005): Yes, Patient instructed to provide copy of advance directive for provider to review and to be scanned into Electronic Medical Record Mixed dyslipidemia 12/02/2002 9 Overview (03/21/2009): Per Lipid Taxonomy. Other allergic rhinitis 07/15/199706/13 Overview (02/04/2017): ICD-10 update of inactive term Asthma with severity to be determined 07/15/1997 05/17/2011 Overview (07/24/2015): ICD-10 update of inactive term Hypothyroidism 04/24/2010 Esophageal reflux 05/17/2011 COPD, moderate 01/27/2020 Overview: Per COPD GOLD Classification Postmenopausal atrophic vaginitis 10/24/2023 documented as of this encounter (statuses as of 02/20/2024) Immunizations Name Administration Dates Next Due COVID-19 [...] the money to buy more. Never true 02/06/20 24 Within the past 12 months, t he food you bought just didn't last and you didn't have money to get more. Never true 02/06/2024 Childcare Answer Date Recorded Do you feel overwhelmed with taking care of a child, family member or friend? No 02/06/2024 Does your family need help f inding childcare? (Household - for ages 0-17 years) Not on file 02/06/2024 Clothing Answer Date Recorded Have you been unable to get clothing when it was really needed? No 02/06/2024 Is your family able to get c lothes or diapers when needed? (Household - for ages 0-17 years) Not on file 02/06/2024 Personal Safety Answer Date Recorded Do you feel unsafe or have concerns for your saf ety? No 02/06/2024 Do you have concerns for you r family's safety? (Household - for ages 0-17 years) Not on file 02/06/2024 Utilities Answer Date Recorded Do you have trouble paying y our heating, water, or electric bill? No 02/06/2024 Is your family able to pay t he heat, water, or electric bill? (Household - for ages 0-17 years) Not on file 02/06/2024 Does your family have access to good internet? (Household - for ages 0-17 years) Not on file 02/06/2024 Employment Status Answer Date Recorded Are you unemployed or without regular income? No 02/06/2024 Does the household have a re gular source of income? (Household - for ages 0-17 years) Not on file 02/06/2024 Social Connections Answer Date Recorded How often do you feel lonely or isolated from those around you? Sometimes 02/06/2024 Financial Resource Strain Answer Date R ecorded Do you have any trouble payi ng for your medications, or do you think you might in the future? No 02/06/2024 Does your family have troubl e paying for medicine? (Household - for ages 0-17 years) Not on file 02/06/2024 Transportation Needs Answer Date Record ed Do you have trouble getting a ride to medical visits or work? (Adult - for ages 18 years and over) Not on file 02/06/2024 Does your family have a hard time getting a ride to doctors visits? (Household - for ages 0-17 years) Not on file 02/06/2024 Has lack of transportation k ept you from medical appointments, meetings, work, or from getting things needed for daily living? Check all that apply. No 02/06/2024 Do you (or your family) have trouble finding or paying for a ride (transportation)? (Household - for ages 0-17 years) Not on file 02/06/2024 Housing Stability Answer Date Recorded Do you currently live in a s helter or have no steady place to sleep at night? No 02/06/2024 Do you think you are at risk of becoming homeless? (Adult - for ages 18 years and over) Not on file 02/06/2024 Does your family worry about paying for your home or becoming homeless? (Household - for ages 0-17 years) Not on file 1 Are you homeless or worried that you might be in the future? No 02/06/2024 Are you (or your family) tanya eless or worried that you might be in the future? (Household - for ages 0-17 years) Not on file Food Insecurity Answer Date Recorded Do you need food for this week? No 02/06/2024 Are you able to get enough f ood for your family? (Household - for ages 0-17 years) Not on file 02/06/2024 Does your family need food t his week? (Household - for ages 0-17 years) Not on file 02/06/2024 Do you always have enough fo od for your family? 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 Not on file Not on file Not on file documented as of this encounter Plan of Treatment Upcoming Encounters Date Type Department Care Team (Late st Contact Info) Description 03/08/2024 1:45 PM EST Imaging Radiology [address] [place] [address] 06/08/2024 3:10 PM EST Office Visit Family Medicine [address] [place] [phone] Yumiko Goldstein, [address] [place] [address] 02/09/2025 2:30 PM EDT Nurse Only Ancillary [address] [place] [address] [place], Nurse Annual Wellness [address] [place] [address] [place] [phone] Health Maintenance Due Date Last Done Comments [...] 01/23/2022, Additional history exists GFR 01/27/2025 01/28/2024, 08/0 08/2023, 10/24/2023, Additional history exists Adult Wellness Visit 02/05/2025 02/06/2024, 01/10/2023, 01/03/2022, Additional history exists Depression Screening 02/05/2025 02/06/2024 O2 ASSESSMENT COMPLETED IN PAST YEAR FOR COPD 02/05/2025 02/06/2024 DTap/Tdap Vaccines (2 - Td or Tdap) 12/03/2032 12/03/2022, 03/30/2009 VITAMIN D LEVEL ONCE IN A LIFETIME-USE SMARTSET# [id number] Completed 06/29/2012, 03/30/2009 Pneumococcal Vaccine: 65+ Years [...] patient or by statute hierarchy) Care Teams Process Safety Engineer Relationship Specialty Start Date End Date Yumiko Goldstein DO [address] [place] [address] [place] [id number] PCP - General Internal Medicine 10/24/23 documented as of this encounter
--- OUTSIDE RECORDS SUMMARY | 2024-02-23 21:15 | External Medical Summary | Summary of Care ---
Author Name Unknown Organization [facility] Address [address] [facility] [place] [address] Phone [phone] Care Team Providers Care Internal Medicine Nurse Name Role Phone Yumiko Goldstein DO Primary Care Provider [phone] Reason for Visit * Reason Onset Date Comments Hospital Follow-Up [facility] d/c symp tomatic anemia and COPD exacerbation. Hospital Follow-Up 01/28/2024 Encounter Details Date Type Department Care Team (Latest Contact Info) Description 01/28/2024 11:50 AM EDT Office Visit Family Medicine [address] [phone] Yumiko Goldstein [address] [place] [id number] Hospital discharge follow-up*; Iron deficiency anemia due to chronic blood loss; Irregular heart rate; Hypoxemia; COPD, group B, by GOLD 2017 classification ([facility]) Allergies Active Allergy Reactions Criticality Noted Date Comments Other - Environmental 09/27/2008 Band aids documented as of this encounter (statuses as of 01/28/2024) Medications Medication Sig Dispensed Refills Start Date [...] THE MORNING 100 Tablet 1 4 Active oxygen IN GAS Administer 2 L/min(Oxygen) into nostril at bedtime. 4 Active Ipratropium-Albuter ol 0.5-2.5 (3) MG/3ML Inhalation Solution (Duoneb)Indications :Moderate persistent asthma without complication USE 1 VIAL IN NEBULIZER TWICE DAILY, MAY INCREASE TO 1 VIAL EVERY 4 HOURS NEEDED FOR WORSENING COUGH, WHEEZING OR SHORTNESS OF BREATHE 1080 mL 4 Active Gabapentin 100 MG Oral Capsule (Neurontin)Indicati ons:Lumbar radicular pain One in morning, one in afternoon and 2 at bedtime 270 Capsule 1 4 Active Fluticasone-Umeclid in-Vilant 100-62.5-25 MCG/ACT Aerosol Powder Breath Activated (Trelegy Ellipta)Indications :COPD, group B, by GOLD 2017 classification ([facility]) Inhale 1 Puff by mouth in the morning. 180 Blister Dosing Unit 1 4 Active Levothyroxine Sodium 137 MCG Oral Tablet (Synthroid)Indicati ons:Acquired hypothyroidism TAKE ONE TABLET BY MOUTH IN THE MORNING 30 MIN BEFORE BREAKFAST OR OTHER MEDS 100 Tablet 1 4 Active Metoprolol Tartrate [...] HFA 108 (90 Base) MCG/ACT Inhalation Aerosol SolutionIndications :COPD, group B, by GOLD 2017 classification ([facility]) Inhale 2 Puffs by mouth every 4 hours as needed for Wheezing. 54 g 3 4 Active Vitamin B-12 500 MCG Oral Tablet (vitamin B-12) Take 1 Tablet by mouth in the morning. 4 Active oxygen IN GASIndications:Hypo xemia,COPD, group B, by GOLD 2017 classification ([facility]) Administer 3 L/min(Oxygen) into nostril continuous. 1 Each 4 Active predniSONE 20 MG Oral Tablet (Deltasone)Indicati ons:COPD, group B, by GOLD 2017 classification ([facility]) Take 1 Tablet by mouth in the morning for 5 days. 5 Tablet 4 02/02/20 24 Active Omeprazole 20 MG Oral Capsule Delayed Release (PriLOSEC) Take 1 Capsule by mouth in the morning. 1 hour before the first meal of the day. 30 Capsule 4 Active Aspirin 81 MG Oral Tablet Delayed Release Take 1 Tablet by mouth in the morning. 3 01/28/20 24 Discontinued documented as of this encounter (statuses as of 01/28/2024) Active Problems Problem Noted Date Diagnosed Date [...] as of this encounter (statuses as of 01/28/2024) Resolved Problems Problem Noted Date Diagnosed Date [...] as of this encounter (statuses as of 01/28/2024) Immunizations Name Administration Dates Next Due COVID-19 [...] Sign Reading Time Taken Comments Blood Pressure 152/70 01/28/2024 11:50 AM EDT Pulse 70 01/28/2024 11:50 AM EDT Temperature 36.9 C (98.5 F) 01/28/2024 11:50 AM E DT Respiratory Rate - - Oxygen Saturation 92% 01/28/2024 11:50 AM EDT Inhaled Oxygen Concentration - - Weight 45.2 kg (99 lb 9.6 oz) 01/28/2024 11:50 A M EDT Height - - Body Mass Index 21.55 01/10/2023 3:10 PM EDT documented in this encounter Progress Notes * Yumiko Goldstein DO - 01/28/2024 11:49 AM EDT SUBJECTIVE: Rakan Ortega is a 83 year old female. Chief Complaint Patient presents with Hospital Follow-Up [facility] d/c symptomatic anemia and COPD exacerbation. Hospital Follow-Up Recent Admission: Patient was recently admitted to [facility]. The date of discharge was 01/21/24. Discharge report receivedand reviewed. Admitted with symptomatic anemia and COPD exacerbation. She was given 3 units of PRBCwith subsequent hemoglobin of 12.5. She was also given a short course of prednisone and augmentin. HPI: Rakan Ortega presents today for HD follow up. Energy level felt okay when she saw me in October but she was very tired when she went to the ER. Energy level feels pretty good today. She denies blood in her stool or black tarry stools. She uses 3L of oxygen at home. Has a concentrator that she uses at home but doesn't have anything to use when she goes out. She finished her prednisone and antibiotic. She started with a cold this morning and also has a frontal headache (which she feels might be related to her blood transfusions in the hospital). No fevers, chills. Breathing is not worse than usual. She will see Dr. Diaz back in May 2024. Patient Active Problem List Diagnosis Rosacea Senile [...] the morning and 1 Tablet before bedtime. Atorvastatin Calcium 40 MG Oral Tablet (Lipitor) TAKE ONE TABLET BY MOUTH AT BEDTIME 100 Tablet 1 Lisinopril 20 MG Oral Tablet (Prinivil) TAKE ONE TABLET BY MOUTH IN THE MORNING 100 Tablet 1 oxygen IN GAS Administer 2 L/min(Oxygen) into nostril at bedtime. Ipratropium-Albuterol 0.5-2.5 (3) MG/3ML Inhalation Solution (Duoneb) USE 1 VIAL IN NEBULIZER TWICEDAILY, MAY INCREASE TO 1 VIAL EVERY 4 HOURS NEEDED FOR WORSENING COUGH, WHEEZING OR SHORTNESS OFBREATHE 1080 mL 0 Gabapentin 100 MG Oral Capsule (Neurontin) One in morning, one in afternoon and 2 at bedtime 270 Capsule 1 Umiqrejyfkf-Adwfszfwg-Zpmdqo 100-62.5-25 MCG/ACT Aerosol Powder Breath Activated (Trelegy Ellipta) Inhale 1 Puff by mouth in the morning. 180 Blister Dosing Unit 1 Levothyroxine Sodium 137 MCG Oral Tablet (Synthroid) TAKE ONE TABLET BY MOUTH IN THE MORNING 30 MINBEFORE BREAKFAST OR OTHER MEDS 100 Tablet 1 Metoprolol Tartrate 50 MG Oral Tablet (Lopressor) TAKE 1 TABLET BY MOUTH IN THE MORNING AND AT BEDTIME 200 Tablet 1 traZODone HCl 50 MG Oral Tablet (Desyrel) Take 1 Tablet by mouth at bedtime. 100 Tablet 1 Ventolin HFA 108 (90 Base) MCG/ACT Inhalation Aerosol Solution Inhale 2 Puffs by mouth every 4 hours as needed for Wheezing. 54 g 3 Vitamin B-12 500 MCG Oral Tablet (vitamin B-12) Take 1 Tablet by mouth in the morning. oxygen IN GAS Administer 3 L/min(Oxygen) into nostril continuous. 1 Each 0 predniSONE 20 MG Oral Tablet (Deltasone) Take 1 Tablet by mouth in the morning for 5 days. 5 Tablet0 Acetaminophen 500 MG Oral Tablet Take 1 Tablet by mouth every 8 hours as needed for Pain, Moderate. No current facility-administered medications for this visit. Current and discharge medications have been reconciled. Review of patient's allergies indicates: Allergen Reactions Other - Environmental Band aids OBJECTIVE: BP 152/70 | Pulse 70 | Temp 36.9 C (98.5 F) | Wt 45.2 kg (99 lb 9.6 oz) | SpO2 92% | BMI 21.55 kg/m | BSA 1.35 m Review Of Systems: Skin: (+) rosacea Eyes: negative Ears/Nose/Throat: negative Respiratory: (+) cough, no SOB Cardiovascular: negative Gastrointestinal: negative Genitourinary: negative Musculoskeletal: negative Neurologic: (+) frontal BLANCAS Psychiatric: negative Hematologic/Lymphatic/Immunologic: (+) iron deficiency anemia Endocrine: negative PHYSICAL EXAM: General: pleasant elderly female in NAD Neck: supple, no adenopathy, thyroid normal size, non-tender, without nodularity Heart: irregularly irregular Lungs: chest symmetric with normal AP diameter, no chest deformities noted, normal respiratory rateand rhythm, lungs clear to auscultation, a spontaneous cough is coarse in nature Abdomen: abdomen soft and non-tender Extremities: no joint deformities, effusion, or inflammation, no edema Neuro Exam: alert & oriented x 3 with fluent speech, no focal motor/sensory deficits, gait normal Skin: skin color, texture, turgor are normal, no rashes or significant lesions ASSESSMENT/PLAN Hospital discharge follow-up (Primary) - DISCH MED RECON CUR MED LIS Iron deficiency anemia due to chronic blood loss - check blood counts today. Continue iron, [id number], and folate supplements. If blood counts continue to drop will need to consider GI referral although she is not an ideal candidate for endoscopy given her underlying lung disease. - CBC WITH WBC DIFFERENTIAL AND ANEMIA REFLEX WORKUP; Future; Expected date: 01/28/2024 Irregular heart rate - EKG shows sinus arrhythmia. Will check electrolytes. - EKG; Future; Expected date: 01/28/2024 Hypoxemia - continue supplemental oxygen. Needs portable tanks to use when she leaves the house as her portable concentrator is not working. - oxygen IN GAS; Administer 3 L/min(Oxygen) into nostril continuous. COPD, group B, by GOLD 2017 classification (HCC) - with the start of a "cold" this morning, will give low dose course of prednisone. Continue inhalers, supplemental oxygen, call if symptoms worsen. - oxygen IN GAS; Administer 3 L/min(Oxygen) into nostril continuous. - predniSONE 20 MG Oral Tablet (Deltasone); Take 1 Tablet by mouth in the morning for 5 days. Follow Up: Return for as scheduled. | For: as scheduled | Check-out note: Labs today I spent a total of 40-54 minutes (exact time 41 mins) minutes on the date of service in preparation, delivery, and documentation of the care provided to Rakan Ortega excluding any time spent in performance of separately billed services. Yumiko Goldstein DO documented in this encounter Plan of Treatment Upcoming Encounters Date Type Department Care Team (Late st Contact Info) Description 02/06/2024 2:30 PM EDT Nurse Only Ancillary [address] [place] [address] [place], Nurse [address] [place] [address] 06/08/2024 3:10 PM EST Office Visit Family Medicine [address] [place] [phone] Yumiko Goldstein DO [address] [place] [address] [place] [address] Pending Results Name Type Priority Associated Diagnoses Date /Time CBC WITH WBC DIFFERENTIAL AND ANEMIA REFLEX WORKUP Lab Routine Iron deficiency anemia due to chronic blood loss 01/28/2024 12:42 PM EDT MAGNESIUM Lab Routine Irregular heart rate 01/28/2024 12:42 PM EDT BASIC METABOLIC PANEL Lab Routine Irregular heart rate 01/28/2024 12:42 PM EDT Scheduled Orders Name Type Priority Associated Diagnoses Orde r Schedule CBC WITH WBC DIFFERENTIAL AND ANEMIA REFLEX WORKUP Lab Routine Iron deficiency anemia due to chronic blood loss Expected: 01/28/2024 (Approximate), Expires: 01/27/2025 EKG EKG Routine Irregular heart rate Expected: 01/28/2024 (Approximate), Expires: 02/27/2025 MAGNESIUM Lab Routine Irregular heart rate Expected: 01/28/2024 (Approximate), Expires: 01/27/2025 BASIC METABOLIC PANEL Lab Routine Irregular heart rate Expected: 01/28/2024 (Approximate), Expires: 01/27/2025 Health Maintenance Due Date Last Done Comments Alpha-1 Antitrypsin 08/23/1958 DXA Scan 11/15/2022 11/15/2020, 01/13, 05/25/2014, Additional history exists Zoster Vaccines (2 of 2) 01/28/2023 12/03/2022 COVID-19 Vaccine ( season) 2023 04/18/2023, 04/18/2023, 08/14/2021, Additional history exists *BISPHONATE OR OTHER ACCEPTABLE MEDICATION NEEDED FOR OSTEOPOROSIS (REFER TO SMARTSET #1146) 01/02/2024 Adult Wellness Visit 01/11/2024 01/10/2023, 01/03/2022, 01/02/2021 Albumin/Creatinine Ratio 10/18/2024 022, 11/08/2020, 10/14/2019, Additional history exists TSH 10/23/2024 10/24/2023, 08/0 07/2022, 01/23/2022, Additional history exists GFR 11/16/2024 11/17/2023, 10/12, 11/15/2022, Additional history exists Depression Screening 01/21/2025 01/22/2024 O2 ASSESSMENT COMPLETED IN PAST YEAR FOR COPD 01/27/2025 01/28/2024 DTap/Tdap Vaccines (2 - Td or Tdap) 12/03/2032 12/03/2022, 03/30/2009 VITAMIN D LEVEL ONCE IN A LIFETIME-USE SMARTSET# [id number] Completed 06/29/2012, 03/30/2009 Pneumococcal Vaccine: 65+ Years [...] as of this encounter Visit Diagnoses Diagnosis Hospital discharge follow-up- Primary Other follow-up examination Iron deficiency anemia due to chronic blood loss Iron deficiency anemia secondary to blood loss (chronic) Irregular heart rate Cardiac dysrhythmia, unspecified Hypoxemia COPD, group B, by GOLD 2017 classification ([facility]) documented in this encounter Advance Directives Healthcare Agents on File Name Relationship Healthcare Agent Relationshi p Communication Dick Torressukhi Adult Child Health Care Repr esentative (appointed verbally by patient or by statute hierarchy) Meredith white Adult Child Health Care R epresentative (appointed verbally by patient or by statute hierarchy) Care Teams Internal Medicine Nurse Relationship Specialty Start Date End Date Yumiko Goldstein DO [address] [place] [address] [place] [address] PCP - General Internal Medicine 10/24/23 documented as of this encounter
--- OUTSIDE RECORDS SUMMARY | 2024-02-23 21:15 | External Medical Summary | Summary of Care ---
Author Name Unknown Organization [facility] Address [address] [facility] [place] [address] Phone [phone] Care Team Providers Care Mason Tender Restoration Labor Name Role Phone Yumiko Goldstein DO Primary Care Provider Reason for Visit * Reason Onset Date Comments Forms Request 02/06/2024 Encounter Details Date Type Department Care Team (Late st Contact Info) Description 02/06/2024 Telephone Family Medicine [address] [phone] Yumiko Goldstein [address] [place] [address] Forms Request Allergies Active Allergy Reactions Criticality Noted Date Comments Other - Environmental 09/27/2008 Band aids documented as of this encounter (statuses as of 02/09/2024) Medications Medication Sig Dispensed Refills Start Date [...] COPD, group B, by GOLD 2017 classification ([facility]) Inhale 1 Puff by mouth in the [...] COPD, group B, by GOLD 2017 classification ([facility]) Inhale 2 Puffs by mouth every 4 hours as needed for Wheezing. 54 g 3 01/27/2024 Active Vitamin B-12 500 MCG Oral Tablet (vitamin B-12) Take 1 Tablet by mouth in the morning. 01/21/2024 Active oxygen IN GASIndications:Hypox emia,COPD, group B, by GOLD 2017 classification ([facility]) Administer 3 L/min(Oxygen) into nostril continuous. 1 Each 01/28/2024 Active Omeprazole 20 MG Oral Capsule Delayed Release (PriLOSEC) Take 1 Capsule by mouth in the morning. 1 hour before the first meal of the day. 30 Capsule 01/28/2024 Active documented as of this encounter (statuses as of 02/09/2024) Active Problems Problem Noted Date Diagnosed Date [...] as of this encounter (statuses as of 02/09/2024) Resolved Problems Problem Noted Date Diagnosed Date [...] as of this encounter (statuses as of 02/09/2024) Immunizations Name Administration Dates Next Due COVID-19 [...] 02/09/2024 1:43 PM EDT Libby calling from [employer]. She is following up on a order that she faxed over to PCP office at [phone]. She has not received the order back and was inquiring if the office has received the order. Please advise, I do not see anything scanned into chart or documentation that it has been received. Libby call back number [phone] * Telephone Encounter - Krystal Chilel LPN - 02/06/2024 3:12 PM EDT Libby, Oxygen Specialist calling from [employer]. Verifying Office address and Fax: Patient just purchased a portable oxygen concentrator. She is faxing information to the office for completion. documented in this encounter Plan of Treatment Upcoming Encounters Date Type Department Care Team (Late st Contact Info) Description 03/08/2024 1:45 PM EST Imaging Radiology [address] [place] [address] 06/08/2024 3:10 PM EST Office Visit Family Medicine [address] [place] [phone] Yumiko Goldstein, [address] [place] [address] 02/09/2025 2:30 PM EDT Nurse Only Ancillary [address] [place] [address] [place], Nurse Annual Wellness [address] [place] [address] [place] [address] Health Maintenance Due Date Last Done Comments Alpha-1 Antitrypsin 08/[birth year]/1959 DXA Scan 11/15/2022 11/15/2020, 01/13, 05/25/2014, Additional history exists Zoster Vaccines (2 of 2) 01/28/2023 12/03/2022 COVID-19 Vaccine ( season) 2023 04/18/2023, 08/14/2021, 08/14/2021, Additional history exists *BISPHONATE OR OTHER ACCEPTABLE MEDICATION NEEDED FOR OSTEOPOROSIS (REFER TO SMARTSET #1146) 01/02/2024 Albumin/Creatinine Ratio 10/18/2024 022, 11/08/2020, 10/14/2019, Additional [...] D LEVEL ONCE IN A LIFETIME-USE SMARTSET# 73355 Completed 06/29/2012, 03/30/2009 Pneumococcal Vaccine: 65+ Years [...] Agents on File Name Relationship Healthcare Agent [facility] p Communication Dick will Adult [facility] Health Care Repr esentative (appointed verbally by patient or by statute hierarchy) Meredith middletonkarla Adult Child [facility] Care R epresentative (appointed verbally by patient or by statute hierarchy) Care Teams Mason Tender Restoration Labor Relationship Specialty Start Date End Date Yumiko Goldstein DO [address] [place] [address] [place] [address] PCP - General Internal Medicine 10/24/23 documented as of this encounter
--- OUTSIDE RECORDS SUMMARY | 2024-02-23 21:15 | External Medical Summary | Summary of Care ---
Author Name Unknown Organization [facility] [address] [facility] [address] Phone [phone] Care Team Providers Care Satellite Tv Technician Installer Name Role Phone Yumiko Goldstein DO Primary Care Provider [phone] Reason for Visit * Reason Onset Date Comments Follow Up 02/09/2024 Encounter Details Date Type Department Care Team (Late st Contact Info) Description 02/09/2024 Telephone Family Medicine [address] [place] [phone] Yumiko Goldstein [address] [place] [address] Follow Up Allergies Active Allergy Reactions Criticality Noted Date Comments Other - Environmental 09/27/2008 Band aids documented as of this encounter (statuses as of 02/11/2024) Medications Medication Sig Dispensed Refills Start Date [...] group B, by GOLD 2017 classification ([facility]) Inhale 1 Puff by mouth in the [...] group B, by GOLD 2017 classification ([facility]) Inhale 2 Puffs by mouth every 4 hours as needed for Wheezing. 54 g 3 01/27/2024 Active Vitamin B-12 500 MCG Oral Tablet (vitamin B-12) Take 1 Tablet by mouth in the morning. 01/21/2024 Active oxygen IN GASIndications:Hypox emia,COPD, group B, by GOLD 2017 classification ([facility]) Administer 3 L/min(Oxygen) into nostril continuous. 1 Each 01/28/2024 Active Omeprazole 20 MG Oral Capsule Delayed Release (PriLOSEC) Take 1 Capsule by mouth in the morning. 1 hour before the first meal of the day. 30 Capsule 01/28/2024 Active documented as of this encounter (statuses as of 02/11/2024) Active Problems Problem Noted Date Diagnosed Date [...] as of this encounter (statuses as of 02/11/2024) Resolved Problems Problem Noted Date Diagnosed Date [...] as of this encounter (statuses as of 02/11/2024) Immunizations Name Administration Dates Next Due COVID-19 [...] encounter Miscellaneous Notes * Telephone Encounter - Paola aPrisi RN - 02/11/2024 3:43 PM EDT Spoke to daughter, she states her mom is feeling a little better today h/a not as bad, she has trying to keep her hydrated , no signs of weakness or slurred speech. Ok with advice below. * Telephone Encounter - Lydia Avalos MD - 02/11/2024 10:12 AM EDT PCP out of office. Do not really have any other suggestions beyond having the MRI done and proceeding to the ED if the headache persists or worsens. * Telephone Encounter - Paola Parisi RN - 02/09/2024 3:37 PM EDT Patient daughter called states mom continues to have a h/a since 01/18 physical therapy was at [facility] and she did have a blood transfusion . Patient states h/a does come and go and Tylenol just takes the edge of. Today patient states she is having some restorationist pain and it's a 6/10, patient denies any blurred vision , no speech concerns, no weakness noted. Patient is schedule on 03/08 for a brain MRI for her headache. Patient was scheduled on 02/12 but canceled because she thought she was getting a cold and was afraid of getting a coughing spell. Message sent to provider for advise. I counseled daughter if any above symptoms or pain gets worse she is to take her to the ER. Reason for Call: Follow Up Contact: Telephone Call Contact Type: Assessment Provider In-Basket: Yes Outcome: see note Face to face time spent with Patient (minutes): 0 Total Time including non face to face (minutes): 20 * Telephone Encounter - Paola Parisi RN - 02/09/2024 1:50 PM EDT Daughter Meredith White left a message on my VM on 02/06 that patient headache was worse. Left message for the patient to call the office. documented in this encounter Plan of Treatment Upcoming Encounters Date Type Department Care Team (Late st Contact Info) Description 03/08/2024 1:45 PM EST Imaging Radiology [address] [place] [address] 06/08/2024 3:10 PM EST Office Visit Family Medicine [address] [place] [phone] Yumiko Goldstein, [address] [place] [address] 02/09/2025 2:30 PM EDT Nurse Only Ancillary [address] [place] [address] [place], Nurse Annual Wellness [address] [place] [address] [place] [address] Health Maintenance Due Date Last Done Comments [...] D LEVEL ONCE IN A LIFETIME-USE SMARTSET# [id number] Completed 06/29/2012, 03/30/2009 Pneumococcal Vaccine: 65+ Years [...] patient or by statute hierarchy) Care Teams Satellite Tv Technician Installer Relationship Specialty Start Date End Date Yumiko Goldstein DO [address] [place] [address] [place] [address] PCP - General Internal Medicine 10/24/23 documented as of this encounter
--- OUTSIDE RECORDS SUMMARY | 2024-02-23 21:15 | External Medical Summary ---
Author Name Unknown Address Unknown Organization [id number]:LABORATORY [facility] [place] - [address] [facility] [address] Laboratory Report Ordering Provider Test Date Status ADAN JURADO 01/28/2024 12:42:28 Final Observation Date Value Abnormality Reference (Units ) Status SYNC LEUKOCYTES IN BLOOD BY AUTOMATED COUNT 01/28/2024 12:42:28 10.50 4.00-10.80 (K/uL) Final Segs 01/28/2024 12:42:28 68.7 40.0-75.0 (%) Final Lymphs % 01/28/2024 12:42:28 15.8 Below low normal 18.0-42.0 (%) Final Monos 01/28/2024 12:42:28 12.1 Above high normal 1.0-11.0 (%) Final Eosinophils 01/28/2024 12:42:28 1.1 0.0-6.0 (%) Final Basos 01/28/2024 12:42:28 0.6 0.0-2.0 (%) Final Immature Granulocyte, Percent 01/28/2024 12:42:28 1.7 0.0-2.0 (%) Final Absolute Segs 01/28/2024 12:42:28 7.21 1.80-7.70 (K/uL) Final Lymphs, absolute 01/28/2024 12:42:28 1.66 1.00-4.80 (K/ul) Final Monos, Abs 01/28/2024 12:42:28 1.27 Above high normal 0.00-1.10 (K/uL) Final Eos, Abs 01/28/2024 12:42:28 0.12 0.00-0.70 (K/uL) Final Basos, Abs 01/28/2024 12:42:28 0.06 0.00-0.20 (K/uL) Final Immature Granulocytes, Number 01/28/2024 12:42:28 0.18 0.00-0.20 (K/uL) Final Performing Location LABORATORY [facility] [place] - [facility] [place] [address]
--- OUTSIDE RECORDS SUMMARY | 2024-02-23 21:15 | External Medical Summary ---
Author Name Unknown Address Unknown Organization [id number]:LABORATORY [facility] [place] - [address] [place] [address] Laboratory Report Ordering Provider Test Date Status ADAN JURADO 01/28/2024 12:42:28 Final Observation Date Value Abnormality Reference (Units ) Status Magnesium 01/28/2024 12:42:28 2.1 1.5-2.6 (m g/dL) Final Performing Location LAB[facility]ATORY [facility] - [address] [facility] [address]
--- OUTSIDE RECORDS SUMMARY | 2024-02-23 21:15 | External Medical Summary | Summary of Care ---
Author Name Unknown Organization [facility] Address [address] [place] [address] Phone [phone] Care Team Providers Care Lead Advisor Name Role Phone Yumiko Goldstein Primary Care Provider Reason for Visit * Reason Comments Adult Annual Wellness Visit, Subsequent Visit Encounter Details Date Type Department Care Team (Late st Contact Info) Description 02/06/2024 2:30 PM EDT Nurse Only [facility]illary [facility] [address] [place] [id number] [place], Nurse [address] [place] [id number] Adult Annual Wellness Visit, Subsequent Visit Allergies Active Allergy Reactions Criticality Noted Date Comments Other - Environmental 09/27/2008 Band aids documented as of this encounter (statuses as of 02/06/2024) Medications Medication Sig Dispensed Refills Start Date [...] emia,COPD, group B, by GOLD 2017 classification ([facility]) Administer 3 L/min(Oxygen) into nostril continuous. 1 Each 01/28/2024 Active Omeprazole 20 MG Oral Capsule Delayed Release (PriLOSEC) Take 1 Capsule by mouth in the morning. 1 hour before the first meal of the day. 30 Capsule 01/28/2024 Active documented as of this encounter (statuses as of 02/06/2024) Active Problems Problem Noted Date Diagnosed Date [...] as of this encounter (statuses as of 02/06/2024) Resolved Problems Problem Noted Date Diagnosed Date [...] as of this encounter (statuses as of 02/06/2024) Immunizations Name Administration Dates Next Due COVID-19 [...] Sign Reading Time Taken Comments Blood Pressure 124/60 02/06/2024 2:42 PM EDT Pulse 77 02/06/2024 2:42 PM EDT Temperature 36.6 C (97.9 F) 02/06/2024 2:42 PM ED T Respiratory Rate - - Oxygen Saturation 89% 02/06/2024 2:42 PM EDT Inhaled Oxygen Concentration - - Weight 44.8 kg (98 lb 12.8 oz) 02/06/2024 2:42 P M EDT Height 142.2 cm (4' 8") 02/06/2024 2:42 PM EDT Body Mass Index 22.15 02/06/2024 2:42 PM EDT documented in this encounter Patient Instructions * Patient Instructions* Paola Parisi RN - 02/06/2024 2:41 PM EDT Patient Instructions - Fall Prevention (This education is for all patients over 65 regardless of symptoms) Remember to take your current medications as prescribed. In order to prevent falls, you are encouraged to: Exercise Utilize assistive/adaptive devices Avoid multifocal lenses when walking Avoid hazards in home Maintain a regular toileting schedule Any questions please contact our office. Preventing Falls in the Home (This education is for all patients over 65 regardless of symptoms) As you get older, falls are more likely. Thats because your reaction time slows. Your muscles and joints may also get stiffer, making them less flexible. Illness, medications, and vision changes can also affect your balance. A fall could leave you unable to live on your own. To make your home safer, follow these tips: Floors Put nonskid pads under area rugs Remove throw rugs Replace worn floor coverings Tack carpets firmly to each step on carpeted stairs. Put nonskid strips on the edges of uncarpeted stairs Keep floors and stairs free of clutter and cords Arrange furniture so there are clear pathways Clean up any spills right away Bathrooms Install grab bars in the tub or shower Apply nonskid strips or put a nonskid rubber mat in the tub or shower Sit on a bath chair to bathe Use bathmats with nonskid backing Lighting Keep a flashlight in each room Put a nightlight along the pathway between the bedroom and the bathroom [employer] Patient Education Copyright 2009 - 2010 [employer] except where otherwise noted Preventing Falls: Exercises to Improve Balance, Flexibility, Strength, and Staying Power (This education is for all patients over 65 regardless of symptoms) Certain types of exercises may help make you less likely to fall. Try the ones below. Or do other exercises that your healthcare provider suggests. Depending on your health, you may need to start slowly. Dont let that stop you. Even small amounts of exercise can help you. Be sure to talk to yourhealthcare provider before starting any exercise program. Improve Balance Many types of exercise can help improve balance. Maximiliano chi and yoga are good examples. Heres another one to try. You can do it anytime and almost anywhere. Stand next to a counter or solid support. Push yourself up onto your tiptoes. Hold for 5 seconds. If you start to lose your balance, hold on to the counter. Rest and repeat 5 times. Work up to holding for 20 to 30 seconds, if you can. Increase Flexibility Being more flexible makes it easier for you to move around safely. Try exercises like the seated hamstring stretch. Sit in a chair and put one foot on a stool. Straighten your leg and reach with both hands down either side of your leg. Reach as far down your leg as you can. Hold for about 20 seconds. Go back to the starting position. Then repeat 5 times. Switch legs. Build Strength Resistance exercises help build strength. You can do them without equipment. Or you can use weights, elastic bands, or special machines. One such exercise is called the biceps curl. You can hold a 1 pound weight or even a can of soup. Do this exercise at least 3 times a week. Strive for everyday. Sit up straight in a chair. Keep your elbow close to your body and your wrist straight. Bend your arm, moving your hand up to your shoulder. Then slowly lower your arm. Repeat 5 times. Switch to the other arm. Build Your Staying Power Aerobic exercises make your heart and lungs stronger so you can keep moving longer. Walking and swimming are two of the best types of exercises you can do. Using a stationary bike is great, too. Find an aerobic exercise that you enjoy. Start slowly and build up. Even 5 minutes is helpful. Aimfor a goal of 30 minutes, at least 3 times a week. You dont have to do 30 minutes in one session. Break it up and walk a little throughout the day. More Helpful Tips Start easy. Slowly work up to doing more. Talk with your healthcare provider about the best exercises for you. Call senior centers or health clubs about exercise programs. If needed, have a family member watch you walk every so often to check your stability. Exercise with a friend. Choose an activity you both enjoy. Try exercises that you can do anytime, anywhere. Here are two examples. Have someone with you when you first try these: Practice walking by placing one foot right in front of the other. Stand up and sit down 10 times. Repeat this throughout the day. [employer] Patient Education Copyright 2008 [employer] except where otherwise noted. Preventing Falls: Moving Safely Using a Cane or Walker (This education is for all patients over 65 regardless of symptoms) Keep the cane away from your feet so you dont trip. A walking aid, such as a cane or walker, can help you stay more independent and avoid falls. Remember to keep your walking aid within easy reach when youre in a chair or in bed. And learn how to use it safely so you dont injure yourself. Using a Cane If you have a stronger side, hold the cane on that side. Get your balance. Move the cane and your weaker leg forward. Support your weight on both the cane and your weaker side. Step with your stronger leg. Start again from step 1. If youre using a folding walker, be sure you know how to lock it open. Check that its locked open before each use. Using a Walker Roll the walker (or lift it, if youre using one without wheels) forward about 12 inches. Step forward with your weaker leg first. Use the walker to help keep your balance. Bring your other foot forward to the center of the walker. Start again from step 1. Helpful Tips Check with your healthcare provider about the right walking aid to use. Ask about a walker with a seat attached. Check the tips of your cane or walker to make sure they have nonskid covers. Move slowly from room to room. Dont taylor. Sit down to get dressed. Use a delmy pack or backpack to keep your hands free. Get help for jobs that mean climbing, even on a stepstool. [employer] Patient Education Copyright 2008 - 2010 [employer] except where otherwise noted. Urinary Incontinence Plan of Care Documentation: (This education is for all patients over 65 regardless of symptoms) Current medications reconciled. Patient encouraged to: Practice kegal exercises Provide education materials Use the restroom every 2 hours throughout the day Limit caffeine, alcohol, spicy foods and acidic foods Keep a bladder diary Limit fluid intake 3-4 hours before bed Lose weight Prevent constipation Take fluid pills at a time when you can get to the bathroom quickly Control sugar better if diabetic Limit fluid intake to 60 oz. per day Wear support stockings (TEDs)if you have edema Paola Parisi RN 02/06/2024 Kegel Exercises Kegel exercises dont require special clothing or equipment. Theyre easy to learn and simple to do. And if you do them right, no one can tell youre doing them, so they can be done almost anywhere. Your doctor, nurse, or physical therapist can answer any questions you have and help you get started. A Weak Pelvic Floor The pelvic floor muscles may weaken due to aging, and vaginal childbirth, injury, surgery, chronic cough, or lack of exercise. If the pelvic floor is weak, your bladder and other pelvic organs may sag out of place. The urethra may also open too easily and allow urine to leak out. Kegel exercises can help you strengthen your pelvic floor muscles so they can better support the pelvic organs and control urine flow. How Kegel Exercises Are Done Try each of the Kegel exercises described below. When youre doing them, try not to move your leg, buttock, or stomach muscles. While youre urinating, try to stop the flow of urine. Start and stop it as often as you can. Contract as if you were stopping your urine stream, but do it when youre not urinating. Tighten your rectum as if trying not to pass gas. Contract your anus, but dont move your buttocks. Helpful Hints Do your Kegels as often as you can. The more you do them, the faster youll feel the results. Pick an activity you do often as a reminder. For instance, do your Kegels every time you sit down. Tighten your pelvic floor before you sneeze, get up from a chair, cough, laugh, or lift. This protects your pelvic floor from injury and can help prevent urine leakage. Try to hold each Kegel for a slow count to five. You probably wont be able to hold them for thatlong at first, but keep practicing. It will get easier as your pelvic floor gets stronger. Eventually, special weights that you place in your vagina may be recommended to help make your Kegels even more effective. [employer]ats[employer] Patient Education Copyright 2009 - 2010 [employer] except where otherwise noted. Here are some helpful tips for your urinary incontinence: (This education is for all patients over 65 regardless of symptoms) Practice Kegel exercises Use the restroom every 2 hours throughout the day Limit caffeine, alcohol, spicy foods, and acidic foods Keep a bladder diary Limit fluid intake 3-4 hours before bed Lose weight Prevent constipation Take fluid pills at a time when can get to the bathroom quickly Control sugar better if diabetic Limit fluid intake to 60 oz. per day Any questions, please feel free to contact our office. Hi Ms. Ortega, As your primary care physician, I know that regular visits with my patients who have several chronic conditions can go a long way in helping you stay healthy. Many times, the clinic team and I are in touch with you and/or other care team members between office visits to adjust medications, discuss any changes in your health, and review our care plan to make sure it is still meeting your needs. I am dedicated to helping you take a more active role in your overall care. It is important that there are resources available to you, so I created a personalized plan of care with a Health Calendar for you, which is included on the next page of this letter. Below is a list that summarizes your electronic health record: Health Maintenance Due: Health Maintenance Due Topic Date Due Alpha-1 Antitrypsin Never done DXA Scan 11/15/2022 Zoster Vaccines (2 of 2) 01/28/2023 COVID-19 Vaccine ( season) 2023 *BISPHONATE OR OTHER ACCEPTABLE MEDICATION NEEDED FOR OSTEOPOROSIS (REFER TO SMARTSET #1146) Never done Current Medication List: (as of Visit date not found (in office), Visit date not found (telemedicine) ) Current Outpatient Medications Medication Sig Dispense Refill [...] 8 hours as needed for Pain, Moderate. Atorvastatin Calcium 40 MG Oral Tablet (Lipitor) TAKE ONE TABLET BY MOUTH AT BEDTIME 100 Tablet1 Lisinopril 20 MG Oral Tablet (Prinivil) TAKE ONE TABLET BY MOUTH IN THE MORNING 100 Tablet 1 oxygen IN GAS Administer 3 L/min(Oxygen) into nostril at bedtime. Ipratropium-Albuterol 0.5-2.5 (3) MG/3ML Inhalation Solution (Duoneb) USE 1 VIAL IN NEBULIZER TWICE DAILY, MAY INCREASE TO 1 VIAL EVERY 4 HOURS NEEDED FOR WORSENING COUGH, WHEEZING OR SHORTNESS OF BREATHE 1080 mL 0 Gabapentin 100 MG Oral Capsule (Neurontin) One in morning, one in afternoon and 2 at bedtime 270 Capsule 1 Vqksxijxrnj-Epgqfrevh-Qjwpqu 100-62.5-25 MCG/ACT Aerosol Powder Breath Activated (Trelegy Ellipta) Inhale 1 Puff by mouth in the morning. 180 Blister Dosing Unit 1 Levothyroxine Sodium 137 MCG Oral Tablet (Synthroid) TAKE ONE TABLET BY MOUTH IN THE MORNING 30MIN BEFORE BREAKFAST OR OTHER MEDS 100 Tablet [...] 1 Tablet by mouth in the morning. Omeprazole 20 MG Oral Capsule Delayed Release (PriLOSEC) Take 1 Capsule by mouth in the morning. 1 hour before the first meal of the day. 30 Capsule 0 oxygen IN GAS Administer 3 L/min(Oxygen) into nostril continuous. 1 Each 0 No current facility-administered medications for this visit. Current List of Allergies: (as of Visit date not found (in office), Visit date not found (telemedicine) ) Review of patient's allergies indicates: Allergen Reactions Other - Environmental Band aids Most Recent Lab Results: Results for orders placed or performed in visit on 01/28/24 MAGNESIUM Result Value Ref Range Magnesium 2.1 1.5 - 2.6 mg/dL BASIC METABOLIC PANEL Result Value Ref Range BUN 16 6 - 20 mg/dL CREATININE 0.8 0.5 - 1.0 mg/dL EGFR 71 >=60 mL/min SODIUM 142 135 - 146 mmol/L POTASSIUM 4.1 3.5 - 5.1 mmol/L CHLORIDE 99 98 - 107 mmol/L CO2 35 (H) 22 - 32 mmol/L ANION GAP 8 7 - 15 mmol/L GLUCOSE 87 70 - 120 mg/dL CALCIUM 10.1 8.4 - 10.2 mg/dL ANEMIA CBC Result Value Ref Range WBC 10.50 4.00 - 10.80 K/uL RBC 4.60 3.85 - 5.15 M/uL HGB 13.6 12.0 - 15.3 g/dL HCT 41.8 36.0 - 45.2 % MCV 90.9 81.5 - 97.5 fL MCH 29.6 27.0 - 34.0 pg MCHC 32.5 32.0 - 36.0 g/dL RDW 26.1 11.5 - 15.5 % PLT 246 140 - 400 K/uL MPV 10.1 6.6 - 11.1 fL nRBCs 0 <=0 /100 WBCs DIFFERENTIAL, AUTOMATED Result Value Ref Range WBC 10.50 4.00 - 10.80 K/uL Neutrophils % 68.7 40.0 - 75.0 % Lymphocytes % 15.8 (L) 18.0 - 42.0 % Monocytes % 12.1 (H) 1.0 - 11.0 % Eosinophils % 1.1 0.0 - 6.0 % Basophils % 0.6 0.0 - 2.0 % Immature Granulocytes % 1.7 0.0 - 2.0 % Absolute Neutrophils 7.21 1.80 - 7.70 K/uL Absolute Lymphocytes 1.66 1.00 - 4.80 K/ul Absolute Monocytes 1.27 (H) 0.00 - 1.10 K/uL Absolute Eosinophils 0.12 0.00 - 0.70 K/uL Absolute Basophils 0.06 0.00 - 0.20 K/uL Absolute Immature Granulocytes 0.18 0.00 - 0.20 K/uL *Note: Due to a large number of results and/or encounters for the requested time period, some results have not been displayed. A complete set of results can be found in Results Review. Sincerely, Yumiko Goldstein, 02/06/2024 [employer] Calendar (as of Visit date not found (in office), Visit date not found (telemedicine) ) Care needs Care needs Last completed Due next Alpha-1 Antitrypsin --- Never done Bone Density 11/15/2020 11/15/2022 Zoster (Shingles) Vaccine (2 of 2) 12/03/2022 01/28/2023 COVID-19 Vaccine ( season) 2023 12/14/2023 Discuss medication for ostoporosis --- Never done Urine albumin/creatinine test 10/18/2021 10/18/2024 Yearly thyroid level check 10/24/2023 10/23/2024 Kidney Function Test 01/28/2024 01/27/2025 Yearly COPD oxygen test 02/06/2024 02/05/2025 Adult Wellness Visit 02/06/2024 02/05/2025 Diphtheria, tetanus & pertussis vaccines (2 - Td or Tdap) 12/03/2022 12/03/2032 As you look over the recommended services, be sure to check with your insurance company to determine what's covered. [employer] is a great tool that helps you review your medical record online, including test results, doctor notes and your health summary. You can also schedule appointments with me and other members of your care team, request prescription refills and ask for advice related to your medical conditions at [employer] documented in this encounter Progress Notes * Paola Parisi RN - 02/06/2024 2:49 PM EDT AD8 Dementia Screening Interview Person answering questions: patient Remember, "Yes, a change" indicates that there has been a change in the last several years caused by cognitive (thinking and memory) problems 1. Problems with judgement (eg: problems making decisions, bad financial decisions, problems with thinking). No (0) 2. Less interest in hobbies/activities. No (0) 3. Repeats the same things over and over (questions, stories, or statements). Yes (1) 4. Trouble learning how to use a tool, appliance, or gadget (eg: VCR, computer, microwave, remote control). No (0) 5. Forgets correct month or year. No (0) 6. Trouble handling complicated financial affairs (eg: balancing checkbook, income taxes, paying bills). No (0) 7. Trouble remembering appointments. No (0) 8. Daily problems with thinking and/or memory. No (0) TOTAL AD8: 1 - AD8 Dementia Screening Score The final score is a sum of the number items marked "Yes, A Change". 0 - 1: Normal cognition; 2 or greater: Cognitive impairments is likely to be present - further testing required Adult Annual Wellness Visit: Rakan Ortega is a 83 year old female who presents for an Adult Annual Wellness Visit. Depression Screening: Did the patient complete the screening questionnaire for Depression? Yes Is the patient's total score for Depression 15 or greater? No, no further intervention needed, unless requested by patient. Did the patient answer positively to the suicide question? No, no further intervention needed, unless requested by patient. In general, compared to other people your age, what would you say that your health is? Good Ht Readings from Last 1 Encounters: 02/06/24 1.422 m (4' 8") Wt Readings from Last 1 Encounters: 02/06/24 44.8 kg (98 lb 12.8 oz) Body Mass Index: BMI Less than 30 Body mass index is 22.15 kg/m. BP Readings from Last 1 Encounters: 02/06/24 124/60 Medical/Surgical/Family History Reviewed: Yes Past Medical History: Diagnosis Date Acute exacerbation of chronic obstructive pulmonary disease (COPD) (HCC) 02/21/2015 [facility] ASTHMA, MODERATE PERSISTANT Benign neoplasm of carotid [...] acquired hypothyroidism 04/24/2010 Pancreatitis, gallstone 03/10/2012 admitted [facility] Postmenopausal atrophic vaginitis Retinal tear 10/05/2008 left large retinal tear superiorly with small cuff of fluid , photocoagulatied Rosacea Senile osteoporosis Past Surgical History: Procedure Laterality Date BUNION CORRECTED WITH DOUBLE OSTEOTOMY left foot with hammertoe correction COLONOSCOPY, DIAGNOSTIC (RECTUM) 09/20/2013 TVA polyp, diverticulosis, repeat later this yr/COLONOSCOPY FLEXIBLE PROXIMAL DIAGNOSTIC performed by Romero Braswell MD at ENDOSCOPY [facility] COLONOSCOPY, DIAGNOSTIC (RECTUM) 06/23/2014 5 mm polyp transverse colon, diverticulosis/COLONOSCOPY FLEXIBLE PROXIMAL DIAGNOSTIC performed by Romero Braswell MD at ENDOSCOPY [facility] CT HEAD/BRAIN 03/08/2012 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 REMOVAL OF APPENDIX REMOVAL OF OVARY/OVIDUCT(S) 29 yo bleeding REMOVE GALLBLADDER 03/10/2012 Laprascopic Cholecystectomy with intraoperative cholanglogram Dr Wellington [facility] 03/10/12 REMOVE TONSILS & ADENOIDS, UNDER 12 [...] cholethiasis with borderline thickening of GB wall Family History Problem Relation Name Age of Onset Esophageal cancer Father Heart Disorder Father DE Heart Disorder Other [place] age 50's Diabetes Brother Asthma Brother Allergies Mother food allergies, hives Asthma Mother Allergies Sister food allergies, hives Has patient ever had cancer? No Social History Tobacco Use Smoking status: Former Current packs/day: 0.00 Average packs/day: 0.5 packs/day for 30.0 years (15.0 ttl pk-yrs) Types: Cigarettes Start date: 04/14/1960 Quit date: 04/14/1990 Years since quittin.8 Smokeless tobacco: Never Tobacco comments: no passive smoke currently Substance Use Topics Alcohol use: Yes Comment: rare wine or beer Vaping/E-Cigarette Use Vaping/E-Cigarette Use Never User Vaping/E-Cigarette Substances Vaping/E-Cigarette Devices Tobacco/Alcohol screening completed today? Yes Hospital Care: Admissions (within the last year): Hospital, Location: [facility] ER within 30 days: No Does the patient have an Advance Directives/Living Will? Yes Last Physical Exam: Last physical exam: 01.28.24 Does patient see primary provider regularly? Yes Does patient see other providers? Yes, Specialist Patient Care Team updated? Yes Review of patient's allergies indicates: Allergen Reactions Other - Environmental Band aids Immunization History Administered Date(s) Administered COVID-19 mRNA, LNP-s, No Preserve, 2-Dose Series (Moderna) 06/21/2020, 07/12/2020 COVID-19 mRNA, LNP-s, No Preserve, 2-Dose Series (Pfizer) 06/21/2020, 07/12/2020, 01/24/2021, 08/14/2021 COVID-19, LNP-s, No Preserve, Kenneth-sucrose, Ages 12+ (Pfizer) 08/14/2021 COVID-19, MRNA-LNP, 23-24, PF, 50 MCG/0.5 mL, 12 YRS AND ABOVE, IM (MODERNA- Spikevax) 04/18/2023 Influenza, Whole Virus 04/28/2000 Pneumococcal Conjugate Vacc, 13 Valent (Prevnar) 10/11/2014 Pneumococcal Polysaccharide PPV23 (Pneumovax) 05/07/2007 RSV Vac., Recomb, Adjuvant, PF,0.5 Ml (Arexvy) 04/18/2023 Season Influenza, Quad, PF, Adjuvanted, 65+ Yrs, IM (FLUAD) 12/16/2019 Seasonal Influenza Vac., MDV, IM, 0.5 mL (Fluzone) 02/22/2003, 02/21/2005, 02/13/2006, 02/03/2007, 02/16/2008, 02/02/2009, 01/30/2010, 01/08/2011, 12/28/2011, 01/14/2013, 12/23/2013, 02/13/2016 Seasonal Influenza Virus Vaccine, Unspecified Formulation 01/24/1998, 04/28/2000, 02/22/2003, 02/21/2005, 02/13/2006, 02/03/2007, 02/16/2008, 02/02/2009, 01/30/2010, 01/08/2011, 12/28/2011, 01/14/2013, 12/23/2013, 02/13/2016, 12/30/2016, 01/20/2018, 12/17/2018, 12/30/2018, 01/12/2019, 12/16/2019, 01/02/2021, 01/03/2022, 02/03/2023 Seasonal Influenza, High Dose, Trivalent, PF, IM (Fluzone HD) 12/17/2018, 01/19/2024 Seasonal Influenza, PF, 6 M & above, IM , (FluLaval or Fluzone) 01/20/2018, 01/12/2019 Seasonal Influenza, Quadrivalent Hd (Fluzone Hd) 01/02/2021, 01/03/2022, 02/03/2023 Seasonal Influenza, Quadrivalent Hd, 65+ Yrs 12/16/2019 Seasonal Influenza, Quadrivalent, No Preserve, IM 01/31/2015, 12/30/2016 TD, Preservative Free 03/30/2009 TDAP (age 10 and older)(Boostrix) 12/03/2022 Zoster Vaccine Recombinant (Shingrix) 12/03/2022 Current Outpatient Medications Medication Sig Dispense Refill [...] 8 hours as needed for Pain, Moderate. Atorvastatin Calcium 40 MG Oral Tablet (Lipitor) TAKE ONE TABLET BY MOUTH AT BEDTIME 100 Tablet 1 Lisinopril 20 MG Oral Tablet (Prinivil) TAKE ONE TABLET BY MOUTH IN THE MORNING 100 Tablet 1 oxygen IN GAS Administer 3 L/min(Oxygen) into nostril at bedtime. Ipratropium-Albuterol 0.5-2.5 (3) MG/3ML Inhalation Solution (Duoneb) USE 1 VIAL IN NEBULIZER TWICEDAILY, MAY INCREASE TO 1 VIAL EVERY 4 HOURS NEEDED FOR WORSENING COUGH, WHEEZING OR SHORTNESS OFBREATHE 1080 mL 0 Gabapentin 100 MG Oral Capsule (Neurontin) One in morning, one in afternoon and 2 at bedtime 270 Capsule 1 [id number]-Gsrdnubvw-[id number] 100-62.5-25 MCG/ACT Aerosol Powder Breath Activated (Trelegy [...] 1 Tablet by mouth in the morning. Omeprazole 20 MG Oral Capsule Delayed Release (PriLOSEC) Take 1 Capsule by mouth in the morning. 1 hour before the first meal of the day. 30 Capsule 0 oxygen IN GAS Administer 3 L/min(Oxygen) into nostril continuous. 1 Each 0 No current facility-administered medications for this visit. 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 Yes Patient takes medications as prescribed? Yes Patient manages own medications: Yes Patient uses a pill box? Yes, refill(s) completed by self Dental Exam: full dentures Eye Screening: Yes: Every n Are you having trouble with hearing? No Do you use an assistive device to help your hearing? No Exercise Screening: does not exercise regularly, upper [place] Nutrition Assessment: patient does eat small meals a day Pain Screening: Are you having any pain? Yes. Pain Scale: right head Sleep Screening Tool 'STOP': Do you snore? No Do you feel fatigued during the day? No Do you wake up feeling like you haven't slept? No Have you been told you stop breathing at night? No Do you gasp for air or choke while sleeping? No Have you been told you have Sleep Apnea? No Do you have high blood pressure or are on medication(s) to control high blood pressure? Yes SCORE: If you check YES to two or more questions, make a referral for Obstructive Sleep Apnea Patient declined Patient and Caregiver Support System: Patient lives with children, colt encarnacion Means of Transportation: Friend transports Patient lives in [facility] Community Resources: Not Applicable Functional Status and ADL Skills: Has patient ever had an amputation? No Functional Assessment: 90- Able to carry on normal activity, minor symptoms of disease Ambulation: Patient ambulates without assistive device. Cane Dressing: Gets clothes and dresses without any assistance: Independent Able to move freely in chair or bed including turning over: Independent Repositioning (bed or chair): Hospital Bed Transfers: Independent Toileting: Goes to bathroom, uses toilet, arranges clothes and returns without any assistance: Independent Toileting: continent of bladder and continent of bowel Feeding: Self Bathing: Assist; walk in shower and shower chair, Requires minimal assistance with ADLs. Instrumental ADL's: Shopping: Minimal Assistance Housekeeping: Minimal Assistance Handling Finances: Independent DME Vendor Name: Not Applicable Fall Risk Assessment: Can the patient demonstrate that she can stand from a sitting position? Yes Has the patient had a fall within the last 6 months? No Does the patient have a problem with her gait or balance? Yes Does the patient take 4 or more prescription medicines? Yes Does the patient use sedatives or narcotics? No Fall Risk Factors Present: Uses more than 4 medications Balance or gait disturbances Lower extremity weakness Visually impaired Older than age 70 Bww-Zs-zzo-Go Test: Time began at 300. Patient stood from sitting position and walked approximately 10 feet, returned and sat down. Total time for fln-gs-hty-go test was 12 seconds. Ovn-Ri-mnn-Go Test completed? Yes Gender Specific Preventative Plan: Health Maintenance Topic Date Due Alpha-1 Antitrypsin Never done DXA Scan 11/15/2022 Zoster Vaccines (2 of 2) 01/28/2023 COVID-19 Vaccine ( season) 2023 *BISPHONATE OR OTHER ACCEPTABLE MEDICATION NEEDED FOR OSTEOPOROSIS (REFER TO SMARTSET #1146) Never done Albumin/Creatinine Ratio 10/18/2024 TSH 10/23/2024 GFR 01/27/2025 Depression Screening 02/05/2025 O2 ASSESSMENT COMPLETED IN PAST YEAR FOR COPD 02/05/2025 Adult Wellness Visit 02/05/2025 DTap/Tdap Vaccines (2 - Td or Tdap) 12/03/2032 VITAMIN D LEVEL ONCE IN A LIFETIME-USE SMARTSET# 71780 Completed Influenza Vaccine (FLU shot) Completed Pneumococcal Vaccine: 65+ Years Completed Hepatitis B Vaccine Aged Out MENINGOCOCCAL (MENACTRA/MENVEO) Aged Out HPV (Gardasil) Vaccine Aged Out Follow Up/ Referrals/Handouts: Depression screening - completed Functional assessment - doing well, lives with son Falls Risk screening - discussed patient did fall and fx femur 12/04 Exercise screening -encouraged importance of staying active but being safe Nutrition assessment -. Education Provided and Handouts Provided Pain screening - discussed slight headache on right side of forehead Patient has been verbally educated on the need or importance of Cholesterol, Dexa Scan, GFR, Glucose, Hemoglobin A1c, COVID, Flu Vaccine, and Shingles Vaccine HGB. Flu vaccine completed and will be getting her 2nd shingles Patient will be scheduling her MRI at check out and she is interested in prescription to help her calm down for imaging. See other TE. Pt has completed the covid vaccines: Yes, Routine general medical examination at a health care facility (Primary) Risk and functional assessment Acquired hypothyroidism - Med reconciliation completed and compliance discussed. - pt to continue present medications. COPD, group B, by GOLD 2017 classification ([facility]) - Med reconciliation completed and compliance discussed. - pt to continue present medications. Gastroesophageal reflux disease without esophagitis - Med reconciliation completed and compliance discussed. - pt to continue present medications. Hyperlipidemia with target LDL less than 100 - Med reconciliation completed and compliance discussed. - pt to continue present medications. Lab Results Component Value Date/Time LDL CHOLESTEROL (CALCULATED) - [facility] 90 10/18/2021 01:55 PM LDL CHOLESTEROL (CALCULATED) - [facility] UNINTERPRETABLE RESULT 10/08/2018 01:26 PM LDL CHOLESTEROL (DIRECT MEASURE) - [facility] 93 04/30/2023 03:57 PM LDL CHOLESTEROL (DIRECT MEASURE) - [facility] 94 10/14/2019 09:27 AM LDL CHOLESTEROL (DIRECT MEASURE) - [facility] () 06/30/2001 09:08 AM Hypoxemia Patient does wear 3L of oxygen at bedtime and sometimes when she is up and moving around. Primary hypertension - Med reconciliation completed and compliance discussed. - pt to continue present medications. BP Readings from Last 3 Encounters: 02/06/24 124/60 01/28/24 152/70 11/17/23 120/62 Senile osteoporosis - Discussed Healthy lifestyle, importance of exercise - Diet education - Reviewed labs Follow Up: Return in 1 year (on 02/05/2025) for 12 month Subsequent Adult Wellness Visit. | For: 12month Subsequent Adult Wellness Visit | Check-out note: 12 month Subsequent Adult Wellness Visit Would patient like to schedule next AWV visit? Yes Paola Parisi RN documented in this encounter Miscellaneous Notes * ACP (Advance Care Planning) - Paola Parisi RN - 02/06/2024 3:41 PM EDT Advance Care Planning Discussion with: . Patient will check document at home and bring in a copy or upload to [employer]. * Pt Handout (on AVS) - Paola Parisi RN - 02/06/2024 3:15 PM EDT Images from the original note were not included. 65583 Weight Management: Healthy Eating Food is your body?s fuel. You can?t live without it. The levi is to give your body enough nutrients and energy without eating too much. Reading food labels can help you make healthy choices. Also, learn new eating habits to manage your weight. Nutrition labels are being redesigned by the FDA to emphasize the number of calories being consumed as well as the amount of more nutrients. These include added sugars, vitamin D, and potassium. All the values on the label are based on one serving. The serving size is the average portion. Remember to multiply the values on the label by the number of servings you eat. Eat less fat A gram of fat has almost 2.5 times the calories of a gram of protein or carbohydrates. Try to balance your food choices so that only 20% to 35% of your calories comes from total fat. This means an average of 2 to 3 grams of fat for each 100 calories you eat. Eat more fiber High-fiber foods are digested more slowly than low-fiber foods. This helps you feel full longer. Try to get at least 25 grams of fiber each day for a 2000 calorie diet. Foods high in fiber include: Vegetables and fruits Whole-grain or bran breads, pastas, and cereals Legumes (beans) and peas As you start to eat more fiber, be sure to drink plenty of water. It will help keep your digestive system working smoothly. Tips Do's and don'ts include: Eat a variety of foods, not just a few favorites. If you find yourself eating when you?re not hungry, ask yourself why. Many of us eat when we?re bored, stressed, or just to be polite. Listen to your body. If you?re not hungry, get busy doing something else instead of eating. Eat slower, shooting for 20 to 30 minutes for each meal. It takes 20 minutes for your stomach totell your brain that it?s full. Slow eaters tend to eat less and are still satisfied, while fast eaters may tend to over eat. Pay attention to what you eat. Don?t read or watch TV during your meal. If you are already overweight, ask your healthcare provider for a referral to a dietitian who can help you make better choices regarding all types of foods. Last Reviewed Date: 2022 00:00:00 7671-7672 [employer]. All rights reserved. This information is not intended as a substitute for professional medical care. Always follow your healthcare professional's instructions. * Pt Handout (on AVS) - Paola Parisi RN - 02/06/2024 3:15 PM EDT 05881 Preventing Osteoporosis: Meeting Your Calcium Needs Your body needs calcium to build and repair bones. But it can't make calcium on its own. That's whyit's important to eat calcium-rich foods. Some foods are naturally rich in calcium. Others have calcium added (fortified). It's best to get calcium from the foods you eat. But if you can't get enough, you may want to take calcium supplements. To meet your daily calcium needs, try the foods listed below. Note: Calcium levels may vary, depending on brand and size. Dairy Source Calcium (mg) per serving Low-fat yogurt, plain 415 mg/8 oz. Nonfat milk 299 mg/1 cup Low-fat milk (2%) 293 mg/1 cup Belarusian cheese 272 mg/1 oz. Cheddar cheese 307 mg/1.5 oz. Ice cream, vanilla 84 mg/ cup Fish and beans Source Calcium (mg) per serving Sardines, [place], canned in oil, with bones 325 mg/3 oz. [place], pink, canned, with bones 181 mg/3 oz. Soybeans, fresh, boiled 131 mg/ cup White beans, cooked 81 mg/ cup [place] beans, cooked 79 mg/ cup Other sources Source Calcium (mg) per serving Oatmeal, instant, fortified 215 mg/1 cup Tofu, firm, made with calcium sulfate 253 mg/ cup Collards 179 mg/ cup Angolan muffin, whole wheat 175 mg/1 muffin Kale, fresh, cooked 94 mg/1 cup [place] juice, calcium fortified 349 mg/1 cup Daily calcium needs Here are the recommended amounts of calcium for adults. Your daily calcium needs may be different. Ask your healthcare provider how much calcium you need. Adults ages 19 to 50: 1,000 mg per day Women ages 50 to 70: 1,200 mg per day Men ages 50 to 70: 1,000 mg per day Adults ages 71 and older: 1,200 mg per day Last Reviewed Date: 2023 00:00:00 7480-9910 [employer]. All rights reserved. This information is not intended as a substitute for professional medical care. Always follow your healthcare professional's instructions. * Pt Handout (on AVS) - Paola Parisi RN - 02/06/2024 3:15 PM EDT Images from the original note were not included. 20032 5 Steps for Eating Healthier Changing the way you eat can improve your health. It can lower your cholesterol and blood pressure,and help you stay at a healthy weight. Your diet doesn?t have to be bland and boring to be healthy.Just watch your calories and follow these steps: Step 1. Eat fewer unhealthy fats Choose more fish and lean meats instead of fatty cuts of meat. Skip butter and lard, and use less margarine. Replace these with healthier fats, such as olive, canola, or avocado oils. Pass on foods that have palm, coconut, or partially hydrogenated oils. Eat fewer high-fat dairy foods like cheese, ice cream, and whole milk. Get a heart-healthy cookbook and try some new recipes. Step 2. Go light on salt Keep the saltshaker off the table. Limit high-salt ingredients, such as soy sauce, bouillon, and garlic salt. Instead of adding salt when cooking, season your food with herbs, spices, and other flavorings. Try lemon, garlic, onion, vinegar, or salt-free herb seasonings. Limit convenience foods, such as boxed or canned foods and restaurant food. Read food labels and choose lower-sodium options. Buy fresh, frozen, or canned vegetables that don't have added salt. Step 3. Limit sugar Pause before you add sugars to pancakes, cereal, coffee, or tea. This includes white and brown table sugar, syrup, honey, and molasses. Cut your usual amount by half. Swap out sugar-filled soda and other drinks. Buy sugar-free or low-calorie beverages. Remember, water is always the best choice. Try adding lemon juice to water for extra flavor. Read labels and choose foods with less added sugar. Keep in mind that dairy foods and foods withfruit will have some natural sugar. Cut the sugar in recipes by 1/3 to 1/2. Boost the flavor with extracts like almond, vanilla, or orange. Or add spices such as cinnamon or nutmeg. Step 4. Eat more fiber Eat fresh fruits and vegetables every day. Boost your diet with whole grains. Go for oats, whole-grain rice, and bran. Add beans and lentils to your meals. Drink more water to match your fiber increase to help prevent constipation. Step 5. Pay attention to serving sizes Remember that a serving size is a standard measurement. It will let you track the amount of fat,calories, and other nutrients in the food you eat. Read the Nutrition Facts label on packaged foods to learn their serving sizes. Use serving sizes to assess how much food you put on your plate. Pay attention to your portions.How many servings are you eating? Keep in mind that your needs may change if you?re more active or less active, or if you have other factors that change your calorie needs. Use your hand to help you measure serving sizes. For example: o 1 teaspoon: This is about the size of the first joint of your thumb. o 1 tablespoon: This is about the size of the first 2 joints of your thumb. o 1 ounce: This is about what you can fit in your cupped hand. o 2 to 3 ounces: This is about the size of the palm of your hand. o cup: This is also about what you can fit in your cupped hand. o 1 cup: This is about the size of your fist. Last Reviewed Date: 2022 00:00:00 0155-3080 [employer]. All rights reserved. This information is not intended as a substitute for professional medical care. Always follow your healthcare professional's instructions. documented in this encounter Plan of Treatment Upcoming Encounters Date Type Department Care Team (Late st Contact Info) Description 02/13/2024 3:15 PM EDT Imaging Radiology [address] [place] [address] 06/08/2024 3:10 PM EST Office Visit Family Medicine [address] [place] [phone] Yumiko Goldstein, [address] [place] [address] 02/09/2025 2:30 PM EDT Nurse Only Ancillary [address] [place] [address] [place], Nurse [address] [place] [address] Health Maintenance Due Date Last Done Comments [...] D LEVEL ONCE IN A LIFETIME-USE SMARTSET# [id number] Completed 06/29/2012, 03/30/2009 Pneumococcal Vaccine: 65+ Years [...] as of this encounter Visit Diagnoses Diagnosis Routine general medical examination at a health care facility- Primary Risk and functional assessment Screening for unspecified condition Acquired hypothyroidism Unspecified hypothyroidism COPD, group B, by GOLD 2017 classification (HCC) Gastroesophageal reflux disease without esophagitis Esophageal reflux Hyperlipidemia with target LDL less than 100 Other and unspecified hyperlipidemia Hypoxemia Primary hypertension Unspecified essential hypertension Senile osteoporosis documented in this encounter Advance Directives Healthcare Agents on File Name Relationship Healthcare Agent [facility] p Communication Dick Ortega [facility] Health Care Repr esentative (appointed verbally by patient or by statute hierarchy) Meredith mccain [facility] Care R epresentative (appointed verbally by patient or by statute hierarchy) Care Teams Lead Advisor Relationship Specialty Start Date End Date Yumiko Goldstein DO [address] [place] [address] [place] [address] PCP - General Internal Medicine 10/24/23 documented as of this encounter
--- OUTSIDE RECORDS SUMMARY | 2024-02-23 21:15 | External Medical Summary | Summary of Care ---
Author Name Unknown Organization [facility] Address [address] [place] [address] Phone [phone] Care Team Providers Care Journeyman Sheet Metal Worker Name Role Phone Yumiko Goldstein DO Primary Care Provider Reason for Visit * Reason Onset Date Comments Forms Request 02/06/2024 Encounter Details Date Type Department Care Team (Late st Contact Info) Description 02/06/2024 Telephone Family Medicine [address] [phone] Yumiko Goldstein [address] [place] [address] Forms Request Allergies Active Allergy Reactions Criticality [...] group B, by GOLD 2017 classification ([facility]) Inhale 1 Puff by mouth in the [...] group B, by GOLD 2017 classification ([facility]) Inhale 2 Puffs by mouth every 4 hours as needed for Wheezing. 54 g 3 01/27/2024 Active Vitamin B-12 500 MCG Oral Tablet (vitamin B-12) Take 1 Tablet by mouth in the morning. 01/21/2024 Active oxygen IN GASIndications:Hypox emia,COPD, group B, by GOLD 2017 classification ([facility]) Administer 3 L/min(Oxygen) into nostril continuous. 1 [...] need to ship the unit out today, [employer] * Telephone Encounter - Marie Jimenez RN - 02/09/2024 3:52 PM EDT Form is on providers desk, Dr Goldstein is away this week * Telephone Encounter - Krystal Chilel LPN - 02/09/2024 1:43 PM EDT Libby calling from [employer]. She is following up on a order that she faxed over to PCP office at [phone]. She has not received the order back and was inquiring if the office has received the order. Please advise, I do not see anything scanned into chart or documentation that it has been received. Libby call back number [phone] * Telephone Encounter - Krystal Chilel LPN - 02/06/2024 3:12 PM EDT Libby Oxygen Specialist calling from [employer]. Verifying Office address and Fax: Patient just purchased a portable oxygen concentrator. She is faxing information to the office for completion. documented in this encounter Plan of Treatment Upcoming Encounters Date Type Department Care Team (Late st Contact Info) Description 03/08/2024 1:45 PM EST Imaging Radiology [address] [place] [address] 06/08/2024 3:10 PM EST Office Visit Family Medicine [address] [place] [phone] Yumiko Goldstein, [address] [place] [address] 02/09/2025 2:30 PM EDT Nurse Only Ancillary [address] [place] [address] [place], Nurse Annual Wellness [address] [place] [address] [place] [address] Health Maintenance Due Date Last Done Comments [...] D LEVEL ONCE IN A LIFETIME-USE SMARTSET# [id number] Completed 06/29/2012, 03/30/2009 Pneumococcal Vaccine: 65+ Years [...] patient or by statute hierarchy) Care Teams Journeyman Sheet Metal Worker Relationship Specialty Start Date End Date Yumiko Goldstein DO [address] [place] [address] [place] [phone] PCP - General Internal Medicine 10/24/23 documented as of this encounter
--- OUTSIDE RECORDS SUMMARY | 2024-02-23 21:15 | External Medical Summary | Summary of Care ---
Author Name Unknown Organization [facility] [address] [facility] [address] Phone [phone] Care Team Providers Care Supervisor Stitching Department Name Role Phone Yumiko Goldstein DO Primary Care Provider Reason for Visit * Reason Onset Date Comments Order Request 01/23/2024 Encounter Details Date Type Department Care Team (Late st Contact Info) Description 01/23/2024 Telephone Family Medicine [address] [place] [phone] Yumiko Goldstein [address] [place] [address] Order Request Allergies Active Allergy Reactions Criticality Noted Date Comments Other - Environmental 09/27/2008 Band aids documented as of this encounter (statuses as of 01/27/2024) Medications Medication Sig Dispensed Refills Start Date [...] 1 08/17/2023 Active oxygen IN GAS Administer 2 L/min(Oxygen) [...] at bedtime. 100 Tablet 1 01/21/2024 Active documented as of this encounter (statuses as of 01/27/2024) Active Problems Problem Noted Date Diagnosed Date [...] as of this encounter (statuses as of 01/27/2024) Resolved Problems Problem Noted Date Diagnosed Date [...] as of this encounter (statuses as of 01/27/2024) Immunizations Name Administration Dates Next Due COVID-19 [...] Telephone Encounter - Marie Jimenez RN - 01/27/2024 7:36 AM EDT Will discuss at hospital follow up appt tomorrow * Telephone Encounter - Krystina Kebede OSA - 01/23/2024 2:27 PM EDT Patient was in hospital for copd, they had given her portable oxygen tanks back because they did not think she would need them but she does and they would like portable ones to have when they go away, ty documented in this encounter Plan of Treatment Upcoming Encounters Date Type Department Care Team (Late st Contact Info) Description 01/28/2024 11:50 AM EDT Office Visit Family Medicine [address] [phone] Yumiko Goldstein, [address] [place] [address] 02/06/2024 2:30 PM EDT Nurse Only Ancillary [address] [place] [address] [place], Nurse Annual Wellness [address] [place] [address] [place] [address] 06/08/2024 3:10 PM EST Office Visit Family Medicine [address] [place] [phone] Yumiko Goldstein[address] [place] [address] Health Maintenance Due Date Last Done Comments [...] Additional history exists Depression Screening 01/21/2025 01/22/2024 DTap/Tdap Vaccines (2 - Td or Tdap) 12/03/2032 12/03/2022, 03/30/2009 VITAMIN D LEVEL ONCE IN A LIFETIME-USE SMARTSET# [id number] Completed 06/29/2012, 03/30/2009 Pneumococcal Vaccine: 65+ Years [...] patient or by statute hierarchy) Care Teams Supervisor Stitching Department Relationship Specialty Start Date End Date Yumiko Goldstein DO [address] [place] [address] [place] [address] PCP - General Internal Medicine 10/24/23 documented as of this encounter
--- OUTSIDE RECORDS SUMMARY | 2024-02-23 21:15 | External Medical Summary | Summary of Care ---
Author Name Unknown Organization [facility] Address [address] [facility] [address] Phone [phone] Care Team Providers Care Child Protective Investigator Name Role Phone Yumiko Goldstein DO Primary Care Provider Reason for Visit * Reason Onset Date Comments Order Request 01/23/2024 Encounter Details Date Type Department Care Team (Late st Contact Info) Description 01/23/2024 Telephone Family Medicine [address] [place] [phone] Yumiko Goldstein [address] [place] [address] Order Request Allergies Active Allergy Reactions Criticality [...] Seasonal Influenza Virus Vac cine, Unspecified Formulation 02/03/2023,01/03/2022,01/02/2021,06/2019,01/12/2019,12/30/2018,12/18/19 19,01/20/2018,12/30/2016,02/13/2016,0 12/23/2013,01/14/2013,12/28/2011,01/08,01/30/2010,02/02/2009, 8,02/03/2007,02/13/2006,02/21/2005,,04/28/2000,01/24/1998 Seasonal Influenza, High Dos [...] encounter Miscellaneous Notes * Telephone Encounter - Aurea Wilder OSA - 01/27/2024 11:24 AM EDT Patient has been notified of the message. Patient has no further questions. * Telephone Encounter - Marie Jimenez RN [...] Description 01/28/2024 11:50 AM EDT Office Visit [address] [place] [phone] [address] [place] [address] 02/06/2024 2:30 PM EDT Nurse Only Ancillary [address] [place] [address] [place], Nurse Annual [address] [place] [address] 06/08/2024 3:10 PM EST Office Visit [address] [place] [phone] Yumiko Goldstein [address] [place] [address] Health Maintenance Due Date Last Done Comments [...] D LEVEL ONCE IN A LIFETIME-USE SMARTSET# [id number] Completed 06/29/2012, 03/30/2009 Pneumococcal Vaccine: 65+ Years [...] Relationship Healthcare Agent [facility] p Communication Dick [facility] Adult Child Health Care Repr esentative (appointed verbally by patient or by statute hierarchy) Meredith white Adult Child Health Care R epresentative (appointed verbally by patient or by statute hierarchy) Care Teams Child Protective Investigator Relationship Specialty Start Date End Date Yumiko Goldstein DO [address] [place] [address] [place] [address] PCP - General Internal Medicine 10/24/23 documented as of this encounter
--- OUTSIDE RECORDS SUMMARY | 2024-02-23 21:15 | External Medical Summary ---
Author Name Unknown Address Unknown Organization [id number]:[facility] - [address] [facility] [address] Laboratory Report Ordering Provider Test Date Status ADAN JURADO 01/28/2024 12:42:28 Final Observation Date Value Abnormality Reference (Units ) Status WBC, Total 01/28/2024 12:42:28 10.50 4.00-10.8 0 (K/uL) Final RBC 01/28/2024 12:42:28 4.60 3.85-5.15 (M/uL) Final Hemoglobin 01/28/2024 12:42:28 13.6 12.0-15.3 (g/dL) Final Anemia reflex testing trigge rs on a HGB < 12.0 for Females and HGB < 13.0 for Males in accordance with the WHO Anemia Guidelines
Anemia reflex testing triggers on a HGB < 12.0 for Females and HGB < 13.0 for Males in accordance with the WHO Anemia Guidelines HCT 01/28/2024 12:42:28 41.8 36.0-45.2 (%) Final MCV 01/28/2024 12:42:28 90.9 81.5-97.5 (fL) Final MCH 01/28/2024 12:42:28 29.6 27.0-34.0 (pg) Final MCHC 01/28/2024 12:42:28 32.5 32.0-36.0 (g/dL) Final RDW 01/28/2024 12:42:28 26.1 11.5-15.5 (%) Final Platelets 01/28/2024 12:42:28 246 140-400 (K /uL) Final MPV 01/28/2024 12:42:28 10.1 6.6-11.1 ( fL) Final Nucleated erythrocytes/100 leukocytes [Ratio] in Blood by Automated count 01/28/2024 12:42:28 0 <=0 (/100 WBCs) Fi community health Performing Location [facility] - [address] [facility] [address]
--- OUTSIDE RECORDS SUMMARY | 2024-02-23 21:15 | External Medical Summary ---
Author Name Unknown Address Unknown Organization K01:[facility] - [facility] [address] [facility] [facility] [address] [facility] [address] Laboratory Report Ordering Provider Test Date Status ADAN JURADO 01/28/2024 12:42:28 Final Observation Date Value Abnormality Reference (Units ) Status BUN 01/28/2024 12:42:28 16 6-20 (mg/dL) Final Creatinine 01/28/2024 12:42:28 0.8 0.5-1.0 (mg/dL) Final Glomerular filtration rate/1.73 sq M.predicted [Volume Rate/Area] in Serum, Plasma or Blood by Creatinine-based formula (CKD-EPI) 01/28/2024 12:42:28 71 >=60 (mL/min) Final eGFR is calculated based on the CKD-EPI 2020 equation. Sodium 01/28/2024 12:42:28 142 135-146 (m mol/L) Final Potassium 01/28/2024 12:42:28 4.1 3.5-5.1 (m mol/L) Final Cl 01/28/2024 12:42:28 99 98-107 (mm ol/L) Final CO2 01/28/2024 12:42:28 35 Above high normal 22 -32 (mmol/L) Final Anion gap 01/28/2024 12:42:28 8 7-15 (mmol /L) Final Glucose 01/28/2024 12:42:28 87 70-120 (mg /dL) Final Calcium 01/28/2024 12:42:28 10.1 8.4-10.2 ( mg/dL) Final Performing Location [facility] - [address] [place] [address]
--- OUTSIDE RECORDS SUMMARY | 2024-02-23 21:15 | External Medical Summary | Summary of Care ---
Author Name Unknown Organization [facility] Address [address] [facility] [address] Phone [phone] Care Team Providers Care Dual Rate Dealer Name Role Phone Yumiko Goldstein Primary Care Provider Reason for Visit * Reason Comments Outpatient Testing Encounter Details Date Type Department Care Team (Late st Contact Info) Description 01/28/2024 12:40 PM EDT Laboratory Laboratory [address] [place] [phone] [facility] [address] [place] [address] Iron deficiency anemia due to chronic blood loss; Irregular heart rate Allergies Active Allergy Reactions Criticality Noted Date [...] COPD, group B, by GOLD 2017 classification ([facility]) Inhale 1 Puff by mouth in [...] COPD, group B, by GOLD 2017 classification ([facility]) Inhale 2 Puffs by mouth every 4 hours as needed for Wheezing. 54 g 3 01/27/2024 Active Vitamin B-12 500 MCG Oral Tablet (vitamin B-12) Take 1 Tablet by mouth in the morning. 01/21/2024 Active oxygen IN GASIndications:Hypox emia,COPD, group B, by GOLD 2017 classification ([facility]) Administer 3 L/min(Oxygen) into nostril continuous. 1 Each 01/28/2024 Active predniSONE 20 MG Oral Tablet (Deltasone)Indicatio ns:COPD, group B, by GOLD 2017 classification ([facility]) Take 1 Tablet by mouth in the morning for 5 days. 5 Tablet 01/28/2024 Active Omeprazole 20 MG Oral Capsule [...] 02/06/2024 2:30 PM EDT Nurse Only Ancillary [address] [place] [address] [place], Nurse Annual [address] [place] [address] 06/08/2024 3:10 PM EST Office Visit Family Medicine [address] [place] [phone] [address] [place] [address] Pending Results Name Type Priority Associated Diagnoses Date /Time CBC WITH WBC DIFFERENTIAL AND ANEMIA REFLEX WORKUP Lab Routine Iron deficiency anemia due to chronic blood loss 01/28/2024 12:42 PM EDT MAGNESIUM Lab Routine Irregular heart rate 01/28/2024 12:42 PM EDT BASIC METABOLIC PANEL Lab Routine Irregular heart rate 01/28/2024 12:42 PM EDT ANEMIA CBC Lab Routine Iron deficiency anemia due to chronic blood loss 01/28/2024 12:42 PM EDT DIFFERENTIAL, AUTOMATED Lab Routine Iron deficiency anemia due to chronic blood loss 01/28/2024 12:42 PM EDT ANEMIA REFLEX CHEMISTRY HOLD Lab Routine Iron deficiency anemia due to chronic blood loss 01/28/2024 12:42 PM EDT Health Maintenance Due Date Last [...] D LEVEL ONCE IN A LIFETIME-USE SMARTSET# [id number] Completed 06/29/2012, 03/30/2009 Pneumococcal Vaccine: 65+ Years [...] as of this encounter Visit Diagnoses Diagnosis Iron deficiency anemia due to chronic blood loss Iron deficiency anemia secondary to blood loss (chronic) Irregular heart rate Cardiac dysrhythmia, unspecified documented in this encounter Advance Directives Healthcare Agents on File Name Relationship Healthcare Agent Relationshi p Communication Dick Ortega Adult Child Health Care Repr esentative (appointed verbally by patient or by statute hierarchy) Meredith white Adult Child Health Care R epresentative (appointed verbally by patient or by statute hierarchy) Care Teams Dual Rate Dealer Relationship Specialty Start Date End Date Yumiko Goldstein DO [address] [place] [address] [place] [address] PCP - General Internal Medicine 10/24/23 documented as of this encounter
--- OUTSIDE RECORDS SUMMARY | 2024-02-23 21:15 | External Medical Summary | Summary of Care ---
Author Name Unknown Organization [facility] [address] [facility] [address] Phone [phone] Care Team Providers Care Roofing Superintendent Name Role Phone Yumiko Goldstein DO Primary Care Provider Reason for Visit * Reason Onset Date Comments Medication Refill 01/19/2024 Encounter Details Date Type Department Care Team (Late st Contact Info) Description 01/19/2024 Refill Family Medicine [address] [place] [phone] Yumiko Goldstein [address] [place] [address] COPD, group B, by GOLD 2017 classification ([facility])* Allergies Active Allergy Reactions Criticality Noted Date [...] L/min(Oxygen) into nostril at bedtime. 12/10/2023 Active Ipratropium-Albuter ol 0.5-2.5 (3) MG/3ML Inhalation Solution (Duoneb)Indications :Moderate persistent asthma without complication USE 1 VIAL IN NEBULIZER TWICE DAILY, MAY INCREASE TO 1 VIAL EVERY 4 HOURS NEEDED FOR WORSENING COUGH, WHEEZING OR SHORTNESS OF BREATHE 1080 mL 01/05/2024 Active Gabapentin 100 MG Oral Capsule (Neurontin)Indicati ons:Lumbar radicular pain One in morning, one in afternoon and 2 at bedtime 270 Capsule 1 01/05/2024 Active Metoprolol Tartrate 50 MG Oral Tablet (Lopressor)Indicati ons:Primary hypertension,Essent ial hypertension with goal blood pressure less than 140/90 TAKE 1 TABLET BY MOUTH IN THE MORNING AND AT BEDTIME 200 Tablet 1 08/17/2023 4 Discontinu ed(Refill) traZODone HCl 50 MG Oral Tablet (Desyrel)Indication s:Primary insomnia Take 1 Tablet by mouth at bedtime. 100 Tablet 1 08/17/2023 4 Discontinu ed(Refill) Levothyroxine Sodium 137 MCG Oral Tablet (Synthroid)Indicati ons:Acquired hypothyroidism TAKE ONE TABLET BY MOUTH IN THE MORNING 30 MIN BEFORE BREAKFAST OR OTHER MEDS 100 Tablet 1 08/19/2023 4 Discontinu ed(Refill) Fluticasone-Umeclid in-Vilant 100-62.5-25 MCG/ACT Aerosol Powder Breath Activated (Trelegy Ellipta)Indications :COPD, group B, by GOLD 2017 classification (HCC) Inhale 1 Puff by mouth in the morning. 180 Blister Dosing Unit 10/24/2023 4 Discontinu ed(Refill) documented as of this encounter (statuses as [...] No 01/22/2024 Does the household have a [facility] source of income? (Household - for ages [...] encounter Miscellaneous Notes * Addendum Note - Ewelina Jimenez RN - 01/27/2024 7:35 AM EDTAddended by: EWELINA JIMENEZ on: 01/27/2024 07:35 AM Modules accepted: Orders * Telephone Encounter - Ewelina Jimenez RN - 01/27/2024 7:35 AM EDT pended * Telephone Encounter - Kirsten Hill PHARM Tech - 01/19/2024 11:47 AM EDT Patient requesting refills for albuterol rescue inhaler. Upon chart review, medication is listed asdiscontinued, with discontinuation reason as "med list clean up". Please advise if you wish to continue this therapy for the patient. Thank you, Kirsten Hill [facility] Natural Resource Manager II [facility] 01/19/2024,11:47 AM documented in this encounter Plan of Treatment Upcoming Encounters Date Type Department Care Team (Late st Contact Info) Description 01/28/2024 11:50 AM EDT Office Visit [address] [place] [phone] Yumiko Goldstein [address] [place] [address] 02/06/2024 2:30 PM EDT Nurse Only Ancillary [address] [place] [address] [place], Nurse [address] [place] [address] 06/08/2024 3:10 PM EST Office Visit [address] [place] [phone] Yumiko Goldstein [address] [place] [address] Health Maintenance Due Date Last Done Comments [...] D LEVEL ONCE IN A LIFETIME-USE SMARTSET# [id number] Completed 06/29/2012, 03/30/2009 Pneumococcal Vaccine: 65+ Years [...] as of this encounter Visit Diagnoses Diagnosis COPD, group B, by GOLD 2017 classification (HCC)- Primary documented in this encounter Advance Directives Healthcare Agents on File Name Relationship Healthcare Agent Relationshi p Communication Dick Ortega Adult Child Health Care Repr esentative (appointed verbally by patient or by statute hierarchy) Meredith white Adult Child Health Care R epresentative (appointed verbally by patient or by statute hierarchy) Care Teams Roofing Superintendent Relationship Specialty Start Date End Date Yumiko Goldstein DO [address] [place] [address] [place] [address] PCP - General Internal Medicine 10/24/23 documented as of this encounter
--- OUTSIDE RECORDS SUMMARY | 2024-02-23 21:16 | External Medical Summary | Summary of Care ---
Author Name Unknown Organization [facility] Address [address] [facility] [address] Phone [phone] Care Team Providers Care Patient Account Liaison Name Role Phone Adrien Arellano DO Primary Care Provider Reason for Visit * Reason Onset Date Comments Medication Refill 01/19/2024 Encounter Details Date Type Department Care Team (Late st Contact Info) Description 01/19/2024 Refill Family Medicine [address] [place] [phone] Adrien Arellano [address] [place] [address] COPD, group B, by GOLD 2017 classification (HCC); Acquired hypothyroidism; Primary hypertension; Essential hypertension with goal blood pressure less than 140/90; Primary insomnia Allergies Active Allergy Reactions Criticality Noted Date Comments Other - Environmental 09/27/2008 Band aids documented as of this encounter (statuses as of 01/21/2024) Medications Medication Sig Dispensed Refills Start Date [...] at bedtime 270 Capsule 1 01/05/2024 Active Fluticasone-Umeclid in-Vilant 100-62.5-25 MCG/ACT Aerosol Powder [...] at bedtime. 100 Tablet 1 01/21/2024 Active Metoprolol Tartrate [...] :COPD, group B, by GOLD 2017 classification ([facility]) Inhale 1 Puff by mouth in the morning. 180 Blister Dosing Unit 10/24/2023 4 Discontinu ed(Refill) documented as of this encounter (statuses as of 01/21/2024) Active Problems Problem Noted Date Diagnosed Date [...] as of this encounter (statuses as of 01/21/2024) Resolved Problems Problem Noted Date Diagnosed Date [...] as of this encounter (statuses as of 01/21/2024) Immunizations Name Administration Dates Next Due COVID-19 [...] encounter Miscellaneous Notes * Telephone Encounter - Kina Scruggs [facility] - 01/21/2024 10:49 AM EDTSigned Prescriptions: Disp Refills Qqjmrtfcjov-Gnjfrbqxk-Cmsenc 100-62.5-25 M*180 Bl*1 Sig: Inhale 1 Puff by mouth in the morning.Authorizing Provider: ADRIEN ARELLANO User: KINA SCRUGGS Levothyroxine Sodium 137 MCG Oral Tablet (*100 Ta*1 Sig: TAKE ONE TABLET BY MOUTH IN THE [id number] MIN BEFORE BREAKFAST OR OTHER MEDSAuthorizing Provider: ADRIEN ARELLANO User: KINA SCRUGGS Metoprolol Tartrate 50 MG Oral Tablet (Lop*200 Ta*1 Sig: TAKE 1 TABLET BY MOUTH IN THE MORNING AND AT BEDTIMEAuthorizing Provider: ADRIEN ARELLANO User: KINA SCRUGGS traZODone HCl 50 MG Oral Tablet (Desyrel) 100 Ta*1 Sig: Take 1 Tablet by mouth at bedtime.Authorizing Makayla dander: ADRIEN ARELLANO User: KINA SCRUGGS * Telephone Encounter - Kirsten Hill PHARM Tech - 01/19/2024 11:42 AM EDT Did you pend patient's preferred pharmacy and medication before forwarding?yes Pharmacy: [facility] Pending Prescriptions: Disp Refills Ipyymcueqja-Xrnbvfykp-Imzuwn 100-62.5-25 *180 Bl*0 Sig: Inhale 1 Puff by mouth in the morning. Levothyroxine Sodium 137 MCG Oral Tablet *100 Ta*1 Sig: TAKE ONE TABLET BY MOUTH IN THE MORNING 30 MIN BEFORE BREAKFAST OR OTHER MEDS Metoprolol Tartrate 50 MG Oral Tablet (Lo*200 Ta*1 Sig: TAKE 1 TABLET BY MOUTH IN THE MORNING AND AT BEDTIME traZODone HCl 50 MG Oral Tablet (Desyrel) 100 Ta*1 Sig: Take 1 Tablet by mouth at bedtime. Last Visit: 10/24/2023 (in office), Visit date not found (telemedicine) Next Visit: 06/08/2024 If no future appointments scheduled, and last appointment is greater than a year ago, please schedule patient for a follow-up appointment Last date the medication was ordered: 10/24/2023,08/19/2023,08/17/2023 Is this request for a controlled substance?No Urine Drug Screen:No results found. However, due to the size of the patient record, not all encounters were searched. Please check Results Review for a complete set of results. Patient Phone Numbers Labs: Lab Results Component Value Date/Time CREAT 1.0 11/17/2023 12:01 PM CREAT 0.8 10/14/2019 09:27 AM POTASSIUM 4.8 11/17/2023 12:01 PM POTASSIUM 4.0 10/14/2019 09:27 AM POTASSIUM 4.5 06/08/1996 10:50 AM TSH 1.09 10/24/2023 04:02 PM TSH 2.83 10/14/2019 09:27 AM TSH 1.84 06/08/1996 10:50 AM LDL 93 04/30/2023 03:57 PM LDL 90 10/18/2021 01:55 PM LDL 94 10/14/2019 09:27 AM LDL UNINTERPRETABLE RESULT 10/08/2018 01:26 PM ALT 9 (L) 10/24/2023 04:02 PM ALT 52 (H) 03/16/2012 02:50 PM HGBA1C 5.7 06/30/2001 09:08 AM documented in this encounter Plan of Treatment Upcoming Encounters Date Type Department Care Team (Late st Contact Info) Description 02/06/2024 2:30 PM EDT Nurse Only Ancillary [address] [place] [address] [place], Nurse Annual [address] [place] [address] 06/08/2024 3:10 PM EST Office Visit Family Medicine [address] [place] [phone] Adrien [address] [place] [address] Health Maintenance Due Date Last Done Comments [...] D LEVEL ONCE IN A LIFETIME-USE SMARTSET# [id number] Completed 06/29/2012, 03/30/2009 Pneumococcal Vaccine: 65+ Years [...] group B, by GOLD 2017 classification (HCC) Acquired hypothyroidism Unspecified hypothyroidism Primary hypertension Unspecified essential hypertension Essential hypertension with goal blood pressure less [...] by statute hierarchy) Care Teams Patient Account Liaison Relationship Specialty Start Date End Date Adrien Arellano DO [address] [place] [address] [place] [phone] PCP - General Internal Medicine 10/24/23 documented as of this encounter
--- OUTSIDE RECORDS SUMMARY | 2024-02-23 21:16 | External Medical Summary | Summary of Care ---
Author Name Unknown Organization [facility] Address [address] [facility] [place] [address] Phone [phone] Care Team Providers Care Bobbin Hauler Name Role Phone Yumiko Goldstein Primary Care Provider Encounter Details Date Type Department Care Team (Late st Contact Info) Description 01/22/2024 Population Health External Data Unspecified Department Allergies Active Allergy Reactions Criticality Noted Date Comments Other - Environmental 09/27/2008 Band aids documented as of this encounter (statuses as of 01/22/2024) Medications Medication Sig Dispensed Refills Start Date [...] as of this encounter (statuses as of 01/22/2024) Active Problems Problem Noted Date Diagnosed Date [...] as of this encounter (statuses as of 01/22/2024) Resolved Problems Problem Noted Date Diagnosed Date [...] into Electronic Medical Record Mixed dyslipidemia 12/02/2002 12 9 Overview: Per Lipid Taxonomy. Other allergic rhinitis 07/15/199706/13 Overview: ICD-10 update of inactive term Asthma with severity to be determined 07/15/1997 05/17/2011 Overview: ICD-10 update of inactive term Hypothyroidism 04/24/2010 Esophageal reflux 05/17/2011 COPD, moderate 01/27/2020 Overview: Per COPD GOLD Classification Postmenopausal atrophic vaginitis 10/24/2023 documented as of this encounter (statuses as of 01/22/2024) Immunizations Name Administration Dates Next Due COVID-19 [...] 11:50 AM EDT Office Visit Family Medicine [address] [place] [phone] Yumiko Goldstein [address] [place] [address] 02/06/2024 2:30 PM EDT Nurse Only Ancillary [address] [place] [address] [place], Nurse Annual [address] [place] [address] 06/08/2024 3:10 PM EST Office Visit Family Medicine [address] [place] [phone] Yumiko Goldstein, [address] [place] [address] Health Maintenance Due Date Last Done Comments [...] 01/23/2022, Additional history exists GFR 11/16/2024 11/17/2023, 0705/2023, 11/15/2022, Additional history exists DTap/Tdap Vaccines (2 - Td or Tdap) 12/03/2032 12/03/2022, 03/30/2009 VITAMIN D LEVEL ONCE IN A LIFETIME-USE SMARTSET# [id number] Completed 06/29/2012, 03/30/2009 Pneumococcal Vaccine: 65+ Years [...] patient or by statute hierarchy) Care Teams Bobbin Hauler Relationship Specialty Start Date End Date Yumiko Goldstein DO [address] [place] [address] [place] [address] PCP - General Internal Medicine 10/24/23 documented as of this encounter
[2024-02-23] MEDS: ALBUT/IPRATROP 3MG/0.5MG NEB 3 ML VIAL NEB SCH (21:23)
[2024-02-23] MEDS: BUDESONIDE 0.5 MG/2 ML VIAL (PULMICORT) INH SCH (21:23)
[2024-02-23] MEDS ORDERED: LORazepam 2 MG/1 ML VIAL IV PRN (21:24)
[2024-02-23] MEDS: CARBAMIDE PEROXIDE 6.5% 15 ML BTL OT SCH (21:45)
[2024-02-23] MEDS: AMPICILLIN/SULBACTAM SOD 3,000 MG/100 ML BAG IV SCH (21:47)
[2024-02-23] MEDS: guaiFENesin 600 MG TABCR PO SCH (22:04)
[2024-02-23] MEDS: METOPROLOL TARTRATE 50 MG TAB PO SCH (22:04)
[2024-02-23] MEDS: CALCIUM 600MG + VIT D 400 IU TAB PO SCH (22:04)
[2024-02-23] MEDS: ATORVASTATIN 40 MG TAB PO SCH (22:05)
[2024-02-23] MEDS: predniSONE 20 MG TAB PO SCH (22:05)
[2024-02-24] MEDS: LEVOTHYROXINE SODIUM 137 MCG TABLET PO SCH (05:28)
--- OUTSIDE RECORDS SUMMARY | 2024-02-24 07:20 | External Medical Summary | Summary of Care ---
Author Name Unknown Organization [facility] Address [address] [place] [address] Phone [phone] Care Team Providers Care Radio Sales Account Executive Name Role Phone Yumiko Goldstein DO Primary Care Provider Reason for Visit * Reason Onset Date Comments Med Request 02/06/2024 I will follow up after ER Encounter Details Date Type Department Care Team (Late st Contact Info) Description 02/06/2024 Telephone Family Medicine [address] [phone] Yumiko Goldstein [address] [place] [address] Med Request (I will follow up after ER) Allergies Active Allergy Reactions Criticality Noted Date Comments Other - Environmental 09/27/2008 Band aids documented as of this encounter (statuses as of 02/23/2024) Medications TUMS 500 MG PO CHEW as [...] 1 01/26/2024 8:52 AM EDT 4 Active Lisinopril 20 MG Oral Tablet [...] s:COPD, group B, by GOLD 2017 classification (HCC) [...] by mouth at bedtime. 100 Tablet 1 02/21/2024 9:09 AM EST 4 Active Ventolin HFA 108 (90 Base) MCG/ACT Inhalation Aerosol SolutionIndication s:COPD, group B, by GOLD 2017 classification ([facility]) Inhale 2 Puffs by mouth every 4 hours as needed for Wheezing. 54 g 3 01/28/2024 6:50 AM EDT 4 Active Vitamin B-12 500 MCG Oral Tablet (vitamin B-12) Take 1 Tablet by mouth in the morning. 4 Active oxygen IN GASIndications:Hyp oxemia,COPD, group B, by GOLD 2017 classification ([facility]) Administer 3 L/min(Oxygen) into nostril continuous. 1 Each 4 Active Omeprazole 20 MG Oral Capsule Delayed Release (PriLOSEC) Take 1 Capsule by mouth in the morning. 1 hour before the first meal of the day. 30 Capsule 4 Active LORazepam 0.5 MG Oral Tablet (Ativan) Take 1 pill by mouth 30 minutes prior to MRI. Do not drive after taking medication. 1 Tablet 4 Active documented as of this encounter (statuses as of 02/23/2024) Active Problems Problem Noted Date Diagnosed Date [...] as of this encounter (statuses as of 02/23/2024) Resolved Problems Problem Noted Date Diagnosed Date [...] as of this encounter (statuses as of 02/23/2024) Immunizations Name Administration Dates Next Due COVID-19 [...] Influenza Virus Vac cine, Unspecified Formulation 02/03/2023,01/03/2022,01/02/2021,12/15,01/12/2019,12/30/2018,12/17/2018 ,01/20/2018,12/30/2016,02/13/2016,12/13,01/14/2013,12/28/2011,,01/30/2010,02/02/2009,02/16/2008,,02/13/2006,02/21/2005,02/23/20 03,04/28/2000 Seasonal Influenza, High Dos e, Trivalent, [...] Date Recorded PHQ Adult Total Score 0 02/06/2024 Hunger Vital Sign Answer Date Recorded Within the past 12 months, y ou worried that your food would run out before you got the money to buy more. Never true 02/06/20 Within the past 12 months, t he [...] encounter Miscellaneous Notes * Telephone Encounter - Yumiko Goldstein DO - 02/23/2024 11:49 AM EST Thanks for the update. ER sounds appropriate. * Telephone Encounter - Paola Parisi RN - 02/23/2024 10:47 AM EST Patient and daughter notified, Patient states h/a was better on 02/19 but now its back again. Patient daughter states that ever since she got the blood transfusion she just hasn't been feeling right. Meredith was wondering if her labs could be low again. Patient denies any SOB or Chest pain, but daughter states she has not energy to do anything. She spoke to her mom this morning and states her head hurts again and "she feels like she is dying" she is not eating much. Meredith states she is goingto take her to the ER, counseled her she should and call us with an update. Message sent to provider to make aware. I will follow up with her after the ER visit. * Telephone Encounter - Yumiko Goldstein DO - 02/23/2024 8:23 AM EST Ativan sent to pharmacy - 1 pill to be taken prior to MRI. She will need to have someone drive her home from the MRI. Notify pt. I have reviewed the patients controlled substance dispensing history in the Prescription Drug Monitoring Program in compliance with the [facility] regulations before prescribing a controlled substance. Last Tox Screen Results: No results found. However, due to the size of the patient record, not all encounters were searched.Please check Results Review for a complete set of results. * Telephone Encounter - Paola Parisi RN - 02/19/2024 4:24 PM EST Patient worried more about the anxiety. * Telephone Encounter - Yumiko Goldstein DO - 02/19/2024 9:37 AM EST Just to clarify - does she want something for anxiety or something for cough/back pain? * Telephone Encounter - Paola Parisi RN - 02/06/2024 3:42 PM EDT Patient seen for annual wellness visit and scheduled an MRI for imaging of her head with these persistent headache , patient was requesting something to help relax her. She said she has difficulty lying on her back flat and is always worried about a coughing spell. Message sent to Dr. Goldstein for advice on medication Patient does use [facility] [address] [place] [address] MRI is scheduled for 03/08/24 Reason for Call: No chief complaint on file. Contact: In Clinic Contact Type: Medication Provider In-Basket: Yes Outcome: see notes Face to face time spent with Patient (minutes): 0 Total Time including non face to face (minutes): 10 documented in this encounter Plan of Treatment Upcoming Encounters Date Type Department Care Team (Late st Contact Info) Description 03/08/2024 1:45 PM EST Imaging Radiology [address] [place] [address] 06/08/2024 3:10 PM EST Office Visit Family Medicine [address] [place] [phone] Yumiko Goldstein, [address] [place] [address] 02/09/2025 2:30 PM EDT Nurse Only Ancillary [address] [place] [address] [place], Nurse Annual Wellness [address] [place] [address] [place] [address] Health Maintenance Due Date Last Done Comments [...] D LEVEL ONCE IN A LIFETIME-USE SMARTSET# [id number] Completed 06/29/2012, 03/30/2009 Pneumococcal Vaccine: 65+ Years [...] patient or by statute hierarchy) Care Teams Radio Sales Account Executive Relationship Specialty Start Date End Date Yumiko Goldstein DO [address] [place] [address] [place] [address] PCP - General Internal Medicine 10/24/23 documented as of this encounter
[2024-02-24 07:55] LABS: Hematocrit (blood only) 41.4 % (37.0-47.0); Hemoglobin 13.2 g/dl (12.0-16.0); Mean Corpuscular Hemoglobin 26.4 pg (25.0-34.0); Mean Corpuscular Hgb Conc 31.9 g/dL (32.0-36.0); Mean Corpuscular Volume 82.8 fL (80.0-100.0); Mean Platelet Volume 9.4 fL (9.4-12.4); Platelet Count 293 K/uL (130-400); RDW Coefficient of Variation 25.6 % (11.5-14.5); White Blood Count 27.04 K/ul (4.8-10.8)
[2024-02-24 08:04] LABS: BUN Creatinine Ratio 20.2 (10-20); Calcium 9.5 mg/dl (8.6-10.3); Creatinine Clr Calc Pharmacy 27.9 ml/min; Potassium 3.9 mmol/L (3.5-5.1)
[2024-02-24] MEDS: ASPIRIN 81 MG ECTAB PO SCH (08:19)
[2024-02-24] MEDS: CHLORTHALIDONE 25 MG TAB PO SCH (08:19)
[2024-02-24] MEDS: lisinopril 20 MG TAB PO SCH (08:21)
[2024-02-24] MEDS: FERROUS SULFATE 325 MG TAB PO SCH (08:21)
[2024-02-24] MEDS: CYANOCOBALAMIN (B-12) 500 MCG TABLET PO SCH (08:21)
[2024-02-24] MEDS: UMECLIDINIUM/VILANTEROL 62.5/25MCG 7 PUFFS/INHALER INH SCH (08:22)
[2024-02-24] MEDS: PSEUDOEPHEDRINE HCL 30 MG TAB PO STA (10:16)
[2024-02-24] MEDS: CETIRIZINE HCL 10 MG TABLET PO ONE (10:16)
[2024-02-24] MEDS: AMPICILLIN/SULBACTAM SOD 3,000 MG/100 ML BAG IV SCH (15:24)
--- NOTE | 2024-02-24 16:09 | Hospitalist Progress Note ---
Date of Service February 24, 2024 Assessment & Plan (1) Headache: (2) Hypertension: (3) Hyperlipidemia: (4) Asthma-COPD overlap syndrome: (5) Hypothyroidism: (6) Anemia: Plan: Ms Ortega is an 83 yo F with PMhx COPD, hypertension, hyperlipidemia, PVD, COPD, nocturnal hypoxemia Home O2, GERD, paraesophageal hernia as per records, hypothyroidism, carotid based tumor status post radiation, past tobacco abuse admitted for headache iso hypertension. Initial BP in ED 200/100. Patient's blood pressures historically on the higher end. Also concern for COPD exacerbation given wheezing on admission. Patient with marginal improvement since admission, noting reduced intensity of headache . #Leukocytosis likely iso steroids afebrile, stable o2 at this time CTM #Headache, improving #Hypertensive Urgency #HTN - CT of the head is negative but does show trace mastoid effusion - MRI of the brain without acute findings -Continue tylenol -PT/OT consults ordered -Continue home lisinopril 20mg -Continue home metoprolol 50mg BID -Consider amlodipine contingent on trends #Acute exacerbation of COPD/asthma overlap syndrome #Chronic hypoxic resp failure on 3L #Possible sinusitis, possibly contributing to headache -WBC of 15.65, elevated compared to baseline -Coarse breath sounds throughout, reports sputum production which is yellow, check chest x-ray now,, Mucinex, continue DuoNebs which she is using at home every 6 hours -continue Prednisone 40 mg daily with burst taper -Continue unasyn IV while admitted -Continue mucinex -Wears 3 L O2 at all times, currently on such, continue -Incentive spirometry/flutter therapy - PT/OT consults #History of chronic symptomatic anemia #Iron deficiency anemia #History of blood transfusion -Hemoglobin is stable today at 14.3, hematocrit 45.2 #Prediabetes: -A1c 6.2 on 01/18, encouraged lifestyle modification including healthy diet. Repeat A1c in 3 months. Other chronic medical conditions: Continue with/resume home meds as when able. hyperlipidemia, on statin Rx hx PVD GERD/paraesophageal hernia as per records hypothyroidism, euthyroid as of recent outpatient TSH carotid based tumor status post radiation past tobacco abuse DVT ppx: teds, scds, ambulatory Lines: PIV x 1 FEN/GI: Heart healthy CODE: Full code Dispo: From home, likely to remain in the hospital x 1-2 days Admission and Anticipated Discharge Date Admission Date: February 23, 2024 Subjective Reports marginal improvement in headache--more bilateral temples rather than "whole head" States she is more productive with her cough and that it feels better over all No chest pain, sob, or other acute concerns Physical Exam Respiratory: right side rhonchi cleared with cough, diminshed overall no wheezing Cardiovascular: RRR, no murmur, no edema Gastrointestinal (Abdomen): normal bowel sounds, soft, nontender, no hepatosplenomegaly Results & Data Results & Data Vital Signs (Past 12 Hours) Vital Signs Temp Pulse Resp BP Pulse Ox O2 Del Method O2 Flow Rate 02/24/24 15:23 80 18 94 Nasal Cannula 3 02/24/24 11:29 36.6 C 70 12 155/80 H 98 Nasal Cannula 3 02/24/24 10:43 70 16 94 Nasal Cannula 3 02/24/24 09:56 Nasal Cannula 3 02/24/24 07:27 36.6 C 69 12 154/80 H 97 Nasal Cannula 3 02/24/24 06:59 66 16 98 Nasal Cannula 3 Laboratory Results Short CBC 02/24/24 Range/Units 07:11 WBC 27.04 H D (4.8-10.8) K/ul Hgb 13.2 (12.0-16.0) g/dl Hct 41.4 (37.0-47.0) % Plt Count 293 (130-400) K/uL BMP 02/24/24 07:11 Sodium 136 Potassium 3.9 Chloride 97 L Carbon Dioxide 30 BUN 18 Creatinine 0.89 Glucose 155 H Calcium 9.5 Urine 02/23/24 Range/Units 16:17 Urine Color Yellow Urine Appearance Clear (Clear) Urine pH 7.0 (4.5-7.5) Ur Specific [place] 1.008 (1.000-1.030) Urine Protein Negative (Negative) Urine Glucose (UA) Negative (Negative) Medications Administered Home Medications Medication Instructions Recorded Confirmed Last Taken atorvastatin 40 mg tablet 40 mg PO HS #90 tabs 11/24/18 02/23/24 02/22/24 sodium chloride 0.65 % nasal spray 1 spray intranasal .USE 11/24/18 02/23/24 Unknown aerosol DIRECTED. PRN NASAL DRYNESS calcium 600 mg (as carbonate)-vit 1 tab PO AMPM 02/24/19 02/23/24 02/23/24 D3 10 mcg (400 unit) chewable tablet (Calcium 600 with Vitamin D3) levothyroxine 137 mcg tablet 137 mcg PO DAILYBB 10/30/21 02/23/24 01/19/24 Oxygen Home #1 ea 04/22/22 01/19/24 Unknown compressor, for nebulizer #1 ea 04/22/22 01/19/24 Unknown nebulizer accessories #1 ea 08/15/22 01/19/24 Unknown metoprolol tartrate 50 mg tablet 50 mg PO BID 11/20/22 02/23/24 02/23/24 ipratropium 0.5 mg-albuterol 3 mg 3 ml inhalation Q4H PRN Shortness 03/14/23 02/23/24 02/23/24 (2.5 mg base)/3 mL nebulization Of Breath Or Wheezing #360 mL soln budesonide 0.5 mg/2 mL suspension 0.5 mg inhalation BID 01/19/24 02/23/24 02/23/24 for nebulization 10 am calcium carbonate (Tums) 200 mg PO QID PRN Heartburn 01/19/24 02/23/24 Unknown lisinopril 20 mg tablet 20 mg PO QAM 01/19/24 02/23/24 02/23/24 trazodone 50 mg tablet 50 mg PO HS 01/19/24 02/23/24 02/22/24 cyanocobalamin (vitamin B-12) 500 500 mcg PO QAM #30 tabs 01/21/24 02/23/24 02/23/24 mcg tablet acetaminophen 650 mg 650 mg PO Q4H PRN Headache 02/23/24 02/23/24 02/23/24 tablet,extended release albuterol sulfate 90 mcg/actuation 2 puff inhalation Q6H PRN 02/23/24 02/23/24 Unknown aerosol inhaler sob/wheezing chlorthalidone 25 mg tablet 25 mg PO QAM 02/23/24 02/23/24 02/23/24 fluticasone fur. 100 mcg-umeclid 1 inh inhalation QAM 02/23/24 02/23/24 02/23/24 62.5 mcg-vilant 25 mcg inhalat.powder (Trelegy Ellipta) gabapentin 100 mg capsule 100 mg PO TID 02/23/24 02/23/24 02/23/24 omeprazole 20 mg capsule,delayed 20 mg PO DAILYBB 02/23/24 02/23/24 Unknown release Active Medications Generic Name Dose Route Start Last Admin Trade Name Iris PRN Reason Stop Dose Admin Albuterol 3 ml 02/23/24 20:49 02/24/24 15:19 Albut/Ipratrop 3mg/0.5mg Neb 3 Ml Vial NEB 03/24/24 20:48 3 ml Q4R ARIANA Administration Protocol Aspirin 81 mg 02/24/24 09:00 02/24/24 08:19 Aspirin 81 Mg Ectab PO 03/25/24 08:59 81 mg DAILY ARIANA Administration Atorvastatin Calcium 40 mg 02/23/24 21:00 02/23/24 22:05 Atorvastatin 40 Mg Tab PO 03/24/24 20:59 40 mg HS ARIANA Administration Budesonide 0.5 mg 02/23/24 21:00 02/24/24 06:59 Budesonide 0.5 Mg/2 Ml Vial (Pulmicort) INH 03/24/24 20:59 0.5 mg BIDR ARIANA Administration Calcium/Vitamin D 1 tab 02/23/24 21:30 02/24/24 08:19 Calcium 600mg + Vit D 400 Iu Tab PO 03/24/24 21:29 1 tab BID ARIANA Administration Carbamide Peroxide 5 drops 02/23/24 21:00 02/24/24 15:47 Carbamide Peroxide 6.5% 15 Ml Btl OT 02/27/24 20:59 5 drops TID ARIANA Administration Chlorthalidone 25 mg 02/24/24 09:00 02/24/24 08:19 Chlorthalidone 25 Mg Tab PO 03/25/24 08:59 25 mg QAM ARIANA Administration Cyanocobalamin 500 mcg 02/24/24 09:00 02/24/24 08:21 Cyanocobalamin (B-12) 500 Mcg Tablet PO 03/25/24 08:59 500 mcg QAM ARIANA Administration Ferrous Sulfate 325 mg 02/24/24 09:00 02/24/24 08:21 Ferrous Sulfate 325 Mg Tab PO 03/25/24 08:59 325 mg QAM ARIANA Administration Guaifenesin 1,200 mg 02/23/24 21:00 02/24/24 08:20 Guaifenesin 600 Mg Tabcr PO 03/24/24 20:59 1,200 mg Q12 ARIANA Administration Ampicillin Sodium/Sulbactam Sodium 3,000 mg in 100 mls @ 200 mls/hr 02/24/24 15:00 02/24/24 15:59 Unasyn IV 03/04/24 21:59 Infused Q12H ARIANA Infusion Levothyroxine Sodium 137 mcg 02/24/24 06:30 02/24/24 05:28 Levothyroxine Sodium 137 Mcg Tablet PO 03/25/24 06:29 137 mcg DAILYBB ARIANA Administration Lisinopril 20 mg 02/24/24 09:00 02/24/24 08:21 Lisinopril 20 Mg Tab PO 03/25/24 08:59 20 mg QAM ARIANA Administration Metoprolol Tartrate 50 mg 02/23/24 21:00 02/24/24 08:20 Metoprolol Tartrate 50 Mg Tab PO 03/24/24 20:59 50 mg BID ARIANA Administration Prednisone 40 mg 02/23/24 20:49 02/24/24 08:21 Prednisone 20 Mg Tab PO 03/24/24 20:48 40 mg DAILY ARIANA Administration Umeclidinium/Vilanterol 1 puffs 02/24/24 09:00 02/24/24 08:22 Umeclidinium/Vilanterol 62.5/25mcg 7 Puffs/Inhaler INH 03/25/24 08:59 1 puffs DAILY ARIANA Administration (1) Headache Headache chronicity pattern: acute headache Headache type: unspecified Int ractability: intractable Qualified Code(s): R51.9 - Headache, unspecified
[2024-02-25 14:39] VITALS: TEMP 97.7
--- NOTE | 2024-02-25 14:54 | Discharge Summary ---
Discharge Summary Date of Service February 25, 2024 Principal Dx & Hospital Course #1 = Principal Diagnosis (1) Headache: (2) Hypertension: (3) Hyperlipidemia: (4) Asthma-COPD overlap syndrome: (5) Hypothyroidism: (6) Anemia: Ms Ortega is an 83 yo F with PMhx COPD, hypertension, hyperlipidemia, PVD, COPD, nocturnal hypoxemia Home O2, GERD, paraesophageal hernia as per records, hypothyroidism, carotid based tumor status post radiation, past tobacco abuse admitted for headache in setting of hypertension. Initial BP in ED 200/100. Patient's blood pressures historically on the higher end. Also concern for COPD exacerbation given wheezing on admission. Patient with improvement on day of discharge. Headache, improving Hypertensive Urgency HTN CT of the head is negative but does show trace mastoid effusion MRI of the brain without acute findings, noting "Mucosal thickening in the right ethmoids." Continue tylenol Continue home lisinopril 20mg Continue home metoprolol 50mg BID BP improved, pcp follow up for continued management and medication adjustments as needed Acute exacerbation of COPD/asthma overlap syndrome Chronic hypoxic resp failure on 3L Possible sinusitis, possibly contributing to headache WBC of 15.65, elevated compared to baseline Coarse breath sounds throughout, reports sputum production which is yellow, Mucinex, continue DuoNebs which she is using at home every 6 hours Prednisone 40 mg daily and discharged with 2 more days of treatment Treated with IV Unasyn while admitted, discharged with 8 more days of po Augmentin Continue mucinex Wears 3L O2 at all times, currently on baseline, continue Incentive spirometry/flutter therapy PT/OT consults- recommending discharge home PCP follow up after discharge, consider pulmonology evaluation Leukocytosis likely in setting of steroids afebrile, stable o2 at this time PCP followup to ensure resolution after discontinuation of steroids. History of chronic symptomatic anemia Iron deficiency anemia History of blood transfusion Hemoglobin is stable today at 14.3, hematocrit 45.2 Prediabetes A1c 6.2 on 01/18, encouraged lifestyle modification including healthy diet. Repeat A1c in 3 months PCP follow up Other chronic medical conditions: Continue with/resume home meds as when able. hyperlipidemia, on statin Rx hx PVD GERD/paraesophageal hernia as per records hypothyroidism, euthyroid as of recent outpatient TSH carotid based tumor status post radiation past tobacco abuse Notes For Next Care Provider Continue to monitor blood pressure and adjust medications as needed Consider pulmonology followup Medication Changes From Visit Augmentin 875mg x 8 more days Prednisone 40mg daily x 2 more days Admission HPI Per Admitting Provider This is an 83 yo F with PMhx COPD, hypertension, hyperlipidemia, PVD, COPD, nocturnal hypoxemia Home O2, GERD, paraesophageal hernia as per records, hypothyroidism, carotid based tumor status post radiation, past tobacco abuse. Recent hospital admission from 01/18 to 01/20 for symptomatic anemia requiring 3 unit PRBC transfusion. Patient presents to the hospital today with acute worsening headache which she says has been intermittent over the last 3 weeks. States that today she rated her frontal headache 12 out of 10 and simply could not deal with it. She denies any recent medication changes, is not on blood thinners, but feels this has significantly worsened since her last hospitalization here. When she was previously admitted she was worked up for symptomatic anemia and got 3 units PRBCs due to severe iron deficiency. Patient was scheduled as outpatient MRI for 03/09/[address] Goldstein and given a prescription for Ativan prior to the MRI due to anxiety/inability to lay flat due to her COPD, however she states that they cannot wait that long due to headache severity. She does not have admit to intermittent cough with yellow sputum production at times. She has been using her DuoNeb treatments routinely 4 times per day and her inhalers as instructed. She denies any recent sick contacts. Here in the ER the patient is found to have a negative CT of the brain. Initially was hypertensive with SBP greater than 200/100, and was given IV mag, 1000 mg Tylenol, Solu-Medrol 100 mg IV, hydralazine 5 mg and a DuoNeb treatment. She was also nauseous so was given Zofran 4 mg IV. Patient states her headache is slightly improved at this point during my visit. Admission Exam Per Admitting Provider General: awake, alert, no apparent distress, elderly white female, thin Head: Normocephalic, atraumatic ENT: PERRL, EOMI, no pharyngeal exudate, mucous membranes moist Chest: Coarse breath sounds throughout, on 3L via NC which is baseline for her, + expiratory wheezing, no Rales or rhonchi Cardiac: Regular rate and rhythm, no murmur, no JVD, normal peripheral pulses, good capillary refill Abdominal: NABS x 4 quadrants, soft, nondistended, nontender to palpation, no rebound or guarding Extremities: Normal inspection, no peripheral edema or erythema, calfs nontender to palpation Psych: Normal mood and affect Neuro: AAO x 3, strength intact bilaterally and rated 5/5, no motor deficits, speech is clear, no peripheral sensory deficits Discharge Exam General: Alert, oriented. No acute distress Psych: Appropriate mood and affect HEENT: NC/AT CV: RRR Resp: Breath sounds decreased bilaterally, no increased effort of breathing, NC in nares Abdomen: Soft, nontender Extremities: No edema in lower extremities bilaterally. Updated Medication List Medication Instructions Recorded Confirmed Type atorvastatin 40 mg tablet 40 mg PO HS #90 tabs 11/24/18 02/23/24 History sodium chloride 0.65 % nasal spray 1 spray intranasal .USE 11/24/18 02/23/24 History aerosol DIRECTED. PRN NASAL DRYNESS calcium 600 mg (as carbonate)-vit 1 tab PO AMPM 02/24/19 02/23/24 History D3 10 mcg (400 unit) chewable tablet (Calcium 600 with Vitamin D3) levothyroxine 137 mcg tablet 137 mcg PO DAILYBB 10/30/21 02/23/24 History Oxygen Home #1 ea 04/22/22 01/19/24 Rx compressor, for nebulizer #1 ea 04/22/22 01/19/24 Rx nebulizer accessories #1 ea 08/15/22 01/19/24 Rx metoprolol tartrate 50 mg tablet 50 mg PO BID 11/20/22 02/23/24 History ipratropium 0.5 mg-albuterol 3 mg 3 ml inhalation Q4H PRN Shortness 03/14/23 02/23/24 Rx (2.5 mg base)/3 mL nebulization Of Breath Or Wheezing #360 mL soln budesonide 0.5 mg/2 mL suspension 0.5 mg inhalation BID 01/19/24 02/23/24 History for nebulization calcium carbonate (Tums) 200 mg PO QID PRN Heartburn 01/19/24 02/23/24 History lisinopril 20 mg tablet 20 mg PO QAM 01/19/24 02/23/24 History trazodone 50 mg tablet 50 mg PO HS 01/19/24 02/23/24 History cyanocobalamin (vitamin B-12) 500 500 mcg PO QAM #30 tabs 01/21/24 02/23/24 Rx mcg tablet acetaminophen 650 mg 650 mg PO Q4H PRN Headache 02/23/24 02/23/24 History tablet,extended release albuterol sulfate 90 mcg/actuation 2 puff inhalation Q6H PRN 02/23/24 02/23/24 History aerosol inhaler sob/wheezing chlorthalidone 25 mg tablet 25 mg PO QAM 02/23/24 02/23/24 History fluticasone fur. 100 mcg-umeclid 1 inh inhalation QAM 02/23/24 02/23/24 History 62.5 mcg-vilant 25 mcg inhalat.powder (Trelegy Ellipta) gabapentin 100 mg capsule 100 mg PO TID 02/23/24 02/23/24 History omeprazole 20 mg capsule,delayed 20 mg PO DAILYBB 02/23/24 02/23/24 History release amoxicillin 875 mg-potassium 1 tab PO BID #16 tabs 02/25/24 Rx clavulanate 125 mg tablet prednisone 20 mg tablet 40 mg (2 x 20 mg) PO DAILY #4 tabs 02/25/24 Rx Hospital Stay Data Consultations 02/23/24 19:50 ED Decision to Admit Stat Diagnostic Imagining Performed 02/23/24 12:52 CT head/brain wo con Stat 02/23/24 18:01 MRI Brain [MR brain wo con] Routine Head CT 02/23/24 12:52 CT head/brain wo con CLINICAL HISTORY: 83 years-old Female with Headache. Acute headache TECHNIQUE: Multiple axial CT images of the head were obtained without contrast. A dose lowering technique was utilized adhering to the principles of ALARA. CT DOSE: 547.75 mGy.cm COMPARISON: None. FINDINGS: No acute intracranial hemorrhage, midline shift, intracranial mass, hydrocephalus, territorial ischemia or abnormal extra-axial collection. Involutional changes with white matter hypodensities suggestive of chronic microvascular ischemic disease. Senescent calcifications of the basal ganglia. 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 The calvarium is intact. Trace right mastoid effusion. Leftward bowing and spurring of the nasal septum. Mild mucosal thickening of the ethmoid air cells. Metopic suture. Prior bilateral lens repair. IMPRESSION: No acute intracranial abnormality identified. ACT 112: Negative or not required by law. The above report was generated using voice recognition software. It may contain grammatical, syntax or spelling errors. Electronically signed by: Young Sow M.D. 02/23/2024 1:29 PM Brain MRI 02/23/24 18:01 Exam(s): MRI HEAD Without Contrast EXAM: MR Head Without Intravenous Contrast CLINICAL HISTORY: Reason for exam: Headache. TECHNIQUE: Magnetic resonance images of the head/brain without intravenous contrast in multiple planes. COMPARISON: CT head 02/23/24 FINDINGS: Brain: No diffusion restriction to suggest acute cerebral ischemia. No acute intracranial hemorrhage or abnormal extra-axial fluid collection. Senescent globus pallidus calcifications. Age-related parenchymal volume loss. Periventricular deep cerebral white matter FLAIR signal hyperintensity consistent with chronic small vessel ischemic change. Intracranial flow voids appear normal as visualized. No evidence of intracranial mass. No midline shift. Ventricles: Unremarkable. No hydrocephalus. Bones/joints: Unremarkable. No acute fracture. Sinuses: Mucosal thickening in the right ethmoids. Mastoid air cells: Small effusions at the mastoid tips. Orbits: Lens replacements. IMPRESSION: No acute findings in the head/brain. Electronically signed by: Melissa Dior M.D. 02/23/24 19:43 PM Chest X-Ray 02/23/24 18:16 Exam(s): XR CXR 1 VIEW EXAM: XR Chest, 1 View CLINICAL HISTORY: Reason for exam: leukocytosis, coarse breath sounds, eval for pna. TECHNIQUE: Frontal view of the chest. COMPARISON: 01/19/24 FINDINGS: Lungs: Unremarkable. No consolidation. Pleural space: Unremarkable. No pleural effusion or pneumothorax. Heart: Unremarkable. No cardiomegaly or pulmonary vascular congestion. Mediastinum: Large hiatal hernia. Bones/joints: No acute fracture. No dislocation. IMPRESSION: Large hiatal hernia. No acute findings. Electronically signed by: Melissa Dior M.D. 02/23/24 19:33 PM Discharge Instructions Given to Patient (Per Discharging Provider) Rakan, You are admitted and treated for very high blood pressures. Your blood pressure is improved. please continue with your blood pressure medications as prescribed. We also treated you for a possible COPD exacerbation as well as acute sinusitis. Please continue with the Augmentin for an additional 8 days. Please also continue with 2 more days of oral prednisone 40 mg daily. Please keep close follow up with your primary care provider after discharge. Please do not hesitate to come back to the emergency room if your symptoms worsen or return. It was a pleasure taking care of you while you were here. Total Time Total Time Spent Total Time Spent (In Minutes): 60
[2024-02-25 16:00] VITALS: PULSE 81; RESP 18; O2SAT 98
[2024-02-25 16:08] VITALS: BP 103/75
== END 2024-02-25 16:47 | disposition home or self-care (01) | DRG 305 ==
LOC: ED 12:35 → SUATTDRO 18:01 → 3N 18:01

== ENCOUNTER 2024-07-08 12:20 | Inpatient (IN) ==
--- NOTE | 2024-07-08 12:51 | Emergency Department Note ---
Impression & Plan Symptomatic anemia, COPD (chronic obstructive pulmonary disease), Influenza A, Chronic hypoxic respiratory failure, Fall, CHI (closed head injury) ED Provider Note NAME: PETER LONG AGE: 83 SEX: F : 1940 ARRIVES VIA: Walk-In INFORMANT: Patient, daughter ED PROVIDER(S): Flaquito Almonte MD CHIEF COMPLAINT: Shortness of breath, dizziness, fall, neck pain, low hemoglobin, outpatient referral MEDICAL DECISION MAKING: Patient presents due to concern for shortness of breath and anemia. IV was established and blood work was obtained. Rectal exam performed which was Hemoccult negative and no melanic or bright red blood in stool. Patient with a white count of 14 hemoglobin 8.4. Patient's hemoglobin did drop from 13 to 8.4. Patient's concomitant COPD with associated drop in hemoglobin likely contributing to patient's shortness of breath and weakness. The patient was consented and ordered for 1 unit of PRBCs. Platelet count of 456. Kidney function unremarkable. Troponin negative. Patient's chest x-ray shows right upper lobe and left lower lobe pneumonia. Sacrum and coccygeal x-rays are negative. Additional treatment deferred to inpatient service. Patient positive for flu and coronavirus. Critical Care: I have personally spent 45 minutes of critical care time in direct management of this patient. This includes bedside care, interpretation of diagnostic studies, and testing, discussion with consultants, patient, and family members, and other require inpatient management activities. This 45 minutes is in excess of all separately billable procedures. Discussion w/ other healthcare providers: Dr. Crystal inpatient medicine service Prior /Outside records reviewed: None Differential diagnosis: Infection, dehydration, metabolic abnormality, hypo/hyperglycemia, electrolyte imbalance, anemia, UTI, pneumonia, thyroid dysfunction among others were considered. Diagnostics, as interpreted by me: ECG: Sinus, rate of 76, normal intervals, normal axis no ST elevations nonspecific T wave abnormality lateral leads. Cardiac monitoring: An order was placed for continuous cardiac monitoring. The monitor shows a rate of 77 with sinus rhythm. Patient was placed on pulse oximetry Medical decision rules: None Imaging studies: I informally interpreted the patient's CT head does not show obvious ICH with formal report to follow. HPI: Patient presents due to concern for abnormal hemoglobin. The patient reports that was seen at earlier today by Leonardo Alvarado and was referred to [facility] but preferred to come here. Patient denies any dark stools or bright red blood per rectum. No falls or trauma. Patient states that she had a colonoscopy maybe 10 years ago no issues at that time. The patient does take Tylenol for chronic joint related pain issues but will occasionally take 2 Advil about twice a week. Patient did not take any antiplatelets or anticoagulant medication. Patient denies any abdominal pain but does complain of some upset stomach. Patient denies any vomiting. Patient does wear oxygen at all times. Last smoked greater than 30 years ago. Patient states that she has a chronic cough which is unchanged. Patient states that she has been more short of breath. Reportedly had a fall on Friday where she fell backward striking her head hurting her neck and he "tailbone." Daughter reports that the patient was seen by Leonardo Alvarado and was referred. PAST MEDICAL HISTORY: See Below PAST SURGICAL HISTORY: See Below SOCIAL HISTORY: See Below HOME MEDICATIONS: See Below ALLERGIES: See Below VITALS: See Below PHYSICAL EXAMINATION: GENERAL: NAD, non-toxic. Nasal cannula in place. Head: Normocephalic atraumatic. EYE EXAM: Normal conjunctiva. PERRL, no anisocoria and EOM's grossly intact w/o pain. OROPHARYNX: Moist mucus membranes, grossly normal dentition. NECK: Trachea midline, no stridor. Supple, no nuchal rigidity, no adenopathy, non-tender. No signs of meningismus. FROM of the neck with good chin to chest and neck extension. Mild midline neck pain no obvious step-offs. LUNGS: Bilateral wheezes noted more prominent left chest. Normal chest wall mechanics. HEART: NSR, no MRG. ABDOMEN: Abdomen soft, non-tender, no masses, no rebound or guarding. BACK: No CVA TTP. Mild sacral pain. No midline thoracic or lumbar TTP. SKIN: No rashes and no bruising. UPPER EXTREMITIES: Upper extremities are grossly normal. LOWER EXTREMITIES: Grossly normal, no edema. NEURO EXAM: A&O x3, cranial nerves II-XII grossly intact, normal speech, moves all 4 extremities. 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) COPD (chronic obstructive pulmonary disease) (Acute) Subclavian artery stenosis, left Benign neoplasm of colon Chronic rhinitis Chronic sinusitis GERD (gastroesophageal reflux disease) Hyperlipidemia Hypertension Post-menopausal atrophic vaginitis Rosacea Senile osteoporosis Closed fracture of left hip (Acute) Fall (Acute) Cough Abnormal CT scan of lung Shortness of breath (Acute) Medical History Anemia requiring transfusions Acute dyspnea Symptomatic anemia Hypoxia Abnormal finding on imaging Cough Asthma with COPD Surgical History H/O: hysterectomy Hx of cholecystectomy History of appendectomy Family History Family/Other Hypertension Asthma Cardiac disorder Social History Smoking Status: Former smoker Second Hand Exposure: No; Do You Dip or Chew Tobacco: No; Hx Alcohol Use: No Hx Substance Use: No Preferred Language: Slovenian Communication Ability: Effective Apartment Leasing Specialist Required: No Beliefs That Will Affect Care: None marital status: Current Living Situation: Family Current Living Situation Comment: Lives at home with son. Feels Safe at Home: Yes Seatbelt Use: always Assistive Devices: Nebulizer and Oxygen - Continuous Allergies Allergies Allergy/AdvReac Type Severity Reaction Status Date / Time latex Allergy Unknown RASH Verified 04/15/24 11:22 No Known Drug Allergies Allergy Unknown . Verified 04/15/24 11:22 Home Meds Home Medications Medication Instructions Recorded Confirmed atorvastatin 40 mg tablet 40 mg PO HS #90 tabs 11/24/18 07/08/24 sodium chloride 0.65 % nasal spray 1 spray intranasal .USE 11/24/18 07/08/24 aerosol DIRECTED. PRN NASAL DRYNESS calcium 600 mg (as carbonate)-vit 1 tab PO AMPM 02/24/19 07/08/24 D3 10 mcg (400 unit) chewable tablet (Calcium 600 with Vitamin D3) levothyroxine 137 mcg tablet 137 mcg PO DAILYBB 10/30/21 07/08/24 metoprolol tartrate 50 mg tablet 50 mg PO BID 11/20/22 07/08/24 budesonide 0.5 mg/2 mL suspension 0.5 mg inhalation UD 01/19/24 07/08/24 for nebulization calcium carbonate (Tums) 200 mg PO QID PRN Heartburn 01/19/24 07/08/24 lisinopril 20 mg tablet 20 mg PO QAM 01/19/24 07/08/24 trazodone 50 mg tablet 50 mg PO HS 01/19/24 07/08/24 acetaminophen 650 mg 650 mg PO Q4H PRN Headache 02/23/24 07/08/24 tablet,extended release albuterol sulfate 90 mcg/actuation 2 puff inhalation Q6H PRN 02/23/24 07/08/24 aerosol inhaler sob/wheezing chlorthalidone 25 mg tablet 25 mg PO UD 02/23/24 07/08/24 fluticasone fur. 100 mcg-umeclid 1 inh inhalation QAM 02/23/24 07/08/24 62.5 mcg-vilant 25 mcg inhalat.powder (Trelegy Ellipta) gabapentin 100 mg capsule 100 mg PO TID 02/23/24 07/08/24 omeprazole 20 mg capsule,delayed 20 mg PO UD 02/23/24 07/08/24 release sertraline 25 mg tablet 25 mg PO DAILY 07/08/24 07/08/24 Previous Rx's Medication Instructions Recorded Oxygen Home #1 ea 04/22/22 compressor, for nebulizer #1 ea 04/22/22 nebulizer accessories #1 ea 08/15/22 ipratropium 0.5 mg-albuterol 3 mg 3 ml inhalation Q4H PRN Shortness 03/14/23 (2.5 mg base)/3 mL nebulization Of Breath Or Wheezing #360 mL soln cyanocobalamin (vitamin B-12) 500 500 mcg PO QAM #30 tabs 01/21/24 mcg tablet Results & Data (ED) Vital Signs Vital Signs - 24 hr 07/08/24 12:26 07/08/24 12:34 07/08/24 12:51 Temperature 36.8 C Temperature Source Skin Pulse Rate 77 Pulse Rate [Finger] Pulse Rate from SpO2 Sensor Pulse Rhythm Pulse Strength Respiratory Rate 20 Respiratory Effort / Characteristics Non-Labored Respiratory Depth Normal Blood Pressure 92/67 L Blood Pressure [Right Arm] Blood Pressure Mean 75 Blood Pressure Mean [Right Arm] Blood Pressure Position Pulse Oximetry 93 Oxygen Delivery Method Room Air Room Air Oxygen Flow Rate Sepsis Recent Fever Within 48 Hours No Sepsis New/Unexplained Change in Mental Status No Sepsis Action Taken by Nursing No Action Required 07/08/24 13:00 07/08/24 13:00 07/08/24 14:15 Temperature Temperature Source Pulse Rate 74 89 75 Pulse Rate [Finger] Pulse Rate from SpO2 Sensor Pulse Rhythm Pulse Strength Respiratory Rate 20 16 24 Respiratory Effort / Characteristics Respiratory Depth Blood Pressure 135/74 135/74 107/70 Blood Pressure [Right Arm] Blood Pressure Mean 92 92 82 Blood Pressure Mean [Right Arm] Blood Pressure Position Pulse Oximetry 95 96 96 Oxygen Delivery Method Nasal Cannula Nasal Cannula Nasal Cannula Oxygen Flow Rate 3 3 3 Sepsis Recent Fever Within 48 Hours Sepsis New/Unexplained Change in Mental Status Sepsis Action Taken by Nursing 07/08/24 14:35 07/08/24 14:45 07/08/24 14:45 Temperature Temperature Source Pulse Rate 76 Pulse Rate [Finger] Pulse Rate from SpO2 Sensor 73 Pulse Rhythm Pulse Strength Respiratory Rate Respiratory Effort / Characteristics Respiratory Depth Blood Pressure 137/85 124/67 124/67 Blood Pressure [Right Arm] Blood Pressure Mean 91 91 91 Blood Pressure Mean [Right Arm] Blood Pressure Position Pulse Oximetry 97 100 Oxygen Delivery Method Nasal Cannula Nasal Cannula Oxygen Flow Rate 3 3 Sepsis Recent Fever Within 48 Hours Sepsis New/Unexplained Change in Mental Status Sepsis Action Taken by Nursing 07/08/24 15:00 07/08/24 15:15 07/08/24 15:30 Temperature Temperature Source Pulse Rate 79 75 Pulse Rate [Finger] Pulse Rate from SpO2 Sensor Pulse Rhythm Pulse Strength Respiratory Rate 27 H 24 Respiratory Effort / Characteristics Respiratory Depth Normal Blood Pressure 140/71 134/80 Blood Pressure [Right Arm] Blood Pressure Mean 94 105 Blood Pressure Mean [Right Arm] Blood Pressure Position Pulse Oximetry 96 100 Oxygen Delivery Method Nasal Cannula Nasal Cannula Oxygen Flow Rate 3 3 Sepsis Recent Fever Within 48 Hours Sepsis New/Unexplained Change in Mental Status Sepsis Action Taken by Nursing 07/08/24 16:05 07/08/24 16:25 07/08/24 16:40 Temperature 36.5 C 37.2 C 36.8 C Temperature Source Oral Oral Oral Pulse Rate 77 68 68 Pulse Rate [Finger] Pulse Rate from SpO2 Sensor Pulse Rhythm Regular Pulse Strength Normal Respiratory Rate 24 21 22 Respiratory Effort / Characteristics Respiratory Depth Blood Pressure 183/105 H 159/95 H 170/82 H Blood Pressure [Right Arm] Blood Pressure Mean 131 116 111 Blood Pressure Mean [Right Arm] Blood Pressure Position Lying Lying Pulse Oximetry 99 100 97 Oxygen Delivery Method Oxygen Flow Rate 3 3 Sepsis Recent Fever Within 48 Hours Sepsis New/Unexplained Change in Mental Status Sepsis Action Taken by Nursing 07/08/24 17:10 07/08/24 18:10 07/08/24 18:31 Temperature 36.4 C L 37.0 C 37.2 C Temperature Source Oral Oral Oral Pulse Rate 79 72 Pulse Rate [Finger] 71 Pulse Rate from SpO2 Sensor Pulse Rhythm Pulse Strength Respiratory Rate 18 18 19 Respiratory Effort / Characteristics Non-Labored Respiratory Depth Normal Blood Pressure 159/93 H 188/94 H Blood Pressure [Right Arm] 173/97 H Blood Pressure Mean 115 125 Blood Pressure Mean [Right Arm] 122 Blood Pressure Position Pulse Oximetry 99 98 100 Oxygen Delivery Method Nasal Cannula Oxygen Flow Rate 3 3 3 Sepsis Recent Fever Within 48 Hours Sepsis New/Unexplained Change in Mental Status Sepsis Action Taken by Nursing 07/08/24 19:10 Temperature 36.8 C Temperature Source Oral Pulse Rate 66 Pulse Rate [Finger] Pulse Rate from SpO2 Sensor Pulse Rhythm Pulse Strength Respiratory Rate 16 Respiratory Effort / Characteristics Respiratory Depth Blood Pressure 166/77 H Blood Pressure [Right Arm] Blood Pressure Mean 106 Blood Pressure Mean [Right Arm] Blood Pressure Position Pulse Oximetry 99 Oxygen Delivery Method Oxygen Flow Rate 3 Sepsis Recent Fever Within 48 Hours Sepsis New/Unexplained Change in Mental Status Sepsis Action Taken by Long Term Medications Current Medication List: was personally reviewed by me Laboratory Data Attestation: I reviewed the patient's lab results. 07/08/24 12:45 07/08/24 12:45 Lab Results 07/08/24 07/08/24 07/08/24 Range/Units 12:45 12:57 14:40 WBC 14.73 H (4.8-10.8) K/ul RBC 3.62 L (4.20-5.40) M/uL Hgb 8.4 L (12.0-16.0) g/dl Hct 28.6 L (37.0-47.0) % MCV 79.0 L (80.0-100.0) fL MCH 23.2 L (25.0-34.0) pg MCHC 29.4 L (32.0-36.0) g/dL RDW Std Deviation 43.5 (36.4-46.3) fL RDW Coeff of Markie 15.0 H (11.5-14.5) % Plt Count 456 H (130-400) K/uL MPV 10.7 (9.4-12.4) fL PT 10.3 (9.0-12.0) Seconds INR 0.9 (0.9-1.1) APTT 22 (21-31) Seconds PTT Ratio 0.8 Sodium 143 (136-145) mmol/L Potassium 3.4 L (3.5-5.1) mmol/L Chloride 100 (98-107) mmol/L Carbon Dioxide 36 H (21-32) mmol/L Anion Gap 7 (3-11) BUN 13 (6-23) mg/dl Creatinine 0.88 (0.6-1.2) mg/dl Est Cr Clr Drug Dosing Not Reportable eGFR 65.57 BUN/Creatinine Ratio 14.8 (10-20) Glucose 126 H (70-99(Fasting)) mg/dl Calcium 9.8 (8.6-10.3) mg/dl Iron 20 L (35-150) mcg/dl Transferrin 327 (200-360) mg/dl Ferritin 10.1 (8-388) ng/ml Total Bilirubin 0.4 (0.2-1.0) mg/dl AST 18 (13-39) U/L ALT 9 (7-52) U/L Alkaline Phosphatase 72 (34-104) U/L Troponin I High Sens 4.3 (0-14) pg/ml Total Protein 8.2 (6.0-8.3) gm/dl Albumin 4.1 (3.4-5.0) gm/dl Globulin 4.1 H (2.5-4.0) gm/dl Albumin/Globulin Ratio 1.0 (0.9-2) Vitamin B12 641 (180-914) pg/ml Folate 21.89 (>5.38) ng/ml Nasal Influ A H1 2008 PCR (NotDetected) POC Stool Occult Blood Negative (Negative) Adenovirus (PCR) (NotDetected) B. pertussis DNA (PCR) (NotDetected) B.parapertussis DNA PCR (NotDetected) C. pneumoniae DNA (PCR) (NotDetected) Coronavirus OC43 (PCR) (NotDetected) Coronavirus HKU1 (PCR) (NotDetected) Coronavirus 229E (PCR) (NotDetected) SARS-CoV-2 (PCR) (NotDetected) Coronavirus NL63 (PCR) (NotDetected) Human Metapneumovir PCR (NotDetected) Influenza Type B (PCR) (NotDetected) M. pneumoniae (PCR) (NotDetected) Parainfluenza 1 (PCR) (NotDetected) Parainfluenza 2 (PCR) (NotDetected) Parainfluenza 3 (PCR) (NotDetected) Parainfluenza 4 (PCR) (NotDetected) RSV (PCR) (NotDetected) Entero/Rhino (PCR) (NotDetected) Blood Type B Positive Antibody Screen NEGATIVE Crossmatch See Detail 07/08/24 Range/Units 16:23 WBC (4.8-10.8) K/ul RBC (4.20-5.40) M/uL Hgb (12.0-16.0) g/dl Hct (37.0-47.0) % MCV (80.0-100.0) fL MCH (25.0-34.0) pg MCHC (32.0-36.0) g/dL RDW Std Deviation (36.4-46.3) fL RDW Coeff of Markie (11.5-14.5) % Plt Count (130-400) K/uL MPV (9.4-12.4) fL PT (9.0-12.0) Seconds INR (0.9-1.1) APTT (21-31) Seconds PTT Ratio Sodium (136-145) mmol/L Potassium (3.5-5.1) mmol/L Chloride (98-107) mmol/L Carbon Dioxide (21-32) mmol/L Anion Gap (3-11) BUN (6-23) mg/dl Creatinine (0.6-1.2) mg/dl Est Cr Clr Drug Dosing eGFR BUN/Creatinine Ratio (10-20) Glucose (70-99(Fasting)) mg/dl Calcium (8.6-10.3) mg/dl Iron (35-150) mcg/dl Transferrin (200-360) mg/dl Ferritin (8-388) ng/ml Total Bilirubin (0.2-1.0) mg/dl AST (13-39) U/L ALT (7-52) U/L Alkaline Phosphatase (34-104) U/L Troponin I High Sens (0-14) pg/ml Total Protein (6.0-8.3) gm/dl Albumin (3.4-5.0) gm/dl Globulin (2.5-4.0) gm/dl Albumin/Globulin Ratio (0.9-2) Vitamin B12 (180-914) pg/ml Folate (>5.38) ng/ml Nasal Influ A H1 2008 PCR DETECTED A (NotDetected) POC Stool Occult Blood (Negative) Adenovirus (PCR) Not Detected (NotDetected) B. pertussis DNA (PCR) Not Detected (NotDetected) B.parapertussis DNA PCR Not Detected (NotDetected) C. pneumoniae DNA (PCR) Not Detected (NotDetected) Coronavirus OC43 (PCR) DETECTED A (NotDetected) Coronavirus HKU1 (PCR) Not Detected (NotDetected) Coronavirus 229E (PCR) Not Detected (NotDetected) SARS-CoV-2 (PCR) Not Detected (NotDetected) Coronavirus NL63 (PCR) Not Detected (NotDetected) Human Metapneumovir PCR Not Detected (NotDetected) Influenza Type B (PCR) Not Detected (NotDetected) M. pneumoniae (PCR) Not Detected (NotDetected) Parainfluenza 1 (PCR) Not Detected (NotDetected) Parainfluenza 2 (PCR) Not Detected (NotDetected) Parainfluenza 3 (PCR) Not Detected (NotDetected) Parainfluenza 4 (PCR) Not Detected (NotDetected) RSV (PCR) Not Detected (NotDetected) Entero/Rhino (PCR) Not Detected (NotDetected) Blood Type Antibody Screen Crossmatch Administered Medications Discontinued Medications Famotidine (Pepcid 20mg Iv Push) 20 mg in 5 mls @ 2.5 mls/min IV NOW STA Stop: 07/08/24 13:15 Last Admin: 07/08/24 13:24 Dose: 2.5 mls/min Documented By: SHRADDHA Levalbuterol HCl (Levalbuterol 1.25 Mg/3 Ml Neb) 1.25 mg NEB NOW STA Stop: 07/08/24 13:15 Last Admin: 07/08/24 13:24 Dose: 1.25 mg Documented By: SHRADDHA Potassium Chloride (Potassium Chloride Crtab 20 Meq Tabcr) 40 meq PO ONE STA Stop: 07/08/24 18:00 Last Admin: 07/08/24 19:13 Dose: 40 meq Documented By: SHRADDHA Imaging Data Radiologist's Impression: Cervical Spine CT 07/08/24 13:15 CT cervical spine wo con CT DOSE: 899. mGy.cm CLINICAL HISTORY: fall. COMPARISON: 06/02/2008 TECHNIQUE: Multiple axial CT images of the cervical spine were obtained without contrast. A dose lowering technique was utilized adhering to the principles of ALARA. FINDINGS: There is severe diffuse degenerative disc disease. There is stable mild retrolisthesis of C3 on 4 and C5 on C6. There is stable grade 1 anterolisthesis of C4 on 5. There are progressive degenerative changes anteriorly at C1 to. No cervical spine fracture seen. IMPRESSION: No cervical spine fracture seen. ACT 112: Negative or not required by law. The above report was generated using voice recognition software. It may contain grammatical, syntax or spelling errors. Electronically signed by: Gerardo Smith M.D. 07/08/2024 3:37 PM Chest X-Ray 07/08/24 13:15 Clinical History: Cough Technique: 2 frontal views of the chest were obtained Comparison is made to the prior examination dated 02/23/2024 Findings: There is new mild patchy opacity in the left lower lobe and right midlung, which may be due to pneumonia. The heart size is within normal limits. No pleural effusion or pneumothorax is seen. There is no definite pulmonary nodule. A large hiatal hernia is again seen. There is thoracic and lumbar scoliosis and degenerative disc disease Impression: 1. Suspected right upper lobe and left lower lobe pneumonia 2. Unchanged large hiatal hernia ACT 112: Positive. There are findings on this exam that require communication between the performing entity and the patient following Patient Test Result Information Act ([place] ACT 112) guidelines. Electronically signed by Jamie Olsen 07-08-2024 4:[address] 07/08/24 13:15 CT head/brain wo con CLINICAL HISTORY: 83 years-old Female with fall. Acute head trauma status post fall TECHNIQUE: Multiple axial CT images of the head were obtained without contrast. A dose lowering technique was utilized adhering to the principles of ALARA. COMPARISON: Acute head trauma status post fall FINDINGS: No acute intracranial hemorrhage, midline shift, intracranial mass, hydrocephalus, territorial ischemia or abnormal extra-axial collection. Involutional changes with chronic microvascular ischemic disease. Study is mildly motion degraded. Left frontal lobe encephalomalacia again seen. Senescent mineralization of the lentiform nuclei. The calvarium is intact. Mild mucosal thickening of the paranasal sinuses. Trace right pleural effusion. Unremarkable tissues. IMPRESSION: No acute intracranial abnormality or calvarial fracture. ACT 112: Negative or not required by law. The above report was generated using voice recognition software. It may contain grammatical, syntax or spelling errors. Electronically signed by: Young Sow M.D. 07/08/2024 3:23 PM Sacrum and Coccyx X-Ray 07/08/24 13:15 Clinical History: Pain. 3 views of the sacrum and coccyx are submitted for review. Findings: No fracture or dislocation is seen. There is internal fixation of the left femur. No significant arthritic changes are noted. No other osseous abnormality is identified. There are no radiopaque foreign bodies. Impression: Unremarkable radiographs of the sacrum and coccyx Electronically signed by Jamie Olsen 07-08-2024 4:16 PM Discharge Plan Visit Data Chief Complaint: Fall Stated Complaint: FALL, BACK HURTSANEMIA ED Provider: Flaquito Almonte Discharge Problem: Symptomatic anemia, COPD (chronic obstructive pulmonary disease), Influenza A, Chronic hypoxic respiratory failure, Fall, CHI (closed head injury) Forms Stand Alone Forms: [employer] Prescriptions Prescriptions: No Action (DME) Oxygen Home Liters Per Minute See Dose Instructions .ROUTE .MEDSUPPLY Qty: 1 0RF Rx Instructions: 3LPM O2 during sleep (DME) compressor, for nebulizer Device See Rx Instructions .Route Qty: 1 0RF Rx Instructions: As directed (DME) nebulizer accessories Kit See Rx Instructions .Route Qty: 1 6RF Rx Instructions: Nebulizer kits,tubing and [id number] ipratropium-albuterol 0.5 mg-3 mg(2.5 mg base)/3 mL solution for nebulization 3 ml INH Q4H PRN (Reason: Shortness Of Breath Or Wheezing) Qty: 360 5RF Calcium 600 with Vitamin D3 600 mg(1,500mg) -400 unit tablet,chewable 1 tab PO AMPM Rx Instructions: otc unable to verify levothyroxine 137 mcg tablet 137 mcg PO DAILYBB sodium chloride 0.65 % aerosol,spray 1 spray intranasal .USE DIRECTED. PRN (Reason: NASAL DRYNESS) Rx Instructions: otc unable to verify atorvastatin 40 mg tablet 40 mg PO HS Qty: 90 metoprolol tartrate 50 mg tablet 50 mg PO BID trazodone 50 mg tablet 50 mg PO HS budesonide 0.5 mg/2 mL suspension for nebulization 0.5 mg inhalation UD Rx Instructions: 0.5 mg inhalation bid. last filled 12/22 30 day supply lisinopril 20 mg tablet 20 mg PO QAM calcium carbonate [Tums] 200 mg calcium (500 mg) Tablet,Chewable 200 mg PO QID PRN (Reason: Heartburn) Rx Instructions: otc unable to verify cyanocobalamin (vitamin B-12) 500 mcg Tablet 500 mcg PO QAM Qty: 30 0RF Rx Instructions: otc unable to verify chlorthalidone 25 mg tablet 25 mg PO UD Rx Instructions: 25 mg po qam. last filled 08/18/23 90 day supply acetaminophen 650 mg Tablet Extended Release 650 mg PO Q4H PRN (Reason: Headache) Rx Instructions: otc unable to verify omeprazole 20 mg capsule,delayed release(DR/EC) 20 mg PO UD Rx Instructions: 20 mg po daily. last filled 01/28/24 1 hour before the first meal of the day; daughter unsure if she's actively taking it gabapentin 100 mg capsule 100 mg PO TID Rx Instructions: per fill history 100 day supply #400 on 06/01/23 albuterol sulfate 90 mcg/actuation HFA aerosol inhaler 2 puff INHALATION Q6H PRN (Reason: sob/wheezing) Rx Instructions: filled 01/27/24 90 day supply Trelealexandro Ellipta 100-62.5-25 mcg blister with device 1 inh INHALATION QAM Rx Instructions: Filled 06/16 89 day supply #180 sertraline 25 mg tablet 25 mg PO DAILY Referrals Referrals: Yumiko Goldstein DO [Primary Care Provider] - Discharge Problem: COPD (chronic obstructive pulmonary disease) Qualifiers: COPD type: unspecified COPD Qualified Code(s): J44.9 - Chronic obstructive pulmonary disease, unspecified Fall Qualifiers: Encounter type: initial encounter Qualified Code(s): W19.XXXA - Unspecified fall, initial encounter CHI (closed head injury) Qualifiers: Encounter type: initial encounter Qualified Code(s): S09.90XA - Unspecified injury of head, initial encounter
[2024-07-08 13:19] LABS: Hematocrit (blood only) 28.6 % (37.0-47.0); Hemoglobin 8.4 g/dl (12.0-16.0); Mean Corpuscular Hemoglobin 23.2 pg (25.0-34.0); Mean Corpuscular Hgb Conc 29.4 g/dL (32.0-36.0); Mean Platelet Volume 10.7 fL (9.4-12.4); Platelet Count 456 K/uL (130-400); RDW Standard Deviation 43.5 fL (36.4-46.3); Red Blood Count 3.62 M/uL (4.20-5.40); White Blood Count 14.73 K/ul (4.8-10.8)
--- NOTE | 2024-07-08 13:23 | Electrocardiogram Report ---
Test Reason : Blood Pressure : */* mmHG Vent. Rate : 76 BPM Atrial Rate : 76 BPM P-R Int : 116 ms QRS Dur : 72 ms QT Int : 324 ms P-R-T Axes : 50 14 57 degrees QTcB Int : 364 ms Sinus rhythm with Premature supraventricular complexes T wave abnormality, consider inferior ischemia Abnormal ECG When compared with ECG of 19-Jan-2024 20:22, Premature supraventricular complexes are now Present Nonspecific T wave abnormality, worse in Anterolateral leads QT has shortened Confirmed by Saad Mancilla ([id number]) on 07/08/2024 1:23:07 PM Referred By: Confirmed By: Saad Mancilla
[2024-07-08] MEDS: LEVALBUTEROL 1.25 MG/3 ML NEB NEB STA (13:24)
[2024-07-08] MEDS: FAMOTIDINE 20MG IV PUSH 20 MG/5 ML SYR IV STA (13:24)
[2024-07-08 13:30] LABS: Alanine Aminotransferase 9 U/L (7-52); Albumin Level 4.1 gm/dl (3.4-5.0); Alkaline Phosphatase 72 U/L (34-104); Anion Gap 7 (3-11); Aspartate Aminotransferase 18 U/L (13-39); BUN Creatinine Ratio 14.8 (10-20); Bilirubin,Total 0.4 mg/dl (0.2-1.0); Blood Urea Nitrogen 13 mg/dl (6-23); Calcium 9.8 mg/dl (8.6-10.3); Carbon Dioxide 36 mmol/L (21-32); Chloride 100 mmol/L (98-107); Globulin 4.1 gm/dl (2.5-4.0); Glucose 126 mg/dl (70-99(Fasting)); Potassium 3.4 mmol/L (3.5-5.1); Sodium 143 mmol/L (136-145); Total Protein 8.2 gm/dl (6.0-8.3)
[2024-07-08 13:34] LABS: INR 0.9 (0.9-1.1); Partial Thromboplastin Ratio 0.8; Partial Thromboplastin Time 22 Seconds (21-31); Prothrombin Time 10.3 Seconds (9.0-12.0)
[2024-07-08 13:35] LABS: Troponin I High Sensitivity 4.3 pg/ml (0-14)
[2024-07-08] MEDS ORDERED: SODIUM CHLORIDE 0.9% 100 ML IV PRN (13:44)
--- NOTE | 2024-07-08 15:24 | CT Scan Report ---
CT head/brain wo con CLINICAL HISTORY: 83 years-old Female with fall. Acute head trauma status post fall TECHNIQUE: Multiple axial CT images of the head were obtained without contrast. A dose lowering tech nique was utilized adhering to the principles of ALARA. COMPARISON: Acute head trauma status post fall FINDINGS: No acute intracranial hemorrhage, midline shift, intracranial mass, hydrocephalus, territorial ischem ia or abnormal extra-axial collection. Involutional changes with chronic microvascular ischemic disea se. Study is mildly motion degraded. Left frontal lobe encephalomalacia again seen. Senescent mineral ization of the lentiform nuclei. The calvarium is intact. Mild mucosal thickening of the paranasal sinuses. Trace right pleural effus ion. Unremarkable tissues. IMPRESSION: No acute intracranial abnormality or calvarial fracture. ACT 112: Negative or not required by law. The above report was generated using voice recognition software. It may contain grammatical, syntax o r spelling errors. Electronically signed by: Young Sow M.D. 07/08/2024 3:23 PM
--- NOTE | 2024-07-08 15:38 | CT Scan Report ---
CT cervical spine wo con CT DOSE: 899. mGy.cm CLINICAL HISTORY: fall. COMPARISON: 06/02/2008 TECHNIQUE: Multiple axial CT images of the cervical spine were obtained without contrast. A dose low ering technique was utilized adhering to the principles of ALARA. FINDINGS: There is severe diffuse degenerative disc disease. There is stable mild retrolisthesis of C 3 on 4 and C5 on C6. There is stable grade 1 anterolisthesis of C4 on 5. There are progressive degene rative changes anteriorly at C1 to. No cervical spine fracture seen. IMPRESSION: No cervical spine fracture seen. ACT 112: Negative or not required by law. The above report was generated using voice recognition software. It may contain grammatical, syntax o r spelling errors. Electronically signed by: Gerardo Smith M.D. 07/08/2024 3:37 PM
--- NOTE | 2024-07-08 15:58 | History & Physical Report ---
Date of Service July 08, 2024 Assessment & Plan (1) Symptomatic anemia: (2) COPD (chronic obstructive pulmonary disease): Plan: Symptomatic anemia Iron deficiency anemia Fecal occult negative in ED H/O polyp, hiatal hernia Avoid NSAIDs, anticoagulation for now S/P 1 unit PRBC in ED Monitor H&H Anemia workup ordered GI consulted for possible EGD Will give IV Venofer Continue home PPI Currently no bleeding issues Acute on chronic bronchitis Suspected pneumonia H/O COPD Chronic oxygen dependency-at bedtime BioFire positive for coronavirus OC43 Currently no signs of wheezing on exam Isolation precautions Check procalcitonin Empirically started on Rocephin, doxycycline Continue home inhalers Nebs as needed Will consider steroids if develops wheezing Pulmonary hygiene Continue supplemental oxygen at bedtime Abnormal EKG Denies any chest pain Trend troponins, check resting echo Hypokalemia Replete electrolytes as needed Monitor Recent fall Fall precautions PT OT Other chronic conditions Hypertension Hyperlipidemia PVD GERD Hypothyroidism Carotid based tumor S/P radiation Past tobacco abuse Continue home medications as able DVT Px: SCDs for now CODE STATUS Full code Disposition Admitted to [facility] with telemetry PT OT prior to discharge I spent a total [id number] coordinating, documenting, and providing care for this patient. History of Present Illness Chief Complaint: Generalized weakness Primary Care Provider: Yumiko Goldstein DO Patient is an 83-year-old female with history of COPD, hypertension, hyperlipidemia, PVD, COPD, nocturnal hypoxemia Home O2, GERD, paraesophageal hernia, hypothyroidism, carotid based tumor S/P radiation, past tobacco abuse, iron deficiency anemia and other medical problems presents with history of generalized weakness. Patient had blood work 2 days ago as outpatient and was found to have low hemoglobin and was evaluated by gastroenterology today and was advised to go to ED for possible EGD. Patient admits to have generalized weakness resulting in a fall 1 week ago. She admits to bump her head and her back during the fall. She currently denies any bleeding issues. She uses Advil intermittently for chronic back pain. Reports having colonoscopy about 10 years ago which showed polyps. She uses Tums and is on omeprazole for acid reflux which she attributes to hiatal hernia. She also reports ongoing chronic cough and dyspnea on exertion which she attributes to her COPD. Denies any chest pain, dyspnea, palpitations, orthopnea, PND, dizziness, pedal edema, wheezing, hemoptysis, fever, chills, loss of consciousness, change in vision, nausea, vomiting, abdominal pain, blood in stools, diarrhea, dysuria, hematuria. Allergies Allergy/AdvReac Type Severity Reaction Status Date / Time latex Allergy Unknown RASH Verified 04/15/24 11:22 No Known Drug Allergies Allergy Unknown . Verified 04/15/24 11:22 Home Medications Medication Instructions Recorded Confirmed Type atorvastatin 40 mg tablet 40 mg PO HS #90 tabs 11/24/18 07/08/24 History sodium chloride 0.65 % nasal spray 1 spray intranasal .USE 11/24/18 07/08/24 History aerosol DIRECTED. PRN NASAL DRYNESS calcium 600 mg (as carbonate)-vit 1 tab PO AMPM 02/24/19 07/08/24 History D3 10 mcg (400 unit) chewable tablet (Calcium 600 with Vitamin D3) levothyroxine 137 mcg tablet 137 mcg PO DAILYBB 10/30/21 07/08/24 History Oxygen Home #1 ea 04/22/22 04/15/24 Rx compressor, for nebulizer #1 ea 04/22/22 04/15/24 Rx nebulizer accessories #1 ea 08/15/22 04/15/24 Rx metoprolol tartrate 50 mg tablet 50 mg PO BID 11/20/22 07/08/24 History ipratropium 0.5 mg-albuterol 3 mg 3 ml inhalation Q4H PRN Shortness 03/14/23 07/08/24 Rx (2.5 mg base)/3 mL nebulization Of Breath Or Wheezing #360 mL soln budesonide 0.5 mg/2 mL suspension 0.5 mg inhalation UD 01/19/24 07/08/24 History for nebulization calcium carbonate (Tums) 200 mg PO QID PRN Heartburn 01/19/24 07/08/24 History lisinopril 20 mg tablet 20 mg PO QAM 01/19/24 07/08/24 History trazodone 50 mg tablet 50 mg PO HS 01/19/24 07/08/24 History cyanocobalamin (vitamin B-12) 500 500 mcg PO QAM #30 tabs 01/21/24 07/08/24 Rx mcg tablet acetaminophen 650 mg 650 mg PO Q4H PRN Headache 02/23/24 07/08/24 History tablet,extended release albuterol sulfate 90 mcg/actuation 2 puff inhalation Q6H PRN 02/23/24 07/08/24 History aerosol inhaler sob/wheezing chlorthalidone 25 mg tablet 25 mg PO UD 02/23/24 07/08/24 History fluticasone fur. 100 mcg-umeclid 1 inh inhalation QAM 02/23/24 07/08/24 History 62.5 mcg-vilant 25 mcg inhalat.powder (Trelegy Ellipta) gabapentin 100 mg capsule 100 mg PO TID 02/23/24 07/08/24 History omeprazole 20 mg capsule,delayed 20 mg PO UD 02/23/24 07/08/24 History release sertraline 25 mg tablet 25 mg PO DAILY 07/08/24 07/08/24 History 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) COPD (chronic obstructive pulmonary disease) (Acute) Subclavian artery stenosis, left Benign neoplasm of colon Chronic rhinitis Chronic sinusitis GERD (gastroesophageal reflux disease) Hyperlipidemia Hypertension Post-menopausal atrophic vaginitis Rosacea Senile osteoporosis Closed fracture of left hip (Acute) Fall (Acute) Cough Abnormal CT scan of lung Shortness of breath (Acute) Medical History Anemia requiring transfusions Acute dyspnea Symptomatic anemia Hypoxia Abnormal finding on imaging Cough Asthma with COPD Surgical History H/O: hysterectomy Hx of cholecystectomy History of appendectomy Family History Family/Other Hypertension Asthma Cardiac disorder Social History Smoking Status: Former smoker Second Hand Exposure: No; Do You Dip or Chew Tobacco: No; Hx Alcohol Use: No Hx Substance Use: No Preferred Language: Beninese Communication Ability: Effective Systems Auditor Required: No Beliefs That Will Affect Care: None marital status: Current Living Situation: Family Current Living Situation Comment: Lives at home with son. Feels Safe at Home: Yes Seatbelt Use: always Assistive Devices: Nebulizer and Oxygen - Continuous Review of Systems Review of Systems: All systems reviewed & are unremarkable except as noted in Subjective Physical Exam Physical Exam: Physical Exam: Vitals signs as noted above General Appearance: Thin, frail, elderly, no apparent distress Head: normocephalic, Atraumatic Eyes: normal inspection, EOMI Neck: supple, Trachea midline Respiratory/Chest: Decreased breath sounds, CTA, No accessory muscle use Cardiovascular: S1, S2, No murmur Abdomen/GI:Soft, Non tender, Bowel sounds present Extremities/Musculoskeletal:normal inspection, no edema Neurologic/Psych:AAOX3, grossly no focal neurological deficits Skin: normal color, warm Results & Data Results & Data Vital Signs (Past 12 Hours) Vital Signs Temp Pulse Resp BP Pulse Ox O2 Del Method O2 Flow Rate 07/08/24 14:45 124/67 100 Nasal Cannula 3 07/08/24 14:35 76 137/85 97 Nasal Cannula 3 07/08/24 14:15 75 24 107/70 96 Nasal Cannula 3 07/08/24 13:00 89 16 135/74 96 Nasal Cannula 3 07/08/24 13:00 74 20 135/74 95 Nasal Cannula 3 07/08/24 12:51 Room Air 07/08/24 12:26 36.8 C 77 20 92/67 L 93 Room Air Laboratory Results Short CBC 07/08/24 Range/Units 12:45 WBC 14.73 H (4.8-10.8) K/ul Hgb 8.4 L (12.0-16.0) g/dl Hct 28.6 L (37.0-47.0) % Plt Count 456 H (130-400) K/uL BMP 07/08/24 12:45 Sodium 143 Potassium 3.4 L Chloride 100 Carbon Dioxide 36 H BUN 13 Creatinine 0.88 Glucose 126 H Calcium 9.8 Liver Function 07/08/24 Range/Units 12:45 Total Bilirubin 0.4 (0.2-1.0) mg/dl AST 18 (13-39) U/L ALT 9 (7-52) U/L Alkaline Phosphatase 72 (34-104) U/L Albumin 4.1 (3.4-5.0) gm/dl Diagnostic Findings --CT Head:No acute intracranial abnormality or calvarial fracture. --CXR:Suspected right upper lobe and left lower lobe pneumonia Unchanged large hiatal hernia --Neck CT:No cervical spine fracture seen. --Sacral X ray:Unremarkable radiographs of the sacrum and coccyx ECG Additional Comments: --EKG: Sinus rhythm with PVCs, nonspecific T wave changes in anterolateral leads, QTc 364 (2) COPD (chronic obstructive pulmonary disease) COPD type: unspecified COPD Qualified Code(s): J44.9 - Chronic obstructive pulmonary disease, unspecified
--- NOTE | 2024-07-08 16:17 | XRay Report ---
Clinical History: Pain. 3 views of the sacrum and coccyx are submitted for review. Findings: No fracture or dislocation is seen. There is internal fixation of the left femur. No significant arthritic changes are noted. No other osseous abnormality is identified. There are no radiopaque foreign bodies. Impression: Unremarkable radiographs of the sacrum and coccyx Electronically signed by Jamie Olsen 07-08-2024 4:16 PM
--- NOTE | 2024-07-08 16:19 | XRay Report ---
Clinical History: Cough Technique: 2 frontal views of the chest were obtained Comparison is made to the prior examination dated 02/23/2024 Findings: There is new mild patchy opacity in the left lower lobe and right midlung, which may be due to pneumonia. The heart size is within normal limits. No pleural effusion or pneumothorax is seen. There is no definite pulmonary nodule. A large hiatal hernia is again seen. There is thoracic and lumbar scoliosis and degenerative disc disease Impression: 1. Suspected right upper lobe and left lower lobe pneumonia 2. Unchanged large hiatal hernia ACT 112: Positive. There are findings on this exam that require communication between the performing entity and the patient following Patient Test Result Information Act ([place] ACT 112) guidelines. Electronically signed by Jamie Olsen 07-08-2024 4:18 PM
[2024-07-08 17:07] LABS: Ferritin 10.1 ng/ml (8-388)
[2024-07-08 17:11] LABS: Folate (Folic Acid),Ser orPlas 21.89 ng/ml (>5.38)
[2024-07-08 17:47] LABS: Adenovirus PCR Not Detected (NotDetected); Bordetella parapertussis PCR Not Detected (NotDetected); Bordetella pertussis PCR Not Detected (NotDetected); Chlamydia pneumoniae PCR Not Detected (NotDetected); Coronavirus 229E PCR Not Detected (NotDetected); Coronavirus CoV-2 (COVID19)PCR Not Detected (NotDetected); Coronavirus HKU1 PCR Not Detected (NotDetected); Coronavirus NL63 PCR Not Detected (NotDetected); Coronavirus OC43PCR DETECTED (NotDetected); Human Metapneumovirus PCR Not Detected (NotDetected); Influenza A (H1 2009) PCR DETECTED (NotDetected); Influenza B PCR Not Detected (NotDetected); Mycoplasma pneumoniae PCR Not Detected (NotDetected); Parainfluenza Virus 1 PCR Not Detected (NotDetected); Parainfluenza Virus 2 PCR Not Detected (NotDetected); Parainfluenza Virus 3 PCR Not Detected (NotDetected); Parainfluenza Virus 4 PCR Not Detected (NotDetected); Respiratory Syncytial VirusPCR Not Detected (NotDetected); Rhinovirus/Enterovirus PCR Not Detected (NotDetected)
[2024-07-08] MEDS ORDERED: ALBUT/IPRATROP 3MG/0.5MG NEB 3 ML VIAL NEB PRN (18:04)
[2024-07-08] MEDS: POTASSIUM CHLORIDE CRTAB 20 MEQ TABCR PO STA (19:13)
[2024-07-08] MEDS ORDERED: ONDANSETRON INJ 2 MG/ML 2 ML VIAL IV PRN (20:37)
[2024-07-08] MEDS ORDERED: SODIUM CHLORIDE 0.65% NA SOLN 45 ML (OCEAN) PRN (20:37)
[2024-07-08] MEDS ORDERED: NON-FORMULARY MEDICATION (Oxygen Home Liters per Minute) SCH (20:37)
[2024-07-08] MEDS ORDERED: FAMOTIDINE 10 MG TABLET PO PRN (20:37)
[2024-07-08] MEDS ORDERED: CALCIUM CARBONATE 500 MG CHEWABLE TAB PO PRN (20:37)
[2024-07-08] MEDS: ACETAMINOPHEN 325 MG TAB PO PRN (21:32)
[2024-07-08] MEDS: ATORVASTATIN 40 MG TAB PO SCH (21:33)
[2024-07-08] MEDS: METOPROLOL TARTRATE 50 MG TAB PO SCH (21:33)
[2024-07-08] MEDS: GABAPENTIN 100 MG CAP PO SCH (21:34)
[2024-07-08] MEDS: DOXYCYCLINE HYCLATE 100 MG CAP PO SCH (21:34)
[2024-07-08] MEDS: traZODone HCL 50 MG TAB PO SCH (21:34)
[2024-07-08] MEDS: guaiFENesin 600 MG TABCR PO SCH (21:34)
[2024-07-08] MEDS: cefTRIAXone SODIUM 1,000 MG/50 ML BAG IV SCH (21:35)
[2024-07-08] MEDS: IRON SUCROSE 300 MG in SODIUM CHLORIDE 0.9% 250 ML IV ONE (21:35)
[2024-07-08] MEDS: CALCIUM 600MG + VIT D 400 IU TAB PO SCH (21:35)
[2024-07-08] MEDS: BUDESONIDE 0.5 MG/2 ML VIAL (PULMICORT) INH SCH (21:45)
[2024-07-08] MEDS: LABETALOL HCL IV 5 MG/ML 20ML IV STA (23:54)
--- OUTSIDE RECORDS SUMMARY | 2024-07-09 00:17 | External Medical Summary ---
Author Name Unknown Address Unknown Organization K01:LAB[facility]ATORY [facility] [place] - [address] [id number] Laboratory Report Ordering Provider Test Date Status ROXANA CORONADOBAR 07/05/2024 14:36:29 Final Observation Date Value Abnormality Reference (Units ) Status Triglyceride 07/05/2024 14:36:29 134 <=174 ( mg/dL) Final Triglyceride Reference Range s (mg/dL):
<150 Acceptable
150-174 Borderline high
175-499 High
>=500 Very high Cholesterol 07/05/2024 14:36:29 115 <200 (mg /dL) Final Total Cholesterol Reference Ranges (mg/dL):
<200 Desirable
200-239 Borderline high
>=240 High HDL 07/05/2024 14:36:29 37 Below low normal >49 (mg/dL) Final HDL Cholesterol Reference Ra nges (mg/dL):
>=60 High (Desirable)
<50 Low (Undesirable) For Females
<40 Low (Undesirable) For Males NON-HDL CHOLESTEROL 07/05/2024 14:36:29 78 <=159 (mg/dL) Final Non-HDL Cholesterol Referenc e Range (mg/dL):
<100 Target level for high risk ASCVD patient
<130 Optimal for general population
130-159 Near optimal for general population
160-189 Borderline High
190-219 High
>=220 Very High LDL, (calculated) 07/05/2024 14:36:29 51 <= 129 (mg/dL) Final LDL Cholesterol Reference Ra nges (mg/dL):
<70 Target level for high risk ASCVD patient
<100 Optimal for general population
100-129 Near optimal for general population
130-159 Borderline high
160-189 High
>=190 Very high
Patient has high LDL cholesterol. Consider screening for Familial Hypercholesterolemia. Performing Location LAB[facility]ATORY [facility] [place] - [address] [facility] [id number]
--- OUTSIDE RECORDS SUMMARY | 2024-07-09 00:17 | External Medical Summary ---
Author Name Unknown Address Unknown Organization [id number]:[facility] [place] - [address] [place] [id number] Laboratory Report Ordering Provider Test Date Status ADAN JURADO 07/05/2024 14:36:29 Final Observation Date Value Abnormality Reference (Units ) Status WBC, Total 07/05/2024 14:36:29 11.54 Above high normal 4 .00-10.80 (K/uL) Final RBC 07/05/2024 14:36:29 2.49 3.85-5.15 (M/uL) Final Hemoglobin 07/05/2024 14:36:29 7.2 Below low normal 12 .0-15.3 (g/dL) Final Anemia reflex testing trigge rs on a HGB < 12.0 for Females and HGB < 13.0 for Males in accordance with the WHO Anemia Guidelines
Anemia reflex testing triggers on a HGB < 12.0 for Females and HGB < 13.0 for Males in accordance with the WHO Anemia Guidelines HCT 07/05/2024 14:36:29 22.6 Below low normal 36. 0-45.2 (%) Final MCV 07/05/2024 14:36:29 90.8 81.5-97.5 (fL) Final MCH 07/05/2024 14:36:29 28.9 27.0-34.0 (pg) Final MCHC 07/05/2024 14:36:29 31.9 32.0-36.0 (g/dL) Final RDW 07/05/2024 14:36:29 15.9 11.5-15.5 (%) Final Platelets 07/05/2024 14:36:29 272 140-400 (K /uL) Final MPV 07/05/2024 14:36:29 11.5 6.6-11.1 ( fL) Final Nucleated erythrocytes/100 leukocytes [Ratio] in Blood by Automated count 07/05/2024 14:36:29 0 <=0 (/100 WBCs) Final Performing Location [facility]ATORY [facility] [place] - [address] [facility] [id number]
--- OUTSIDE RECORDS SUMMARY | 2024-07-09 00:17 | External Medical Summary ---
Author Name Unknown Address Unknown Organization [id number]:LABORATORY [place] [address] [facility] [address] Laboratory Report Ordering Provider Test Date Status ADAN JURADO 07/05/2024 14:36:29 Final Observation Date Value Abnormality Reference (Units ) Status Retic, % (auto) 07/05/2024 14:36:29 1.18 0.80-1.90 (%) Final Reticulocytes, Absolute 07/05/2024 14:36:29 31.5 31.3-100.1 (K/uL) Final Reticulocyte fraction, immature 07/05/2024 14:36:29 22.7 Above high normal 2.5-20.6 (%) Final Reticulocyte HGB 07/05/2024 14:36:29 17.3 Below low normal 29.7-37.4 (pg) Final Performing Location LABORATORY [facility] [place] - [facility] [address] [facility] [address]
--- OUTSIDE RECORDS SUMMARY | 2024-07-09 00:17 | External Medical Summary ---
Author Name Unknown Address Unknown Organization [id number]:LAB[facility]ATORY [facility] [place] - [address] [place] [address] Laboratory Report Ordering Provider Test Date Status JA JURADOON 07/05/2024 14:36:29 Final Observation Date Value Abnormality Reference (Units ) Status TSH 07/05/2024 14:36:29 4.68 Above high normal 0. 27-4.20 (uIU/mL) Final Performing Location LAB[facility]ATORY [facility] [place] - [address] [place] [address]
--- OUTSIDE RECORDS SUMMARY | 2024-07-09 00:17 | External Medical Summary | Summary of Care ---
Author Name Unknown Organization [facility] Address [address] [place] [address] Phone [phone] Care Team Providers Care Healthcare Interpreter Name Role Phone Yumiko Goldstein DO Primary Care Provider Reason for Visit * Reason Comments Outpatient Testing Encounter Details Date Type Department Care Team (Late st Contact Info) Description 07/05/2024 2:40 PM EDT Laboratory Laboratory [address] [place] [phone] [place] [address] Hyperlipidemia with target LDL less than 130; Encounter for long-term (current) drug use; Hyperlipidemia with target LDL less than 100; Anemia, unspecified type Allergies Active Allergy Reactions Criticality Noted Date Comments Other - Environmental 09/27/2008 Band aids documented as of this encounter (statuses as of 07/06/2024) Medications TUMS 500 MG PO CHEW as [...] hours as needed for Pain, Moderate. Active oxygen IN GAS Administer 3 L/min(Oxygen) into nostril at bedtime. 4 Active Levothyroxine Sodium 137 MCG Oral Tablet (Synthroid)Indicat ions:Acquired hypothyroidism TAKE ONE TABLET BY MOUTH IN THE MORNING 30 MIN BEFORE BREAKFAST OR OTHER MEDS 100 Tablet 1 06/09/2024 1:28 PM EST 4 Active Metoprolol Tartrate 50 MG Oral Tablet (Lopressor)Indicat ions:Primary hypertension,Essen tial hypertension with goal blood pressure less than 140/90 TAKE 1 TABLET BY MOUTH IN THE MORNING AND AT BEDTIME 200 Tablet 1 06/08/2024 12:37 PM EST 4 Active Vitamin B-12 500 MCG Oral Tablet (vitamin B-12) Take 1 Tablet by mouth in the morning. 4 Active oxygen IN GASIndications:Hyp oxemia,COPD, group B, by GOLD 2017 classification ([facility]) Administer 3 L/min(Oxygen) into nostril continuous. 1 Each 4 Active Omeprazole 20 MG Oral Capsule Delayed Release (PriLOSEC) Take 1 Capsule by mouth in the morning. 1 hour before the first meal of the day. 30 Capsule 4 Active Albuterol Sulfate HFA 108 (90 Base) MCG/ACT Inhalation Aerosol Solution Inhale 2 puffs by mouth every 4 hours as needed for wheezing 20.1 g 2 4 Active Ipratropium-Albute rol 0.5-2.5 (3) MG/3ML Inhalation Solution (Duoneb)Indication s:Moderate persistent asthma without complication INHALE CONTENTS OF 1 VIAL VIA NEBULIZER TWICE DAILY, MAY INCREASE TO 1 VIAL EVERY 4 HOURS NEEDED FOR WORSENING COUGH, WHEEZING OR SHORTNESS OF BREATHE 1080 mL 1 05/31/2024 1:51 PM EST 4 Active Atorvastatin Calcium 40 MG Oral Tablet (Lipitor)Indicatio ns:Hyperlipidemia with target LDL less than 130 TAKE ONE TABLET BY MOUTH AT BEDTIME 100 Tablet 05/05/2024 2:20 PM EST 5 Active Lisinopril 20 MG Oral Tablet (Prinivil)Indicati ons:Primary hypertension TAKE ONE TABLET BY MOUTH IN THE MORNING 100 Tablet 05/05/2024 2:20 PM EST 5 Active Gabapentin 100 MG Oral Capsule (Neurontin)Indicat ions:Lumbar radicular pain,Need for case management follow-up take 1 capsule by mouth in morning, 1 capsule in afternoon and 2 capsules at bedtime 400 Capsule 2 06/02/2024 6:55 AM EST 5 Active Prevagen 10 MG Oral Capsule (Apoaequorin) Take by mouth. A ctive Fluticasone-Umecli din-Vilant 100-62.5-25 MCG/ACT Aerosol Powder Breath Activated (Trelegy Ellipta)Indication s:COPD, group B, by GOLD 2017 classification ([facility]) Inhale 1 Puff by mouth in the morning. 180 Each 1 06/18/2024 5:18 PM EST 5 Active Zoster Vac Recomb Adjuvanted 50 MCG/0.5ML Intramuscular Suspension Reconstituted (Shingrix) Inject 0.5 mL into a large muscle now and repeat dose in 60 to 180 days 1 Each 1 5 Active traZODone HCl 50 MG Oral Tablet (Desyrel)Indicatio ns:Primary insomnia Take 1 Tablet by mouth at bedtime. 100 Tablet 1 5 Active Sertraline HCl 25 MG Oral Tablet (Zoloft) Take 1 Tablet by mouth in the morning. 100 Tablet 1 06/18/2024 5:18 PM EST 5 Active documented as of this encounter (statuses as of 07/06/2024) Active Problems Problem Noted Date Diagnosed Date Chronic respiratory failure with hypoxia 024 Lumbar radicular pain 03/01/2024 Primary insomnia 10/24/2023 Hypoxemia 10/24/2023 COPD, group [...] as of this encounter (statuses as of 07/06/2024) Resolved Problems Problem Noted Date Diagnosed Date Resolved Date Chronic respiratory failure with hypoxia 03/01/2024 03/01/2024 Peripheral polyneuropathy 03/01/2024 Benign neoplasm of colon 09/20/2013 Overview (09/20/2013): [...] as of this encounter (statuses as of 07/06/2024) Immunizations Name Administration Dates Next Due COVID-19 mRNA, LNP-s, No Pre serve, 2-Dose Series (Moderna) 07/12/2020,06/21/2020 COVID-19 mRNA, LNP-s, No Pre serve, 2-Dose Series (Pfizer) 08/14/2021,01/24/2021 COVID-19, MRNA-LNP, PF, 50 M CG/0.5 mL, 12 YRS AND ABOVE, IM (MODERNA-Spikevax) 05/05/2024,04/18/2023 Pneumococcal Conjugate Vacc, 13 Valent (Prevnar) 10/11/2014 [...] 02/06/2024 Does the household have a re lar source of income? (Household - for ages [...] ages 0-17 years) Not on file 02/06/2024 Food Insecurity Answer Date Recorded Within the past 12 months, y ou worried that your food would run out before you got the money to buy more. Never true 02/06/20 Within the past 12 months, t he food you bought just didn't last and you didn't have money to get more. Never true 02/06/2024 Do you need food for this week? No 02/06/2024 Comments No Sex and Gender Information [...] Care Team (Late st Contact Info) Description 07/14/2024 1:30 PM EDT Laboratory Laboratory [address] [place] [phone] [address] [place] [address] 01/18/2025 3:10 PM EDT Office Visit Family Medicine [address] [place] [phone] Triston Yumikoburton Rosario, [address] [place] [address] 02/09/2025 2:30 PM EDT Nurse Only Ancillary [address] [place] [address] [place], Nurse Annual Wellness [address] [place] [address] [place] [address] Health Maintenance Due Date Last Done Comments Alpha-1 Antitrypsin 08/23/1958 DXA Scan 11/15/2022 11/15/2020, 01/13, 05/25/2014, Additional history exists Zoster Vaccines (2 of 2) 01/28/2023 12/03/2022 *BISPHONATE OR OTHER ACCEPTABLE MEDICATION NEEDED FOR OSTEOPOROSIS (REFER TO SMARTSET #1146) 01/02/2024 Albumin/Creatinine Ratio 10/18/2024 022, 11/08/2020, 10/14/2019, Additional history exists COVID-19 Vaccine ( season) 2024 05/05/2024, 04/18/2023, 08/14/2021, Additional history exists Adult Wellness Visit 02/05/2025 02/06/2024, 01/10/2023, 01/03/2022, Additional history exists Depression Screening 02/05/2025 02/06/2024 O2 ASSESSMENT COMPLETED IN PAST YEAR FOR COPD 02/05/2025 02/06/2024 GFR 07/05/2025 07/05/2024, 01/12, 11/17/2023, Additional history exists TSH 07/05/2025 07/05/2024, 10/12, 11/15/2022, Additional history exists DTap/Tdap Vaccines (2 - Td or Tdap) 12/03/2032 12/03/2022, 03/30/2009 VITAMIN D LEVEL ONCE IN A LIFETIME-USE SMARTSET# [id number] Completed 06/29/2012, 03/30/2009 Pneumococcal Vaccine: 50+ Years Completed 10/11/2014, 05/07/2007 Influenza Vaccine (FLU [...] on patient's age to complete this topic Meningitis B Vaccine (Bexsero/Trumemba) Aged Out No longer eligible based on patient's age to complete this topic documented as of this encounter Medical Devices Not on filedocumented as of this encounter Procedures Procedure Name Priority Date/Time Associated Diagnosis Comments ANEMIA REFLEX CHEMISTRY HOLD Routine 07/05/2024 2:36 PM EDT Anemia, unspecified type ANEMIA CBC Routine 07/05/2024 2:36 PM EDT Anemia, unspecified type DIFFERENTIAL, AUTOMATED Routine 07/05/2024 2:36 PM EDT Anemia, unspecified type DIFFERENTIAL, AUTOMATED Routine 07/05/2024 2:36 PM EDT Anemia, unspecified type RETICULOCYTE PANEL Routine 07/05/2024 2: 36 PM EDT Anemia, unspecified type LIPID PANEL WITH DIRECT LDL IF TG IS HIGH Routine 07/05/2024 2:36 PM EDT Hyperlipidemia with target LDL less than 130 COMPREHENSIVE METABOLIC PANEL Routine 07/05/2024 2:36 PM EDT Hyperlipidemia with target LDL less than 100 FOLIC ACID Routine 07/05/2024 2:36 PM EDT Anemia, unspecified type IRON SCREEN, INCLUDING TIBC Routine 07/05/2024 2:36 PM EDT Anemia, unspecified type TSH Routine 07/05/2024 2:36 PM EDT Anemia, unspecified type FERRITIN Routine 07/05/2024 2:36 PM EDT Anemia, unspecified type VITAMIN B12 Routine 07/05/2024 2:36 PM EDT Encounter for long-term (current) drug use documented in this encounter Results * FOLIC ACID (07/05/2024 2:36 PM EDT) Folic Acid >20.0 >4.5 ng/mL 07/06/2024 4:30 AM EDT LAB[facility] Blood Venous blood specimen / Unknown Venipuncture / Unknown 07/05/2024 2:36 PM EDT 07/05/2024 2:37 PM EDT Yumiko Goldstein LAB BLOOD ORDERABLES Final R esult Performing Organization Address [facility] de Phone Number LAB[facility]ATORY [facility] [address] [place] [address] * (ABNORMAL) TSH (07/05/2024 2:36 PM EDT) TSH 4.68(H) 0.27 - 4.20 uIU/mL 07/06/2024 4:10 AM EDT LAB[facility] Blood Venous blood specimen / Unknown Venipuncture / Unknown 07/05/2024 2:36 PM EDT 07/05/2024 2:37 PM EDT Yumiko Goldstein LAB BLOOD ORDERABLES Final R esult Performing Organization Address City/[facility] de Phone Number LAB[facility]ATORY [facility] [address] [place] [address] * FERRITIN (07/05/2024 2:36 PM EDT) Ferritin 21 13 - 150 ng/mL 07/06/2024 4:30 AM EDT LAB[facility] Comment:Postmenopausal women have higher ferritin levels than pre-menopausal women. The above reference interval is based on pre-menopausal women. Blood Venous blood specimen / Unknown Venipuncture / Unknown 07/05/2024 2:36 PM EDT 07/05/2024 2:37 PM EDT Yumiko Goldstein LAB BLOOD ORDERABLES Final R esult LAB[facility]ATORY [facility] [address] [place] [address] * (ABNORMAL) IRON SCREEN, INCLUDING TIBC (07/05/2024 2:36 PM EDT) Iron 10(L) 33 - 151 ug/dL 07/06/2024 4:30 AM EDT [facility] Iron Binding Capacity 349 250 - 425 ug/dL 07/06/2024 4:30 AM EDT [facility] Transferrin Saturation Percent 3(L) 15 - 55 % 07/06/2024 4:30 AM EDT [facility] Blood Venous blood specimen / Unknown Venipuncture / Unknown 07/05/2024 2:36 PM EDT 07/05/2024 2:37 PM EDT Yumiko Goldstein DO LAB BLOOD ORDERABLES Final R esult LABORATORY [address] [address] * (ABNORMAL) RETICULOCYTE PANEL (07/05/2024 2:36 PM EDT) Reticulocyte Percent 1.18 0.80 - 1.90 % 07/05/2024 10:09 PM EDT [facility] Absolute Reticulocyte 31.5 31.3 - 100.1 K/uL 07/05/2024 10:09 PM EDT [facility] Immature Reticulocyte Fraction 22.7(H) 2.5 - 20.6 % 07/05/2024 10:09 PM EDT [facility] Reticulocyte Hemoglobin 17.3(L) 29.7 - 37.4 pg 07/05/2024 10:09 PM EDT [facility] Blood Venous blood specimen / Unknown Venipuncture / Unknown 07/05/2024 2:36 PM EDT 07/05/2024 2:37 PM EDT Yumiko Goldstein DO LAB BLOOD ORDERABLES Final R esult [facility] [address] [place] [address] * ANEMIA REFLEX CHEMISTRY HOLD (07/05/2024 2:36 PM EDT) Blood Venous blood specimen / Unknown Venipuncture / Unknown 07/05/2024 2:36 PM EDT 07/05/2024 2:37 PM EDT Yumiko Goldstein DO LAB BLOOD ORDERABLES Final R esult Performing Organization Address City/[facility]/ZIP Co de Phone Number [facility] [address] [place] [address] * (ABNORMAL) DIFFERENTIAL, AUTOMATED (07/05/2024 2:36 PM EDT) WBC 11.54(H) 4.00 - 10.80 K/uL 07/05/2024 9:49 PM EDT [facility] Neutrophils % 65.5 40.0 - 75.0 % 07/05/2024 9:49 PM EDT [facility] Lymphocytes % 21.3 18.0 - 42.0 % 07/05/2024 9:49 PM EDT [facility] Monocytes % 11.7(H) 1.0 - 11.0 % 07/05/2024 9:49 PM EDT [facility] Eosinophils % 0.6 0.0 - 6.0 % 07/05/2024 9:49 PM EDT [facility] Basophils % 0.3 0.0 - 2.0 % 07/05/2024 9:49 PM EDT [facility] Immature Granulocytes % 0.6 0.0 - 2.0 % 07/05/2024 9:49 PM EDT [facility] Absolute Neutrophils 7.56 1.80 - 7.70 K/uL 07/05/2024 9:49 PM EDT [facility] Absolute Lymphocytes 2.46 1.00 - 4.80 K/ul 07/05/2024 9:49 PM EDT [facility] Absolute Monocytes 1.35(H) 0.00 - 1.10 K/uL 07/05/2024 9:49 PM EDT [facility] Absolute Eosinophils 0.07 0.00 - 0.70 K/uL 07/05/2024 9:49 PM EDT [facility] Absolute Basophils 0.03 0.00 - 0.20 K/uL 07/05/2024 9:49 PM EDT [facility] Absolute Immature Granulocytes 0.07 0.00 - 0.20 K/uL 07/05/2024 9:49 PM EDT [facility] Blood Venous blood specimen / Unknown Venipuncture / Unknown 07/05/2024 2:36 PM EDT 07/05/2024 2:37 PM EDT us Yumiko Marlene Goldstein DO LAB BLOOD ORDERABLES Final R esult [facility] [address] [place] [address] * (ABNORMAL) ANEMIA CBC (07/05/2024 2:36 PM EDT) WBC 11.54(H) 4.00 - 10.80 K/uL 07/05/2024 9:49 PM EDT [facility] RBC 2.49 3.85 - 5.15 M/uL 07/05/2024 9:49 PM EDT [facility] HGB 7.2(L) 12.0 - 15.3 g/dL 07/05/2024 9:49 PM EDT [facility] Comment: Anemia reflex testing triggers on a HGB < 12.0 for Females and HGB < 13.0 for Males in accordance with the WHO Anemia Guidelines Anemia reflex testing triggers on a HGB < 12.0 for Females and HGB < 13.0 for Males in accordance with the WHO Anemia Guidelines HCT 22.6(L) 36.0 - 45.2 % 07/05/2024 9:49 PM EDT [facility] MCV 90.8 81.5 - 97.5 fL 07/05/2024 9:49 PM EDT [facility] MCH 28.9 27.0 - 34.0 pg 07/05/2024 9:49 PM EDT [facility] MCHC 31.9 32.0 - 36.0 g/dL 07/05/2024 9:49 PM EDT [facility] RDW 15.9 11.5 - 15.5 % 07/05/2024 9:49 PM EDT [facility] PLT 272 140 - 400 K/uL 07/05/2024 9:49 PM EDT [facility] MPV 11.5 6.6 - 11.1 fL 07/05/2024 9:49 PM EDT [facility] nRBCs 0 <=0 /100 WBCs 07/05/2024 9:49 PM EDT LABORATORY C Blood Venous blood specimen / Unknown Venipuncture / Unknown 07/05/2024 2:36 PM EDT 07/05/2024 2:37 PM EDT us Yumiko Goldstein DO LAB BLOOD ORDERABLES Final R esult LAB[facility] [address] [place] [address] * (ABNORMAL) COMPREHENSIVE METABOLIC PANEL (07/05/2024 2:36 PM EDT) BUN 13 6 - 20 mg/dL 07/06/2024 3:51 AM EDT [facility] CREATININE 0.9 0.5 - 1.0 mg/dL 07/06/2024 3:51 AM EDT [facility] EGFR 66 >=60 mL/min 07/06/2024 3:51 AM EDT [facility] Comment:eGFR is calculated b ased on the CKD-EPI 2020 equation. SODIUM 141 135 - 146 mmol/L 07/06/2024 3:51 AM EDT [facility] POTASSIUM 3.8 3.5 - 5.1 mmol/L 07/06/2024 3:51 AM EDT [facility] CHLORIDE 101 98 - 107 mmol/L 07/06/2024 3:51 AM EDT [facility] CO2 28 22 - 32 mmol/L 07/06/2024 3:51 AM EDT [facility] ANION GAP 12 7 - 15 mmol/L 07/06/2024 3:51 AM EDT [facility] GLUCOSE 135(H) 70 - 120 mg/dL 07/06/2024 3:51 AM EDT [facility] Albumin 3.7(L) 3.8 - 5.0 g/dL 07/06/2024 3:51 AM EDT [facility] AST 18 10 - 35 U/L 07/06/2024 3:51 AM EDT [facility] Alkaline Phosphatase 71 35 - 130 U/L 07/06/2024 3:51 AM EDT [facility] Bilirubin, Total <0.2 <=1.2 mg/dL 07/06/2024 3:51 AM EDT [facility] CALCIUM 9.1 8.4 - 10.2 mg/dL 07/06/2024 3:51 AM EDT [facility] Protein 6.4 6.0 - 8.3 g/dL 07/06/2024 3:51 AM EDT [facility] ALT 12 10 - 35 U/L 07/06/2024 3:51 AM EDT [facility] Blood Venous blood specimen / Unknown Venipuncture / Unknown 07/05/2024 2:36 PM EDT 07/05/2024 2:37 PM EDT us Yumiko Goldstein DO LAB BLOOD ORDERABLES Final R esult [facility] [address] [place] [address] * VITAMIN B12 (07/05/2024 2:36 PM EDT) [facility] Vitamin B12 898 232 - 1,245 pg/mL 07/06/2024 5:07 AM EDT [facility] Blood Venous blood specimen / Unknown Venipuncture / Unknown 07/05/2024 2:36 PM EDT 07/05/2024 2:37 PM EDT us Moni Barfield [facility] LAB BLOOD ORDERABLES Fin al Result LAB[facility]ORY [facility] [address] [place], [place] [id number] * (ABNORMAL) LIPID PANEL WITH DIRECT LDL IF TG IS HIGH (07/05/2024 2:36 PM EDT) Triglycerides 134 <=174 mg/dL 07/06/2024 3:51 AM EDT LAB[facility] Comment: Triglyceride Reference Ranges (mg/dL): <150 Acceptable 150-174 Borderline high 175-499 High >=500 Very high Cholesterol 115 <200 mg/dL 07/06/2024 3:51 AM EDT LAB[facility] Comment: Total Cholesterol Reference Ranges (mg/dL): <200 Desirable 200-239 Borderline high >=240 High HDL Cholesterol 37(L) >49 mg/dL 3:51 AM EDT LAB[facility] Comment: HDL Cholesterol Reference Ranges (mg/dL): >=60 High (Desirable) <50 Low (Undesirable) For Females <40 Low (Undesirable) For Males Non-HDL Cholesterol 78 <=159 mg/dL 07/06/2024 3:51 AM EDT LAB[facility] Comment: Non-HDL Cholesterol Reference Range (mg/dL): <100 Target level for high risk ASCVD patient <130 Optimal for general population 130-159 Near optimal for general population 160-189 Borderline High 190-219 High >=220 Very High LDL Cholesterol 51 <=129 mg/dL 07/06/2024 3:51 AM EDT LAB[facility] Comment: LDL Cholesterol Reference Ranges (mg/dL): <70 Target level for high risk ASCVD patient <100 Optimal for general population 100-129 Near optimal for general population 130-159 Borderline high 160-189 High >=190 Very high Patient has high LDL cholesterol. Consider screening for Familial Hypercholesterolemia. Blood Venous blood specimen / Unknown Venipuncture / Unknown 07/05/2024 2:36 PM EDT 07/05/2024 2:37 PM EDT us Moni Barfield [facility] LAB BLOOD ORDERABLES Fin al Result LAB[facility]ORY [facility] [address] [facility] [place] [address] documented in this encounter Visit Diagnoses Diagnosis Hyperlipidemia with target LDL less than 130 Other and unspecified hyperlipidemia Encounter for long-term (current) drug use Encounter for long-term (current) use of other medications Hyperlipidemia with target LDL less than 100 Other and unspecified hyperlipidemia Anemia, unspecified type documented in this encounter Advance Directives Healthcare Agents on File Name Relationship Healthcare Agent Relationshi p Communication Dick Ortega Adult Child Health Care Repr esentative (appointed verbally by patient or by statute hierarchy) Meredith whtie Adult Child Health Care R epresentative (appointed verbally by patient or by statute hierarchy) Care Teams Healthcare Interpreter Relationship Specialty Start Date End Date Yumiko Goldstein DO [address] [place] [address] [place] [address] PCP - General Internal Medicine 10/24/23 documented as of this encounter
--- OUTSIDE RECORDS SUMMARY | 2024-07-09 00:17 | External Medical Summary ---
Author Name Unknown Address Unknown Organization [id number]:LAB[facility]ATORY [facility] [address] [facility] [place] [address] Laboratory Report Ordering Provider Test Date Status ADAN JURADO 07/05/2024 14:36:29 Final Observation Date Value Abnormality Reference (Units ) Status BUN 07/05/2024 14:36:29 13 6-20 (mg/dL) Final Creatinine 07/05/2024 14:36:29 0.9 0.5-1.0 (mg/dL) Final Glomerular filtration rate/1.73 sq M.predicted [Volume Rate/Area] in Serum, Plasma or Blood by Creatinine-based formula (CKD-EPI) 07/05/2024 14:36:29 66 >=60 (mL/min) Final eGFR is calculated based on the CKD-EPI 2020 equation. Sodium 07/05/2024 14:36:29 141 135-146 (m mol/L) Final Potassium 07/05/2024 14:36:29 3.8 3.5-5.1 (m mol/L) Final Cl 07/05/2024 14:36:29 101 98-107 (mm ol/L) Final CO2 07/05/2024 14:36:29 28 22-32 (mmo l/L) Final Anion gap 07/05/2024 14:36:29 12 7-15 (mmol /L) Final Glucose 07/05/2024 14:36:29 135 Above high normal 70 -120 (mg/dL) Final Albumin 07/05/2024 14:36:29 3.7 Below low normal 3.8 -5.0 (g/dL) Final AST (Aspartate aminotransferase) 07/05/2024 14:36:29 18 10-35 (U/L) Fin al Alk Phos 07/05/2024 14:36:29 71 35-130 (U/ L) Final Bilirubin, Total 07/05/2024 14:36:29 <0.2 <=1 .2 (mg/dL) Final Calcium 07/05/2024 14:36:29 9.1 8.4-10.2 ( mg/dL) Final Protein 07/05/2024 14:36:29 6.4 6.0-8.3 (g /dL) Final ALT (Alanine aminotransferase) 07/05/2024 14:36:29 12 10-35 (U/L) Alon carpio Performing Location [facility]ATORY [facility] - [address] [facility] [address]
--- OUTSIDE RECORDS SUMMARY | 2024-07-09 00:17 | External Medical Summary | Summary of Care ---
Author Name Unknown Organization [facility] Address [address] [place] [address] Phone [phone] Care Team Providers Care Director Life Insurance Name Role Phone Yumiko Goldstein DO Primary Care Provider Reason for Visit * Reason Comments Outpatient Testing Encounter Details Date Type Department Care Team (Late st Contact Info) Description 07/05/2024 2:40 PM EDT Laboratory Laboratory [address] [place] [phone] [place] [address] Hyperlipidemia with target LDL less than 130; Encounter for long-term (current) drug use; Hyperlipidemia with target LDL less than 100; Anemia, unspecified type Allergies Active Allergy Reactions Criticality Noted Date Comments Other - Environmental 09/27/2008 Band aids documented as of this encounter (statuses as of 07/05/2024) Medications TUMS 500 MG PO CHEW as [...] classification ([facility]) Inhale 1 Puff by mouth [...] as of this encounter (statuses as of 07/05/2024) Active Problems Problem Noted Date Diagnosed Date [...] as of this encounter (statuses as of 07/05/2024) Resolved Problems Problem Noted Date Diagnosed Date [...] as of this encounter (statuses as of 07/05/2024) Immunizations Name Administration Dates Next Due COVID-19 [...] Description 07/14/2024 1:30 PM EDT Laboratory Laboratory [address] [place] [phone] [address] [place] [address] 01/18/2025 3:10 PM EDT Office Visit Family Medicine [address] [place] [phone] Goldstein Yumiko Rosario, [address] [place] [address] 02/09/2025 2:30 PM EDT Nurse Only Ancillary [place] [place] [address] [place], Nurse Annual Wellness [address] [place] [address] [place] [phone] Pending Results Name Type Priority Associated Diagnoses Date /Time LIPID PANEL WITH DIRECT LDL IF TG IS HIGH Lab Routine Hyperlipidemia with target LDL less than 130 07/05/2024 2:36 PM EDT VITAMIN B12 Lab Routine Encounter for long-term (current) drug use 07/05/2024 2:36 PM EDT COMPREHENSIVE METABOLIC PANEL Lab Routine Hyperlipidemia with target LDL less than 100 07/05/2024 2:36 PM EDT IRON SCREEN, INCLUDING TIBC Lab Routine Anemia, unspecified type 07/05/2024 2:36 PM EDT FERRITIN Lab Routine Anemia, unspecified type 07/05/2024 2:36 PM EDT TSH Lab Routine Anemia, unspecified type 07/05/2024 2:36 PM EDT FOLIC ACID Lab Routine Anemia, unspecified type 07/05/2024 2:36 PM EDT Health Maintenance Due Date Last Done Comments Alpha-1 Antitrypsin 08/23/1958 DXA Scan 11/15/2022 11/15/2020, 01/13, 05/25/2014, Additional history exists Zoster Vaccines (2 of 2) 01/28/2023 12/03/2022 *BISPHONATE OR OTHER ACCEPTABLE MEDICATION NEEDED FOR OSTEOPOROSIS (REFER TO SMARTSET #1146) 01/02/2024 Albumin/Creatinine Ratio 10/18/2024 022, 11/08/2020, 10/14/2019, Additional history exists TSH 10/23/2024 10/24/2023, 08/0 07/2022, 01/23/2022, Additional history exists COVID-19 Vaccine ( season) 2024 05/05/2024, 04/18/2023, 08/14/2021, Additional history exists GFR 01/27/2025 01/28/2024, 08/0 08/2023, 10/24/2023, Additional history exists Adult Wellness Visit 02/05/2025 02/06/2024, 01/10/2023, 01/03/2022, Additional history exists Depression Screening 02/05/2025 02/06/2024 O2 ASSESSMENT COMPLETED IN PAST YEAR FOR COPD 02/05/2025 02/06/2024 DTap/Tdap Vaccines (2 - Td or Tdap) 12/03/2032 12/03/2022, 03/30/2009 VITAMIN D LEVEL ONCE IN A LIFETIME-USE SMARTSET# [id number] Completed 06/29/2012, 03/30/2009 Pneumococcal Vaccine: 50+ Years [...] 2: 36 PM EDT Anemia, unspecified type documented in this encounter Results * (ABNORMAL) RETICULOCYTE PANEL (07/05/2024 2:36 PM EDT) Pathologist [facility] Reticulocyte Percent 1.18 0.80 - 1.90 % [...] 2:36 PM EDT 07/05/2024 2:37 PM EDT [facility] ORDERABLES Final R esult [facility] [address] [place] [address] * ANEMIA REFLEX CHEMISTRY HOLD (07/05/2024 2:36 PM EDT) Blood Venous blood specimen / Unknown Venipuncture / Unknown 07/05/2024 2:36 PM EDT 07/05/2024 2:37 PM EDT [facility] LAB BLOOD ORDERABLES Final R esult [facility] [address] [place] [address] * (ABNORMAL) DIFFERENTIAL, AUTOMATED (07/05/2024 2:36 PM EDT) Pathologist [facility] WBC 11.54(H) 4.00 - 10.80 K/uL 07/05/2024 [...] ORDERABLES Final R esult LAB[facility]ORY [facility] [address] [place] [address] * (ABNORMAL) ANEMIA CBC (07/05/2024 2:36 PM [...] /100 WBCs 07/05/2024 9:49 PM EDT [facility] Blood Venous blood specimen / Unknown Venipuncture / Unknown 07/05/2024 2:36 PM EDT 07/05/2024 2:37 PM EDT us Yumiko Goldstein DO LAB BLOOD ORDERABLES Final R esult LAB[facility] [address] [place] [address] documented in this encounter Visit [...] by statute hierarchy) Meredith middletonkarla Adult Child Health Care R epresentative (appointed verbally by patient or by statute hierarchy) Care Teams Director Life Insurance Relationship Specialty Start Date End Date Yumiko Goldstein DO [address] [place] [address] [place] [phone] PCP - General Internal Medicine 10/24/23 documented as of this encounter
--- OUTSIDE RECORDS SUMMARY | 2024-07-09 00:17 | External Medical Summary | Summary of Care ---
Author Name Unknown Organization [facility] Address [address] [place] [address] Phone [phone] Care Team Providers Care Base Wad Operator Adjuster Name Role Phone Yumiko Goldstein DO Primary Care Provider Reason for Referral * Evaluate & Treat - Unlimited Visits (Within 10 days (routine)) - Authorized Specialty Diagnoses / Procedures Referred By Corrine isbell Referred To Contact Gastroenterology Diagnoses Gastroesophageal reflux disease without esophagitis Iron deficiency anemia due to chronic blood loss Yumiko Goldstein DO [address] [place] [address] [place] [address] Phone: tel: fax: Referral ID Status Reason Start Date Expiration Date Visits Requested Visits Authorized [id number] Authorized Specialty Services Required 07/07/[phone] Question Answer Referral Priority Within 10 days (routine) Where should this appointment be scheduled? [facility] For what condition is the patient being referred? All Other Gastro Conditions (Abdominal Pain, Change in Bowel Habits, Anemia, Reflux) Other conditions (please specify): iron deficiency anemia Reason for Visit * Reason Onset Date Comments Returning Call 07/06/2024 Appointment 07/06/2024 Gastroenterology Encounter Details Date Type Department Care Team (Late st Contact Info) Description 07/06/2024 [facility] [address] [place] [address] [place] [phone] Yumiko Goldstein Rosario, [address] [place] [phone] Returning Call; Appointment (Gastroenterol... Allergies Active Allergy Reactions Criticality Noted Date Comments Other - Environmental 09/27/2008 Band aids documented as of this encounter (statuses as of 07/07/2024) Medications TUMS 500 MG PO CHEW as [...] oxemia,COPD, group B, by GOLD 2017 classification ([facility]) Administer 3 L/min(Oxygen) into nostril continuous. [...] s:COPD, group B, by GOLD 2017 classification ([facility]) Inhale 1 Puff by mouth in [...] as of this encounter (statuses as of 07/07/2024) Active Problems Problem Noted Date Diagnosed Date [...] as of this encounter (statuses as of 07/07/2024) Resolved Problems Problem Noted Date Diagnosed Date [...] as of this encounter (statuses as of 07/07/2024) Immunizations Name Administration Dates Next Due COVID-19 [...] encounter Miscellaneous Notes * Telephone Encounter - Rosanna Carreon OSA - 07/07/2024 4:00 PM EDT I left message on at [phone] (Son, Dick) to call me (RE: Scheduling GI appt). I could notget through patient's phone). * Telephone Encounter - Yumiko Goldstein DO - 07/07/2024 1:37 PM EDT Referral signed. Please schedule. * Telephone Encounter - Bonnie Naik OSA - 07/07/2024 11:59 AM EDT Pt's daughter called advising pt wants to proceed with GI referral. Please generate referral and contact Meredith when completed so she may schedule. * Telephone Encounter - Dede Sharma OSA - 07/07/2024 11:07 AM EDT Pt's daughter, Meredith, called back and was read Dr Goldstein's message. Meredith advised pt is somewhat tired, but that pt doesn't always tell her things. No tarry stools that she knows about. Meredith will call pt to advise about supplement and for GI referral. Meredith will call back to advise if pt is willing to go to GI. * Telephone Encounter - Marta Marti LPN - 07/07/2024 10:49 AM EDT Left message for pt's daughter to return my call. * Telephone Encounter - Yumiko Goldstein DO - 07/07/2024 8:35 AM EDT She has a significant iron deficiency anemia. How does she feel? Is she tired? Has she noticed any blood loss - blood in her stools or black tarry stools? Any heartburn? She should start ferrous sulfate 325 mg daily along with vitamin C. I would like her to see GI in the office to discuss endoscopy for further workup - will place referral if pt agreeable. * Telephone Encounter - Wen Preciado OSA - 07/06/2024 2:28 PM EDT Blood work came abnormal daughter requesting call back for next stpes documented in this encounter Plan of Treatment Upcoming Encounters Date Type Department Care Team (Late st Contact Info) Description 07/08/2024 10:00 AM EDT Office Visit Gastroenterology, [facility] [address] [place] [address] Maribell Alvarado CRNP [address] [place] [address] 07/14/2024 1:30 PM EDT Laboratory Laboratory [address] [place] [phone] [place] [address] 01/18/2025 3:10 PM EDT Office Visit Family Medicine [address] [place] [phone] Yumiko Goldstein, [address] [place] [address] 02/09/2025 2:30 PM EDT Nurse Only Ancillary [address] [place] [address] [place], Nurse Annual Wellness [address] [place] [address] [place] [address] Scheduled Referrals Name Type Priority Associated Diagnoses Order Schedule ADULT GASTROENTEROLOGY REFERRAL OP Referral Within 10 days (routine) Gastroesophageal reflux disease without esophagitis Iron deficiency anemia due to chronic blood loss Ordered: 07/07/2024 Health Maintenance Due Date Last Done Comments [...] D LEVEL ONCE IN A LIFETIME-USE SMARTSET# [id number] Completed 06/29/2012, 03/30/2009 Pneumococcal Vaccine: 50+ Years [...] Iron deficiency anemia due to chronic blood loss- Primary Iron deficiency anemia secondary to blood loss (chronic) Gastroesophageal reflux disease without esophagitis Esophageal reflux documented in this encounter Advance Directives Healthcare Agents on File Name Relationship Healthcare Agent Relationshi p Communication Dick Ortega Adult Child Health Care Repr esentative (appointed verbally by patient or by statute hierarchy) Meredith white Adult Child Health Care R epresentative (appointed verbally by patient or by statute hierarchy) Care Teams Base Wad Operator Adjuster Relationship Specialty Start Date End Date Yumiko Goldstein DO [address] [place] [address] [place] [address] PCP - General Internal Medicine 10/24/23 documented as of this encounter
--- OUTSIDE RECORDS SUMMARY | 2024-07-09 00:17 | External Medical Summary ---
Author Name Unknown Address Unknown Organization K01:LAB[facility]ATORY [facility] [place] [address] [place] [address] Laboratory Report Ordering Provider Test Date Status ADAN JURADO 07/05/2024 14:36:29 Final Observation Date Value Abnormality Reference (Units ) Status Iron 07/05/2024 14:36:29 10 Below low normal 33-151 (ug/dL) Final Iron-binding capacity 07/05/2024 14:36:29 349 250-425 (ug/dL) Final Transferrin Sat % 07/05/2024 14:36:29 3 Below low normal 15-55 (%) Final Performing Location LABORATORY [facility] - [address] [place] [address]
--- OUTSIDE RECORDS SUMMARY | 2024-07-09 00:17 | External Medical Summary ---
Author Name Unknown Address Unknown Organization [id number]:[facility]ORY [facility] [place] [address] [place] [address] Laboratory Report Ordering Provider Test Date Status KAMRYN CORONADO 07/05/2024 14:36:29 Final Observation Date Value Abnormality Reference (Units ) Status Vitamin B12 07/05/2024 14:36:29 239 817-0162 (pg/mL) Final Performing Location [facility]ORY [facility] [place] - [address] [place] [address]
--- OUTSIDE RECORDS SUMMARY | 2024-07-09 00:17 | External Medical Summary ---
Author Name Unknown Address Unknown Organization [id number]:LAB[facility]ATORY [facility] [place] - [address] [facility] [address] Laboratory Report Ordering Provider Test Date Status ADAN JURADO 07/05/2024 14:36:29 Final Observation Date Value Abnormality Reference (Units ) Status SYNC LEUKOCYTES IN BLOOD BY AUTOMATED COUNT 07/05/2024 14:36:29 11.54 Above high normal 4.00-10.80 (K/uL) Final Segs 07/05/2024 14:36:29 65.5 40.0-75.0 (%) Final Lymphs % 07/05/2024 14:36:29 21.3 18.0-42.0 (%) Final Monos 07/05/2024 14:36:29 11.7 Above high normal 1.0-11.0 (%) Final Eosinophils 07/05/2024 14:36:29 0.6 0.0-6.0 (%) Final Basos 07/05/2024 14:36:29 0.3 0.0-2.0 (%) Final Immature Granulocyte, Percent 07/05/2024 14:36:29 0.6 0.0-2.0 (%) Final Absolute Segs 07/05/2024 14:36:29 7.56 1.80-7.70 (K/uL) Final Lymphs, absolute 07/05/2024 14:36:29 2.46 1.00-4.80 (K/ul) Final Monos, Abs 07/05/2024 14:36:29 1.35 Above high normal 0.00-1.10 (K/uL) Final Eos, Abs 07/05/2024 14:36:29 0.07 0.00-0.70 (K/uL) Final Basos, Abs 07/05/2024 14:36:29 0.03 0.00-0.20 (K/uL) Final Immature Granulocytes, Number 07/05/2024 14:36:29 0.07 0.00-0.20 (K/uL) Final Performing Location LABORATORY [facility] [place] - [facility] [place] [address]
--- OUTSIDE RECORDS SUMMARY | 2024-07-09 00:17 | External Medical Summary ---
Author Name Unknown Address Unknown Organization K01:LABORATORY [facility] [place] - [address] [place] [address] Laboratory Report Ordering Provider Test Date Status ADRIENARELLANO 07/05/2024 14:36:29 Final Observation Date Value Abnormality Reference (Units ) Status Folic Acid 07/05/2024 14:36:29 >20.0 >4.5 (ng/ mL) Final Performing Location LABORATORY [facility] - [address] [facility] [address]
--- OUTSIDE RECORDS SUMMARY | 2024-07-09 00:17 | External Medical Summary ---
Author Name Unknown Address Unknown Organization K01:LABORATORY [facility] [place] - [address] [facility] [address] Laboratory Report Ordering Provider Test Date Status ADAN JURADO 07/05/2024 14:36:29 Final Observation Date Value Abnormality Reference (Units ) Status Ferritin 07/05/2024 14:36:29 21 13-150 (ng /mL) Final Postmenopausal women have hi gher ferritin levels than pre-menopausal women. The above reference interval is based on pre-menopausal women. Performing Location LABORATORY [facility] [place] - [address] [facility] [address]
--- OUTSIDE RECORDS SUMMARY | 2024-07-09 00:18 | External Medical Summary | Summary of Care ---
Author Name Unknown Organization [facility] Address [address] [place] [address] Phone [phone] Care Team Providers Care Car Deliverer Name Role Phone Yumiko Goldstein DO Primary Care Provider Reason for Visit * Reason Comments Re-Check Pt c/o occasional di zziness first thing in the morning. Encounter Details Date Type Department Care Team (Latest Contact Info) Description 06/16/2024 2:30 PM EST Office Visit Family Medicine [address] [phone] Yumiko Goldstein DO [address] [place] [address] [place] [id number] Acquired hypothyroidism*; COPD, group B, by GOLD 2017 classification ([facility]); Gastroesophageal reflux disease without esophagitis; Hyperlipidemia with target LDL less than 100; Primary hypertension; Chronic respiratory failure with hypoxia ([facility]); Primary insomnia; Anemia, unspecified type Allergies Active Allergy Reactions Criticality Noted Date Comments Other - Environmental 09/27/2008 Band aids documented as of this encounter (statuses as of 06/16/2024) Medications TUMS 500 MG PO CHEW as needed Active SALINE NASAL SPRAY 0.65 % NA SOLN Administer into nostril daily as needed. Active Calcium Carb-Cholecalcife rol (CALCIUM + D3) 600-200 MG-UNIT per tablet Take 1 Tablet by mouth in the morning and 1 Tablet before bedtime. Active Acetaminophen 500 MG Oral Tablet Take 1 Tablet by mouth every 8 hours as needed for Pain, Moderate. Active oxygen IN GAS Administer 3 L/min(Oxygen) into nostril at bedtime. Active Levothyroxine Sodium 137 MCG Oral Tablet (Synthroid)Indica tions:Acquired hypothyroidism TAKE ONE TABLET BY MOUTH IN THE MORNING 30 MIN BEFORE BREAKFAST OR OTHER MEDS 100 Tablet 1 5 1:28 PM EST Active Metoprolol Tartrate 50 MG Oral Tablet (Lopressor)Indica tions:Primary hypertension,Esse ntial hypertension with goal blood pressure less than 140/90 TAKE 1 TABLET BY MOUTH IN THE MORNING AND AT BEDTIME 200 Tablet 1 5 12:37 PM EST Active Vitamin B-12 500 MCG Oral Tablet (vitamin B-12) Take 1 Tablet by mouth in the morning. Active oxygen IN GASIndications:Hy poxemia,COPD, group B, by GOLD 2017 classification ([facility]) Administer 3 L/min(Oxygen) into nostril continuous. 1 Each Active Omeprazole 20 MG Oral Capsule Delayed Release (PriLOSEC) Take 1 Capsule by mouth in the morning. 1 hour before the first meal of the day. 30 Capsule Active Albuterol Sulfate HFA 108 (90 Base) MCG/ACT Inhalation Aerosol Solution Inhale 2 puffs by mouth every 4 hours as needed for wheezing 20.1 g 2 Active Ipratropium-Albut rosaura 0.5-2.5 (3) MG/3ML Inhalation Solution (Duoneb)Indicatio ns:Moderate persistent asthma without complication INHALE CONTENTS OF 1 VIAL VIA NEBULIZER TWICE DAILY, MAY INCREASE TO 1 VIAL EVERY 4 HOURS NEEDED FOR WORSENING COUGH, WHEEZING OR SHORTNESS OF BREATHE 1080 mL 1 5 1:51 PM EST Active Atorvastatin Calcium 40 MG Oral Tablet (Lipitor)Indicati ons:Hyperlipidemi a with target LDL less than 130 TAKE ONE TABLET BY MOUTH AT BEDTIME 100 Tablet 5 2:20 PM EST 025 Active Lisinopril 20 MG Oral Tablet (Prinivil)Indicat ions:Primary hypertension TAKE ONE TABLET BY MOUTH IN THE MORNING 100 Tablet 5 2:20 PM EST 025 Active Gabapentin 100 MG Oral Capsule (Neurontin)Indica tions:Lumbar radicular pain,Need for case management follow-up take 1 capsule by mouth in morning, 1 capsule in afternoon and 2 capsules at bedtime 400 Capsule 2 5 6:55 AM EST 025 Active Prevagen 10 MG Oral Capsule (Apoaequorin) Take by mouth. Active Fluticasone-Umecl idin-Vilant 100-62.5-25 MCG/ACT Aerosol Powder Breath Activated (Trelegy Ellipta)Indicatio ns:COPD, group B, by GOLD 2017 classification ([facility]) Inhale 1 Puff by mouth in the morning. 180 Blister Dosing Unit 1 025 Active Zoster Vac Recomb Adjuvanted 50 MCG/0.5ML Intramuscular Suspension Reconstituted (Shingrix) Inject 0.5 mL into a large muscle now and repeat dose in 60 to 180 days 1 Each 1 025 Active traZODone HCl 50 MG Oral Tablet (Desyrel)Indicati ons:Primary insomnia Take 1 Tablet by mouth at bedtime. 100 Tablet 1 025 Active Sertraline HCl 25 MG Oral Tablet (Zoloft) Take 1 Tablet by mouth in the morning. 100 Tablet 1 025 Active Fluticasone-Umecl idin-Vilant 100-62.5-25 MCG/ACT Aerosol Powder Breath Activated (Trelegy Ellipta)Indicatio ns:COPD, group B, by GOLD 2017 classification ([facility]) Inhale 1 Puff by mouth in the morning. 180 Blister Dosing Unit 1 4 2:52 PM EDT 024 2024 Discontinued(R efill) traZODone HCl 50 MG Oral Tablet (Desyrel)Indicati ons:Primary insomnia Take 1 Tablet by mouth at bedtime. 100 Tablet 1 5 12:00 PM EST 024 2024 Discontinued(R efill) LORazepam 0.5 MG Oral Tablet (Ativan) Take 1 pill by mouth 30 minutes prior to MRI. Do not drive after taking medication. 1 Tablet 024 2024 Discontinued Amoxicillin-Pot Clavulanate 875-125 MG Oral Tablet (Augmentin) Take 1 Tablet by mouth in the morning and 1 Tablet before bedtime. 2024 Discontinued documented as of this encounter (statuses as of 06/16/2024) Active Problems Problem Noted Date Diagnosed Date [...] as of this encounter (statuses as of 06/16/2024) Resolved Problems Problem Noted Date Diagnosed Date [...] as of this encounter (statuses as of 06/16/2024) Immunizations Name Administration Dates Next Due COVID-19 [...] Sign Reading Time Taken Comments Blood Pressure 138/77 06/16/2024 2:34 PM EST Pulse 66 06/16/2024 2:34 PM EST Temperature - - Respiratory Rate 16 06/16/2024 2:34 PM EST Oxygen Saturation - - Inhaled Oxygen Concentration - - Weight 43.8 kg (96 lb 9.6 oz) 06/16/2024 2:34 P M EST Height - - Body Mass Index 21.66 02/06/2024 2:42 PM EDT documented in this encounter Progress Notes * Yumiko Goldstein, - 06/16/2024 2:47 PM EST Subjective: Rakan Ortega is a 83 year old female. Chief Complaint Patient presents with Re-Check Pt c/o occasional dizziness first thing in the morning. HPI: Rakan Ortega presents today for routine follow up. Today she reports doing well. He balance is off at times. She uses a cane to ambulate when she is out. No further headaches. BP is well controlled here today. She is planning on moving in with her daughter and her . Breathing is overall okay. She is on Trelegy. She has oxygen 3L via [place] that she uses at night and as needed during the day. She does not use her oxygen when cooking as she has a gas range. Her back pain limits her ambulation. She remains on trazodone to help her sleep. Her fingertips turn white and go numb at times. They are also painful at times. In stressful situations she gets a sensation down into her toes. Has never been on medicine for anxiety, but is willing to try. 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 Calcium Carb-Cholecalciferol (CALCIUM + D3) 600-200 MG-UNIT per tablet Take 1 Tablet by mouth in the morning and 1 Tablet before bedtime. oxygen IN GAS Administer 3 L/min(Oxygen) into nostril at bedtime. Fhfiihxgfhz-Mcjicndvo-Ycjvzn 100-62.5-25 MCG/ACT Aerosol Powder Breath Activated (Trelegy [...] by mouth at bedtime. 100 Tablet 1 Vitamin B-12 500 MCG Oral Tablet (vitamin B-12) Take 1 Tablet by mouth in the morning. oxygen IN GAS Administer 3 L/min(Oxygen) into nostril continuous. 1 Each 0 Omeprazole 20 MG Oral Capsule Delayed Release (PriLOSEC) Take 1 Capsule by mouth in the morning. 1 hour before the first meal of the day. 30 Capsule 0 Albuterol Sulfate HFA 108 (90 Base) MCG/ACT Inhalation Aerosol Solution Inhale 2 puffs by mouth every 4 hours as needed for wheezing 20.1 g 2 Ipratropium-Albuterol 0.5-2.5 (3) MG/3ML Inhalation Solution (Duoneb) INHALE CONTENTS OF 1 VIAL VIANEBULIZER TWICE DAILY, MAY INCREASE TO 1 VIAL EVERY 4 HOURS NEEDED FOR WORSENING COUGH, WHEEZINGOR SHORTNESS OF BREATHE 1080 mL 1 Atorvastatin Calcium 40 MG Oral Tablet (Lipitor) TAKE ONE TABLET BY MOUTH AT BEDTIME 100 Tablet 0 Lisinopril 20 MG Oral Tablet (Prinivil) TAKE ONE TABLET BY MOUTH IN THE MORNING 100 Tablet 0 Gabapentin 100 MG Oral Capsule (Neurontin) take 1 capsule by mouth in morning, 1 capsule in afternoon and 2 capsules at bedtime 400 Capsule 2 Prevagen 10 MG Oral Capsule (Apoaequorin) Take by mouth. Acetaminophen 500 MG Oral Tablet Take 1 Tablet by mouth every 8 hours as needed for Pain, Moderate. No current facility-administered medications for this visit. Review of patient's allergies indicates: Allergen Reactions Other - Environmental Band aids Objective: BP 138/77 | Pulse 66 | Resp 16 | Wt 96 lb 9.6 oz (43.8 kg) | BMI 21.66 kg/m | BSA 1.32 m General: alert, [...] normal, no rashes or significant lesions ASSESSMENT/PLAN: Acquired hypothyroidism (Primary) - continue levothyroxine. COPD, group B, by GOLD 2017 classification ([facility]) - Xwyqpfxdpdf-Esjpnwixm-Xsuwbb 100-62.5-25 MCG/ACT Aerosol Powder Breath Activated (Trelegy Ellipta); Inhale 1 Puff by mouth in the morning. Gastroesophageal reflux disease without esophagitis Hyperlipidemia with target LDL less than 100 - LIPID PANEL WITH DIRECT LDL IF TG IS HIGH; Future; Expected date: 07/07/2024 - COMPREHENSIVE METABOLIC PANEL; Future; Expected date: 07/07/2024 Primary hypertension - controlled on current regimen. Continue. Chronic respiratory failure with hypoxia (HCC) - use oxygen 3L via [place] Primary insomnia - traZODone HCl 50 MG Oral Tablet (Desyrel); Take 1 Tablet by mouth at bedtime. Anemia, unspecified type - she required blood transfusion in the fall. Check levels again today. - CBC WITH WBC DIFFERENTIAL AND ANEMIA REFLEX WORKUP; Future; Expected date: 06/16/2024 Other orders - Zoster Vac Recomb Adjuvanted 50 MCG/0.5ML Intramuscular Suspension Reconstituted (Shingrix); Inject 0.5 mL into a large muscle now and repeat dose in 60 to 180 days - Sertraline HCl 25 MG Oral Tablet (Zoloft); Take 1 Tablet by mouth in the morning. Follow-up: Return in about 6 months (around 12/17/2024). | Check-out note: Labs in 3-4 weeks. Yumiko Goldstein DO documented in this encounter Plan of Treatment Upcoming Encounters Date Type Department Care Team (Late st Contact Info) Description 07/14/2024 1:30 PM EDT Laboratory Laboratory [address] [place] [phone] [place] [facility] [address] [place] [address] 01/18/2025 3:10 PM EDT Office Visit Family Medicine [address] [place] [phone] Yumiko Goldstein DO [address] [place] [address] [place] [address] 02/09/2025 2:30 PM EDT Nurse Only Ancillary [address] [place] [address] [place], Nurse [address] [place] [address] Scheduled Orders Name Type Priority Associated Diagnoses Orde r Schedule LIPID PANEL WITH DIRECT LDL IF TG IS HIGH Lab Routine Hyperlipidemia with target LDL less than 100 Expected: 07/07/2024 (Approximate), Expires: 06/16/2025 COMPREHENSIVE METABOLIC PANEL Lab Routine Hyperlipidemia with target LDL less than 100 Expected: 07/07/2024 (Approximate), Expires: 06/16/2025 CBC WITH WBC DIFFERENTIAL AND ANEMIA REFLEX WORKUP Lab Routine Anemia, unspecified type Expected: 06/16/2024 (Approximate), Expires: 06/16/2025 Health Maintenance Due Date Last Done Comments [...] D LEVEL ONCE IN A LIFETIME-USE SMARTSET# [id number] Completed 06/29/2012, 03/30/2009 Pneumococcal Vaccine: 50+ Years [...] as of this encounter Visit Diagnoses Diagnosis Acquired hypothyroidism- Primary Unspecified hypothyroidism COPD, group B, by GOLD 2017 classification (HCC) Gastroesophageal reflux disease without esophagitis Esophageal reflux Hyperlipidemia with target LDL less than 100 Other and unspecified hyperlipidemia Primary hypertension Unspecified essential hypertension Chronic respiratory failure with hypoxia (HCC) Chronic respiratory failure Primary insomnia Persistent disorder of initiating or maintaining sleep Anemia, unspecified type documented in this encounter Advance Directives Healthcare Agents on File Name Relationship Healthcare Agent Relationshi p Communication Dick Ortega Adult Child Health Care Repr esentative (appointed verbally by patient or by statute hierarchy) Meredith white Adult Child Health Care R epresentative (appointed verbally by patient or by statute hierarchy) Care Teams Car Deliverer Relationship Specialty Start Date End Date Yumiko Goldstein DO [address] [place] [address] [place] [id number] PCP - General Internal Medicine 10/24/23 documented as of this encounter"
--- OUTSIDE RECORDS SUMMARY | 2024-07-09 00:18 | External Medical Summary | Summary of Care ---
Author Name Unknown Organization [facility] Address [address] [facility] [address] Phone [phone] Care Team Providers Care Hand Pattern Marker Name Role Phone Yumiko Goldstein DO Primary Care Provider [phone] Reason for Visit * Reason Onset Date Comments Health Maintenance 05/04/2024 Encounter Details Date Type Department Care Team (Late st Contact Info) Description 05/04/2024 Telephone Family Medicine [address] [phone] Yumiko Goldstein [address] [place] [address] Health Maintenance Allergies Active Allergy Reactions Criticality Noted Date Comments Other - Environmental 09/27/2008 Band aids documented as of this encounter (statuses as of 05/04/2024) Medications TUMS 500 MG PO CHEW as [...] L/min(Oxygen) into nostril at bedtime. 4 Active Fluticasone-Umecli din-Vilant 100-62.5-25 MCG/ACT Aerosol Powder Breath Activated (Trelegy Ellipta)Indication s:COPD, group B, by GOLD 2017 classification ([facility]) Inhale 1 Puff by mouth [...] 1 02/21/2024 9:09 AM EST 4 Active Vitamin B-12 500 MCG Oral Tablet (vitamin B-12) Take 1 Tablet by mouth in the morning. 4 Active oxygen IN GASIndications:Hyp oxemia,COPD, group B, by GOLD 2017 classification ([facility]) Administer 3 L/min(Oxygen) into nostril [...] after taking medication. 1 Tablet 4 Active Amoxicillin-Pot Clavulanate 875-125 MG Oral Tablet (Augmentin) Take 1 Tablet by mouth in the morning and 1 Tablet before bedtime. Active Gabapentin 100 MG Oral Capsule (Neurontin)Indicat ions:Lumbar radicular pain,Need for case management follow-up take 1 capsule by mouth in morning, 1 capsule in afternoon and 2 capsules at bedtime 300 Capsule 1 02/27/2024 3:03 PM EST 4 Active Albuterol Sulfate HFA 108 (90 [...] OR SHORTNESS OF BREATHE 1080 mL 1 03/30/2024 5:43 PM EST 4 Active Atorvastatin Calcium 40 MG Oral Tablet (Lipitor)Indicatio ns:Hyperlipidemia with target LDL less than 130 TAKE ONE TABLET BY MOUTH AT BEDTIME 100 Tablet 5 Active Lisinopril 20 MG Oral Tablet (Prinivil)Indicati ons:Primary hypertension TAKE ONE TABLET BY MOUTH IN THE MORNING 100 Tablet 5 Active documented as of this encounter (statuses as of 05/04/2024) Active Problems Problem Noted Date Diagnosed Date [...] as of this encounter (statuses as of 05/04/2024) Resolved Problems Problem Noted Date Diagnosed Date [...] into Electronic Medical Record Mixed dyslipidemia 12/02/2002 12//200 9 Overview (03/21/2009): Per Lipid Taxonomy. Other allergic rhinitis 07/15/199706/13 Overview (02/04/2017): ICD-10 update of inactive term Asthma with severity to be determined 07/15/1997 05/17/2011 Overview (07/24/2015): ICD-10 update of inactive term Hypothyroidism 04/24/2010 Esophageal reflux 05/17/2011 COPD, moderate 01/27/2020 Overview: Per COPD GOLD Classification Postmenopausal atrophic vaginitis 10/24/2023 documented as of this encounter (statuses as of 05/04/2024) Immunizations Name Administration Dates Next Due COVID-19 [...] encounter Miscellaneous Notes * Telephone Encounter - Asia Pedersen LPN - 05/04/2024 8:12 AM EST Care Gaps Comprehensive Care Outreach Last Office/Telemedicine Visit: 03/01/2024 (in office), Visit date not found (telemedicine) Next Office Visit: 06/08/2024 Hemoglobin AIC Results: Lab Results Component Value Date/Time HEMOGLOBIN A1C - JITENDRAER 5.7 06/30/2001 09:08 AM BP Readings from Last 1 Encounters: 03/01/24 126/64 Reviewed Health Maintenance below: Health Maintenance Topic Date Due Alpha-1 Antitrypsin Never done DXA Scan 11/15/2022 Zoster Vaccines (2 of 2) 01/28/2023 COVID-19 Vaccine ( season) 2023 *BISPHONATE OR OTHER ACCEPTABLE MEDICATION NEEDED FOR OSTEOPOROSIS (REFER TO SMARTSET #1146) Never done dexa Care Gap Outreach Action Taken: Huddlert message sent documented in this encounter Plan of Treatment Upcoming Encounters Date Type Department Care Team (Late st Contact Info) Description 06/08/2024 3:10 PM EST Office Visit Family Medicine [address] [phone] Yumiko Goldstein, [address] [place] [address] 02/09/2025 2:30 PM EDT Nurse Only Ancillary [address] [place] [address] [place], Nurse Annual Wellness [address] [place] [address] [place] [address] Health Maintenance Due Date Last Done Comments [...] D LEVEL ONCE IN A LIFETIME-USE SMARTSET# [id number] Completed 06/29/2012, 03/30/2009 Pneumococcal Vaccine: 50+ Years [...] patient or by statute hierarchy) Care Teams Hand Pattern Marker Relationship Specialty Start Date End Date Yumiko Goldstein DO [address] [place] [address] [place] [address] PCP - General Internal Medicine 10/24/23 documented as of this encounter
--- OUTSIDE RECORDS SUMMARY | 2024-07-09 00:18 | External Medical Summary | Summary of Care ---
Author Name Unknown Organization [facility] Address [address] [facility] [place] [address] Phone [phone] Care Team Providers Care Flexboard Operator Name Role Phone Yumiko Goldstein DO Primary Care Provider [phone] Encounter Details Date Type Department Care Team (Late st Contact Info) Description 05/05/2024 Orders Only PATIENT PORTAL DO NOT DELETE THIS DEPT USED BY [place] [id number] Allergies Active Allergy Reactions Criticality Noted Date Comments Other - Environmental 09/27/2008 Band aids documented as of this encounter (statuses as of 05/05/2024) Medications TUMS 500 MG PO CHEW as [...] oxemia,COPD, group B, by GOLD 2017 classification ([facility]) Administer 3 L/min(Oxygen) into nostril [...] as of this encounter (statuses as of 05/05/2024) Active Problems Problem Noted Date Diagnosed Date [...] as of this encounter (statuses as of 05/05/2024) Resolved Problems Problem Noted Date Diagnosed Date [...] as of this encounter (statuses as of 05/05/2024) Immunizations Name Administration Dates Next Due COVID-19 [...] 3:10 PM EST Office Visit Family Medicine [address] [place] [phone] Yumiko Goldstein, [address] [place] [address] 02/09/2025 2:30 PM EDT Nurse Only Ancillary [address] [place] [address] [place], Nurse Annual [address] [place] [address] Health Maintenance Due Date Last Done Comments [...] D LEVEL ONCE IN A LIFETIME-USE SMARTSET# [id number] Completed 06/29/2012, 03/30/2009 Pneumococcal Vaccine: 50+ Years [...] on File Name Relationship Healthcare Agent [facility] p Communication [facility] Child Health Care Repr esentative (appointed verbally by patient or by statute hierarchy) Meredith white Adult Child Health Care R epresentative (appointed verbally by patient or by statute hierarchy) Care Teams Flexboard Operator Relationship Specialty Start Date End Date Yumiko Goldstein DO [address] [place] [address] [place] [address] PCP - General Internal Medicine 10/24/23 documented as of this encounter
--- OUTSIDE RECORDS SUMMARY | 2024-07-09 00:18 | External Medical Summary | Summary of Care ---
Author Name Unknown Organization [facility] Address [address] [address] Phone [phone] Care Team Providers Care Legal Transcriptionist Name Role Phone Adrien Arellano DO Primary Care Provider Reason for Visit * Reason Onset Date Comments No Show 06/10/2024 [facility] No Show Auto mation Encounter Details Date Type Department Care Team (Late st Contact Info) Description 06/10/2024 Telephone Family Medicine [address] [phone] Adrien Arellano [address] [place] [address] No Show ([place] No Show Automation) Allergies Active Allergy Reactions Criticality Noted Date Comments Other - Environmental 09/27/2008 Band aids documented as of this encounter (statuses as of 06/11/2024) Medications TUMS 500 MG PO CHEW as [...] B, by GOLD 2017 classification ([facility]) Inhale 1 Puff by mouth in the [...] 1 06/08/2024 12:37 PM EST 4 Active traZODone HCl 50 MG Oral Tablet (Desyrel)Indicatio ns:Primary insomnia Take 1 Tablet by mouth at bedtime. 100 Tablet 1 02/21/2024 9:09 AM EST 4 Active Vitamin B-12 500 MCG Oral Tablet (vitamin B-12) Take 1 Tablet by mouth in the morning. 4 Active oxygen IN GASIndications:Hyp oxemia,COPD, group B, by GOLD 2017 classification ([facility]) Administer 3 L/min(Oxygen) into nostril continuous. 1 [...] morning and 1 Tablet before bedtime. Active Albuterol Sulfate HFA 108 (90 Base) [...] 2 06/02/2024 6:55 AM EST 5 Active documented as of this encounter (statuses as of 06/11/2024) Active Problems Problem Noted Date Diagnosed Date [...] as of this encounter (statuses as of 06/11/2024) Resolved Problems Problem Noted Date Diagnosed Date [...] as of this encounter (statuses as of 06/11/2024) Immunizations Name Administration Dates Next Due COVID-19 [...] encounter Miscellaneous Notes * Telephone Encounter - Iamacey, No Show - 06/10/2024 4:59 PM EST Dear Rakan Ortega, Looks like you missed an appointment with ADRIEN ARELLANO on 06/08/2024 at 03:10 PM. If you haven't already rescheduled, you have a couple of options: Reschedule in [email or web address]/scheduling Call us at [phone] Can't make a future appointment? Cancel and let someone else have your spot! It's easy to do via [email or web address] or by calling us. Thanks for trusting [facility] with your care. We hope to see you back in our office soon. Sincerely, ADRIEN ARELLANO documented in this encounter Plan of Treatment Upcoming Encounters Date Type Department Care Team (Late st Contact Info) Description 02/09/2025 2:30 PM EDT Nurse Only Ancillary [address] [place] [address] [place] Nurse [address] [place] [address] Health Maintenance Due Date Last Done Comments [...] D LEVEL ONCE IN A LIFETIME-USE SMARTSET# [id number] Completed 06/29/2012, 03/30/2009 Pneumococcal Vaccine: 50+ Years [...] patient or by statute hierarchy) Care Teams Legal Transcriptionist Relationship Specialty Start Date End Date Adrien Arellano DO [address] [place] [address] [place] [address] PCP - General Internal Medicine 10/24/23 documented as of this encounter
--- OUTSIDE RECORDS SUMMARY | 2024-07-09 00:18 | External Medical Summary | Summary of Care ---
Author Name Unknown Organization [facility] Address [address] [facility] [address] Phone [phone] Care Team Providers Care Pants Cutter Name Role Phone Yumiko Goldstein DO Primary Care Provider Reason for Visit * Reason Onset Date Comments Medication Question 06/08/2024 Encounter Details Date Type Department Care Team (Late st Contact Info) Description 06/08/2024 Telephone Family Medicine [address] [phone] Yumiko Goldstein [address] [place] [phone] Medication Question Allergies Active Allergy Reactions Criticality Noted Date Comments Other - Environmental 09/27/2008 Band aids documented as of this encounter (statuses as of 06/09/2024) Medications TUMS 500 MG PO CHEW as [...] as of this encounter (statuses as of 06/09/2024) Active Problems Problem Noted Date Diagnosed Date [...] as of this encounter (statuses as of 06/09/2024) Resolved Problems Problem Noted Date Diagnosed Date [...] as of this encounter (statuses as of 06/09/2024) Immunizations Name Administration Dates Next Due COVID-19 [...] encounter Miscellaneous Notes * Telephone Encounter - Marta Salgado RPh - 06/08/2024 4:17 PM EST Spoke to patients daughter asking if it was safe for the her mom to take preservision. After talking to her further she really meant Prevagen for memory. I did advise prevagen would be safe with her current medications. Thank you, Marta Salgado, PharmD Clinical Pharmacist [facility] ([facility]) 06/08/24 4:22 PM [phone] * Telephone Encounter - Nelida David CPhT - 06/08/2024 4:07 PM EST Patients daughter calling to talk with someone to see if it is safe for the patient to take OTC Preservision Warm transfer to [facility] Thank you, Nelida David CPhT Claims Sorter [facility] ([facility]) 06/08/2024, 4:08 PM documented in this encounter Plan of Treatment Upcoming Encounters Date Type Department Care Team (Late st Contact Info) Description 02/09/2025 2:30 PM EDT Nurse Only Ancillary [address] [place] [address] Emelia, Nurse [address] [place] [address] Health Maintenance Due Date Last Done Comments [...] D LEVEL ONCE IN A LIFETIME-USE SMARTSET# [id number] Completed 06/29/2012, 03/30/2009 Pneumococcal Vaccine: 50+ Years [...] patient or by statute hierarchy) Care Teams Pants Cutter Relationship Specialty Start Date End Date Yumiko Goldstein DO [address] [place] [address] [place] [address] PCP - General Internal Medicine 10/24/23 documented as of this encounter
--- OUTSIDE RECORDS SUMMARY | 2024-07-09 00:18 | External Medical Summary | Summary of Care ---
Author Name Unknown Organization [facility] Address [address] [facility] [address] Phone [phone] Care Team Providers Care Financial Health Counselor Name Role Phone Adrien Arellano DO Primary Care Provider Reason for Visit * Reason Comments Medication Refill Encounter Details Date Type Department Care Team (Late st Contact Info) Description 05/02/2024 Refill Family Medicine [address] [phone] Adrien Arellano [address] [place] [phone] Encounter for long-term (current) drug use*; Hyperlipidemia with target LDL less than 130; Primary hypertension Allergies Active Allergy Reactions Criticality [...] Administer 3 L/min(Oxygen) into nostril at bedtime. 12/10/19 24 Active Fluticasone-Umecli din-Vilant 100-62.5-25 MCG/ACT Aerosol Powder Breath Activated (Trelegy Ellipta)Indication s:COPD, group B, by GOLD 2017 classification ([facility]) Inhale 1 Puff by mouth in the morning. 180 Blister Dosing Unit 1 4 2:52 PM EDT 01/21/20 24 Active Levothyroxine Sodium 137 MCG Oral Tablet (Synthroid)Indicat ions:Acquired hypothyroidism TAKE ONE TABLET BY MOUTH IN THE MORNING 30 MIN BEFORE BREAKFAST OR OTHER MEDS 100 Tablet 1 4 7:48 AM EST 01/21/20 24 Active Metoprolol Tartrate 50 MG Oral Tablet (Lopressor)Indicat ions:Primary hypertension,Essen tial hypertension with goal blood pressure less than 140/90 TAKE 1 TABLET BY MOUTH IN THE MORNING AND AT BEDTIME 200 Tablet 1 4 7:48 AM EST 01/21/20 24 Active traZODone HCl 50 MG Oral Tablet (Desyrel)Indicatio ns:Primary insomnia Take 1 Tablet by mouth at bedtime. 100 Tablet 1 4 9:09 AM EST 01/21/20 24 Active Vitamin B-12 500 MCG Oral Tablet (vitamin B-12) Take 1 Tablet by mouth in the morning. 01/21/20 24 Active oxygen IN GASIndications:Hyp oxemia,COPD, group B, by GOLD 2017 classification ([facility]) Administer 3 L/min(Oxygen) into nostril continuous. 1 Each 01/28/20 24 Active Omeprazole 20 MG Oral Capsule Delayed Release (PriLOSEC) Take 1 Capsule by mouth in the morning. 1 hour before the first meal of the day. 30 Capsule 01/28/20 24 Active LORazepam 0.5 MG Oral Tablet (Ativan) Take 1 pill by mouth 30 minutes prior to MRI. Do not drive after taking medication. 1 Tablet 02/23/20 24 Active Amoxicillin-Pot Clavulanate 875-125 MG Oral Tablet (Augmentin) Take 1 Tablet by mouth in the morning and 1 Tablet before bedtime. Active Gabapentin 100 MG Oral Capsule (Neurontin)Indicat ions:Lumbar radicular pain,Need for case management follow-up take 1 capsule by mouth in morning, 1 capsule in afternoon and 2 capsules at bedtime 300 Capsule 1 4 3:03 PM EST 02/26/20 24 Active Albuterol Sulfate HFA 108 (90 Base) MCG/ACT Inhalation Aerosol Solution Inhale 2 puffs by mouth every 4 hours as needed for wheezing 20.1 g 2 01/27/20 24 Active Ipratropium-Albute rol 0.5-2.5 (3) MG/3ML Inhalation Solution (Duoneb)Indication s:Moderate persistent asthma without complication INHALE CONTENTS OF 1 VIAL VIA NEBULIZER TWICE DAILY, MAY INCREASE TO 1 VIAL EVERY 4 HOURS NEEDED FOR WORSENING COUGH, WHEEZING OR SHORTNESS OF BREATHE 1080 mL 1 4 5:43 PM EST 03/29/20 24 Active Atorvastatin Calcium 40 MG Oral Tablet (Lipitor)Indicatio ns:Hyperlipidemia with target LDL less than 130 TAKE ONE TABLET BY MOUTH AT BEDTIME 100 Tablet 5 2:20 PM EST 05/03/19 25 Active Lisinopril 20 MG Oral Tablet (Prinivil)Indicati ons:Primary hypertension TAKE ONE TABLET BY MOUTH IN THE MORNING 100 Tablet 5 2:20 PM EST 05/03/19 25 Active Atorvastatin Calcium 40 MG Oral Tablet (Lipitor)Indicatio ns:Hyperlipidemia with target LDL less than 130 TAKE ONE TABLET BY MOUTH AT BEDTIME 100 Tablet 1 4 8:52 AM EDT 08/17/19 24 025 Discontin ued(Refil l) Lisinopril 20 MG Oral Tablet (Prinivil)Indicati ons:Primary hypertension TAKE ONE TABLET BY MOUTH IN THE MORNING 100 Tablet 1 4 8:52 AM EDT 08/17/19 24 025 Discontin ued(Refil l) documented as of this encounter (statuses as [...] No 02/06/2024 Does the household have a [facility] source of income? (Household - for [...] encounter Miscellaneous Notes * Telephone Encounter - Carlton Campos - 05/05/2024 10:57 PM EST Received message from [facility] regarding patient needing labs. Patient was notified. Successfully contacted patient and provided [facility] message. * Telephone Encounter - Moni Harry [facility] - 05/03/2024 7:40 AM ESTSigned Prescriptions: Disp Refills Atorvastatin Calcium 40 MG Oral Tablet (Li*100 Ta*0 Sig: TAKE ONE TABLET BY MOUTH AT BEDTIME Authorizing Provider: ADRIEN ARELLANO Ordering User: MONI HARRY Lisinopril 20 MG Oral Tablet (Prinivil) 100 Ta*0 Sig: TAKE ONE TABLET BY MOUTH IN THE MORNING Authorizing Provider: ADRIEN ARELLANO Ordering User: MONI HARRY E * Telephone Encounter - Moni Harry RP - 05/03/2024 7:40 AM EST Provided 100 days supply with 0 refill(s) until upcoming appointment. Per refill protocol patient should have routine labs on file within past year. Reviewed AMP report, Care Gaps/Health Maintenance,medications list, and for any routine labs typically ordered for this patient. Lab orders placed. Please contact patient to advise of labs ordered for blood draw. Recommend patient to fast if able for labs. Patient may still have water and regular medications. Advise to obtain labs before her scheduled office visit 06/08/2024. Thank you, Moni Harry, PharmD Clinical Pharmacist [facility] ([facility]) [phone] 05/03/2024, 7:40 AM * Telephone Encounter - Transfer User, Rx Adt - 05/02/2024 12:18 AM ESTPending Prescriptions: Disp Refills Atorvastatin Calcium 40 MG Oral Tablet (Li*100 Ta*1 Sig: TAKE ONE TABLET BY MOUTH AT BEDTIME Lisinopril 20 MG Oral Tablet (Prinivil) 100 Ta*1 Sig: TAKE ONE TABLET BY MOUTH IN THE MORNING documented in this encounter Plan of Treatment Upcoming Encounters Date Type Department Care Team (Late st Contact Info) Description 06/08/2024 3:10 PM EST Office Visit Family Medicine [address] [place] [phone] Adrien Arellano, [address] [place] [address] 02/09/2025 2:30 PM EDT Nurse Only Ancillary [address] [place] [address] Emelia, Nurse [address] [place] [address] Scheduled Orders Name Type Priority Associated Diagnoses Orde r Schedule LIPID PANEL WITH DIRECT LDL IF TG IS HIGH Lab Routine Hyperlipidemia with target LDL less than 130 Expected: 05/03/2024, Expires: 05/03/2025 VITAMIN B12 Lab Routine Encounter for long-term (current) drug use Expected: 05/03/2024, Expires: 05/03/2025 Health Maintenance Due Date Last Done Comments [...] D LEVEL ONCE IN A LIFETIME-USE SMARTSET# [id number] Completed 06/29/2012, 03/30/2009 Pneumococcal Vaccine: 50+ Years [...] as of this encounter Visit Diagnoses Diagnosis Encounter for long-term (current) drug use- Primary Encounter for long-term (current) use of other medications Hyperlipidemia with target LDL less than 130 Other and unspecified hyperlipidemia Primary hypertension Unspecified essential hypertension documented in this encounter Advance Directives Healthcare Agents on File Name Relationship Healthcare Agent [facility] p Communication Dick Ortega Adult Child Health Care Repr esentative (appointed verbally by patient or by statute hierarchy) Meredith white Adult Child Health Care R epresentative (appointed verbally by patient or by statute hierarchy) Care Teams Financial Health Counselor Relationship Specialty Start Date End Date Adrien Arellano DO [address] [place] [address] [place] [address] PCP - General Internal Medicine 10/24/23 documented as of this encounter
--- OUTSIDE RECORDS SUMMARY | 2024-07-09 00:18 | External Medical Summary | Summary of Care ---
Author Name Unknown Organization [facility] Address [address] [facility] [place] [address] Phone [phone] Care Team Providers Care Edge Stainer Machine Name Role Phone Adrien Arellano DO Primary Care Provider Reason for Visit * Reason Comments Medication Refill Encounter Details Date Type Department Care Team (Late st Contact Info) Description 05/31/2024 Refill Family Medicine [address] [place] [phone] Adrien Arellano [address] [place] [phone] Lumbar radicular pain; Need for case management follow-up Allergies Active Allergy Reactions Criticality Noted Date Comments Other - Environmental 09/27/2008 Band aids documented as of this encounter (statuses as of 06/01/2024) Medications TUMS 500 MG PO CHEW as [...] s:COPD, group B, by GOLD 2017 classification ([facility]) Inhale 1 Puff by mouth in the [...] B, by GOLD 2017 classification ([facility]) Administer 3 L/min(Oxygen) into nostril continuous. 1 [...] 1080 mL 1 5 1:51 PM EST 03/29/20 24 Active Atorvastatin Calcium 40 MG Oral Tablet (Lipitor)Indicatio ns:Hyperlipidemia with target LDL less than 130 TAKE ONE TABLET BY MOUTH AT BEDTIME 100 Tablet 5 2:20 PM EST 05/03/19 25 Active Lisinopril 20 MG Oral Tablet (Prinivil)Indicati ons:Primary hypertension TAKE ONE TABLET BY MOUTH IN THE MORNING 100 Tablet 5 2:20 PM EST 05/03/19 25 Active Gabapentin 100 MG Oral Capsule (Neurontin)Indicat ions:Lumbar radicular pain,Need for case management follow-up take 1 capsule by mouth in morning, 1 capsule in afternoon and 2 capsules at bedtime 400 Capsule 2 06/01/19 25 Active Gabapentin 100 MG Oral Capsule (Neurontin)Indicat ions:Lumbar radicular pain,Need for case management follow-up take 1 capsule by mouth in morning, 1 capsule in afternoon and 2 capsules at bedtime 300 Capsule 1 4 3:03 PM EST 02/26/20 24 025 Discontin ued(Refil l) documented as of this encounter (statuses as of 06/01/2024) Active Problems Problem Noted Date Diagnosed Date [...] as of this encounter (statuses as of 06/01/2024) Resolved Problems Problem Noted Date Diagnosed Date [...] as of this encounter (statuses as of 06/01/2024) Immunizations Name Administration Dates Next Due COVID-19 [...] Telephone Encounter - Adrien Arellano DO - 06/01/2024 8:48 AM ESTSigned Prescriptions: Disp Refills Gabapentin 100 MG Oral Capsule (Neurontin) 400 Ca*2 Sig: take 1 capsule by mouth in morning, 1 capsule in afternoon and 2 capsules at bedtime Authorizing Provider: ADRIEN ARELLANO * Telephone Encounter - Kristy Jacobs CMA - 06/01/2024 7:09 AM ESTPending Prescriptions: Disp Refills Gabapentin 100 MG Oral Capsule (Neurontin) 300 Ca*2 Sig: take 1 capsule by mouth in morning, 1 capsule in afternoon and 2 capsules at bedtime * Telephone Encounter - Kristy Jacobs CMA - 06/01/2024 7:08 AM EST Did you pend patient's preferred pharmacy and medication before forwarding?yes Pharmacy: [facility] Pending Prescriptions: Disp Refills Gabapentin 100 MG Oral Capsule (Neurontin)300 Ca*1 Sig: take 1 capsule by mouth in morning, 1 capsule in afternoon and 2 capsules at bedtime Last Visit: 03/01/2024 (in office), Visit date not found (telemedicine) Next Visit: 06/08/2024 If no future appointments scheduled, and last appointment is greater than a year ago, please schedule patient for a follow-up appointment Last date the medication was ordered: 02/26/24 Is this request for a controlled substance?No Urine Drug Screen:No results found. However, due to the size of the patient record, not all encounters were searched. Please check Results Review for a complete set of results. Patient Phone Numbers Labs: Lab Results Component Value Date/Time CREAT 0.8 01/28/2024 12:42 PM CREAT 0.8 10/14/2019 09:27 AM POTASSIUM 4.1 01/28/2024 12:42 PM POTASSIUM 4.0 10/14/2019 09:27 AM POTASSIUM [...] 02:50 PM HGBA1C 5.7 06/30/2001 09:08 AM * Telephone Encounter - Chris Campos - 05/31/2024 5:13 PM ESTPending Prescriptions: Disp Refills Gabapentin 100 MG Oral Capsule (Neurontin) 300 Ca*1 Sig: take 1capsule by mouth in morning, 1 capsule in afternoon and 2 capsules at bedtime documented in this encounter Plan of Treatment Upcoming Encounters Date Type Department Care Team (Late st Contact Info) Description 06/08/2024 3:10 PM EST Office Visit Family Medicine [address] [place] [phone] Adrien Arellano[address] [place] [address] 02/09/2025 2:30 PM EDT Nurse Only Ancillary [address] [place] [address] Movserenaey, Nurse [address] [place] [phone] Health Maintenance Due Date Last Done Comments [...] D LEVEL ONCE IN A LIFETIME-USE SMARTSET# [id number] Completed 06/29/2012, 03/30/2009 Pneumococcal Vaccine: 50+ Years [...] Thoracic or lumbosacral neuritis or radiculitis, unspecified Need for case management follow-up documented in this encounter Advance Directives Healthcare Agents on File Name Relationship Healthcare Agent Relationshi p Communication Dick Ortega Adult Child Health Care Repr esentative (appointed verbally by patient or by statute hierarchy) Meredith white Adult Child Health Care R epresentative (appointed verbally by patient or by statute hierarchy) Care Teams Edge Stainer Machine Relationship Specialty Start Date End Date Adrien Arellano DO [address] [place] [address] [place] [address] PCP - General Internal Medicine 10/24/23 documented as of this encounter
[2024-07-09] MEDS: LEVOTHYROXINE SODIUM 137 MCG TABLET PO SCH (05:46)
[2024-07-09 07:23] LABS: Hematocrit (blood only) 29.5 % (37.0-47.0); Hemoglobin 9.2 g/dl (12.0-16.0); Mean Corpuscular Hemoglobin 25.1 pg (25.0-34.0); Mean Corpuscular Hgb Conc 31.2 g/dL (32.0-36.0); Mean Corpuscular Volume 80.6 fL (80.0-100.0); Mean Platelet Volume 10.4 fL (9.4-12.4); Platelet Count 357 K/uL (130-400); RDW Coefficient of Variation 15.4 % (11.5-14.5); RDW Standard Deviation 45.1 fL (36.4-46.3); Red Blood Count 3.66 M/uL (4.20-5.40); White Blood Count 11.36 K/ul (4.8-10.8)
[2024-07-09 07:40] LABS: BUN Creatinine Ratio 14.7 (10-20); Calcium 9.1 mg/dl (8.6-10.3); Creatinine Clr Calc Pharmacy 36.6 ml/min; Magnesium 1.5 mg/dl (1.7-2.4)
[2024-07-09 07:46] LABS: Troponin I High Sensitivity 14.8 pg/ml (0-14)
[2024-07-09] MEDS: CHLORTHALIDONE 25 MG TAB PO SCH (07:55)
[2024-07-09] MEDS: UMECLIDINIUM/VILANTEROL 62.5/25MCG 7 PUFFS/INHALER INH SCH (07:56)
[2024-07-09] MEDS: CYANOCOBALAMIN (B-12) 500 MCG TABLET PO SCH (07:56)
[2024-07-09] MEDS: SERTRALINE HCL 50 MG TABLET PO SCH (07:56)
[2024-07-09] MEDS: FLUTICASONE FUROATE 100MCG 14 PUFFS/INHALER INH SCH (07:56)
[2024-07-09] MEDS: PANTOprazole 40 MG TAB PO SCH (07:56)
[2024-07-09] MEDS: lisinopril 20 MG TAB PO SCH (07:56)
[2024-07-09] MEDS ORDERED: NON-FORMULARY MEDICATION (Fluticasone-Umeclidin-Vilanter [Trelegy Ellipta] 100-62.5-25 mcg INH SCH (09:00)
[2024-07-09] MEDS: MAGNESIUM SULFATE / D5W 1 GM/100 ML BAG IV ONE (09:05)
--- NOTE | 2024-07-09 09:36 | Gastrointestinal Consultation ---
Date of Consultation July 09, 2024 Assessment & Plan (1) Iron deficiency anemia: Patient is an 83 year old with heme negative stool and iron deficiency anemia with outpatient iron levels of 10. No overt GI bleeding or GI symptoms. Given she is currently hospitalized with Coronavirus & pneumonia and is without overt GI bleeding, would not advise endoscopic evaluation at this time. Would treat her known iron deficiency anemia and when she is recovered from her pneumonia and Coronavirus she can follow-up with her outpatient [facility] GI gastroenterology team to advise regarding any plans for endoscopic evaluation. Supervising Physician Co-Signing Physician Notes Iron deficiency anemia heme-negative. No scott bleeding. Remote colonoscopy she states 10+ years ago which showed a large polyp was removed. States was not told to return for follow-up. Differential for iron deficiency at 83 course would be colon neoplasia. Potential related to the large hiatal hernia identified on CT scan. Peptic ulcer disease. Arterial venous malformations also common. Patient has significant COPD. Recommend iron transfusion. Oral iron at discharge. 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 Did review with them option at 83 with her comorbidities is just treat the iron deficiency and see what happens. They have not made the decision how to proceed at this time. History of Present Illness Reason for Consultation: Anemia Attending Physician: Tra Mcgarry MD History of Present Illness Patient is an 83 yo female with history of COPD, HTN, HLD, PVD, COPD, GERD, paraesophageal hernia, hypothyroidism, carotid based tumor s/p radiation, history of tobacco use, and iron deficiency anemia. She notes she had outpatient bloodwork done several days ago and was referred to the ED for evaluation. GI consulted for anemia. She had an office visit with GI at [facility] on 07/08/24 with Maribell REICH and was advised to go to the ED due to a hemoglobin of 7.2. Iron level was 10 as an outpatient. Patient presented to the ED. She has been noted to have a hemoglobin of 9.2/29.5 this AM. MCV 80.6. She has been diagnosed with Coronavirus OC43. Chest xray indicates pneumonia. She had a negative Hemoccult in the ED. She denies melena, hematemesis, hematochezia. No abdominal pain or other GI symptoms. She has had EGDs in the past, but cannot recall the last one. She notes her last colonoscopy was 10 years ago. Labs from the outpatient setting obtained from the [facility] system: Latest Reference Range & Units 01/28/24 12:42 07/05/24 14:36 HGB 12.0 - 15.3 g/dL 13.6 7.2 (L) HCT 36.0 - 45.2 % 41.8 22.6 (L) MCV 81.5 - 97.5 fL 90.9 90.8 Latest Reference Range & Units 07/05/24 14:36 Iron 33 - 151 ug/dL 10 (L) Iron Binding Capacity 250 - 425 ug/dL 349 Transferrin Saturation Percent 15 - 55 % 3 (L) Ferritin 13 - 150 ng/mL 21 Vitamin B12 232 - 1,245 pg/mL 898 Folic Acid >4.5 ng/mL >20.0 Immature Reticuloctye Fraction 2.5 - 20.6 % 22.7 (H) Reticulocyte Hemoglobin 29.7 - 37.4 pg 17.3 (L) Allergies Allergy/AdvReac Type Severity Reaction Status Date / Time latex Allergy Unknown RASH Verified 04/15/24 11:22 No Known Drug Allergies Allergy Unknown . Verified 04/15/24 11:22 Home Medications Medication Instructions Recorded Confirmed Type atorvastatin 40 mg tablet 40 mg PO HS #90 tabs 11/24/18 07/08/24 History sodium chloride 0.65 % nasal spray 1 spray intranasal .USE 11/24/18 07/08/24 History aerosol DIRECTED. PRN NASAL DRYNESS calcium 600 mg (as carbonate)-vit 1 tab PO AMPM 02/24/19 07/08/24 History D3 10 mcg (400 unit) chewable tablet (Calcium 600 with Vitamin D3) levothyroxine 137 mcg tablet 137 mcg PO DAILYBB 10/30/21 07/08/24 History Oxygen Home #1 ea 04/22/22 04/15/24 Rx compressor, for nebulizer #1 ea 04/22/22 04/15/24 Rx nebulizer accessories #1 ea 08/15/22 04/15/24 Rx metoprolol tartrate 50 mg tablet 50 mg PO BID 11/20/22 07/08/24 History ipratropium 0.5 mg-albuterol 3 mg 3 ml inhalation Q4H PRN Shortness 03/14/23 07/08/24 Rx (2.5 mg base)/3 mL nebulization Of Breath Or Wheezing #360 mL soln budesonide 0.5 mg/2 mL suspension 0.5 mg inhalation UD 01/19/24 07/08/24 History for nebulization calcium carbonate (Tums) 200 mg PO QID PRN Heartburn 01/19/24 07/08/24 History lisinopril 20 mg tablet 20 mg PO QAM 01/19/24 07/08/24 History trazodone 50 mg tablet 50 mg PO HS 01/19/24 07/08/24 History cyanocobalamin (vitamin B-12) 500 500 mcg PO QAM #30 tabs 01/21/24 07/08/24 Rx mcg tablet acetaminophen 650 mg 650 mg PO Q4H PRN Headache 02/23/24 07/08/24 History tablet,extended release albuterol sulfate 90 mcg/actuation 2 puff inhalation Q6H PRN 02/23/24 07/08/24 History aerosol inhaler sob/wheezing chlorthalidone 25 mg tablet 25 mg PO UD 02/23/24 07/08/24 History fluticasone fur. 100 mcg-umeclid 1 inh inhalation QAM 02/23/24 07/08/24 History 62.5 mcg-vilant 25 mcg inhalat.powder (Trelegy Ellipta) gabapentin 100 mg capsule 100 mg PO TID 02/23/24 07/08/24 History omeprazole 20 mg capsule,delayed 20 mg PO UD 02/23/24 07/08/24 History release sertraline 25 mg tablet 25 mg PO DAILY 07/08/24 07/08/24 History Patient History Medical History Anemia requiring transfusions Acute dyspnea Symptomatic anemia Hypoxia Abnormal finding on imaging Cough Asthma with COPD Surgical History H/O: hysterectomy Hx of cholecystectomy History of appendectomy Family History Family/Other Hypertension Asthma Cardiac disorder Social History Smoking Status: Former smoker Second Hand Exposure: No; Do You Dip or Chew Tobacco: No; Hx Alcohol Use: No Hx Substance Use: No Preferred Language: Cape Verdean Communication Ability: Effective General Manager Food Required: No Beliefs That Will Affect Care: None marital status: Current Living Situation: Family Current Living Situation Comment: lives with son Other Information That Helps Us Care for You: No Feels Safe at Home: Yes Safety Concerns: Feels Safe At This Time Seatbelt Use: always Assistive Devices: Cane and Oxygen - Continuous Review of Systems Constitutional: no fever and no chills Respiratory: + cough Gastrointestinal: no abdominal pain, no nausea, no vomiting, no hematemesis and no melena Physical Exam Gastrointestinal (Abdomen): normal bowel sounds, soft, nontender, no hepatosplenomegaly Results & Data Vital Signs (Past 12 Hours) Vital Signs Temp Pulse Pulse Resp BP BP Pulse Ox 07/09/24 08:25 52 L 07/09/24 07:30 36.3 C L 63 20 164/82 H 99 07/09/24 07:13 07/09/24 07:05 54 L 14 95 07/09/24 02:53 36.4 C L 53 L 18 150/90 H 93 07/09/24 00:09 63 158/75 H 07/08/24 23:06 36.7 C 62 18 179/73 H 94 07/08/24 21:49 83 07/08/24 21:45 81 07/08/24 21:45 79 16 98 O2 Del Method O2 Flow Rate 07/09/24 08:25 07/09/24 07:30 Nasal Cannula 2 07/09/24 07:13 Nasal Cannula 3 07/09/24 07:05 Nasal Cannula 4 07/09/24 02:53 Nasal Cannula 3 07/09/24 00:09 07/08/24 23:06 Nasal Cannula 2 07/08/24 21:49 07/08/24 21:45 07/08/24 21:45 Nasal Cannula 3 PG Care Time/CCT Total # of Minutes Spent Total Time Spent with Patient: Total time spent is greater than 50% in coordination of care (as documented) at patient's floor/unit and/or counseling patient: Coding Level of Care Code 00300 INT INP/OBS CARE 3/75MIN Diagnoses Iron deficiency anemia D50.9
--- OUTSIDE RECORDS SUMMARY | 2024-07-09 13:28 | External Medical Summary | Summary of Care ---
Author Name Unknown Organization [facility] Address [address] [place] [address] Phone [phone] Care Team Providers Care Manager Local Name Role Phone Adrien Arellano DO Primary Care Provider [phone] Reason for Visit * Reason Comments NEW PATIENT GERD anemia Has been anemic for 3 months. Feels run down and tired. * Evaluate & Treat - Unlimited Visits (Within 10 days (routine)) - Authorized Specialty Diagnoses / Procedures Referred By Corrine isbell Referred To Contact Gastroenterology Diagnoses Gastroesophageal reflux disease without esophagitis Iron deficiency anemia due to chronic blood loss Adrien Arellano DO [address] [place] [address] [place] [address] Phone: tel: fax: Referral ID Status Reason Start Date Expiration Date Visits Requested Visits Authorized [id number] Authorized Specialty Services Required 07/07/2024 [id number] Encounter Details Date Type Department Care Team (Late st Contact Info) Description 07/08/2024 10:00 AM EDT Office Visit Gastroenterology, [facility] [address] [place] [address] Maribell Alvarado CRNP [address] [place] [id number] Iron deficiency anemia due to chronic blood loss* Allergies Active Allergy Reactions Criticality Noted Date Comments Latex Rash 11/25/2022 Other - Environmental 09/27/2008 Band aids documented as of this encounter (statuses as of 07/08/2024) Medications TUMS 500 MG PO CHEW as [...] group B, by GOLD 2017 classification ([facility]) Administer 3 L/min(Oxygen) into nostril [...] 1 06/18/2024 5:18 PM EST 5 Active Ferrous Sulfate Dried 200 (65 Fe) MG Oral Tablet Take by mouth. Active documented as of this encounter (statuses as of 07/08/2024) Active Problems Problem Noted Date Diagnosed Date [...] as of this encounter (statuses as of 07/08/2024) Resolved Problems Problem Noted Date Diagnosed Date [...] as of this encounter (statuses as of 07/08/2024) Immunizations Name Administration Dates Next Due COVID-19 [...] Sign Reading Time Taken Comments Blood Pressure 142/72 07/08/2024 9:40 AM EDT Pulse 68 07/08/2024 9:40 AM EDT Temperature 36.6 C (97.9 F) 07/08/2024 9:40 AM ED T Respiratory Rate - - Oxygen Saturation - - Inhaled Oxygen Concentration - - Weight 43.4 kg (95 lb 9.6 oz) 07/08/2024 9:40 AM EDT Height 142.2 cm (4' 7.98") 07/08/2024 9:40 AM ED T Body Mass Index 21.45 07/08/2024 9:40 AM EDT documented in this encounter Progress Notes * Maribell Alvarado CRNP - 07/08/2024 10:05 AM EDT Consult requested by REF: ADRIEN ARELLANO [address] [place] [address] [place] [phone] (office) [phone] (fax) CC: Anemia HPI: 83 year old female pt of Adrien Arellano DO with a hx of COPD, asthma, colon polyps, HLD, HTN,hypothyroidism who presents for GERD and iron deficiency anemia. She felt tired, weak, has had a significant fall yesterday. Recent Hb 3 days ago was 7.2. She does not have any abd pain, N/V and denies any blood in BMs/black BMs. She has a hx of a large HH. No prior EGD. She did have a similar episode of acute anemia last fall and transfusion at that time. ROS: + as per HPI A total of 12 systems were reviewed, all others (-). Diagnostic Testing: Latest Reference Range & Units 01/28/24 12:42 07/05/24 14:36 HGB 12.0 - 15.3 g/dL 13.6 7.2 (L) HCT 36.0 - 45.2 % 41.8 22.6 (L) MCV 81.5 - 97.5 fL 90.9 90.8 Latest Reference Range & Units 07/05/24 14:36 Iron 33 - 151 ug/dL 10 (L) Iron Binding Capacity 250 - 425 ug/dL 349 Transferrin Saturation Percent 15 - 55 % 3 (L) Ferritin 13 - 150 ng/mL 21 Vitamin B12 232 - 1,245 pg/mL 898 Folic Acid >4.5 ng/mL >20.0 Immature Reticuloctye Fraction 2.5 - 20.6 % 22.7 (H) Reticulocyte Hemoglobin 29.7 - 37.4 pg 17.3 (L) Colonoscopy 2014 - Diverticulosis in the entire examined colon. - One 5 mm polyp in the transverse colon. Resected and retrieved. - The examination was otherwise normal. No prior EGD ALLERGIES: Review of patient's allergies indicates: Allergen Reactions Latex Rash Other - Environmental Band aids PMH/PSH/Soc Hx reviewed, significant for: Past Medical History: Diagnosis Date Acute exacerbation of chronic obstructive pulmonary disease (COPD) (HCC) 02/21/2015 [facility] ASTHMA, MODERATE PERSISTANT Benign neoplasm of carotid [...] hypothyroidism 04/24/2010 Pancreatitis, gallstone 03/10/2012 admitted [facility] Postmenopausal atrophic vaginitis Retinal tear 10/05/2008 left large retinal tear superiorly with small cuff of fluid , photocoagulatied Rosacea Senile osteoporosis Past Surgical History: Procedure Laterality Date BUNION CORRECTED WITH DOUBLE OSTEOTOMY left foot with hammertoe correction COLONOSCOPY, DIAGNOSTIC (RECTUM) 09/20/2013 TVA polyp, diverticulosis, repeat later this yr/COLONOSCOPY FLEXIBLE PROXIMAL DIAGNOSTIC performed by Romero Braswell MD at ENDOSCOPY [facility] [address] COLONOSCOPY, DIAGNOSTIC (RECTUM) 06/23/2014 5 mm polyp transverse colon, diverticulosis/COLONOSCOPY FLEXIBLE PROXIMAL DIAGNOSTIC performed by Romero Braswell MD at ENDOSCOPY [facility] HEAD/BRAIN 03/08/2012 old right cerebellar lacunar infarct, microvascular changes, no acute changes INJECT DX/THER SUBSTANCE INTERLAMINAR LUMBAR/SACRAL W IMAGE GUIDE 02/17/2020 INJECTION SPINE LUMBAR OR SACRAL performed by Octavio Gotti, DO at OR [facility] INJECT DX/THER SUBSTANCE INTERLAMINAR LUMBAR/SACRAL W IMAGE GUIDE 07/27/2020 INJECTION SPINE LUMBAR OR SACRAL performed by Octavio Noel Cousins, DO at OR [facility] INJECT DX/THER SUBSTANCE INTERLAMINAR LUMBAR/SACRAL W IMAGE GUIDE 01/11/2021 INJECTION SPINE LUMBAR OR SACRAL performed by Octavio Noel Cousins, DO at OR [facility] INJECT DX/THER SUBSTANCE INTERLAMINAR LUMBAR/SACRAL W IMAGE GUIDE 2021 INJECTION SPINE LUMBAR OR SACRAL performed by Octavio Noel Mejiasins, DO at OR [facility] INJECT DX/THER SUBSTANCE INTERLAMINAR LUMBAR/SACRAL W IMAGE GUIDE 10/24/2022 INJECTION SPINE LUMBAR OR SACRAL performed by Franco Francois, DO at OR [facility] INJECT DX/THER SUBSTANCE INTERLAMINAR LUMBAR/SACRAL W IMAGE GUIDE 03/17/2023 INJECTION SPINE LUMBAR OR SACRAL performed by Franco Francois, at OR [facility] IOF MRA HEAD 08/04/2008 [...] femur RELEASE OF FOOT JOINT CONTRACTURE 11/27/2011 [facility] REMOVAL OF APPENDIX REMOVAL OF OVARY/OVIDUCT(S) 29 yo bleeding REMOVE GALLBLADDER 03/10/2012 Laprascopic Cholecystectomy with intraoperative cholanglogram Dr Wellington [facility] 03/10/12 REMOVE TONSILS & ADENOIDS, UNDER 13 [...] cholethiasis with borderline thickening of GB wall Social History Socioeconomic History Marital status: Number of children: 4 Occupational History 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 Tobacco Use Smoking status: Former Current packs/day: 0.00 Average packs/day: 0.5 packs/day for 30.0 years (15.0 ttl pk-yrs) Types: Cigarettes Start date: 04/14/1960 Quit date: 04/14/1990 Years since quittin.2 Smokeless tobacco: Never Tobacco comments: no passive smoke currently Vaping Use Vaping status: Never Used Substance and Sexual Activity Alcohol use: Yes Comment: rare wine or beer Drug use: No Sexual activity: Yes Partners: Male Other Topics Concern Service No Blood Transfusions No Caffeine Concern No Occupational Exposure No Hobby Hazards No Sleep Concern No Stress Concern No Weight Concern No Special Diet Yes Back Care Yes Exercise Yes Seat Belt Yes Social History Narrative 04/2022 [facility] INFORMATION ENVIRONMENTAL HISTORY: Type of Home: One Story Type of Heating System: Oil and Forced air Air Conditioning: Yes Central Basement: Finished, Carpeted rooms, No evidence mold, mildew and Dry Home have cockroaches: No Irritants in the home: None Patient's bedroom location: Floor: first Type of tino: Carpeting Beds: Number: 1 Type of beds: Air Mattress Pillows: Number: 2 Type of pillows: Synthetic (hypoallergenic, polyester) Bedroom contains: Minimal items Pets: none Lives on a farm: No 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 Entered by: Jaren Arreola MD 05/09/2006 Social Needs Financial Resource Strain: Low Risk (02/06/2024) Financial Resource Strain Do you have any trouble paying for your medications, or do you think you might in the future? (Adult - for ages 18 years and over): No Food Insecurity: No Food Insecurity (02/06/2024) Food Insecurity Worried About Running Out of Food in the Last Year: Never true Ran Out of Food in the Last Year: Never true Do you need food for this week? (Adult - for ages 18 years and over): No Transportation Needs: No Transportation Needs (02/06/2024) Transportation Needs Has lack of transportation kept you from medical appointments, meetings, work, or from getting things needed for daily living? Check all that apply. (Adult - for ages 18 years and over): No Social Connections: Socially Integrated (02/06/2024) Social Connections How often do you feel lonely or isolated from those around you? (Adult - for ages 18 years and over): Sometimes Housing Stability: Low Risk (02/06/2024) Housing Stability Do you currently live in a chcf or have no steady place to sleep at night? (Adult - for ages 18 years and over): No Are you homeless or worried that you might be in the future? (Adult - for ages 18 years and over): No Family history reviewed and significant for: Family History Problem Relation Name Age of Onset Esophageal cancer Father Heart Disorder Father [place] Heart Disorder Other [place] age 50's Diabetes Brother Asthma Brother Allergies Mother food allergies, hives Asthma Mother Allergies Sister food allergies, hives Current Outpatient Medications Medication Sig Dispense Refill Ferrous Sulfate Dried 200 (65 Fe) MG Oral Tablet Take by mouth. Omslwtkpodz-Rdjgwaury-Rlmuqd 100-62.5-25 MCG/ACT Aerosol Powder Breath Activated (Trelegy Ellipta) Inhale 1 Puff by mouth in the morning. 180 Each 1 Prevagen 10 MG Oral Capsule (Apoaequorin) Take by mouth. Sertraline HCl 25 MG Oral Tablet (Zoloft) Take 1 Tablet by mouth in the morning. 100 Tablet 1 traZODone HCl 50 MG Oral Tablet (Desyrel) Take 1 Tablet by mouth at bedtime. 100 Tablet 1 Gabapentin 100 MG Oral Capsule (Neurontin) take 1 capsule by mouth in morning, 1 capsule in afternoon and 2 capsules at bedtime 400 Capsule 2 Atorvastatin Calcium 40 MG Oral Tablet (Lipitor) TAKE ONE TABLET BY MOUTH AT BEDTIME 100 Tablet 0 Lisinopril 20 MG Oral Tablet (Prinivil) TAKE ONE TABLET BY MOUTH IN THE MORNING 100 Tablet 0 Ipratropium-Albuterol 0.5-2.5 (3) MG/3ML Inhalation Solution (Duoneb) INHALE CONTENTS OF 1 VIAL VIANEBULIZER TWICE DAILY, MAY INCREASE TO 1 VIAL EVERY 4 HOURS NEEDED FOR WORSENING COUGH, WHEEZINGOR SHORTNESS OF BREATHE 1080 mL 1 Albuterol Sulfate HFA 108 (90 Base) MCG/ACT Inhalation Aerosol Solution Inhale 2 puffs by mouth every 4 hours as needed for wheezing 20.1 g 2 Omeprazole 20 MG Oral Capsule Delayed Release (PriLOSEC) Take 1 Capsule by mouth in the morning. 1 hour before the first meal of the day. 30 Capsule 0 oxygen IN GAS Administer 3 L/min(Oxygen) into nostril continuous. 1 Each 0 Vitamin B-12 500 MCG Oral Tablet (vitamin B-12) Take 1 Tablet by mouth in the morning. Levothyroxine Sodium 137 MCG Oral Tablet (Synthroid) TAKE ONE TABLET BY MOUTH IN THE MORNING 30 MINBEFORE BREAKFAST OR OTHER MEDS 100 Tablet 1 Metoprolol Tartrate 50 MG Oral Tablet (Lopressor) TAKE 1 TABLET BY MOUTH IN THE MORNING AND AT BEDTIME 200 Tablet 1 Acetaminophen 500 MG Oral Tablet Take 1 Tablet by mouth every 8 hours as needed for Pain, Moderate. Calcium Carb-Cholecalciferol (CALCIUM + D3) 600-200 MG-UNIT per tablet Take 1 Tablet by mouth in the morning and 1 Tablet before bedtime. SALINE NASAL SPRAY 0.65 % NA SOLN Administer into nostril daily as needed. TUMS 500 MG PO CHEW as needed Zoster Vac Recomb Adjuvanted 50 MCG/0.5ML Intramuscular Suspension Reconstituted (Shingrix) Inject 0.5 mL into a large muscle now and repeat dose in 60 to 180 days 1 Each 1 oxygen IN GAS Administer 3 L/min(Oxygen) into nostril at bedtime. No current facility-administered medications for this visit. EXAM: BP 142/72 | Pulse 68 | Temp 36.6 C (97.9 F) | Ht 1.422 m (4' 7.98") | Wt 43.4 kg (95 lb 9.6 oz)| BMI 21.45 kg/m | BSA 1.31 m GENERAL: 83 year old female well developed and well nourished in no acute distress, in a wheelchair SKIN: Appears pale, " ecchymosis on her face, no rashes, ulcers, or spider angiomata HEENT: normocephalic, sclera clear, pharynx normal NECK: supple, no lymphadenopathy, no masses or thyroid enlargement LUNGS: Crackles at both bases. HEART: regular rate & rhythm, no murmurs and no gallops ABDOMEN: normo-active bowel sounds, soft, non-tender, non-distended no masses, no hepatosplenomegaly, no rebound or guarding, no bruits EXTREMITIES: no palmar erythema, no edema, no skin discoloration, no clubbing, no cyanosis NEURO: no lateralizing findings, Sensory/Motor grossly normal IMPRESSION/RECOMMENDATIONS: 83 year old female with: Iron deficiency anemia, a rapid drop from 13->7.2 in the past 4 months. W her hx of COPD, she needs blood transfusion prior to EGD. I advised -> ED today to address anemia/weakness. She prefers [facility] ED. Her daughter is transporting her there. Her daughter is taking her to the car by wheelchair. I provided report to [facility] ED charge nurse. Likely, she will be admitted and undergo EGD there. If she is discharged w/o undergoing EGD, then her daughter is to call our office and I will arrange an urgent EGD. I suspect gonzalez lesion in light of her large HH. Recheck in 3m and as needed. I spent a total of 40 minutes on the date of service in review of patient's record, and previously obtained information in person and appropriate medical visit, discussion and education of plan, withpatient and/or caregiver, placing orders for tests/referral/procedures as medically necessary and documentation of pertinent clinical information in patient's medical records for their visit today. RACHANA Millan [facility] Gastroenterology documented in this encounter Nursing Notes * Eunice Taylor LPN - 07/08/2024 9:40 AM EDT Chief Complaint Patient presents with NEW PATIENT GERD anemia Has been anemic for 3 months. Feels run down and tired. documented in this encounter Plan of Treatment Upcoming Encounters Date Type Department Care Team (Late st Contact Info) Description 07/14/2024 1:30 PM EDT Laboratory Laboratory [address] [place] [phone] [place], Lab [address] [place] [address] 01/18/2025 3:10 PM EDT Office Visit Family Medicine [address] [place] [phone] Adrien Arellano, [address] [place] [address] 02/09/2025 2:30 PM EDT Nurse Only Ancillary [address] [place] [address] [place], Nurse [address] [place] [address] Health Maintenance Due Date Last Done Comments [...] D LEVEL ONCE IN A LIFETIME-USE SMARTSET# [id number] Completed 06/29/2012, 03/30/2009 Pneumococcal Vaccine: 50+ Years [...] deficiency anemia secondary to blood loss (chronic) documented in this encounter Advance Directives Healthcare Agents on File Name Relationship Healthcare Agent [facility] Dick Ortega Adult Child Health Care Repr esentative (appointed verbally by patient or by statute hierarchy) Meredith mccain Adult Child Health Care R epresentative (appointed verbally by patient or by statute hierarchy) Care Teams Manager Local Relationship Specialty Start Date End Date Adrien Arellano DO [address] [place] [address] [place] [phone] PCP - General Internal Medicine 10/24/23 documented as of this encounter
--- NOTE | 2024-07-09 14:18 | Electrocardiogram Report ---
Test Reason : Blood Pressure : */* mmHG Vent. Rate : 55 BPM Atrial Rate : 55 BPM P-R Int : 156 ms QRS Dur : 82 ms QT Int : 468 ms P-R-T Axes : 69 27 47 degrees QTcB Int : 447 ms Sinus bradycardia with sinus arrhythmia Otherwise normal ECG When compared with ECG of 08-Jul-2024 12:40, Premature supraventricular complexes are no longer Present Nonspecific T wave abnormality no longer evident in Inferior leads Nonspecific T wave abnormality no longer evident in Anterolateral leads QT has lengthened Confirmed by Saad Mancilla ([id number]) on 07/09/2024 2:18:20 PM Referred By: REFERRED SELF Confirmed By: Saad Mancilla
--- NOTE | 2024-07-09 16:58 | Hospitalist Progress Note ---
Date of Service July 09, 2024 Assessment & Plan (1) Symptomatic anemia: Plan: Hemoglobin as an outpatient was 7.2 and admitting hemoglobin was 8.4 Due to Iron deficiency anemia and is completed by anemia of chronic disease-Iron Level was 10 Received 300 mg of IV Venofer in the emergency room and Fecal occult negative in ED H/O polyp, hiatal hernia Avoid NSAIDs, anticoagulation for now Anemia workup ordered GI consulted for possible EGD - appreciate input and recommendation- not for any EGD Continue home PPI Will monitor CBC (2) COPD (chronic obstructive pulmonary disease): Plan: Acute on chronic bronchitis Suspected pneumonia H/O COPD Chronic oxygen dependency-at bedtime BioFire positive for coronavirus OC43 Currently no signs of wheezing on exam Isolation precautions Check procalcitonin- negative Empirically started on Rocephin, doxycycline Continue home inhalers Nebs as needed Will consider steroids if develops wheezing Pulmonary hygiene Continue supplemental oxygen at bedtime Abnormal EKG Denies any chest pain Trend troponins, check resting echo Hypokalemia Replete electrolytes as needed Monitor Recent fall Fall precautions PT OT Other chronic conditions Hypertension Hyperlipidemia PVD GERD Hypothyroidism Carotid based tumor S/P radiation Past tobacco abuse Continue home medications as able DVT Px: SCDs for now CODE STATUS Full code Disposition Admitted to [facility] with telemetry PT OT prior to discharge Admission and Anticipated Discharge Date Admission Date: July 08, 2024 Subjective 07/09/2024 The patient was seen and examined in medical telemetry unit She has been feeling better and denies any significant shortness of breath at rest Noted to have high blood pressure as 177/78 Review of Systems Review of Systems: All systems reviewed and are unremarkable except as noted below Physical Exam Physical Exam: Sitting on a chair with minimal respiratory distress Constitutional: + ill appearing and + thin Eyes: PERRL, conjunctivae normal, anicteric sclerae ENMT: external ear and nose normal, oropharynx normal Neck: trachea midline, no thyromegaly Respiratory: no respiratory distress Auscultation: + diminished lung sounds and + crackles ( occasional crackles at the bases) Cardiovascular: Rate/Rhythm: regular rate, regular rhythm and + bradycardic Heart Sounds: normal S1 and normal S2; no murmur Extremities: no edema Gastrointestinal (Abdomen): Inspection/Auscultation: normal bowel sounds; abdomen not distended Percussion/Palpation: abdomen soft; abdomen nontender Musculoskeletal: has osteoarthritic changes involving the extremities Neurologic: normal touch/pain/proprioception and moves all extremities; no focal motor deficits Lymphatic: no cervical or axillary lymphadenopathy Results & Data Results & Data Vital Signs (Past 12 Hours) Vital Signs Temp Pulse Pulse Resp BP Pulse Ox O2 Del Method 07/09/24 16:30 55 L 07/09/24 15:44 36.7 C 63 20 177/78 H 94 Nasal Cannula 07/09/24 11:22 36.6 C 63 18 195/82 H 91 Nasal Cannula 07/09/24 08:25 52 L 07/09/24 07:30 36.3 C L 63 20 164/82 H 99 Nasal Cannula 07/09/24 07:13 Nasal Cannula 07/09/24 07:05 54 L 14 95 Nasal Cannula O2 Flow Rate 07/09/24 16:30 07/09/24 15:44 2 07/09/24 11:22 2 07/09/24 08:25 07/09/24 07:30 2 07/09/24 07:13 3 07/09/24 07:05 4 Laboratory Results Short CBC 07/09/24 Range/Units 06:49 WBC 11.36 H (4.8-10.8) K/ul Hgb 9.2 L (12.0-16.0) g/dl Hct 29.5 L (37.0-47.0) % Plt Count 357 (130-400) K/uL BMP 07/09/24 06:49 Sodium 143 Potassium 4.0 Chloride 106 Carbon Dioxide 33 H BUN 10 Creatinine 0.68 Glucose 103 H Calcium 9.1 Medications Administered Current Inpatient Medications Acetaminophen (Acetaminophen 325 Mg Tab) 650 mg PO Q4H PRN PRN Reason: Pain or Fever Stop: 08/07/24 20:36 Last Admin: 07/09/24 16:41 Dose: 650 mg Albuterol (Albut/Ipratrop 3mg/0.5mg Neb 3 Ml Vial) 3 ml NEB Q6R PRN; Protocol PRN Reason: Shortness Of Breath Or Wheezing Stop: 08/07/24 18:03 Atorvastatin Calcium (Atorvastatin 40 Mg Tab) 40 mg PO HS ARIANA Stop: 08/07/24 20:59 Last Admin: 07/08/24 21:33 Dose: 40 mg Budesonide (Budesonide 0.5 Mg/2 Ml Vial (Pulmicort)) 0.5 mg INH BID ARIANA Stop: 08/07/24 20:59 Last Admin: 07/09/24 07:05 Dose: 0.5 mg Calcium Carbonate (Calcium Carbonate 500 Mg Chewable Tab) 200 mg PO QID PRN PRN Reason: Heartburn Stop: 08/07/24 20:36 Calcium/Vitamin D (Calcium 600mg + Vit D 400 Iu Tab) 1 tab PO BID ARIANA Stop: 08/07/24 20:59 Last Admin: 07/09/24 07:55 Dose: 1 tab Chlorthalidone (Chlorthalidone 25 Mg Tab) 25 mg PO DAILY ARIANA Stop: 08/08/24 08:59 Last Admin: 07/09/24 07:55 Dose: 25 mg Cyanocobalamin (Cyanocobalamin (B-12) 500 Mcg Tablet) 500 mcg PO QAM ARIANA Stop: 08/08/24 08:59 Last Admin: 07/09/24 07:56 Dose: 500 mcg Doxycycline Hyclate (Doxycycline Hyclate 100 Mg Cap) 100 mg PO BID ARIANA Stop: 07/13/24 20:59 Last Admin: 07/09/24 07:56 Dose: 100 mg Famotidine (Famotidine 10 Mg Tablet) 10 mg PO BID PRN PRN Reason: Dyspepsia Stop: 08/07/24 20:36 Fluticasone Furoate (Fluticasone Furoate 100mcg 14 Puffs/Inhaler) 1 puffs INH DAILY ARIANA Stop: 08/08/24 08:59 Last Admin: 07/09/24 07:56 Dose: 1 puffs Gabapentin (Gabapentin 100 Mg Cap) 100 mg PO TID ARIANA Stop: 08/07/24 20:59 Last Admin: 07/09/24 13:39 Dose: 100 mg Guaifenesin (Guaifenesin 600 Mg Tabcr) 600 mg PO Q12 ARIANA Stop: 08/07/24 20:59 Last Admin: 07/09/24 07:56 Dose: 600 mg Ceftriaxone Sodium (Rocephin) 1,000 mg in 50 mls @ 100 mls/hr IV Q24H ARIANA Stop: 07/13/24 20:59 Last Infusion: 07/08/24 22:05 Dose: Infused Levothyroxine Sodium (Levothyroxine Sodium 137 Mcg Tablet) 137 mcg PO DAILYBB ARIANA Stop: 08/08/24 06:29 Last Admin: 07/09/24 05:46 Dose: 137 mcg Lisinopril (Lisinopril 20 Mg Tab) [address] [facility] Stop: 08/08/24 08:59 Last Admin: 07/09/24 07:56 Dose: 20 mg Metoprolol Tartrate (Metoprolol Tartrate 50 Mg Tab) 50 mg PO BID ARIANA Stop: 08/07/24 20:59 Last Admin: 07/09/24 07:56 Dose: 50 mg Ondansetron HCl (Ondansetron Inj 2 Mg/Ml 2 Ml Vial) 4 mg IV Q6H PRN PRN Reason: Nausea Stop: 08/07/24 20:36 Pantoprazole Sodium (Pantoprazole 40 Mg Tab) 40 mg PO DAILY ARIANA Stop: 08/08/24 08:59 Last Admin: 07/09/24 07:56 Dose: 40 mg Polyethylene Glycol (Polyethylene (Miralax) 17 Gm Pack) 17 gm PO DAILY PRN PRN Reason: Constipation Stop: 08/07/24 20:36 Sertraline HCl (Sertraline Hcl 50 Mg Tablet) 25 mg PO DAILY ARIANA Stop: 08/08/24 08:59 Last Admin: 07/09/24 07:56 Dose: 25 mg Sodium Chloride (Sodium Chloride 0.65% Na Soln 45 Ml (Chicot)) 1 sprays NA UD PRN PRN Reason: NASAL DRYNESS Stop: 08/07/24 20:36 Trazodone HCl (Trazodone Hcl 50 Mg Tab) [address] [facility] Stop: 08/07/24 20:59 Last Admin: 07/08/24 21:34 Dose: 50 mg Umeclidinium/Vilanterol (Umeclidinium/Vilanterol 62.5/25mcg 7 Puffs/Inhaler) 1 puffs INH DAILY ARIANA Stop: 08/08/24 08:59 Last Admin: 07/09/24 07:56 Dose: 1 puffs (2) COPD (chronic obstructive pulmonary disease) COPD type: unspecified COPD Qualified Code(s): J44.9 - Chronic obstructive pulmonary disease, unspecified
[2024-07-10 06:14] LABS: Basophils # (auto) 0.04 K/uL (0.00-0.20); Basophils % (auto) 0.3 %; Eosinophils # (auto) 0.17 K/uL (0.00-0.50); Eosinophils % (auto) 1.4 %; Hematocrit (blood only) 31.6 % (37.0-47.0); Hemoglobin 9.4 g/dl (12.0-16.0); Immature Granulocytes # (auto) 0.09 K/uL (0.01-0.20); Immature Granulocytes % (auto) 0.8 %; Lymphocytes # (auto) 2.81 K/uL (1.20-3.40); Lymphocytes % (auto) 23.4 %; Mean Corpuscular Hemoglobin 24.1 pg (25.0-34.0); Mean Corpuscular Hgb Conc 29.7 g/dL (32.0-36.0); Mean Platelet Volume 10.5 fL (9.4-12.4); Monocytes # (auto) 1.67 K/uL (0.11-0.59); Monocytes % (auto) 13.9 %; Neutrophils # (auto) 7.21 K/uL (1.40-6.50); Neutrophils % (auto) 60.2 %; Platelet Count 368 K/uL (130-400); RDW Coefficient of Variation 16.2 % (11.5-14.5); RDW Standard Deviation 46.8 fL (36.4-46.3); White Blood Count 11.99 K/ul (4.8-10.8)
[2024-07-10 06:39] LABS: Calcium 9.5 mg/dl (8.6-10.3); Magnesium 1.6 mg/dl (1.7-2.4); Potassium 3.5 mmol/L (3.5-5.1)
[2024-07-10 06:45] LABS: BUN Creatinine Ratio 18.7 (10-20)
[2024-07-10] MEDS: amLODIPine BESYLATE 5 MG TAB PO ONE (08:27)
--- NOTE | 2024-07-10 15:01 | Hospitalist Progress Note ---
Date of Service July 10, 2024 Assessment & Plan (1) Symptomatic anemia: Plan: Hemoglobin as an outpatient was 7.2 and admitting hemoglobin was 8.4 Due to Iron deficiency anemia and is completed by anemia of chronic disease-Iron Level was 10 Received 300 mg of IV Venofer in the emergency room and Fecal occult negative in ED H/O polyp, hiatal hernia Avoid NSAIDs, anticoagulation for now Anemia workup ordered GI consulted for possible EGD - appreciate input and recommendation- not for any EGD Continue home PPI Hemoglobin remains stable at 9.4 Hypertension Blood pressure was elevated more than 170s this morning and received 2.5 mg of oral Norvasc's Blood pressure seems to be stable as of now with 126/66 (2) COPD (chronic obstructive pulmonary disease): Plan: Acute on chronic bronchitis Suspected pneumonia H/O COPD Chronic oxygen dependency-at bedtime BioFire positive for coronavirus OC43 Currently no signs of wheezing on exam Isolation precautions Check procalcitonin- negative Empirically started on Rocephin, doxycycline Continue home inhalers Nebs as needed Pulmonary hygiene Continue supplemental oxygen at bedtime Condition has been improving and no wheezing and no increasing shortness of breath so steroid was not given Will continue current management and get PT OT evaluation prior to discharge Abnormal EKG Denies any chest pain Trend troponins, check resting echo Hypokalemia Replete electrolytes as needed Monitor Recent fall Fall precautions PT OT Other chronic conditions Hypertension Hyperlipidemia PVD GERD Hypothyroidism Carotid based tumor S/P radiation Past tobacco abuse Continue home medications as able DVT Px: SCDs for now CODE STATUS Full code Disposition Admitted to [facility] with telemetry PT OT prior to discharge Admission and Anticipated Discharge Date Admission Date: July 08, 2024 Subjective 07/09/2024 The patient was seen and examined in medical telemetry unit She has been feeling better and denies any significant shortness of breath at rest Noted to have high blood pressure as 177/78 07/10/2024 The patient was seen and examined in medical telemetry unit She has been feeling much better with decreasing shortness of breath Her blood pressure was noted to be high Review of Systems Review of Systems: All systems reviewed and are unremarkable except as noted below Physical Exam Physical Exam: Sitting on a chair with minimal respiratory distress Constitutional: + ill appearing and + thin Eyes: PERRL, conjunctivae normal, anicteric sclerae ENMT: external ear and nose normal, oropharynx normal Neck: trachea midline, no thyromegaly Respiratory: no respiratory distress Auscultation: + diminished lung sounds and + crackles ( occasional crackles at the bases) Cardiovascular: Rate/Rhythm: regular rate, regular rhythm and + bradycardic Heart Sounds: normal S1 and normal S2; no murmur Extremities: no edema Gastrointestinal (Abdomen): Inspection/Auscultation: normal bowel sounds; abdomen not distended Percussion/Palpation: abdomen soft; abdomen nontender Neurologic: normal touch/pain/proprioception and moves all extremities; no focal motor deficits Lymphatic: no cervical or axillary lymphadenopathy Results & Data Results & Data Vital Signs (Past 12 Hours) Vital Signs Temp Pulse Resp BP Pulse Ox O2 Del Method O2 Flow Rate 07/10/24 11:31 36.7 C 60 20 126/66 94 Nasal Cannula 2 07/10/24 07:30 Nasal Cannula 2 07/10/24 07:29 36.4 C L 60 16 187/81 H 100 Nasal Cannula 2 07/10/24 07:02 58 L 16 98 Nasal Cannula 2 07/10/24 03:00 36.7 C 57 L 16 115/61 99 Nasal Cannula 2 Laboratory Results Short CBC 07/10/24 Range/Units 05:41 WBC 11.99 H (4.8-10.8) K/ul Hgb 9.4 L (12.0-16.0) g/dl Hct 31.6 L (37.0-47.0) % Plt Count 368 (130-400) K/uL BMP 07/10/24 05:41 Sodium 138 Potassium 3.5 Chloride 100 Carbon Dioxide 31 BUN 14 Creatinine 0.75 Glucose 103 H Calcium 9.5 Medications Administered Current Inpatient Medications Acetaminophen (Acetaminophen 325 Mg Tab) 650 mg PO Q4H PRN PRN Reason: Pain or Fever Stop: 08/07/24 20:36 Last Admin: 07/09/24 16:41 Dose: 650 mg Albuterol (Albut/Ipratrop 3mg/0.5mg Neb 3 Ml Vial) 3 ml NEB Q6R PRN; Protocol PRN Reason: Shortness Of Breath Or Wheezing Stop: 08/07/24 18:03 Atorvastatin Calcium (Atorvastatin 40 Mg Tab) 40 mg PO HS ARIANA Stop: 08/07/24 20:59 Last Admin: 07/09/24 21:46 Dose: 40 mg Budesonide (Budesonide 0.5 Mg/2 Ml Vial (Pulmicort)) 0.5 mg INH BID ARIANA Stop: 08/07/24 20:59 Last Admin: 07/10/24 07:02 Dose: 0.5 mg Calcium Carbonate (Calcium Carbonate 500 Mg Chewable Tab) 200 mg PO QID PRN PRN Reason: Heartburn Stop: 08/07/24 20:36 Calcium/Vitamin D (Calcium 600mg + Vit D 400 Iu Tab) 1 tab PO BID ARIANA Stop: 08/07/24 20:59 Last Admin: 07/10/24 07:55 Dose: 1 tab Chlorthalidone (Chlorthalidone 25 Mg Tab) 25 mg PO DAILY [facility]ANA Stop: 08/08/24 08:59 Last Admin: 07/10/24 07:55 Dose: 25 mg Cyanocobalamin (Cyanocobalamin (B-12) 500 Mcg Tablet) 500 mcg PO QAM ARIANA Stop: 08/08/24 08:59 Last Admin: 07/10/24 07:55 Dose: 500 mcg Doxycycline Hyclate (Doxycycline Hyclate 100 Mg Cap) 100 mg PO BID ARIANA Stop: 07/13/24 20:59 Last Admin: 07/10/24 07:55 Dose: 100 mg Famotidine (Famotidine 10 Mg Tablet) 10 mg PO BID PRN PRN Reason: Dyspepsia Stop: 08/07/24 20:36 Fluticasone Furoate (Fluticasone Furoate 100mcg 14 Puffs/Inhaler) 1 puffs INH DAILY [facility]ANA Stop: 08/08/24 08:59 Last Admin: 07/10/24 07:55 Dose: 1 puffs Gabapentin (Gabapentin 100 Mg Cap) 100 mg PO TID ARIANA Stop: 08/07/24 20:59 Last Admin: 07/10/24 13:00 Dose: 100 mg Guaifenesin (Guaifenesin 600 Mg Tabcr) 600 mg PO Q12 ARIANA Stop: 08/07/24 20:59 Last Admin: 07/10/24 07:55 Dose: 600 mg Ceftriaxone Sodium (Rocephin) 1,000 mg in 50 mls @ 100 mls/hr IV Q24H [facility]ANA Stop: 07/13/24 20:59 Last Infusion: 07/09/24 22:25 Dose: Infused Levothyroxine Sodium (Levothyroxine Sodium 137 Mcg Tablet) 137 mcg PO DAILYBB [facility] Stop: 08/08/24 06:29 Last Admin: 07/10/24 05:42 Dose: 137 mcg Lisinopril (Lisinopril 20 Mg Tab) 20 mg PO QAM ARIANA Stop: 08/08/24 08:59 Last Admin: 07/10/24 07:55 Dose: 20 mg Metoprolol Tartrate (Metoprolol Tartrate 50 Mg Tab) 50 mg PO BID ARIANA Stop: 08/07/24 20:59 Last Admin: 07/10/24 07:55 Dose: 50 mg Ondansetron HCl (Ondansetron Inj 2 Mg/Ml 2 Ml Vial) 4 mg IV Q6H PRN PRN Reason: Nausea Stop: 08/07/24 20:36 Pantoprazole Sodium (Pantoprazole 40 Mg Tab) 40 mg PO DAILY [facility]ANA Stop: 08/08/24 08:59 Last Admin: 07/10/24 07:55 Dose: 40 mg Polyethylene Glycol (Polyethylene (Miralax) 17 Gm Pack) 17 gm PO DAILY PRN PRN Reason: Constipation Stop: 08/07/24 20:36 Sertraline HCl (Sertraline Hcl 50 Mg Tablet) 25 mg PO DAILY ARIANA Stop: 08/08/24 08:59 Last Admin: 07/10/24 07:55 Dose: 25 mg Sodium Chloride (Sodium Chloride 0.65% Na Soln 45 Ml ([place])) 1 sprays NA UD PRN PRN Reason: NASAL DRYNESS Stop: 08/07/24 20:36 Trazodone HCl (Trazodone Hcl 50 Mg Tab) 50 mg PO HS ARIANA Stop: 08/07/24 20:59 Last Admin: 07/09/24 21:45 Dose: 50 mg Umeclidinium/Vilanterol (Umeclidinium/Vilanterol 62.5/25mcg 7 Puffs/Inhaler) 1 puffs INH DAILY ARIANA Stop: 08/08/24 08:59 Last Admin: 07/10/24 07:56 Dose: 1 puffs (2) COPD (chronic obstructive pulmonary disease) COPD type: unspecified COPD Qualified Code(s): J44.9 - Chronic obstructive pulmonary disease, unspecified
[2024-07-10] MEDS: POLYETHYLENE (MIRALAX) 17 GM PACK PO PRN (21:53)
[2024-07-11 06:32] LABS: Basophils # (auto) 0.04 K/uL (0.00-0.20); Basophils % (auto) 0.4 %; Eosinophils # (auto) 0.13 K/uL (0.00-0.50); Eosinophils % (auto) 1.2 %; Hematocrit (blood only) 31.8 % (37.0-47.0); Hemoglobin 9.6 g/dl (12.0-16.0); Immature Granulocytes # (auto) 0.11 K/uL (0.01-0.20); Immature Granulocytes % (auto) 1.1 %; Lymphocytes # (auto) 2.41 K/uL (1.20-3.40); Lymphocytes % (auto) 23.1 %; Mean Corpuscular Hemoglobin 24.4 pg (25.0-34.0); Mean Corpuscular Hgb Conc 30.2 g/dL (32.0-36.0); Mean Corpuscular Volume 80.9 fL (80.0-100.0); Mean Platelet Volume 10.8 fL (9.4-12.4); Monocytes # (auto) 1.35 K/uL (0.11-0.59); Neutrophils # (auto) 6.38 K/uL (1.40-6.50); Neutrophils % (auto) 61.2 %; Platelet Count 401 K/uL (130-400); RDW Coefficient of Variation 16.8 % (11.5-14.5); RDW Standard Deviation 48.1 fL (36.4-46.3); Red Blood Count 3.93 M/uL (4.20-5.40); White Blood Count 10.42 K/ul (4.8-10.8)
[2024-07-11 06:58] LABS: BUN Creatinine Ratio 24.4 (10-20); Calcium 9.5 mg/dl (8.6-10.3); Creatinine Clr Calc Pharmacy 31.4 ml/min; Magnesium 1.4 mg/dl (1.7-2.4); Potassium 3.6 mmol/L (3.5-5.1)
[2024-07-11] MEDS: POTASSIUM CHLORIDE CRTAB 20 MEQ TABCR PO STA (09:32)
[2024-07-11] MEDS: MAGNESIUM SULFATE / D5W 1 GM/100 ML BAG IV SCH (09:32)
--- NOTE | 2024-07-11 11:45 | Hospitalist Progress Note ---
Date of Service July 11, 2024 Assessment & Plan (1) Symptomatic anemia: Plan: Hemoglobin as an outpatient was 7.2 and admitting hemoglobin was 8.4 Due to Iron deficiency anemia and is completed by anemia of chronic disease-Iron Level was 10 Received 300 mg of IV Venofer in the emergency room and Fecal occult negative in ED H/O polyp, hiatal hernia Avoid NSAIDs, anticoagulation for now Anemia workup ordered GI consulted for possible EGD - appreciate input and recommendation- not for any EGD Continue home PPI Hemoglobin remains stable at 9.4 Has been feeling much better and does not have any symptoms at rest Hypertension Blood pressure was elevated more than 170s this morning and received 2.5 mg of oral Norvasc's Blood pressure seems to be stable as of now with 126/66 Blood pressure remains on the lower side at 92/55 as of this morning Electrolyte imbalance Has low magnesium and also borderline low potassium Will supplement IV magnesium and oral potassium,recheck in the morning (2) COPD (chronic obstructive pulmonary disease): Plan: Acute on chronic bronchitis Suspected pneumonia H/O COPD Chronic oxygen dependency-at bedtime BioFire positive for coronavirus OC43 Currently no signs of wheezing on exam Isolation precautions Check procalcitonin- negative Empirically started on Rocephin, doxycycline Continue home inhalers Nebs as needed Pulmonary hygiene Continue supplemental oxygen at bedtime Condition has been improving and no wheezing and no increasing shortness of breath so steroid was not given Will continue current management and get PT OT evaluation prior to discharge likely discharge tomorrow Abnormal EKG Denies any chest pain Trend troponins, check resting echo Hypokalemia Replete electrolytes as needed Monitor Recent fall Fall precautions PT OT Other chronic conditions Hypertension Hyperlipidemia PVD GERD Hypothyroidism Carotid based tumor S/P radiation Past tobacco abuse Continue home medications as able DVT Px: SCDs for now CODE STATUS Full code Disposition Admitted to [facility] with telemetry PT OT prior to discharge Admission and Anticipated Discharge Date Admission Date: July 08, 2024 Subjective 07/09/2024 The patient was seen and examined in medical telemetry unit She has been feeling better and denies any significant shortness of breath at rest Noted to have high blood pressure as 177/78 07/10/2024 The patient was seen and examined in medical telemetry unit She has been feeling much better with decreasing shortness of breath Her blood pressure was noted to be high 07/11/2024 The patient was seen and examined in medical telemetry unit She has been feeling much better but noted to have electrolyte imbalance with weakness She denies any other significant symptoms Review of Systems Review of Systems: All systems reviewed and are unremarkable except as noted below Physical Exam Physical Exam: Sitting on a chair with minimal respiratory distress Constitutional: + ill appearing and + thin Eyes: PERRL, conjunctivae normal, anicteric sclerae ENMT: external ear and nose normal, oropharynx normal Neck: trachea midline, no thyromegaly Respiratory: no respiratory distress Auscultation: + diminished lung sounds and + crackles ( occasional crackles at the bases) Cardiovascular: Rate/Rhythm: regular rate, regular rhythm and + bradycardic Heart Sounds: normal S1 and normal S2; no murmur Extremities: no edema Gastrointestinal (Abdomen): Inspection/Auscultation: normal bowel sounds; abdomen not distended Percussion/Palpation: abdomen soft; abdomen nontender Neurologic: normal touch/pain/proprioception and moves all extremities; no focal motor deficits Lymphatic: no cervical or axillary lymphadenopathy Results & Data Results & Data Vital Signs (Past 12 Hours) Vital Signs Temp Pulse Pulse Resp BP BP Pulse Ox 07/11/24 11:18 36.5 C 62 17 92/55 L 96 07/11/24 09:36 55 L 07/11/24 07:49 36.4 C L 59 L 17 113/64 100 07/11/24 07:07 07/11/24 06:59 56 L 16 99 07/11/24 03:38 36.5 C 72 20 109/65 97 07/11/24 00:25 36.5 C 70 18 98/60 L 94 O2 Del Method O2 Flow Rate 07/11/24 11:18 Room Air 07/11/24 09:36 07/11/24 07:49 Nasal Cannula 2 07/11/24 07:07 Nasal Cannula 3 07/11/24 06:59 Nasal Cannula 2 07/11/24 03:38 Nasal Cannula 2 07/11/24 00:25 Nasal Cannula 2 Laboratory Results Short CBC 07/11/24 Range/Units 05:38 WBC 10.42 (4.8-10.8) K/ul Hgb 9.6 L (12.0-16.0) g/dl Hct 31.8 L (37.0-47.0) % Plt Count 401 H (130-400) K/uL BMP 07/11/24 05:38 Sodium 139 Potassium 3.6 Chloride 98 Carbon Dioxide 35 H BUN 19 Creatinine 0.78 Glucose 97 Calcium 9.5 Medications Administered Current Inpatient Medications Acetaminophen (Acetaminophen 325 Mg Tab) 650 mg PO Q4H PRN PRN Reason: Pain or Fever Stop: 08/07/24 20:36 Last Admin: 07/09/24 16:41 Dose: 650 mg Albuterol (Albut/Ipratrop 3mg/0.5mg Neb 3 Ml Vial) 3 ml NEB Q6R PRN; Protocol PRN Reason: Shortness Of Breath Or Wheezing Stop: 08/07/24 18:03 Atorvastatin Calcium (Atorvastatin 40 Mg Tab) 40 mg PO HS ARIANA Stop: 08/07/24 20:59 Last Admin: 07/10/24 21:54 Dose: 40 mg Budesonide (Budesonide 0.5 Mg/2 Ml Vial (Pulmicort)) 0.5 mg INH BID ARIANA Stop: 08/07/24 20:59 Last Admin: 07/11/24 06:58 Dose: 0.5 mg Calcium Carbonate (Calcium Carbonate 500 Mg Chewable Tab) 200 mg PO QID PRN PRN Reason: Heartburn Stop: 08/07/24 20:36 Calcium/Vitamin D (Calcium 600mg + Vit D 400 Iu Tab) 1 tab PO BID ARIANA Stop: 08/07/24 20:59 Last Admin: 07/11/24 07:36 Dose: 1 tab Chlorthalidone (Chlorthalidone 25 Mg Tab) 25 mg PO DAILY ARIANA Stop: 08/08/24 08:59 Last Admin: 07/11/24 07:36 Dose: 25 mg Cyanocobalamin (Cyanocobalamin (B-12) 500 Mcg Tablet) 500 mcg PO QAM ARIANA Stop: 08/08/24 08:59 Last Admin: 07/11/24 07:36 Dose: 500 mcg Doxycycline Hyclate (Doxycycline Hyclate 100 Mg Cap) 100 mg PO BID ARIANA Stop: 07/13/24 20:59 Last Admin: 07/11/24 07:36 Dose: 100 mg Famotidine (Famotidine 10 Mg Tablet) 10 mg PO BID PRN PRN Reason: Dyspepsia Stop: 08/07/24 20:36 Fluticasone Furoate (Fluticasone Furoate 100mcg 14 Puffs/Inhaler) 1 puffs INH DAILY ARIANA Stop: 08/08/24 08:59 Last Admin: 07/11/24 07:36 Dose: 1 puffs Gabapentin (Gabapentin 100 Mg Cap) 100 mg PO TID ARIANA Stop: 08/07/24 20:59 Last Admin: 07/11/24 07:36 Dose: 100 mg Guaifenesin (Guaifenesin 600 Mg Tabcr) 600 mg PO Q12 ARIANA Stop: 08/07/24 20:59 Last Admin: 07/11/24 07:36 Dose: 600 mg Ceftriaxone Sodium (Rocephin) 1,000 mg in 50 mls @ 100 mls/hr IV Q24H ARIANA Stop: 07/13/24 20:59 Last Infusion: 07/10/24 22:23 Dose: Infused Magnesium Sulfate/Dextrose (Magnesium Sulfate / D5w) 1 gm in 100 mls @ 50 mls/hr IV Q2H [facility]ANA Stop: 07/11/24 13:14 Last Admin: 07/11/24 11:31 Dose: 50 mls/hr Levothyroxine Sodium (Levothyroxine Sodium 137 Mcg Tablet) 137 mcg PO DAILYBB [facility] Stop: 08/08/24 06:29 Last Admin: 07/11/24 06:03 Dose: 137 mcg Lisinopril (Lisinopril 20 Mg Tab) 20 mg PO QAM [facility] Stop: 08/08/24 08:59 Last Admin: 07/11/24 07:36 Dose: 20 mg Metoprolol Tartrate (Metoprolol Tartrate 50 Mg Tab) 50 mg PO BID ARIANA Stop: 08/07/24 20:59 Last Admin: 07/11/24 07:36 Dose: 50 mg Ondansetron HCl (Ondansetron Inj 2 Mg/Ml 2 Ml Vial) 4 mg IV Q6H PRN PRN Reason: Nausea Stop: 08/07/24 20:36 Pantoprazole Sodium (Pantoprazole 40 Mg Tab) 40 mg PO DAILY [facility] Stop: 08/08/24 08:59 Last Admin: 07/11/24 07:37 Dose: 40 mg Polyethylene Glycol (Polyethylene (Miralax) 17 Gm Pack) 17 gm PO DAILY PRN PRN Reason: Constipation Stop: 08/07/24 20:36 Last Admin: 07/10/24 21:53 Dose: 17 gm Sertraline HCl (Sertraline Hcl 50 Mg Tablet) 25 mg PO DAILY ARIANA Stop: 08/08/24 08:59 Last Admin: 07/11/24 07:37 Dose: 25 mg Sodium Chloride (Sodium Chloride 0.65% Na Soln 45 Ml ([place])) 1 sprays NA UD PRN PRN Reason: NASAL DRYNESS Stop: 08/07/24 20:36 Trazodone HCl (Trazodone Hcl 50 Mg Tab) 50 mg PO HS ARIANA Stop: 08/07/24 20:59 Last Admin: 07/10/24 21:54 Dose: 50 mg Umeclidinium/Vilanterol (Umeclidinium/Vilanterol 62.5/25mcg 7 Puffs/Inhaler) 1 puffs INH DAILY ARIANA Stop: 08/08/24 08:59 Last Admin: 07/11/24 07:37 Dose: 1 puffs (2) COPD (chronic obstructive pulmonary disease) COPD type: unspecified COPD Qualified Code(s): J44.9 - Chronic obstructive pulmonary disease, unspecified
[2024-07-12 07:20] LABS: BUN Creatinine Ratio 29.1 (10-20); Calcium 9.6 mg/dl (8.6-10.3); Creatinine Clr Calc Pharmacy 31.5 ml/min; Magnesium 1.8 mg/dl (1.7-2.4)
[2024-07-12 07:56] VITALS: RESP 18
[2024-07-12 11:10] VITALS: BP 106/63; PULSE 67; TEMP 97.7; O2SAT 97
--- NOTE | 2024-07-12 13:28 | Hospitalist Progress Note ---
Date of Service July 12, 2024 Assessment & Plan (1) Symptomatic anemia: Plan: Hemoglobin as an outpatient was 7.2 and admitting hemoglobin was 8.4 Due to Iron deficiency anemia and is completed by anemia of chronic disease-Iron Level was 10 Received 300 mg of IV Venofer in the emergency room and Fecal occult negative in ED H/O polyp, hiatal hernia Avoid NSAIDs, anticoagulation for now Anemia workup ordered GI consulted for possible EGD - appreciate input and recommendation- not for any EGD Continue home PPI Hemoglobin remains stable at 9.4 Has been feeling much better and does not have any symptoms at rest Hypertension Blood pressure was elevated more than 170s this morning and received 2.5 mg of oral Norvasc's Blood pressure seems to be stable as of now with 126/66 Blood pressure remains on the lower side at 92/55 as of this morning Her blood pressure remains stable and does not require to change any medications Electrolyte imbalance Has low magnesium and also borderline low potassium Will supplement IV magnesium and oral potassium,recheck in the morning Her electrolytes were replaced and have been normalized (2) COPD (chronic obstructive pulmonary disease): Plan: Acute on chronic bronchitis Suspected pneumonia H/O COPD Chronic oxygen dependency-at bedtime BioFire positive for coronavirus OC43 Currently no signs of wheezing on exam Isolation precautions Check procalcitonin- negative Empirically started on Rocephin, doxycycline Continue home inhalers Nebs as needed Pulmonary hygiene Continue supplemental oxygen at bedtime Condition has been improving and no wheezing and no increasing shortness of breath so steroid was not given Will continue current management and get PT OT evaluation prior to discharge likely discharge tomorrow Will finish the course of antibiotic on discharge Abnormal EKG Denies any chest pain Trend troponins, check resting echo Hypokalemia Replete electrolytes as needed Monitor Recent fall Fall precautions PT OT Other chronic conditions Hypertension Hyperlipidemia PVD GERD Hypothyroidism Carotid based tumor S/P radiation Past tobacco abuse Continue home medications as able DVT Px: SCDs for now CODE STATUS Full code Disposition Admitted to [facility] with telemetry PT OT prior to discharge Admission and Anticipated Discharge Date Admission Date: July 08, 2024 Subjective 07/09/2024 The patient was seen and examined in medical telemetry unit She has been feeling better and denies any significant shortness of breath at rest Noted to have high blood pressure as 177/78 07/10/2024 The patient was seen and examined in medical telemetry unit She has been feeling much better with decreasing shortness of breath Her blood pressure was noted to be high 07/11/2024 The patient was seen and examined in medical telemetry unit She has been feeling much better but noted to have electrolyte imbalance with weakness She denies any other significant symptoms 07/12/2024 The patient was seen and examined in medical telemetry unit She has been feeling much better and wants to be discharged Denies any significant symptoms at rest and has been saturating normally on 2 L Weakness is better and her electrolytes are normalized Review of Systems Review of Systems: All systems reviewed and are unremarkable except as noted below Physical Exam Physical Exam: Sitting on a chair with minimal respiratory distress Constitutional: + ill appearing and + thin Eyes: PERRL, conjunctivae normal, anicteric sclerae ENMT: external ear and nose normal, oropharynx normal Neck: trachea midline, no thyromegaly Respiratory: no respiratory distress Auscultation: + diminished lung sounds and + crackles ( occasional crackles at the bases) Cardiovascular: Rate/Rhythm: regular rate, regular rhythm and + bradycardic Heart Sounds: normal S1 and normal S2; no murmur Extremities: no edema Gastrointestinal (Abdomen): Inspection/Auscultation: normal bowel sounds; abdomen not distended Percussion/Palpation: abdomen soft; abdomen nontender Neurologic: normal touch/pain/proprioception and moves all extremities; no focal motor deficits Lymphatic: no cervical or axillary lymphadenopathy Results & Data Results & Data Vital Signs (Past 12 Hours) Vital Signs Temp Pulse Pulse Resp BP BP Pulse Ox 07/12/24 11:10 36.5 C 67 18 106/63 97 07/12/24 08:00 07/12/24 07:55 36.3 C L 71 18 109/67 96 07/12/24 07:08 76 16 97 07/12/24 07:00 80 07/12/24 03:30 36.3 C L 62 18 103/62 96 O2 Del Method O2 Flow Rate 07/12/24 11:10 Nasal Cannula 2 07/12/24 08:00 Nasal Cannula 3 07/12/24 07:55 Nasal Cannula 3 07/12/24 07:08 Nasal Cannula 2 07/12/24 07:00 07/12/24 03:30 Nasal Cannula 2 Laboratory Results BMP 07/12/24 06:29 Sodium 138 Potassium 4.0 Chloride 100 Carbon Dioxide 33 H BUN 23 Creatinine 0.79 Glucose 92 Calcium 9.6 Medications Administered Current Inpatient Medications Acetaminophen (Acetaminophen 325 Mg Tab) 650 mg PO Q4H PRN PRN Reason: Pain or Fever Stop: 08/07/24 20:36 Last Admin: 07/12/24 07:37 Dose: 650 mg Albuterol (Albut/Ipratrop 3mg/0.5mg Neb 3 Ml Vial) 3 ml NEB Q6R PRN; Protocol PRN Reason: Shortness Of Breath Or Wheezing Stop: 08/07/24 18:03 Atorvastatin Calcium (Atorvastatin 40 Mg Tab) 40 mg PO HS ARIANA Stop: 08/07/24 20:59 Last Admin: 07/11/24 21:51 Dose: 40 mg Budesonide (Budesonide 0.5 Mg/2 Ml Vial (Pulmicort)) 0.5 mg INH BID ARIANA Stop: 08/07/24 20:59 Last Admin: 07/12/24 07:08 Dose: 0.5 mg Calcium Carbonate (Calcium Carbonate 500 Mg Chewable Tab) 200 mg PO QID PRN PRN Reason: Heartburn Stop: 08/07/24 20:36 Calcium/Vitamin D (Calcium 600mg + Vit D 400 Iu Tab) 1 tab PO BID ARIANA Stop: 08/07/24 20:59 Last Admin: 07/12/24 07:39 Dose: 1 tab Chlorthalidone (Chlorthalidone 25 Mg Tab) 25 mg PO DAILY [facility]ANA Stop: 08/08/24 08:59 Last Admin: 07/12/24 07:40 Dose: 25 mg Cyanocobalamin (Cyanocobalamin (B-12) 500 Mcg Tablet) 500 mcg PO QAM [facility] Stop: 08/08/24 08:59 Last Admin: 07/12/24 07:38 Dose: 500 mcg Doxycycline Hyclate (Doxycycline Hyclate 100 Mg Cap) 100 mg PO BID ARIANA Stop: 07/13/24 20:59 Last Admin: 07/12/24 07:38 Dose: 100 mg Famotidine (Famotidine 10 Mg Tablet) 10 mg PO BID PRN PRN Reason: Dyspepsia Stop: 08/07/24 20:36 Fluticasone Furoate (Fluticasone Furoate 100mcg 14 Puffs/Inhaler) 1 puffs INH DAILY [facility]ANA Stop: 08/08/24 08:59 Last Admin: 07/12/24 07:40 Dose: 1 puffs Gabapentin (Gabapentin 100 Mg Cap) 100 mg PO TID ARIANA Stop: 08/07/24 20:59 Last Admin: 07/12/24 07:37 Dose: 100 mg Guaifenesin (Guaifenesin 600 Mg Tabcr) 600 mg PO Q12 ARIANA Stop: 08/07/24 20:59 Last Admin: 07/12/24 07:38 Dose: 600 mg Ceftriaxone Sodium (Rocephin) 1,000 mg in 50 mls @ 100 mls/hr IV Q24H [facility]ANA Stop: 07/13/24 20:59 Last Infusion: 07/11/24 22:21 Dose: Infused Levothyroxine Sodium (Levothyroxine Sodium 137 Mcg Tablet) 137 mcg PO DAILYBB [facility] Stop: 08/08/24 06:29 Last Admin: 07/12/24 05:44 Dose: 137 mcg Lisinopril (Lisinopril 20 Mg Tab) 20 mg PO QAM ARIANA Stop: 08/08/24 08:59 Last Admin: 07/12/24 07:38 Dose: 20 mg Metoprolol Tartrate (Metoprolol Tartrate 50 Mg Tab) 50 mg PO BID [facility]ANA Stop: 08/07/24 20:59 Last Admin: 07/12/24 07:39 Dose: 50 mg Ondansetron HCl (Ondansetron Inj 2 Mg/Ml 2 Ml Vial) 4 mg IV Q6H PRN PRN Reason: Nausea Stop: 08/07/24 20:36 Pantoprazole Sodium (Pantoprazole 40 Mg Tab) 40 mg PO DAILY [facility] Stop: 08/08/24 08:59 Last Admin: 07/12/24 07:38 Dose: 40 mg Polyethylene Glycol (Polyethylene (Miralax) 17 Gm Pack) 17 gm PO DAILY PRN PRN Reason: Constipation Stop: 08/07/24 20:36 Last Admin: 07/11/24 21:50 Dose: 17 gm Sertraline HCl (Sertraline Hcl 50 Mg Tablet) 25 mg PO DAILY [facility] Stop: 08/08/24 08:59 Last Admin: 07/12/24 07:38 Dose: 25 mg Sodium Chloride (Sodium Chloride 0.65% Na Soln 45 Ml ([place])) 1 sprays NA UD PRN PRN Reason: NASAL DRYNESS Stop: 08/07/24 20:36 Trazodone HCl (Trazodone Hcl 50 Mg Tab) 50 mg PO HS [facility] Stop: 08/07/24 20:59 Last Admin: 07/11/24 21:50 Dose: 50 mg Umeclidinium/Vilanterol (Umeclidinium/Vilanterol 62.5/25mcg 7 Puffs/Inhaler) 1 puffs INH DAILY [facility] Stop: 08/08/24 08:59 Last Admin: 07/12/24 07:40 Dose: 1 puffs (2) COPD (chronic obstructive pulmonary disease) COPD type: unspecified COPD Qualified Code(s): J44.9 - Chronic obstructive pulmonary disease, unspecified
--- NOTE | 2024-07-12 19:47 | Discharge Summary ---
Date of Service July 12, 2024 Admission HPI Per Admitting Provider Patient is an 83-year-old female with history of COPD, hypertension, hyperlipidemia, PVD, COPD, nocturnal hypoxemia Home O2, GERD, paraesophageal hernia, hypothyroidism, carotid based tumor S/P radiation, past tobacco abuse, iron deficiency anemia and other medical problems presents with history of generalized weakness. Patient had blood work 2 days ago as outpatient and was found to have low hemoglobin and was evaluated by gastroenterology today and was advised to go to ED for possible EGD. Patient admits to have generalized weakness resulting in a fall 1 week ago. She admits to bump her head and her back during the fall. She currently denies any bleeding issues. She uses Advil intermittently for chronic back pain. Reports having colonoscopy about 10 years ago which showed polyps. She uses Tums and is on omeprazole for acid reflux which she attributes to hiatal hernia. She also reports ongoing chronic cough and dyspnea on exertion which she attributes to her COPD. Denies any chest pain, dyspnea, palpitations, orthopnea, PND, dizziness, pedal edema, wheezing, hemoptysis, fever, chills, loss of consciousness, change in vision, nausea, vomiting, abdominal pain, blood in stools, diarrhea, dysuria, hematuria. Admission Exam Per Admitting Provider Physical Exam: Physical Exam: Vitals signs as noted above General Appearance: Thin, frail, elderly, no apparent distress Head: normocephalic, Atraumatic Eyes: normal inspection, EOMI Neck: supple, Trachea midline Respiratory/Chest: Decreased breath sounds, CTA, No accessory muscle use Cardiovascular: S1, S2, No murmur Abdomen/GI:Soft, Non tender, Bowel sounds present Extremities/Musculoskeletal:normal inspection, no edema Neurologic/Psych:AAOX3, grossly no focal neurological deficits Skin: normal color, warm Principal Diagnosis Acute bronchitis ,COPD, coronavirus OC 43 infection but not COVID-19, hypertension, iron deficiency anemia Discharge Exam Sitting on a chair with minimal respiratory distress Constitutional + ill appearing and + thin Eyes PERRL, conjunctivae normal, anicteric sclerae ENMT external ear and nose normal, oropharynx normal Neck trachea midline, no thyromegaly Respiratory no respiratory distress Auscultation: + diminished lung sounds and + crackles ( occasional crackles at the bases) Cardiovascular Rate/Rhythm: regular rate, regular rhythm and + bradycardic Heart Sounds: normal S1 and normal S2; no murmur Extremities: no edema Gastrointestinal (Abdomen) Inspection/Auscultation: normal bowel sounds; abdomen not distended Percussion/Palpation: abdomen soft; abdomen nontender Neurologic normal touch/pain/proprioception and moves all extremities; no focal motor deficits Lymphatic no cervical or axillary lymphadenopathy Discharge Data Allergies Allergy/AdvReac Type Severity Reaction Status Date / Time latex Allergy Unknown RASH Verified 04/15/24 11:22 No Known Drug Allergies Allergy Unknown . Verified 04/15/24 11:22 Consultations 07/08/24 15:50 ED Decision to Admit Stat 07/08/24 20:37 Consult Gastroenterology Routine Ordered Studies 07/08/24 13:15 CT cervical spine wo con Stat CT head/brain wo con Stat Hospital Course (1) Symptomatic anemia: Hemoglobin as an outpatient was 7.2 and admitting hemoglobin was 8.4 Due to Iron deficiency anemia and is completed by anemia of chronic disease-Iron Level was 10 Received 300 mg of IV Venofer in the emergency room and Fecal occult negative in ED H/O polyp, hiatal hernia Avoid NSAIDs, anticoagulation for now Anemia workup ordered GI consulted for possible EGD - appreciate input and recommendation- not for any EGD Continue home PPI Hemoglobin remains stable at 9.4 Has been feeling much better and does not have any symptoms at rest Hypertension Blood pressure was elevated more than 170s this morning and received 2.5 mg of oral Norvasc's Blood pressure seems to be stable as of now with 126/66 Blood pressure remains on the lower side at 92/55 as of this morning Her blood pressure remains stable and does not require to change any medications Electrolyte imbalance Has low magnesium and also borderline low potassium Will supplement IV magnesium and oral potassium,recheck in the morning Her electrolytes were replaced and have been normalized (2) COPD (chronic obstructive pulmonary disease): Acute on chronic bronchitis Suspected pneumonia H/O COPD Chronic oxygen dependency-at bedtime BioFire positive for coronavirus OC43 Currently no signs of wheezing on exam Isolation precautions Check procalcitonin- negative Empirically started on Rocephin, doxycycline Continue home inhalers Nebs as needed Pulmonary hygiene Continue supplemental oxygen at bedtime Condition has been improving and no wheezing and no increasing shortness of breath so steroid was not given Will continue current management and get PT OT evaluation prior to discharge likely discharge tomorrow Will finish the course of antibiotic on discharge Abnormal EKG Denies any chest pain Trend troponins, check resting echo Hypokalemia Replete electrolytes as needed Monitor Recent fall Fall precautions PT OT Other chronic conditions Hypertension Hyperlipidemia PVD GERD Hypothyroidism Carotid based tumor S/P radiation Past tobacco abuse Continue home medications as able DVT Px: SCDs for now CODE STATUS Full code Disposition Admitted to [facility] with telemetry PT OT prior to discharge Total Time Total Time Spent Total Time Spent (In Minutes): 45 minutes Discharge Plan Discharge Items Patient Disposition: Home - Home Health Services Reason For Visit: SHORTNESS OF BREATH Discharge Diagnosis: Acute bronchitis ,COPD, coronavirus OC 43 infection but not COVID-19, hypertension, iron deficiency anemia Condition on Discharge: Fair Activity: Resume your previous activity Non-emergency contact: Primary Care Provider Call non-emergency contact if: you have any medication questions and your sympto ms worsen Follow-up/Referrals: Yumiko Goldstein DO [Primary Care Provider] - (Date & Time 07/20/2024 1:10 PM Provider: Yumiko Goldstein DO [facility]) Diet: Heart Healthy Diet Texture: Easy to Chew Addtl Attending Provider Instructions: Please take precaution to avoid falls No change in cardiac medications Please have regular follow-up appointment with your healthcare provider Pending Studies at Discharge: No Stand-Alone Forms: My [facility] [employer], Smoking Cessation Medications and DC Order Prescriptions: New doxycycline hyclate 100 mg Capsule 100 mg PO BID Qty: 6 0RF Continued (DME) Oxygen Home Liters Per Minute See Dose Instructions .ROUTE .MEDSUPPLY Qty: 1 0RF Rx Instructions: 3LPM O2 during sleep (DME) compressor, for nebulizer Device See Rx Instructions .Route Qty: 1 0RF Rx Instructions: As directed (DME) nebulizer accessories Kit See Rx Instructions .Route Qty: 1 6RF Rx Instructions: Nebulizer kits,tubing and [id number] ipratropium-albuterol 0.5 mg-3 mg(2.5 mg base)/3 mL solution for nebulization 3 ml INH Q4H PRN (Reason: Shortness Of Breath Or Wheezing) Qty: 360 5RF Calcium 600 with Vitamin D3 600 mg(1,500mg) -400 unit tablet,chewable 1 tab PO AMPM Rx Instructions: otc unable to verify levothyroxine 137 mcg tablet 137 mcg PO DAILYBB sodium chloride 0.65 % aerosol,spray 1 spray intranasal .USE DIRECTED. PRN (Reason: NASAL DRYNESS) Rx Instructions: otc unable to verify atorvastatin 40 mg tablet 40 mg PO HS Qty: 90 metoprolol tartrate 50 mg tablet 50 mg PO BID trazodone 50 mg tablet 50 mg PO HS budesonide 0.5 mg/2 mL suspension for nebulization 0.5 mg inhalation UD Rx Instructions: 0.5 mg inhalation bid. last filled 12/22 30 day supply lisinopril 20 mg tablet 20 mg PO QAM calcium carbonate [Tums] 200 mg calcium (500 mg) Tablet,Chewable 200 mg PO QID PRN (Reason: Heartburn) Rx Instructions: otc unable to verify cyanocobalamin (vitamin B-12) 500 mcg Tablet 500 mcg PO QAM Qty: 30 0RF Rx Instructions: otc unable to verify chlorthalidone 25 mg tablet 25 mg PO UD Rx Instructions: 25 mg po qam. last filled 08/18/23 90 day supply acetaminophen 650 mg Tablet Extended Release 650 mg PO Q4H PRN (Reason: Headache) Rx Instructions: otc unable to verify omeprazole 20 mg capsule,delayed release(DR/EC) 20 mg PO UD Rx Instructions: 20 mg po daily. last filled 01/28/24 1 hour before the first meal of the day; daughter unsure if she's actively taking it gabapentin 100 mg capsule 100 mg PO TID Rx Instructions: per fill history 100 day supply #400 on 06/01/23 albuterol sulfate 90 mcg/actuation HFA aerosol inhaler 2 puff INHALATION Q6H PRN (Reason: sob/wheezing) Rx Instructions: filled 01/27/24 90 day supply Trelegy Ellipta 100-62.5-25 mcg blister with device 1 inh INHALATION QAM Rx Instructions: Filled 06/16 90 day supply #180 sertraline 25 mg tablet 25 mg PO DAILY Discharge Orders: Discharge Order (Routine); Ordered 07/12/24 Ordered By: Tra Mcgarry Admission Data Admit Date/Time: 07/08/24 16:11 Attending Provider: Tra Mcgarry Admit Provider: Simón Crystal Primary Care Provider: Yumiko Goldstein Other Providers: Simón Crystal; Maribell Alvarado; Master Brasher; Krystal Lagunas; Rosa Darden; Vale Estrada; Shiloh Doyle; David Ashby; Bg Sellers; Romero Braswell; Korey Nash; Emma Pittman; Marta Lord; Yenny Warren; Lisa Angeles; Florentin Rowell; Octavio Rivers; Mary Limon; Sagar Carbajal Jr; Demetrio Lemus; Christophe Fernandez; Aleksandar Molina; Jack Alonso; Dankia John; Beck Taylor I; Cristine Redding; Daniel Arzola; Kenney Nobles Other Interventions: Discharge Summary Assessment (RN) Last Done: 07/12/24 13:42
== END 2024-07-12 14:07 | disposition home health service (06) | DRG 811 ==
LOC: ED 12:20 → 2W 16:11 → SUATTDRO 16:11 → 2W 20:13